=== PATIENT | female | born 1955 | race Caucasian/White ===

== ENCOUNTER 2022-05-26 10:54 | Outpatient (CLI) | payer OTHER, SELFPAY ==
[2022-05-26 11:44] LABS: Albumin* 4.3 g/dL (3.3-5.0); Chloride* 102 mmol/L (96-114); Potassium* 4.4 mmol/L (3.6-5.1); Sodium* 138 mmol/L (135-149)
[2022-05-26 11:47] LABS: Estimated Glomerular Filt Rate 63 ml/min
[2022-05-26 11:48] LABS: Blood Urea Nitrogen* 20 mg/dL (7-30); Calcium* 9.7 mg/dL (8.4-10.6); Carbon Dioxide* 28 mmol/L (20-32); Glucose* 109 mg/dL (60-115); Phosphorus* 3.6 mg/dL (2.5-4.5); Uric Acid* 7.6 mg/dL (2.2-8.4)
[2022-05-26 11:49] LABS: Creatinine Urine 121.8 mg/dL
[2022-05-26 11:50] LABS: Microalbumin Creatinine Ratio 0 mg/g (0-30); Microalbumin Urine < 1 mg/dL
== END 2022-05-26 10:55 | disposition home or self-care (01) ==
PROVIDERS: PCP Internal Medicine; Visit Provider Internal Medicine Nephrology
DX: N18.9 Chronic kidney disease, unspecified (principal); F41.9 Anxiety disorder, unspecified
CPT/HCPCS: 80069; 82043; 82570; 84443; 84550; 86140; 87086

== ENCOUNTER 2022-06-30 21:00 | Outpatient (CLI) | payer OTHER, SELFPAY ==
--- OUTSIDE RECORDS SUMMARY | 2022-06-30 21:03 | XMS_ITS | Clinical Summary ---
:1955 Author Organization [facility] Address [address] [place] [address] Care Team Providers Name Role Phone Unavailable Primary Care Provider Unavailable Source Comments Patient records contain information from all sites at [facility]. For routine questions regarding patient records, call [phone] during business hours, M-F 8:00 AM - 5:00 PM Central Time. Record requests for emergency care only can be directed to [phone] at any time.[facility] Medications Medication Sig Dispensed Refills Start End Date Status Date atorvastatin (LIPITOR) TAKE 1 100 tablet 3 Active 20 mg tablet TABLET BY 8 MOUTH DAILY valsartan (DIOVAN) 320 Take 1 30 tablet 11 0 Active mg tablet tablet 2 23 (320 mg total) by mouth daily. hydroCHLOROthiazide Take 1 90 tablet 3 06/02/20 Active (HYDRODIURIL) 25 mg tablet (25 2 23 tablet mg total) by mouth daily. metoprolol succinate TAKE 1 30 tablet 11 Active (TOPROL-XL) 50 mg 24 hr TABLET BY 2 tablet MOUTH DAILY. DO NOT CRUSH OR CHEW. carvediloL (COREG) Take 1 60 tablet 11 06/02/20 D iscontinued 3.125 mg tablet tablet 2 22 (Alt ernate (3.125 mg therapy) total) by mouth 2 (two) times a day with meals. metoprolol succinate Take 1 30 tablet 11 06/29/20 Discontinued (TOPROL-XL) 50 mg 24 hr tablet (50 2 22 tablet mg total) by mouth daily. Do not crush or chew. Active Problems Problem Noted Date Hyperlipidemia 05/13/2016 Hypertension Essential Primary 05/13/2016 Encounters Date Type Specialty Care Team Description 06/25/2022 Refill Nephrology and Sabiha, Med Refill Hypertension Nitesh Renee Jr., D.O. 06/02/2022 External Outreach Nephrology and Sabiha Hyperten thalia Essential Primary (Primary Dx); Hypertension Nitesh Renee Jr., Hyperlipidemia D.O. from Last 3 Months Immunizations Name Administration Dates Next Due Influenza Split 07/23/2014 Social History Tobacco Use Types Packs/Day Years Used Date Smoking Tobacco: Never Sex Assigned at Date Recorded Not on file Last Filed Vital Signs Vital Sign Reading Time Taken Comments Blood Pressure 138/78 06/02/2022 2:58 PM CDT Pulse 81 06/02/2022 2:58 PM CDT Temperature - - Respiratory Rate - - Oxygen Saturation - - Inhaled Oxygen - - Concentration Weight 71.2 kg (156 lb 15.5 06/02/2022 2:58 PM oz) CDT Height 158 cm (5' 2.21) 05/12/2016 8:34 AM Vital si gn result CDT from Clinical No lulu. Body Mass Index 28.52 05/12/2016 8:34 AM CDT Plan of Treatment Health Maintenance Due Date Last Done Comments Bone Density Scan (Osteoporosis 1955 Screen) CT Colonography 1955 Cologuard 1955 FIT 1955 HIV Screening 1955 Hepatitis C Screening 1955 Mammogram 06/20/2016 06/20/2015 (Performed elsewhere), 05/15/2014 (Performed elsewhere) Potassium Level 05/12/2017 05/12/2016 Sodium Level 05/12/2017 05/12/2016 Colonoscopy 07/25/2017 07/25/2007 (Performed elsewhere) Colorectal Cancer Screening 07/25/2017 Fasting Glucose for Diabetes 05/12/2019 05/12/2016, 014, Screening 08/13/2014 Pneumococcal vaccine (65+ years) 06/22/2019 06/22/2018 (2 - PCV) DTaP,Tdap,and Td Vaccines (2 - Td 07/25/2019 07/25/2009, or Tdap) Lipid (Cholesterol) Screening 05/12/2021 05/12/2016, 2009 (Performed elsewhere) Depression Screening (Annual 10/18/2021 PHQ-2) Fall Risk Screen (Annual) 2022 COVID-19 Vaccine (4 - Booster for 05/08/2022 01/06/2022, , Moderna series) 2021 Influenza Vaccine (#1) 2022 08/13/2021, 07/25/2020, 09/12/2019, Additional history exists Cervical Cancer Screening 09/12/2022 09/12/2019, 08/16/2018 , 05/15/2014 (Performed elsewhere) Creatinine Level 10/28/2022 10/28/2021, 05/12/2016, 08/13/2014 Office Visit for Blood Pressure 06/02/2023 06/02/2022 Check / Re-check Zoster Vaccines Completed 02/25/2019, 01/20/2019, 06/22/2018 Insurance Payer Benefit Plan / Subscriber ID Effective Phone Address T ype Group Dates [facility] [id number] 2018-Pres [phone] [address] [employer] [phone] [place] [address] ([place]) [place] [address]
--- OUTSIDE RECORDS SUMMARY | 2022-06-30 21:03 | XMS_ITS | Encounter Summary ---
:1955 Author Organization [facility] Address [address] [place] [address] Care Team Providers Name Role Phone Unavailable Primary Care Provider Unavailable Reason for Visit Reason Comments Med Refill Encounter Details Date Type Department Care Team Description 05/22/2019 Refill Department of Cardiovascular Inder Amaya Jr., Med Refill Medicine in [facility] [address] [place] [phone] Social History Tobacco Use Types Packs/Day Years Used Date Smoking Tobacco: Never Sex Assigned at Date Recorded Not on file documented as of this encounter Miscellaneous Notes Telephone Encounter - Ila Valle V. - 05/22/2019 2:13 PM CDT Patient has not seen CV in > 15 months. Please have PCP fill Rx. documented in this encounter Plan of Treatment Not on filedocumented as of this encounter Visit Diagnoses Not on filedocumented in this encounter
--- OUTSIDE RECORDS SUMMARY | 2022-06-30 21:03 | XMS_ITS | Encounter Summary ---
:1955 Author Organization [facility] Address [address] [place] [address] Care Team Providers Name Role Phone Unavailable Primary Care Provider Unavailable Reason for Visit Appointment Request (Routine) - Closed Specialty Diagnoses / Procedures Referred By Contact Refer red To Contact Nephrology and Hypertension Referral ID Status Reason Start Date Expiration Date Visits Requ ested Visits Authorized [id number] Closed 05/21/2022 05/21/2023 1 Encounter Details Date Type Department Care Team Description 06/02/2022 External Outreach Division of Claire Landis on Essential Primary (Primary Dx); Nephrology and Nitesh Renee Jr., Hyperlipidem ia Hypertension in D[place]O. [place], [place] [address] [facility] [address] [place] [phone] [phone] Social History Tobacco Use Types Packs/Day Years Used Date Smoking Tobacco: Never Sex Assigned at Date Recorded Not on file documented as of this encounter Last Filed Vital Signs Vital Sign Reading Time Taken Comments Blood Pressure 138/78 06/02/2022 2:58 PM CDT Pulse 81 06/02/2022 2:58 PM CDT Temperature - - Respiratory Rate - - Oxygen Saturation - - Inhaled Oxygen Concentration - - Weight 71.2 kg (156 lb 15.5 oz) 06/02/2022 2:58 PM CDT Height - - Body Mass Index 28.52 05/12/2016 8:34 AM CDT documented in this encounter Progress Notes Nitesh Landis Jr., D.O. - 06/02/2022 2:30 PM CDT Referring Provider: No primary care provider on file. SUBJECTIVE out reach [facility] REASON FOR VISIT Follow-up regards hypertension, lightheaded spells difficulties with medication tolerance HISTORY OF PRESENT ILLNESS Ms. Ward is a 67 y.o. female who presents with severe resistant hypertension. Her blood pressures have been excellent recently, on carvedilol 3.125 mg twice daily, valsartan 320 mg orally daily, and hydrochlorothiazide 25 mg orally daily. However she is having diarrhea every time she uses the carvedilol. She has done some experiment swear she skips a dose and the diarrhea goes away. There are no other new medications no other new therapies no sugar free candies or changes in her diet to explain theloose bowel movements. She will need to discontinue this. And while this is extremely frustrating, she is more frustrated by her lightheadedness. She has gonethrough 2 different testing centers, including MRIs, vestibular testing, carotid ultrasounds, orthostatic blood pressures, and no readily apparent cause of her lightheaded episodes have been discovered. She is very frustrated. She feels lightheaded intermittently multiple times per day. No chest pain no palpitations, she does relate that unusually, many nights she has sweating of her shoulders and head only. She has some symptoms of sleep disordered breathing where she wakes up snoring, she does not awaken refreshed, she easily dozes off during the day, and her complains of her loud snoring. We discussed this at our last visit regarding the potential secondary cause of hypertension. She is now wondering about this, we discussed a sleep study. History reviewed. No pertinent past medical history. Current Outpatient Medications: atorvastatin (LIPITOR) 20 mg tablet, TAKE 1 TABLET BY MOUTH DAILY, Disp: 100 tablet, Rfl: 3 hydroCHLOROthiazide (HYDRODIURIL) 25 mg tablet, Take 1 tablet (25 mg total) by mouth daily., Disp: 90 tablet, Rfl: 3 metoprolol succinate (TOPROL-XL) 50 mg 24 hr tablet, Take 1 tablet (50 mg total) by mouth daily. Donot crush or chew., Disp: 30 tablet, Rfl: 11 valsartan (DIOVAN) 320 mg tablet, Take 1 tablet (320 mg total) by mouth daily., Disp: 30 tablet, Rfl: 11 REVIEW OF SYSTEMS All other systems reviewed and are negative. OBJECTIVE BP 138/78 Pulse 81 Wt 71.2 kg BMI 28.52 kg/m?? PHYSICAL EXAMINATION General: Awake alert oriented HEENT: DIMAS, EOMI, Mucous membranes moist, no oral lesions Neck: No Masses, No Bruits Lungs: Clear to ascultation Heart: Regular Rate and Rhythm, No ectopy Murmurs or rubs Abdomen: Soft, Non-tender Extremities: No cyanosis, No clubbing: No edema Neuro: Cranial Nerves intact, Gait is normal, strength grossly normal Skin: no suspicious lesions identified Psychiatric: Normal affect DIAGNOSTICS Chemistries normal CBC normal urinalysis normal without microalbumin ASSESSMENT / PLAN #1 Hypertension Essential Primary We will rule out secondary causes without a formal sleep study. I will have her undergo sleep consult as well. Some of her symptoms are unusual, particularly the diaphoresis of her head and neck alone,and given that she poorly tolerated the carvedilol, we will switch this for metoprolol. I am going going to give her 30 days worth this, and K she tolerates this poorly as well. She will continue to check her blood pressure on a daily basis in the morning. In addition: 1. Sleep studies above 2. Low-sodium diet 3. No NSAIDs or Ball 2 inhibitors 4. Return to clinic in 2 months. Regarding her lightheaded spells, if her sleep studies are normal, we might need to pursue stress testing, Holter monitors, and even 24 hour ambulatory blood pressures to better understand this phenomenon. #2 Hyperlipidemia She will continue on Lipitor Total time: 45 minute Counseling Time: 30 minutes Nitesh Landis Jr., D.O. documented in this encounter Plan of Treatment Not on filedocumented as of this encounter Visit Diagnoses Diagnosis Hypertension Essential Primary - Primary Hyperlipidemia documented in this encounter
--- OUTSIDE RECORDS SUMMARY | 2022-06-30 21:03 | XMS_ITS | Encounter Summary ---
:1955 Author Organization [facility] Address [address] [place] [address] Care Team Providers Name Role Phone Unavailable Primary Care Provider Unavailable Reason for Visit Reason Comments Med Refill Encounter Details Date Type Department Care Team Description 06/12/2019 Refill Department of Cardiovascular Inder Amaya Jr., Med Refill Medicine in [address] [address] Social History Tobacco Use Types Packs/Day Years Used Date Smoking Tobacco: Never Sex Assigned at Date Recorded Not on file documented as of this encounter Miscellaneous Notes Telephone Encounter - Maddy Villela - 06/12/2019 1:11 PM CDT Please have patient's local PCP fill Rx documented in this encounter Plan of Treatment Not on filedocumented as of this encounter Visit Diagnoses Not on filedocumented in this encounter
--- OUTSIDE RECORDS SUMMARY | 2022-06-30 21:03 | XMS_ITS | Encounter Summary ---
:1955 Author Organization [facility] Address [address] [place] [address] Care Team Providers Name Role Phone Unavailable Primary Care Provider Unavailable Reason for Visit Appointment Request (Routine) - Closed Specialty Diagnoses / Procedures Referred By Contact Refer red To Contact Nephrology and Hypertension Referral ID Status Reason Start Date Expiration Date Visits Requ ested Visits Authorized [id number] Closed 11/07/2021 11/07/2022 1 Encounter Details Date Type Department Care Team Description 12/03/2021 External Outreach Division of Dara Will Nephrology and Charlene Hickman, Essential Nadia chema Hypertension in Ph.D. [place], [place] [address] [facility] [address] [place] [phone] [phone] Social History Tobacco Use Types Packs/Day Years Used Date Smoking Tobacco: Never Sex Assigned at Date Recorded Not on file documented as of this encounter Progress Notes Marylou Will M.D., Ph.D. - 12/03/2021 4:00 PM CST Please see scanned in note under document viewer tab for the [facility] [place] outreach visit from this date. 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
--- OUTSIDE RECORDS SUMMARY | 2022-06-30 21:03 | XMS_ITS | Encounter Summary ---
:1955 Author Organization [facility] Address [address] [place] [address] Care Team Providers Name Role Phone Unavailable Primary Care Provider Unavailable Reason for Visit Reason Comments Med Refill Encounter Details Date Type Department Care Team Description 02/05/2022 Refill Division of Nephrology and Sabiha, Kirby Renee Jr., Med Refill Hypertension in [facility] [address] [facility] [address] [place] [address] [place] [address] [phone] Social History Tobacco Use Types Packs/Day Years Used Date Smoking Tobacco: Never Sex Assigned at Date Recorded Not on file documented as of this encounter Plan of Treatment Not on filedocumented as of this encounter Visit Diagnoses Not on filedocumented in this encounter
--- OUTSIDE RECORDS SUMMARY | 2022-06-30 21:03 | XMS_ITS | Encounter Summary ---
:1955 Author Organization [facility] Address [address] [place] [address] Care Team Providers Name Role Phone Unavailable Primary Care Provider Unavailable Reason for Visit Appointment Request (Routine) - Closed Specialty Diagnoses / Procedures Referred By Contact Refer red To Contact Nephrology and Manish Freedman Hypertension Charlene [address] [place] [address] Referral ID Status Reason Start Date Expiration Date Visits Requ ested Visits Authorized [id number] Closed 10/24/2021 10/24/2022 1 1 Encounter Details Date Type Department Care Team Description 11/04/2021 External Outreach Division of Dara Will Nephrology and Charlene Hickman, Essential Nadia chema Hypertension in [place].D[place] (Primary Dx) [address] [place] [address] [phone] Social History Tobacco Use Types Packs/Day Years Used Date Smoking Tobacco: Never Sex Assigned at Date Recorded Not on file documented as of this encounter Consult Notes Marylou Will M.D., Ph.D. 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
--- OUTSIDE RECORDS SUMMARY | 2022-06-30 21:03 | XMS_ITS | Encounter Summary ---
:1955 Author Organization [facility] Address [address] [place] [address] Care Team Providers Name Role Phone Unavailable Primary Care Provider Unavailable Encounter Details Date Type Department Care Team Description 02/10/2022 Orders Only Division of Nephrology Nitesh Landis [email or web address] Essential and Hypertension in C Osvaldo [place] Primary (Primary Dx) [place], [place] [address] [facility] [address] [place] [address] [phone] Social History Tobacco Use Types Packs/Day Years Used Date Smoking Tobacco: Never Sex Assigned at Date Recorded Not on file documented as of this encounter Plan of Treatment Not on filedocumented as of this encounter Visit Diagnoses Diagnosis Hypertension Essential Primary - Primary documented in this encounter
--- OUTSIDE RECORDS SUMMARY | 2022-06-30 21:03 | XMS_ITS | Encounter Summary ---
:1955 Author Organization [facility] Address [address] [place] [address] Care Team Providers Name Role Phone Unavailable Primary Care Provider Unavailable Reason for Visit Appointment Request (Routine) - Closed Specialty Diagnoses / Procedures Referred By Contact Refer red To Contact Referral ID Status Reason Start Date Expiration Date Visits Requ ested Visits Authorized [id number] Closed 12/05/2021 12/05/2022 1 Encounter Details Date Type Department Care Team Description 01/12/2022 External Outreach Division of Claire Landis on Essential Primary (Primary Dx); Nephrology and Nitesh Renee Jr., Hyperlipidem ia Hypertension in [place]. [place], [place] [address] [facility] [address] [place] [address] [phone] Social History Tobacco Use Types Packs/Day Years Used Date Smoking Tobacco: Never Sex Assigned at Date Recorded Not on file documented as of this encounter Progress Notes Nitesh Landis Jr., D.O. - 01/12/2022 2:00 PM CDT Please see scanned in note under document viewer tab for the [facility] [place] outreach visit from this date. Medical Problems Diagnosis List Hyperlipidemia Hypertension Essential Primary documented in this encounter Plan of Treatment Not on filedocumented as of this encounter Visit Diagnoses Diagnosis Hypertension Essential Primary - Primary Hyperlipidemia documented in this encounter
--- OUTSIDE RECORDS SUMMARY | 2022-06-30 21:03 | XMS_ITS | Encounter Summary ---
:1955 Author Organization [facility] Address [address] [place] [address] Care Team Providers Name Role Phone Unavailable Primary Care Provider Unavailable Reason for Visit Reason Comments Med Refill Encounter Details Date Type Department Care Team Description 12/26/2021 Refill Division of Nephrology and Marylou Rodriguez, Med Refill Hypertension in [place], Ph.D. [address] [address] [place] [address] [phone] Social History Tobacco Use Types Packs/Day Years Used Date Smoking Tobacco: Never Sex Assigned at Date Recorded Not on file documented as of this encounter Plan of Treatment Not on filedocumented as of this encounter Visit Diagnoses Not on filedocumented in this encounter
--- OUTSIDE RECORDS SUMMARY | 2022-06-30 21:03 | XMS_ITS | Encounter Summary ---
:1955 Author Organization [facility] Address [address] [place] [address] Care Team Providers Name Role Phone Unavailable Primary Care Provider Unavailable Reason for Visit Reason Comments Med Refill Encounter Details Date Type Department Care Team Description 05/27/2018 Refill Department of Cardiovascular Inder Amaya Jr., Med Refill Medicine in [address] [phone] Social History Tobacco Use Types Packs/Day Years Used Date Smoking Tobacco: Never Sex Assigned at Date Recorded Not on file documented as of this encounter Plan of Treatment Not on filedocumented as of this encounter Visit Diagnoses Not on filedocumented in this encounter
--- OUTSIDE RECORDS SUMMARY | 2022-06-30 21:03 | XMS_ITS | Encounter Summary ---
:1955 Author Organization [facility] Address [address] [place] [address] Care Team Providers Name Role Phone Unavailable Primary Care Provider Unavailable Reason for Visit Reason Comments Med Refill Encounter Details Date Type Department Care Team Description 06/25/2022 Refill Division of Nephrology and Sabiha, Kirby Renee Jr., Med Refill Hypertension in [facility] [address] [facility] [address] [place] [address] [place] [address] [phone] Social History Tobacco Use Types Packs/Day Years Used Date Smoking Tobacco: Never Sex Assigned at Date Recorded Not on file documented as of this encounter Plan of Treatment Not on filedocumented as of this encounter Visit Diagnoses Not on filedocumented in this encounter
--- OUTSIDE RECORDS SUMMARY | 2022-06-30 21:03 | XMS_ITS | Encounter Summary ---
:1955 Author Organization [facility] Address [address] [place] [address] Care Team Providers Name Role Phone Unavailable Primary Care Provider Unavailable Reason for Visit Reason Comments Med Refill Encounter Details Date Type Department Care Team Description 06/21/2019 Refill Department of Cardiovascular Inder Amaya Jr., Med Refill Medicine in [address] [phone] Social History Tobacco Use Types Packs/Day Years Used Date Smoking Tobacco: Never Sex Assigned at Date Recorded Not on file documented as of this encounter Plan of Treatment Not on filedocumented as of this encounter Visit Diagnoses Not on filedocumented in this encounter
--- OUTSIDE RECORDS SUMMARY | 2022-06-30 21:03 | XMS_ITS | Clinical Summary ---
:1955 Author Organization [facility] [place] [address] Care Team Providers Name Role Phone Manish Freedman MD Primary Care Provider Allergies No known active allergies Medications Medication Sig Dispensed Refills Start Date End Date Status NASONEX 50 MCG/ACTUATION inhale 2 sprays 0 Active SPRAY in each nostril by nasal route once daily atorvastatin (LIPITOR) 20 Take 20 mg by 3 06/10/2017 Active mg tablet mouth once daily. hydroCHLOROthiazide TK 1 T PO D 0 04/12/2017 Active (HCTZ) 25 mg tablet LORazepam (ATIVAN) 1 mg Take 1 mg by 1 05/01/2017 Active tablet mouth 2 times daily if needed. JINTELI 1-5 mg-mcg tab Take 1 tablet 2 05/14/2017 Active by mouth once daily. diclofenac topical Apply topically 0 10/31/2020 Active (VOLTAREN) 1 % gel to affected area(s) 4 times daily. omeprazole (PRILOSEC) 40 Take 40 mg by 0 05/13/2021 Active mg Delayed-Release mouth once capsule daily. carvediloL (COREG) 3.125 Take 3.125 mg 0 02/10/2022 Active mg tablet by mouth in the 3 morning and 3.125 mg in the evening. valsartan (DIOVAN) 320 mg Take 320 mg by 0 2 Active tablet mouth once 3 daily. Active Problems Problem Noted Date Bilateral hip pain 05/11/2019 Overview: 4 or 5 previous hip bursa injections by Dr. Rees [id number] approximately MRI of bilateral hips done May 2018. Jul 2018: Bilateral TEnex procedures by Dr. Jose Alejandro Smith of gluteal tendons without significant benefit. April 2019: Bilateral greater trochanteri c bursa hip injection by Dr. Santana Pedroza.75 to 80% benefit several weeks out. October 2019: Repeat bilateral Greater T rochanteric Bursa injections by Dr. Pedroza. 80% better initially, benefit lasted until May 2020. Jun 2020: Repeat bilateral Greater Troc hanteric Bursa injections by Dr. Pedroza. September 2021: Repeat bilateral Greater Trochanteric Bursa injections by Dr. Pedroza. April 2022: Repeat bilateral Greater Troc hanteric Bursa injections by Dr. Pedroza, reporting 60% relief 1 week out. Chronic right-sided low back pain with right-sided sci atica 08/25/2017 Overview: ~ August 2017: Right L4-L5 IL epidural steroid injection by Dr. Chance. September 2017: Lyrica prescription was t oo expensive to start. Pablitombalta PA approved September 2017. ~ December 2017: L5-S1 IL epidural steroid injection by Dr. Chance. Nearly 100% improvement for 3-4 weeks of back and leg pain. ~ September 2018: L5-S1 TF epidural stero id injection by Dr. Chance, Good Lidocaine benefit, but after lidocaine only some help with back pain, leg pain worse. ~ April 2019: bilateral Greater Trochante kennedi Bursa hip injections by Dr. Pedroza. ~ February 2021: L5-S1 Right TF epidural ster oid injection by Dr. Chance. ~ April 2021: L5-S1 IL epidural steroid i njection by Dr. Chance. Essential hypertension 07/01/2017 Unspecified sinusitis (chronic) 05/19/2006 Allergic rhinitis, cause unspecified 05/19/2006 Esophageal reflux 05/19/2006 Dysthymic disorder 05/19/2006 Mixed hyperlipidemia 08/24/2005 Encounters Date Type Specialty Care Team Description 06/24/2022 Orders Only Rajendra Camacho, <No scans attached> 05/04/2022 Procedure Only Jaya Cabrera, PHOTOGRAPH FINISHER 04/23/2022 Procedure Only Santana Pedroza Musculoskele mat Problem MD Nilsa (Follow up bila ter... 04/23/2022 Travel from Last 3 Months Immunizations Name Administration Dates Next Due Influenza A (H1N1), Inactivated 11/20/2009 Influenza RIV4 (Age 18+ Years) PRESERV 08/13/2021, 0, 09/12/2019 FREE Influenza, IIV3 (Age >=3 years) 07/21/2009 Influenza, IIV4 07/01/2017 Pneumococcal Poly,23-Valent (Pneumovax) 06/22/2018 Tdap 07/25/2009 Zoster (Shingrix-RZV, recombinant) 02/25/2019, 01/20/2019, 0 06/22/2018 Family History Medical History Relation Name Comments Heart Disease Father CAD 1st [place] 50's Hyperlipidemia Father Other Father myelofibrosis Hypertension Mother Relation Name Status Comments Father Mother Social History Tobacco Use Types Packs/Day Years Used Date Never Smoker Smokeless Tobacco: Never Used Tobacco Cessation: Counseling Given: Yes Alcohol Use Standard Drinks/Week Comments Yes 0 (1 standard drink = 0.6 oz pure alcoho l) rare Alcohol Habits Answer Date Recorded How often do you have a drink containing alcohol? 2-3 times a week 12/29/2018 How many drinks containing alcohol do you have on a 3 or 4 12/29/2018 typical day when you are drinking? How often do you have six or more drinks on one Never 12/29/2018 occasion? 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 PM FISHING GEAR MECHANIC Plan of Treatment Upcoming Encounters Date Type Specialty Care Team Description 07/01/2022 Ancillary Procedure Health Maintenance Due Date Last Done Comments Hepatitis C screening for age 0301/03/1975 18-79 Mammogram for age 45-75 04/17/2010 04/17/2009 Pap test for age 21-65 04/17/2012 04/17/2009 Lipids for age 45-75 04/24/2013 04/24/2008 Colonoscopy through age 75 06/18/2017 06/18/2007 Pneumococcal series for age 65+ (2 06/22/2019 06/22/2018 - PCV) Tetanus booster 07/25/2019 07/25/2009 BMI (ht and wt on same day) for 10/31/2021 10/31/2020, 04/18, age 18+ 12/29/2018, Additional history exists DEXA/DXA scan for age 65+ 2022 Depression screening for age 12+ 03/06/2022 03/06/2021, COVID-19 vaccine series (4 - 05/08/2022 01/06/2022, 021, Booster for Moderna series) 2021 Influenza for age 65+ 06/18/2022 08/13/2021, 07/25/2020, 09/12/2019, Additional history exists Tdap Completed 07/25/2009 Zoster (shingles) series for age Completed 02/25/2019, 02/2019, 50+ 06/22/2018 Results Not on filefrom Last 3 Months Insurance Payer Benefit Plan / Subscriber ID Effective Dates Phone Addre ss Type Group [facility] [id number] 2018-Presen [address] [address] [place] [address] (Home) [place], [place] [phone] [address] (Work) [employer] Occ Other 10/18/2000 ANGELO [employer] (Home) [phone] (Work) [place] [address] [employer]quita Ward [employer] [address] (Home) [place], [place] [phone] [address] (Work) Care Teams Community Services Manager Relationship Specialty Start Date End Date Manish Freedman MD PCP - General Internal Medicine 12/29/181999 [place] [address]
--- OUTSIDE RECORDS SUMMARY | 2022-06-30 21:03 | XMS_ITS | Encounter Summary ---
:1955 Author Organization [facility] Address [address] [place] [address] Care Team Providers Name Role Phone Unavailable Primary Care Provider Unavailable Encounter Details Date Type Department Care Team Description 02/10/2022 Clinical Communication Division of Nephrology Nitesh Landis and Hypertension cristo Renee Jr., D.O. [place], [place] [address] [facility] [address] [place] [address] [phone] Social History Tobacco Use Types Packs/Day Years Used Date Smoking Tobacco: Never Sex Assigned at Date Recorded Not on file documented as of this encounter Miscellaneous Notes Telephone Encounter - Nitesh Landis Jr., D.O. - 02/10/2022 1:02 PM CDT Phone note documentation: She has severe resistant hypertension, and we had I added carvedilol 3.125 mg to her regimen last month. She is calling to check in. Her blood pressures are excellent, running in the 130s over 70s withpulse rate of 63. With exersize, her max heart rate can only get up to 115 beats per minute. Discussed that these are expected changes with the beta-melanie. She is willing to continue on the agent for another month as a trial. Oddly, her pharmacy called asking her to contact me. I expect what might be the issue is that they are expecting a 90 day supply for her. As we are not certain this agent is going to work for her long-term we will stick with the 30 day refill. documented in this encounter Plan of Treatment Not on filedocumented as of this encounter Visit Diagnoses Not on filedocumented in this encounter
--- OUTSIDE RECORDS SUMMARY | 2022-06-30 21:04 | XMS_ITS | Encounter Summary ---
:1955 Author Organization [facility] Address [address] [place] [address] Care Team Providers Name Role Phone Manish Freedman MD Primary Care Provider [phone] Encounter Details Date Type Department Care Team Description 08/11/2017 Radiant Appointment [facility] it for [facility] na mammogram [address] [facility], [address] [place] [address] Social History Tobacco Use Types Packs/Day Years Used Date Never Smoker Smokeless Tobacco: Never Used Alcohol Use Standard Drinks/Week Comments Yes 10 (1 standard drink = 0.6 oz pure alcoh ol) Alcohol Habits Answer Date Recorded How often do you have a drink containing alcohol? 2-3 times a week 09/12/2019 How many drinks containing alcohol do you have on a 1 or 2 09/12/2019 typical day when you are drinking? How often do you have six or more drinks on one Never 09/12/2019 occasion? Comment: Not asked Sex Assigned at Date Recorded Not on file documented as of this encounter Plan of Treatment Not on filedocumented as of this encounter Procedures Procedure Name Priority Date/Time Associated Diagnosis Comme nts MA SCREENING Routine 08/11/2017 9:11 AM Visit for screening Re sults for this DIGITAL BILATERAL CDT mammogram procedure are in the results section. documented in this encounter Results MA Screening Digital Bilateral (08/11/2017 9:11 AM CDT) Anatomical Region Laterality Modality Breast Bilateral Mammography Specimen (Source) Anatomical Location Collection Method / Collectio n Time Received Time / Laterality Volume Impressions 08/11/2017 11:07 AM CDT IMPRESSION: BI-RADS CATEGORY: 1 - ??Negative RECOMMENDED FOLLOW-UP: Annual Mammograph y. Exam results letter mailed to patient. CATIA HO MD Narrative 08/11/2017 11:07 AM CDT SCREENING MAMMOGRAM, BILATERAL, DIGITAL w/CAD - 08/11/2017 9:11 AM BREAST SYMPTOMS: No current breast compl aints. COMPARISON: ??08/06/2016,06/18/2015, 014,05/12/2011. BREAST DENSITY: Heterogeneously dense. COMMENTS: No findings of suspicion for m alignancy. Procedure Note Catia Ho MD - 08/11/2017F ormatting of this note might be different from the original. SCREENING MAMMOGRAM, BILATERAL, DIGITAL w/CAD - 08/11/2017 9:11 AM BREAST SYMPTOMS: No current breast compl aints. COMPARISON: 08/06/2016,06/18/2015, 4,05/12/2011. BREAST DENSITY: Heterogeneously dense. COMMENTS: No findings of suspicion for m alignancy. IMPRESSION: BI-RADS CATEGORY: 1 - Negati ve RECOMMENDED FOLLOW-UP: Annual Mammograph y. Exam results letter mailed to patient. CATIA HO MD Dc Gonzalez MD IMG MAMMOGRAPHY ORDERABLES documented in this encounter Visit Diagnoses Diagnosis Visit for screening mammogram Other screening mammogram documented in this encounter Additional Health Concerns Assessment Noted Time PHQ-9 Depression Total Score: 3 08/11/2017 9:15 AM CDT documented as of this encounter Care Teams Ammonium Nitrate Neutralizer Relationship Specialty Start Date End Date Manish Freedman MD PCP - General Emergency Medicine 08/11/[address] [address] documented as of this encounter
--- OUTSIDE RECORDS SUMMARY | 2022-06-30 21:04 | XMS_ITS | Encounter Summary ---
:1955 Author [facility] Address [address], [place] [address] Care Team Providers Name Role Phone Dc Gonzalez MD Primary Care Provider Unavailable Reason for Referral Procedure/Equipment (Routine) - Incomplete Specialty Diagnoses / Procedures Referred By Contact Refer red To Contact Diagnoses Closed displaced fracture of second metatarsal bone of right foot, initial encounter Norberto Kulkarni DPM Procedures XR Foot Rt 3+ Views [address] [place] [address] Referral ID Status Reason Start Date Expiration Date Visits V isits Requested Authorized [id number] Incomplete 08/12/2016 11/11/2017 1 1 Reason for Visit Reason Comments FRACTURE Encounter Details Date Type Department Care Team Description 08/12/2016 Office Visit [facility] Norberto Kulkarni C losed displaced MedSurg DPM fracture of second [address] [place] [address] [place], [place] right foot, initial [phone] encounter (Primary [phone] (Wo rk) Dx) Social History Tobacco Use Types Packs/Day Years Used Date Smoking Tobacco: Never Sex Assigned at Date Recorded Not on file documented as of this encounter Progress Notes Norberto Kulkarni DPM - 08/12/2016 3:11 PM CDT DATE OF VISIT: 08/12/2016 SUBJECTIVE: Patient presents for follow-up. She has been immobilized for a timeframe of 4-1/2 weeks in a short Cam Walker. She has had a fracture of the 2nd metatarsal of her right foot. She indicates she is doing well but still has some discomfort. I did see her in September 2013 and I did give her an injection into the 3rd intermetatarsal space ofher left foot. She is status post excision of a neuroma on the 3rd intermetatarsal space which I didin 2005. She did have bilateral bunion surgery over 30 years ago. Adverse Drug Reactions: Allergies Allergen Reactions ??? Review Contrast Media PN: LW CM1: >>> NO CONTRAST ADVERSE REACTION <<< Reaction : Medications: Reviewed. See Medication List in Epic . Review of Systems: Negative for Diabetes No past medical history on file. There are no active problems to display for this patient. OBJECTIVE: Patient is neurovascularly intact. There is minimal swelling noted to the right foot. Shedoes have pain with palpation of the distal 2nd metatarsal. There is no pain with digital range of motion or compression of the metatarsal heads. No pain with plantar flexion of the 2nd ray against resistance. X-rays obtained today: Healing fracture with no change in position or alignment. There is some increase in periosteal reaction along the medial distal diaphysis. 08/12/2016 ??3:20 PM - Nader, Rad Results In ?? Narrative ?? COMPARISON: ??07/27/2016 FINDINGS: ??Focal area of cortical thickening again seen along the distal shaft of the second metatarsal. As previously described this could represent the sequelae of stress fracture. More prominent than that seen on the 07/13/2016 study. Joint space alignment maintained. Bunion deformity. Deformity at the base of the proximal phalanx of the third toe is unchanged and may be related to prior trauma. ASSESSMENT: Stress fracture distal 2nd metatarsal right foot PLAN: X-rays were obtained and reviewed with the patient. She is still having some discomfort and the fracture is in the mid to distal area. Because of this, I would like to keep her immobilized for time frame of 6 weeks. I discussed with the patient that she should not do any exercise activities until she is 3 months post onset of pain. She will continue with the short Cam Walker for an additional 1-1/2 weeks and then can transition back into a comfortable shoe. She will now follow-up with me on a p.r.n. basis The patient was discharged ambulatory and in stable condition. 15 total minutes. Orders Placed This Encounter Procedures ??? XR Foot Rt 3+ Views No orders of the defined types were placed in this encounter. (This note was created using voice recognition software and may contain some primary mill roller errors) documented in this encounter Plan of Treatment Not on filedocumented as of this encounter Results XR Foot Rt 3+ Views (08/12/2016 2:59 PM CDT) Anatomical Region Laterality Modality Lower Extremity, Foot Computed Radiograp hy Specimen (Source) Anatomical Collection Method Collection Time Re ceived Time Location / / Volume Laterality 08/12/2016 2:47 PM CDT Narrative 08/12/2016 3:18 PM CDT COMPARISON: ??07/27/2016 FINDINGS: ??Focal area of cortical thick ening again seen along the distal shaft of the second metatarsal. As previously described this could represent the sequelae of stress fracture. More prominent darlene n that seen on the 07/13/2016 study. Amy nt space alignment maintained. Bunion deformity. Deformity at the base of the proximal phalanx of the third toe is unchanged and may be related to prior trauma. Procedure Note Fermin Bello MD - 08/12/2016Forma tting of this note might be different from the original. COMPARISON: 07/27/2016 FINDINGS: Focal area of cortical thicken ing again seen along the distal shaft of the second metatarsal. As previously described this could represent the sequelae of stress fracture. More prominent than that seen on the 07/13/2016 study. Joint space ali gnment maintained. Bunion deformity. Deformity at the base of the proximal phalanx of the third toe is unchanged and may be related to prior trauma. Norberto Kulkarni DPM RAD GD documented in this encounter Visit Diagnoses Diagnosis Closed displaced fracture of second meta tarsal bone of right foot, initial encounter - Primary Closed displaced fracture of second meta tarsal bone of right foot, initial encounter documented in this encounter Care Teams Child Development Professor Relationship Specialty Start Date End Date Dc Gonzalez MD PCP - General 01/17/11 documented as of this encounter
--- OUTSIDE RECORDS SUMMARY | 2022-06-30 21:04 | XMS_ITS | Encounter Summary ---
:1955 Author Organization [email or web address] Address [address] [place] [address] Care Team Providers Name Role Phone Dc Gonzalez MD Primary Care Provider Unavailable Encounter Details Date Type Department Care Team Description 07/12/2006 Office Visit [facility] Eyad Kulkarni DPM [facility] [address] [facility] [address] [place] [address] [place], [place] [id number] [phone] Social History Tobacco Use Types Packs/Day Years Used Date Smoking Tobacco: Never Assessed Sex Assigned at Date Recorded Not on file documented as of this encounter Progress Notes Nroberto Kulkarni DPM - 07/12/2006 12:01 AM CDT Progress Notes signed by Norberto Kulkarni DPM at 07/13/06 1055 Author: Norberto Kulkarni DPM Service: (none) Author Type: Physician Filed: 02/06/11 1449 Note Time: 07/12/06 0001 Status: Signed Channeling Machine Operator: Norberto Kulkarni DPM (Physician) NAME: SAVAGE WARD MR: [id number] ACCT: [id number] VISIT: [id number] DICTATING CLINICIAN: Norberto Kulkarni DPM JOB: [id number] LOC: 539 CLINIC PROGRESS NOTE DATE OF VISIT: 07/12/2006 SUBJECTIVE: The patient presents for follow up. She is 4 days postop neuroma excision on her right foot. She indicates she is doing well. OBJECTIVE: The patient is neurovascularly intact. The incision line is intact. There is no evidence of infection. Some postoperative swelling is identified. Pathology report does confirm a neuroma. ASSESSMENT: Now 4 days postop neuroma excision third intermetatarsal space right foot. PLAN: Dressing change was performed. She will continue to keep the area dry. She will follow up with me in 10 days for suture removal. ALP:[id number] C: 07/12/06 20:10 DOCUMENT: [id number] documented in this encounter Plan of Treatment Not on filedocumented as of this encounter Visit Diagnoses Not on filedocumented in this encounter Care Teams Shuttle Hand Relationship Specialty Start Date End Date Dc Gonzalez MD PCP - General 01/17/11 documented as of this encounter
--- OUTSIDE RECORDS SUMMARY | 2022-06-30 21:04 | XMS_ITS | Encounter Summary ---
:1955 Author Organization Central Address [address] [place] [address]. [place] [address] Care Team Providers Name Role Phone Manish Freedman MD Primary Care Provider [phone] Reason for Visit Reason Onset Date Comments Physical Imm/Inj 09/12/2019 Flu Shot Encounter Details Date Type Department Care Team Description 09/12/2019 [facility]ological examination without abnormal finding (Primary Dx); [facility] MD Avelino Menopause; Nichole [address] [place] [address] Need for prophylactic vaccin ation and inoculation against influenza [address] [address] [place] [address] [place] [address] (Work) [phone] Social History Tobacco Use Types Packs/Day Years [...] Sign Reading Time Taken Comments Blood Pressure 138/82 09/12/2019 10:47 AM ASSISTANT DISTRICT ATTORNEY Pulse 78 09/12/2019 10:47 AM ASSISTANT DISTRICT ATTORNEY Temperature - - Respiratory Rate - - Oxygen Saturation - - Inhaled Oxygen Concentration - - Weight 69.9 kg (154 lb) 09/12/2019 10:47 AM ASSISTANT DISTRICT ATTORNEY Height 155.3 cm (5' 1.15) 09/12/2019 10:47 AM ASSISTANT DISTRICT ATTORNEY Body Mass Index 28.96 09/12/2019 10:47 AM ASSISTANT DISTRICT ATTORNEY documented in this encounter Progress Notes Jessica Gonzalez MD - 09/12/2019 11:00 AM CST Savage Spencer is a 64 year old No obstetric history on file. female who presents for annual exam. Besides routine health maintenance, she has no other health concerns today . HPI: The patient's PCP is Manish Freedman MD. annueal exam today. Has noted some swelling under both arems. Saw PCP who felt it was the edge of a muscle. No other complaints. GYNECOLOGIC HISTORY: No LMP recorded. Patient is postmenopausal. Regular menses? Postmenopausal Menses every NA days. Length of menses: NA days Her current contraception method is: menopause. She reports that she has never smoked. She has never used smokeless tobacco. Patient is sexually active. STD testing offered? Declined Last PHQ-9 score on record = PHQ-9 SCORE 09/12/2019 PHQ-9 Total Score 2 Last GAD7 score on record = PA-7 SCORE 09/12/2019 Total Score 1 Alcohol Score = 3 HEALTH MAINTENANCE: Cholesterol: (No results found for: CHOL Last Mammo: One year ago, Result: Normal, Next Mammo: Today Pap: Lab Results Component Value Date PAP NIL HPV- 08/16/2018 PAP NIL 08/11/2017 PAP NIL 08/06/2016 Colonoscopy: Fall 2014, Result: Normal, Next Colonoscopy: 2020 years. Dexa: 06/18/2015 Health maintenance updated: yes HISTORY: OB History No obstetric history on file. Patient Active Problem List Diagnosis ??? Screening for cervical cancer History reviewed. No pertinent surgical history. Social History Tobacco Use ??? Smoking status: Never Smoker ??? Smokeless tobacco: Never Used Substance Use Topics ??? Alcohol use: Yes Alcohol/week: 10.0 standard drinks Types: 10 Standard drinks or equivalent per week Frequency: 2-3 times a week Drinks per session: 1 or 2 Binge frequency: Never Problem (# of Occurrences) Relation (Name,Age of Onset) Arthritis (1) Father Cerebrovascular Disease (1) Father Chronic Obstructive Pulmonary Disease (1) Father Coronary Artery Disease (1) Father Hyperlipidemia (1) Father Hypertension (2) Father, Mother Thyroid Disease (1) Sister Current Outpatient Medications Medication Sig ??? amitriptyline (ELAVIL) 10 MG tablet ??? fluticasone (FLONASE) 50 MCG/ACT nasal spray [place] 2 sprays into both nostrils daily ??? hydrochlorothiazide (HYDRODIURIL) 25 MG tablet ??? LORazepam (ATIVAN) 1 MG tablet ??? losartan (COZAAR) 50 MG tablet Take 50 mg by mouth daily ??? norethindrone-ethinyl estradiol (JINTELI) 1-5 MG-MCG tablet Take 1 tablet by mouth daily -due for annual exam in July 2018. ??? ondansetron (ZOFRAN-ODT) 4 MG disintegrating tablet ??? atorvastatin (LIPITOR) 20 MG tablet Take 20 mg by mouth daily ??? PRILOSEC OR None Entered ??? SHINGRIX injection ADM 0.5ML IM UTD No current facility-administered medications for this visit. No Known Allergies Past medical, surgical, social and family histories were reviewed and updated in [facility]. ROS: 12 point review of systems negative other than symptoms noted below or in the HPI. No urinary frequency or dysuria, bladder or kidney problems EXAM: BP 138/82 Pulse 78 Ht 1.553 m (5' 1.15) Wt 69.9 kg (154 lb) BMI 28.96 kg/m?? BMI: Body mass index is 28.96 kg/m??. PHYSICAL EXAM: Constitutional: Appearance: Well nourished, well developed, alert, in no acute distress Neck: Lymph Nodes: No lymphadenopathy present Thyroid: Gland size normal, nontender, no nodules or masses present on palpation Chest: Respiratory Effort: Breathing unlabored Cardiovascular: Heart: Auscultation: Regular rate, normal rhythm, no murmurs present Breasts: Inspection of Breasts: No lymphadenopathy present., Palpation of Breasts and Axillae: No masses present on palpation, no breast tenderness., Axillary Lymph Nodes: No lymphadenopathy present. and No nodularity, asymmetry or nipple discharge bilaterally. Masw she feels bilaterally is the edge of a muscle Gastrointestinal: Abdominal Examination: Abdomen nontender to palpation, tone normal without rigidity or guarding, nomasses present, umbilicus without lesions Liver and Spleen: No hepatomegaly present, liver nontender to palpation Hernias: No hernias present Lymphatic: Lymph Nodes: No other lymphadenopathy present Skin: General Inspection: No rashes present, no lesions present, no areas of discoloration Neurologic: Mental Status: Oriented X3. Normal strength and tone, sensory exam grossly normal, mentation intact and speech normal. Psychiatric: Mentation appears normal and affect normal/bright. Pelvic Exam: External Genitalia: Normal appearance for age, no discharge present, no tenderness present, no inflammatory lesions present, color normal Vagina: Normal vaginal vault without central or paravaginal defects, no discharge present, no inflammatory lesions present, no masses present Bladder: Nontender to palpation Urethra: Urethral Body: Urethra palpation normal, urethra structural support normal Urethral Meatus: No erythema or lesions present Cervix: Appearance healthy, no lesions present, nontender to palpation, no bleeding present Uterus: Uterus: firm, normal sized and nontender, anteverted in position. Adnexa: No adnexal tenderness present, no adnexal masses present Perineum: Perineum within normal limits, no evidence of trauma, no rashes or skin lesions present Anus: Anus within normal limits, no hemorrhoids present Inguinal Lymph Nodes: No lymphadenopathy present Pubic Hair: Normal pubic hair distribution for age Genitalia and Groin: No rashes present, no lesions present, no areas of discoloration, no masses present COUNSELING: Reviewed preventive health counseling, as reflected in patient instructions Regular exercise Healthy diet/nutrition BMI: Body mass index is 28.96 kg/m??. ASSESSMENT: 64 year old female with satisfactory annual exam. ICD-10-CM 1. Encounter for gynecological examination without abnormal finding Z01.419 Pap imaged thin layer screen with HPV - recommended age 30 - 65 HPV High Risk Types DNA Cervical 2. Menopause Z78.0 norethindrone-ethinyl estradiol (JINTELI) 1-5 MG-MCG tablet DISCONTINUED: norethindrone-ethinyl estradiol (JINTELI) 1-5 MG-MCG tablet PLAN: Breast mass she feels bilaterally is the edge of a muscle. OK to have mammogram. Jessica Gonzalez MD STANT DISTRICT ATTORNEY documented in this encounter Plan of Treatment Not on filedocumented as of this encounter Procedures Procedure Name Priority Date/Time Associated Diagnosis Comme nts HPV HIGH RISK Routine 09/12/2019 11:05 Encounter for Results f or this TYPES DNA CERVICAL AM ASSISTANT DISTRICT ATTORNEY gynecological procedur e are in examination without the resu lts abnormal finding section. PAP IMAGED THIN Routine 09/12/2019 10:50 Encounter for Results for this LAYER SCREEN AM ASSISTANT DISTRICT ATTORNEY gynecological procedure are in examination without the resu lts abnormal finding section. documented in this encounter Results HPV High Risk Types DNA Cervical (09/12/2019 11:05 AM ASSISTANT DISTRICT ATTORNEY) [facility] Method Time Signature HPV Source SurePath 09/12/2019 [facility] 10:51 AM ASSISTANT DISTRICT ATTORNEY [facility] HPV 16 DNA Negative NEG^Negat 09/19/2019 [facility] 3:16 PM [facility] HPV 18 DNA Negative NEG^Negat 09/19/2019 [facility] 3:16 PM [facility] Other HR HPV Negative NEG^Negat [facility] Final This 09/19/2019 [facility] patient's 3:16 PM [facility] sample is [facility] negative for CAMPUS HPV DNA. Comment: This test was developed and its performa nce characteristics determined by the [facility]. It has not been cleared or approved by the FDA. The laboratory is regulated under CLIA as qualified to perform high-compl exity testing. This test is used for clinical purposes. It should not be rega rded as investigational or for research. (Note) METHODOLOGY: ??The Alek tien 4800 syst em uses automated extraction, simultaneous amplification of HPV (L1 re gion) and beta-globin, ?? followed by ??real time detection of flu orescent labeled HPV and beta globin using specific oligonucleotide pr obes . The test specifically identifies types HPV 16 DNA and HPV 18 D NA while concurrently detecting the rest of the high risk type s (31, 33, 35, 39, 45, 51, 52, 56, 58, 59, 66 or 68). COMMENTS: ??This test is not intended fo r use as a screening device for women under age 30 with normal cervi duong cytology. ??Results should be correlated with cytologic and histolo gic findings. Close clinical followup is recommended. Specimen Description Cervical Cells 09/12/2019 10: 51 AM [facility] Comment: [id number] Specimen Anatomical Collection Method Collection Time Receive d Time (Source) Location / / Volume Laterality Cervical Cells 09/12/2019 11:05 9 AM ASSISTANT DISTRICT ATTORNEY 11:46 AM ASSISTANT DISTRICT ATTORNEY Jessica Gonzalez MD LAB - BLOOD ORDERABLES Performing Organization Address City/State/ZIP Code Phon e Number [address] [address] [facility] [address] [place] [address] [facility] 100 Pap imaged thin layer screen with HPV - recommended age 30 - 65 (09/12/2019 10:50 AM ASSISTANT DISTRICT ATTORNEY) Component Value Ref Test Analysis Performed At [facility] Range Method Time Signature PAP NIL COPATH Copath Report COPATH Patient Name: SAVAGE WARD MR#: [id number] Specimen #: [id number] Collected: 09/12/2019 Received: 09/13/2019 Reported: 09/18/2019 11:03 Ordering Phy(s): JESSICA GONZALEZ For improved result formatting, select 'View Enhanced Report Format' under Linked Documents section. SPECIMEN/STAIN PROCESS: Pap imaged thin layer prep screening (Surepath, FocalPoint w ith guided screening) ? Pap-Cyto x 1, HPV ordered x 1 SOURCE: Cervical ---- Pap imaged thin layer prep screening (Surepath, FocalPoint with guided screening) SPECIMEN ADEQUACY: Satisfactory for evaluation. -Transformation zone component absent. CYTOLOGIC INTERPRETATION: Negative for intraepithelial lesion or malignancy Electronically signed out by: RUBI Hutson (ASCP) CLINICAL HISTORY: Post Menopausal, A previous normal pap Date of Last Pap: 08/16/18, Papanicolaou Test Limitations: ??Cervical cytology is a sc reening test with limited sensitivity; regular screening is critical for cancer prevention; Pap tests are p rimarily effective for the diagnosis/prevention of squamous cell carcinoma, not adenocarcinomas or other cancer s. COLLECTION SITE: Client: ??[facility] Location: [facility] (S) The technical component of this testing was completed at the [facility], with the professional compo nent performed at the [facility], [address] [place] [address], [place] [address] ([phone]) Specimen (Source) Anatomical Collection Method Collection Time Re ceived Time Location / / Volume Laterality Cytologic 09/12/2019 10:50 09/13/2019 9:19 material AM ASSISTANT DISTRICT ATTORNEY AM ASSISTANT DISTRICT ATTORNEY (specimen) Jessica Gonzalez MD LAB - OPTIME CLINICAL SPECIM EN Performing Organization Address City/State/ZIP Code Phon e Number [place] documented in this encounter Visit Diagnoses Diagnosis Encounter for gynecological examination without abnormal finding - Primary Routine gynecological examination Menopause Symptomatic menopausal or female climact lesli states Need for prophylactic vaccination and in oculation against influenza documented in this encounter Additional Health Concerns Assessment Noted Time PHQ-9 Depression Total Score: 2 09/12/2019 10:45 AM CS T documented as of this encounter Care Teams Child Monitor Relationship Specialty Start Date End Date Manish Freedman MD PCP - General Emergency Medicine 08/11/17 [facility] [address] [place] [address] documented as of this encounter
--- OUTSIDE RECORDS SUMMARY | 2022-06-30 21:04 | XMS_ITS | Encounter Summary ---
:1955 Author Organization [facility] Address [address] [place] [address] Care Team Providers Name Role Phone Unavailable Primary Care Provider Unavailable Encounter Details Date Type Department Care Team Description 07/08/2006 Hospital Encounter CONV METH PNA Kimberly Kulkarni, DEYSI [address] [place] [id number] [address] Kimberly Kulkarni DPM [address] [facility] [facility] [address] [place] [id number] [place] [address] Social History Tobacco Use Types Packs/Day Years Used Date Smoking Tobacco: Never Assessed Sex Assigned at Date Recorded Not on file documented as of this encounter Medications at Time of Discharge Medication Sig Dispensed Refills Start Date End Date DRUG NOT IN COMPUTER LW Comment:OCP 0 07/07/2006 fexofenadine/pseudoephedr Take 1 tablet by mouth 180 3 07/07/2006 ine (TORREY-D [facility]ER[facility] & as needed. LW Addl CONGESTION) 60-120 MG Instr:Indicated for: tablet Allergies FLUoxetine (AKA PROZAC) Take 1 capsule by 30 3 04/13 20 MG capsule mouth daily (every 24 hours). LW Addl Instr:Indicated for: Depression mometasone (AKA NASONEX) 2 sprays by Each 34 3 07/07 50 MCG/ACT nasal solution Nostril route as needed. omeprazole (PRILOSEC) 10 Take 1 capsule by 90 3 03/19 MG capsule mouth daily (every 24 hours). LW Addl Instr:Indicated for: Acid Reflux PROPOXYPHENE Take 1 tablet by mouth 28 0 07/08/2006 N-ACETAMINOPHEN OR every 4 hours as needed. LW Addl Instr:Maximum of 6 tablets/24 hours. propranolol (AKA INDERAL) Take 1 tablet by mouth 180 3 07/07/2006 10 MG tablet as needed. LW Comment:STAGE ANXIETY NOT HTN LW Addl Instr:Indicated for: High Blood Pressure UNKNOWN MEDICATION Indications: PN: 0 04/13/2006 documented as of this encounter Procedure Notes Kimberly Kulkarni DPM - 07/08/2006 12:01 AM CDT Progress Notes signed by Kimberly Kulkarni DPM at 07/08/06 [id number] Author: Kimberly Kulkarni DPM Service: (none) Author Type: Physician Filed: 02/06/11 9099 Note Time: 07/08/06 1235 Status: Signed Proof Technician: Kimberly Kulkarni DPM (Physician) Patient Name: Mamta Ward Surgical Staff: Kimberly Kulkarni DPM Referring MD: Procedure: Right Foot: Excision of Setrada's Neuroma 3rd-4th Interdigital Space Patient Profile: This is a 51 year old female. Refer to note in patient chart for documentation of history and physical. The patient has failed appropriate non-operative treatment. As a result, surgery is recommended. The alternatives, risks and benefits of surgery were discussed with the patient. The patient verbalized understanding of the risks as well as the alternatives to surgery. The patient wished to proceed with operative intervention. A signed and witnessed informed consent was then placed on the chart. Prior to initiation of the procedure, patient identification and proposed procedure were verified by the surgeon prior to surgery, and the operative site was initialed by the surgeon. 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 Findings: Nerve: - The 3rd intermetatarsal space nerve branches were found. Description of Procedure: Patient Positioning: - Following induction of anesthesia, the patient was placed in the supine position on the standard operating table. The extremity was exsanguinated with an Esmarch bandage, and a pneumatic tourniquet, previously placed over cast padding, was applied. All body parts were well padded and protected to make sure there were no pressure points. The surgical area was prepped and draped in the appropriate sterile fashion with DuraPrep. Incision Type: - A 3.5 cm in length linear longitudinal incision was made over the dorsum of the 3rd intermetatarsal space using sharp dissection and blunt dissection. Instruments and Methods: - Excision was performed of a Estrada's neuroma of the 3rd-4th interdigital space. The surgical exposure was carried down through the skin and subcutaneous tissue. The deep transverse metatarsal ligament was identified and incised carefully in a longitudinal plane. The neuroma was identified and excised using sharp dissection. Care was taken to allow proximal retraction of the cut nerve into the soft tissue proximal to the metatarsal heads. Wound Closure: - Wound Closure for Excision of Estrada's Neuroma: - The area was thoroughly irrigated with sterile saline. The incision was closed. Peritenon was closed with 3-0 Vicryl using running mattress technique. The skin was closed with 5-0 Nylon using mattress technique. Intraoperative Medications: - 1cc of dexamethasone sodium phosphate injected at proximal aspect of the incison. Pathology Specimen: - Nerve tissue was sent to Pathology for routine pathology. Drains / Dressing: - Dressing per protocol. Sponge / Instrument / Needle Counts: - Final counts were correct. Intraoperative Inputs and Outputs: - No transfusions; minimal blood loss. Cast / Immobilization: - The extremity was immobilized in a hard sole shoe. Tourniquet Time: - Tourniquet pressure at 230 mmHg. Patient to Recovery Room: - The patient tolerated the procedure well, and was brought to the recovery room in good condition. Complications: No Immediate Complications. CPT Codes(s): 89435, RT, Excision, interdigital (Estrada) neuroma, single, each ICD Code(s): 355.6, LESION OF PLANTAR NERVE The codes documented in this report are preliminary and upon wheel polisher review may be revised to meet current compliance requirements. Kimberly Kulkarni DPM Signed Date: 07/08/2006 12:41 PM Number of Addenda: 0 Note generated on 07/08/2006 12:37:42 PM Procedure Date: 07/08/2006 12:35 PM documented in this encounter Miscellaneous Notes Miscellaneous - Kimberly Kulkarni, DPM - 07/08/2006 12:01 AM CDT ICD-9-CM ICD-9-CM Narrative description Code ======== DIAGNOSES Principal: PLANTAR NERVE LESION 355.6 Secondary: HYPERLIPIDEMIA NEC/NOS 272.4 ESOPHAGEAL REFLUX 530.81 DYSTHYMIC DISORDER 300.4 PROCEDURES Provider1 Date Principal: PERIPH NERV EXCISION NEC KIMBERLY KULKARNI [id number] 04.07 Provider2: Provider3: PORFIRIO PEREZ documented in this encounter Plan of Treatment Not on filedocumented as of this encounter Procedures Procedure Name Priority Date/Time Associated Diagnosis Comme nts SURGICAL PATH, LILIYA Routine 07/08/2006 4:01 PM Re sults for this NICOLLET CDT procedure are i n the results section. documented in this encounter Results Pathology Report (07/08/2006 4:01 PM CDT) [facility] Method Time Signature Surgical SEE TEXT No normal HP CONVERSION Pathology range Comment: Patient: SAVAGE WARD ?S URGICAL PATHOLOGY REPORT Pathology # ??[id number] ?Date Obtained: ? Date Received: DIAGNOSIS: ?Soft tissue, right foot, excision: ?- Consistent with neuroma. ?Diego Gann MD ?(electronic signature) DYSON/DYSON/kjs Date of Report: 07/09/06 Pathology # ??[id number] ?Date Obtained: ? Date Received: ORGAN/TISSUE SITE: ?Right foot 3rd IMS GROSS DESCRIPTION: ?The specimen is labeled neuroma 3r d IMS right foot and consists of a 2.0 x ?1.0 x 0.8 cm portion of mcdermott-white to benson tissue consistent with nervous ?tissue. ??The specimen is entirely submitted in cassette [id number]. AMW/cjk MICROSCOPIC DESCRIPTION: ?The microscopic examination substa ntiates the diagnosis cited. Specimen (Source) Anatomical Collection Method Collection Time Re ceived Time Location / / Volume Laterality 07/08/2006 4:01 PM CDT Kimberly Kulkarni DPM LAB_1 Performing Organization Address City/State/ZIP Code Phon e Number HP CONVERSION documented in this encounter Visit Diagnoses Not on filedocumented in this encounter
--- OUTSIDE RECORDS SUMMARY | 2022-06-30 21:04 | XMS_ITS | Encounter Summary ---
:1955 Author Organization [facility] Address [address] [address] Care Team Providers Name Role Phone Dc Gonzalez MD Primary Care Provider Unavailable Encounter Details Date Type Department Care Team Description 08/25/1995 PN Conversion Only SCIENTOLOGY CONVERSION Tate Gonzalez MD Social History Tobacco Use Types Packs/Day Years Used Date Smoking Tobacco: Never Assessed Sex Assigned at Date Recorded Not on file documented as of this encounter Plan of Treatment Not on filedocumented as of this encounter Procedures Procedure Name Priority Date/Time Associated Comments Diagnosis CONVERSION DEFAULT Routine 08/24/1995 12:24 PM Re sults for this INTERFACE ORDER STAFF ASSISTANT procedure ar e in the results section. CONVERSION DEFAULT Routine 08/24/1995 12:24 PM Re sults for this INTERFACE ORDER STAFF ASSISTANT procedure ar e in the results section. documented in this encounter Results Conversion Default Interface Order (08/24/1995 12:24 PM STAFF ASSISTANT) Analysis Performed At Patho logist Time Signature BB BLOOD TYPE O NEG HP CONVERSION (BLOOD GROUP & RH) N/O BB NEG HP CONVERSION ANTIBODY SCREEN Rubella Immune IMMUNE HP CONVERSION Status RPR NON REAC HP CONVERSION Hep B Surf Ag NEG HP CONVERSION Specimen (Source) Anatomical Collection Method Collection Time Re ceived Time Location / / Volume Laterality 08/24/1995 12:24 PM STAFF ASSISTANT Dc Gonzalez MD LAB_1 Performing Organization Address City/State/ZIP Code Phon e Number HP CONVERSION Conversion Default Interface Order (08/24/1995 12:24 PM STAFF ASSISTANT) P athologist Signature BB BLOOD TYPE O NEG HP CONVERSION (BLOOD GROUP & RH) Specimen (Source) Anatomical Collection Method Collection Time Re ceived Time Location / / Volume Laterality 08/24/1995 12:24 PM STAFF ASSISTANT Dc Gonzalez MD LAB_1 Performing Organization Address City/State/ZIP Code Phon e Number HP CONVERSION documented in this encounter Visit Diagnoses Not on filedocumented in this encounter Care Teams Uniform Attendant Relationship Specialty Start Date End Date Dc Gonzalez MD PCP - General 01/17/11 documented as of this encounter
--- OUTSIDE RECORDS SUMMARY | 2022-06-30 21:04 | XMS_ITS | Encounter Summary ---
:1955 Author Organization [facility] Address [address], [place] [address] Care Team Providers Name Role Phone Dc Gonzalez MD Primary Care Provider Unavailable Encounter Details Date Type Department Care Team Description 05/24/2006 Office Visit [facility] Eyad Kulkarni DPM [facility] [address] [facility] [address] [place] [address] [place], [place] [id number] [phone] Social History Tobacco Use Types Packs/Day Years Used Date Smoking Tobacco: Never Assessed Sex Assigned at Date Recorded Not on file documented as of this encounter Progress Notes Norberto Kulkarni DPM - 05/24/2006 12:01 AM CDT Progress Notes signed by Norberto Kulkarni DPM at 05/27/06 1440 Author: Norberto Kulkarni DPM Service: (none) Author Type: Physician Filed: 02/06/11 1356 Note Time: 05/24/06 0001 Status: Signed Hospice Administrator: Norberto Kulkarni DPM (Physician) NAME: MAMTA WARD MR: [id number] ACCT: [id number] VISIT: [id number] DICTATING CLINICIAN: Norberto Kulkarni DPM JOB: [id number] LOC: 539 CLINIC PROGRESS NOTE DATE OF VISIT: 05/24/2006 SUBJECTIVE: Patient presents for followup. She continues to have pain on her right foot. ADR/ALLERGIES: SHE DENIES ALLERGIES TO MEDICATIONS. REVIEW OF SYSTEMS: Negative for diabetes. OBJECTIVE: Patient is neurovascularly intact. She does have pain with palpation of the third intermetatarsal space of the right foot. A positive Alexander's sign is identified. There is no pain with digital range of motion. No other abnormalities noted. 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 PLAN: Treatment options were discussed with the patient. The patient's height is 61 inches and weight is 147. I discussed the surgical option. The pros, cons, risks, and complications were discussed. She was told she could have pain, swelling, infection, and recurrence in terms of a stump neuroma or numbness. She will be scheduled for an excision of a neuroma on the third intermetatarsal space of the right foot. This will be done under local anesthesia with IV sedation at [facility]. She is consulted to her primary care physician for a preoperative physical. ALP:[id number] C: 05/27/06 12:03 DOCUMENT: [id number] documented in this encounter Plan of Treatment Not on filedocumented as of this encounter Visit Diagnoses Not on filedocumented in this encounter Care Teams Hydroelectric Plant Electrician Relationship Specialty Start Date End Date Dc Gonzalez MD PCP - General 01/17/11 documented as of this encounter
--- OUTSIDE RECORDS SUMMARY | 2022-06-30 21:04 | XMS_ITS | Encounter Summary ---
:1955 Author Organization [facility] Address [address], [place] [address] Care Team Providers Name Role Phone Dc Gonzalez MD Primary Care Provider Unavailable Encounter Details Date Type Department Care Team Description 05/19/1996 PN Conversion Only ANGLICAN CONVERSION Tate Gonzalez MD Social History Tobacco Use Types Packs/Day Years Used Date Smoking Tobacco: Never Assessed Sex Assigned at Date Recorded Not on file documented as of this encounter Plan of Treatment Not on filedocumented as of this encounter Procedures Procedure Name Priority Date/Time Associated Comments Diagnosis CONVERSION DEFAULT Routine 05/16/1996 7:31 AM Res ults for this INTERFACE ORDER CDT procedure ar e in the results section. documented in this encounter Results Conversion Default Interface Order (05/16/1996 7:31 AM CDT) P athologist Signature PAP Smear See Detail HP CONVERSION Comment: NAME:SAVAGE MARADIAGA ?CERVICAL CYTOLOGY REPORT Pathology # ??[id number] ?Date Obtained: ?Date Received: LMP: CLINICAL HIST ? 7+ WKS PP CERVICAL SMEAR SPECIMEN ADEQUACY: Satisfactory but tobias ited by absence of endocervical cells. CYTOLOGIC IMPRESSION: Within Normal Limits (Negative). Verified 05/29/96 by: ??MB ? (electronic signature) Angeles DOTSON M.D., Director of [facility] opathology Specimen (Source) Anatomical Collection Method Collection Time Re ceived Time Location / / Volume Laterality 05/16/1996 7:31 AM CDT Dc Gonzalez MD LAB_1 Performing Organization Address City/State/ZIP Code Phon e Number HP CONVERSION documented in this encounter Visit Diagnoses Not on filedocumented in this encounter Care Teams [employer] Membership Advisors Relationship Specialty Start Date End Date Dc Gonzalez MD PCP - General 01/17/11 documented as of this encounter
--- OUTSIDE RECORDS SUMMARY | 2022-06-30 21:04 | XMS_ITS | Encounter Summary ---
:1955 Author Organization [facility] Address [address] [address] Care Team Providers Name Role Phone Dc Gonzalez MD Primary Care Provider Unavailable Encounter Details Date Type Department Care Team Description 06/03/1994 PN Conversion Only BAHAI CONVERSION Tate Gonzalez MD Social History Tobacco Use Types Packs/Day Years Used Date Smoking Tobacco: Never Assessed Sex Assigned at Date Recorded Not on file documented as of this encounter Plan of Treatment Not on filedocumented as of this encounter Procedures Procedure Name Priority Date/Time Associated Comments Diagnosis CONVERSION DEFAULT Routine 06/02/1994 7:25 AM Res ults for this INTERFACE ORDER CDT procedure ar e in the results section. documented in this encounter Results Conversion Default Interface Order (06/02/1994 7:25 AM CDT) P athologist Signature PAP Smear See Detail HP CONVERSION Comment: CERVICAL SMEAR SPECIMEN ADEQUACY: ?? Satisfactory. ENDOCERVICAL CELLS: ??Present. Within Normal Limits (Negative). Specimen (Source) Anatomical Collection Method Collection Time Re ceived Time Location / / Volume Laterality 06/02/1994 7:25 AM CDT Dc Gonzalez MD LAB_1 Performing Organization Address City/State/ZIP Code Phon e Number HP CONVERSION documented in this encounter Visit Diagnoses Not on filedocumented in this encounter Care Teams Gericare Aide Relationship Specialty Start Date End Date Dc Gonzalez MD PCP - General 01/17/11 documented as of this encounter
--- OUTSIDE RECORDS SUMMARY | 2022-06-30 21:04 | XMS_ITS | Encounter Summary ---
:1955 Author Organization [facility] Address [address], [place] [address] Care Team Providers Name Role Phone Dc Gonzalez MD Primary Care Provider Unavailable Reason for Referral Procedure/Equipment (Routine) - Incomplete Specialty Diagnoses / Procedures Referred By Contact Refer red To Contact Diagnoses Right foot pain Norberto Kulkarni DPM Procedures XR Foot Rt 3+ Views [id number] [place] [id number] Referral ID Status Reason Start Date Expiration Date Visits V isits Requested Authorized [id number] Incomplete 07/27/2016 10/26/2017 1 1 Reason for Visit Reason Comments Foot Pain Encounter Details Date Type Department Care Team Description 07/27/2016 Office Visit [facility] Norberto Kulkarni R ight foot pain (Primary Dx); MedSurg DPM Closed displaced fracture of second meta tarsal bone of right foot, initial encounter [address] [place] [address] [place] [phone] (Wo rk) Social History Tobacco Use Types Packs/Day Years Used Date Smoking Tobacco: Never Sex Assigned at Date Recorded Not on file documented as of this encounter Progress Notes Norberto Kulkarni DPM - 07/27/2016 12:43 PM CDT DATE OF VISIT: 07/27/2016 SUBJECTIVE: Patient presents to clinic today for follow-up evaluation of right foot pain. I did see her on July 13, 2016. At that time, she had discomfort on the top of her right foot for almost 2 weeks. She was doing a lot of walking but denies any injury. X-rays were obtained and there was some subtle periosteal reaction in the medial distal aspect of the 2nd metatarsal. I did place her into a short Cam Walker. She indicates that she is doing better. I did see her in September 2013 and I did give her an injection into the 3rd intermetatarsal space of her left foot. Patient is status post excision of a neuroma on the 3rd intermetatarsal space which I did in 2005. She did have a bilateral bunion surgery over 30 years ago.. Adverse Drug Reactions: Allergies Allergen Reactions ??? Review Contrast Media PN: LW CM1: >>> NO CONTRAST ADVERSE REACTION <<< Reaction : Outpatient Prescriptions Prior to Visit Medication Sig ??? DRUG NOT IN COMPUTER LW Comment:OCP ? ? fexofenadine/pseudoephedrine (TORREY-D ALLERGY & CONGESTION) 60-120 MG tablet Take 1 tabletby mouth as needed. LW Addl Instr:Indicated for: Allergies ??? FLUoxetine (AKA PROZAC) 20 MG capsule Take 1 capsule by mouth daily (every 24 hours). LW Addl Instr:Indicated for: Depression ??? mometasone (AKA NASONEX) 50 MCG/ACT nasal solution 2 sprays by Each Nostril route as needed. ??? omeprazole (PRILOSEC) 10 MG capsule Take 1 capsule by mouth daily (every 24 hours). LW Addl Instr:Indicated for: Acid Reflux ??? PROPOXYPHENE N-ACETAMINOPHEN OR Take 1 tablet by mouth every 4 hours as needed. LW Addl Instr:Maximum of 6 tablets/24 hours. ??? propranolol (AKA INDERAL) 10 MG tablet Take 1 tablet by mouth as needed. LW Comment:STAGE ANXIETY NOT HTN LW Addl Instr:Indicated for: High Blood Pressure ??? UNKNOWN MEDICATION Indications: PN: No facility-administered medications prior to visit. Review of Systems: Negative for fever, rash or shortness of breath. Past Medical History: No past medical history on file. There are no active problems to display for this patient. Past Surgical History Procedure Laterality Date ??? 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 Hair growth is present on the digits and capillary fillingtime is less than two seconds. Sensation is intact. There is no weakness with muscle testing of the foot, ankle or lower leg. No pain or restriction with subtalar joint or ankle joint range of motion. In stance loss of longitudinal arch is evident. There are no paresthesias over the tarsal tunnel or with compression of the dorsal nerves. She does point to the dorsal aspect of her right foot is a source of her pain. There is questionableswelling identified. She does have pain with palpation of the distal 2nd metatarsal There is no painwith digital range of motion or compression of the metatarsal heads. There is no pain in the intermetatarsal spaces. X-rays obtained today: 07/27/2016 10:07 AM - Nader, Rad Results In Narrative COMPARISON: 07/13/2016 FINDINGS: Subtle increased nonaggressive appearing periosteal reaction along the medial margin of the second metatarsal distal diaphysis suggesting sequelae of healing stress fracture. Correlate for site of pain. Remainder of the findings are stable. ASSESSMENT: Stress fracture distal 2nd metatarsal right foot Right foot pain PLAN: Treatment options were discussed with the patient. I discussed the condition in great detail. X-rays were obtained and reviewed with the patient. I discussed with the patient that she does have astress fracture at the distal 2nd metatarsal I would like to keep this immobilized for a total of 4-6 weeks. She has been immobilized for 2 1/2weeks.. I would like to see her back in 2 weeks and we will repeat her x-rays 3 views weightbearing of the right foot. All questions answered The patient was discharged ambulatory and in stable condition. Orders Placed This Encounter Procedures ??? XR Foot Rt 3+ Views No orders of the defined types were placed in this encounter. (This note was created using voice recognition software and may contain some adviser sales errors) documented in this encounter Plan of Treatment Not on filedocumented as of this encounter Results XR Foot Rt 3+ Views (07/27/2016 9:38 AM CDT) Anatomical Region Laterality Modality Lower Extremity, Foot Computed Radiograp hy Specimen (Source) Anatomical Collection Method Collection Time Re ceived Time Location / / Volume Laterality 07/27/2016 9:38 AM CDT Narrative 07/27/2016 10:05 AM CDT COMPARISON: ??07/13/2016 FINDINGS: ??Subtle increased nonaggressi ve appearing periosteal reaction along the medial margin of the second metatarsal distal diaphysis suggesting sequelae of healing stress fracture. Correlate for s ite of pain. Remainder of the findings a re stable. Procedure Note Rogelio Quesada, DO - 07/27/2016For matting of this note might be different from the original. COMPARISON: 07/13/2016 FINDINGS: Subtle increased nonaggressive appearing periosteal reaction along the medial margin of the second metatarsal distal diaphysis suggesting sequelae of healing stress fracture. Correlate for site of pain. Remainder of the findings are stable. Norberto Kulkarni DPM RAD GD documented in this encounter Visit Diagnoses Diagnosis Right foot pain - Primary Pain in limb Closed displaced fracture of second meta tarsal bone of right foot, initial encounter Right foot pain Pain in limb documented in this encounter Care Teams Precision Crop Manager Relationship Specialty Start Date End Date Dc Gonzalez MD PCP - General 01/17/11 documented as of this encounter
--- OUTSIDE RECORDS SUMMARY | 2022-06-30 21:04 | XMS_ITS | Encounter Summary ---
:1955 Author Organization [facility] Address [address] [address] Care Team Providers Name Role Phone Dc Gonzalez MD Primary Care Provider Unavailable Reason for Referral Procedure/Equipment (Routine) - Incomplete Specialty Diagnoses / Procedures Referred By Contact Refer red To Contact Diagnoses Right foot pain Norberto Kulkarni DPM Procedures XR Foot Rt 3+ Views [id number] [place] [address] Referral ID Status Reason Start Date Expiration Date Visits V isits Requested Authorized [id number] Incomplete 07/13/2016 10/12/2017 1 1 Reason for Visit Reason Comments Foot Pain Encounter Details Date Type Department Care Team Description 07/13/2016 Office Visit [facility] Norberto Kulkarni R ight foot pain MedSurg DPZelda (Primary Dx) [address] [place] [address] [place], [place] [phone] (Wo rk) Social History Tobacco Use Types Packs/Day Years Used Date Smoking Tobacco: Never Sex Assigned at Date Recorded Not on file documented as of this encounter Progress Notes Norberto Kulkarni DPM - 07/13/2016 10:09 PM CDT DATE OF VISIT: 07/13/2016 SUBJECTIVE: Mamta Ward is a pleasant 61 y.o. female who presents to clinic today for evaluation of right foot pain. She has had discomfort on the top of her right foot for almost 2 weeks. She was doing a lot of walking but denies any injury. She does have discomfort that does occur daily and she is limping. Herlast visit with me was in September 2013 and I did give her an injection into the 3rd intermetatarsalspace of her left foot. Patient is status [...] s/p LW Modifier: Right foot LW Onset: [id number] Social History: Nonsmoker OBJECTIVE: 61 y.o. year old female who appears their stated age. Alert and oriented and in no acute distress. Walks without a limp and appears to be in general good health. DP and PT pulses are palpable. Hair growth is present on the digits and capillary filling time is less than two seconds. Sensation is [...] pain with palpation of the distal 2nd and 3rd metatarsals. There is no pain with digital range of motion or compression of the metatarsal heads. There is no pain in the intermetatarsal spaces. X-rays obtained today do show old degenerative changes of the 3rd metatarsal head and base of the proximal phalanx. There also appears to be some early periosteal reaction along the medial distal shaftof the 2nd metatarsal. ASSESSMENT: Right foot pain PLAN: Treatment options were discussed with the patient. I discussed the condition in great detail. X-rays were obtained and reviewed with the patient. She indicates that she is limping and she does have some swelling noted to the dorsum of the foot. She is quite symptomatic over the distal 2nd metatarsal and there is some potential periosteal change on the x-ray. I discussed with the patient I wouldlike to treat this as a possible stress fracture. I would like to immobilize her into a short Cam Walker. She will use this with the exception of driving and sleeping. I would like to see her back in 2weeks and we will repeat her x-rays 3 views weightbearing of the right foot. All questions answered The patient was discharged ambulatory and in stable condition. Orders Placed This Encounter Procedures ??? XR Foot Rt 3+ Views No orders of the defined types were placed in this encounter. (This note was created using voice recognition software and may contain some ticket scheduler errors) documented in this encounter Plan of Treatment Not on filedocumented as of this encounter Results XR Foot Rt 3+ Views (07/13/2016 9:33 AM CDT) Anatomical Region Laterality Modality Lower Extremity, Foot Computed Radiograp hy Specimen (Source) Anatomical Collection Method Collection Time Re ceived Time Location / / Volume Laterality 07/13/2016 9:25 AM CDT Narrative 07/13/2016 10:04 AM CDT COMPARISON: ??None. FINDINGS: ??Moderate hallux valgus defor mity and moderate degenerative changes in the first MTP joint. Mild to moderate arthropathy in the third MTP joint. No acute bone or joint abnormalities. Procedure Note Jose Hagen MD - 07/13/2016For matting of this note might be different from the original. COMPARISON: None. FINDINGS: Moderate hallux valgus deformi ty and moderate degenerative changes in the first MTP joint. Mild to moderate arthropathy in the third MTP joint. No acute bone or joint abnormalities. Norberto SWEETM RAD GD documented in this encounter Visit Diagnoses Diagnosis Right foot pain - Primary Pain in limb Right foot pain Pain in limb documented in this encounter Care Teams Tar Processing Technician Relationship Specialty Start Date End Date Dc Gonzalez MD PCP - General 01/17/11 documented as of this encounter
--- OUTSIDE RECORDS SUMMARY | 2022-06-30 21:04 | XMS_ITS | Encounter Summary ---
:1955 Author Organization [facility] Address [address] [place] [address]. [place] [address] Care Team Providers Name Role Phone Manish Freedman MD Primary Care Provider [phone] Reason for Visit Reason Onset Date Comments Refill Request 11/30/2016 Encounter Details Date Type Department Care Team Description 11/30/2016 Refill [facility] Kourtney Mcqueen, Refill Request for Women [facility] [address] [facility] [address] [facility] [address] [place] [address] [place] [phone] Social History Tobacco Use Types Packs/Day Years [...] as of this encounter Visit Diagnoses Diagnosis Yeast infection of the vagina Candidiasis of vulva and vagina documented in this encounter Additional Health Concerns Assessment Noted Time PHQ-9 Depression Total Score: 3 08/07/2016 7:18 AM CDT documented as of this encounter Care Teams Nature Photographer Relationship Specialty Start Date End Date Manish Freedman MD PCP - General Emergency Medicine 10/20/16 10/24/17 [facility] [address] [place] [address] documented as of this encounter
--- OUTSIDE RECORDS SUMMARY | 2022-06-30 21:04 | XMS_ITS | Encounter Summary ---
:1955 Author Organization [facility] Address [address] [address] Care Team Providers Name Role Phone Dc Gonzalez MD Primary Care Provider Unavailable Encounter Details Date Type Department Care Team Description 08/30/1995 PN Conversion Only HINDU CONVERSION Tate Gonzalez MD Social History Tobacco Use Types Packs/Day Years Used Date Smoking Tobacco: Never Assessed Sex Assigned at Date Recorded Not on file documented as of this encounter Plan of Treatment Not on filedocumented as of this encounter Procedures Procedure Name Priority Date/Time Associated Comments Diagnosis CONVERSION DEFAULT Routine 08/24/1995 7:16 AM Res ults for this INTERFACE ORDER GATE SHEAR OPERATOR procedure ar e in the results section. documented in this encounter Results Conversion Default Interface Order (08/24/1995 7:16 AM GATE SHEAR OPERATOR) P athologist Signature PAP Smear See Detail HP CONVERSION Comment: NAME:SAVAGE MARADIAGA ?CERVICAL CYTOLOGY REPORT Pathology # ??[id number] ?Date Obtained: ?Date Received: LMP: ?07-05-95 CLINICAL HIST ? 7+ WKS PREG. ??PREV . SMEAR [id number], 06-02-94. CERVICAL SMEAR SPECIMEN ADEQUACY: ?? Satisfactory. ENDOCERVICAL CELLS: ??Absent; patient i s . CYTOLOGIC IMPRESSION: Within Normal Limits (Negative). Verified 09/01/95 by: ??MB ? (electronic signature) Angeles DOTSON M.D., Director of Cyt opathology Specimen (Source) Anatomical Collection Method Collection Time Re ceived Time Location / / Volume Laterality 08/24/1995 7:16 AM GATE SHEAR OPERATOR Dc Gonzalez MD LAB_1 Performing Organization Address City/State/ZIP Code Phon e Number HP CONVERSION documented in this encounter Visit Diagnoses Not on filedocumented in this encounter Care Teams Glass Etcher Relationship Specialty Start Date End Date Dc Gonzalez MD PCP - General 01/17/11 documented as of this encounter
--- OUTSIDE RECORDS SUMMARY | 2022-06-30 21:04 | XMS_ITS | Encounter Summary ---
:1955 Author Organization [facility] Address [address] [place] [address]. [place] [address] Care Team Providers Name Role Phone Manish Freedman MD Primary Care Provider [phone] Reason for Visit Reason Comments Physical Encounter Details Date Type Department Care Team Description 08/11/2017 Office Visit [facility] Jessica Gonzalze [facility] er for gynecological examination without abnormal finding (Primary Dx); [facility] MD A[facility] Menopause [address] [address] [address] [address] [place] [address] (Work) [phone] Social History Tobacco Use Types Packs/Day Years [...] Sign Reading Time Taken Comments Blood Pressure 140/80 08/11/2017 9:13 AM CDT Pulse 72 08/11/2017 9:13 AM CDT Temperature - - Respiratory Rate - - Oxygen Saturation - - Inhaled Oxygen Concentration - - Weight 65.4 kg (144 lb 3.2 oz) 08/11/2017 9:13 AM CDT Height 157.5 cm (5' 2) 08/11/2017 9:13 AM CDT Body Mass Index 26.37 08/11/2017 9:13 AM CDT documented in this encounter Progress Notes Jessica Gonzalez MD - 08/11/2017 9:03 AM CDT Savage Spencer is a 62 year old No obstetric history on file. female who presents for annual exam. Besides routine health maintenance, she has no other health concerns today . HPI: The patient's PCP is Manish Freedman MD. patient seen for annual exam. She has no concerns. Sheis doing well on Jinteli. She does have a problem with a disc in her back. She is receiving physicaltherapy. GYNECOLOGIC HISTORY: No LMP recorded. Patient is postmenopausal. Her current contraception method is: menopause. She reports that she has never smoked. She has never used smokeless tobacco. Patient is sexually active. STD testing offered? Declined Last PHQ-9 score on record = PHQ-9 SCORE 08/11/2017 Total Score 3 Last GAD7 score on record = PA-7 SCORE 08/11/2017 Total Score 4 Alcohol Score = 4 HEALTH MAINTENANCE: Cholesterol: (No results found for: CHOL patient had done with pcp recently Last Mammo: 08/06/16, Result: normal, Next Mammo: today Pap: 08/06/16 neg Colonoscopy: 07/2016, Result: normal, Next Colonoscopy: due next year Dexa: 06/18/15 Health maintenance updated: yes HISTORY: Obstetric History No data available Patient Active Problem List Diagnosis (none) - all problems resolved or deleted No past surgical history on file. Social History Substance Use Topics ??? Smoking status: Never Smoker ??? Smokeless tobacco: Never Used ??? Alcohol use 6.0 oz/week 10 Standard drinks or equivalent per week Problem (# of Occurrences) Relation (Name,Age of Onset) Arthritis (1) Father CEREBROVASCULAR DISEASE (1) Father Chronic Obstructive Pulmonary Disease (1) Father Coronary Artery Disease (1) Father Hyperlipidemia (1) Father Hypertension (2) Father, Mother Thyroid Disease (1) Sister Current Outpatient Prescriptions Medication Sig ??? lisinopril (PRINIVIL/ZESTRIL) 10 MG tablet Take 10 mg by mouth ??? norethindrone-ethinyl estradiol (JINTELI) 1-5 MG-MCG per tablet Take 1 tablet by mouth daily ??? fluconazole (DIFLUCAN) 50 MG tablet Take 1 tablet (50 mg) by mouth 3 times daily ??? [DISCONTINUED] norethindrone-ethinyl estradiol (JINTELI) 1-5 MG-MCG per tablet Take 1 tablet by mouth daily ??? hydrochlorothiazide (HYDRODIURIL) 25 MG tablet ??? LORazepam (ATIVAN) 1 MG tablet ??? ondansetron (ZOFRAN-ODT) 4 MG disintegrating tablet ??? fluticasone (FLONASE) 50 MCG/ACT nasal spray [place] 2 sprays into both nostrils daily ??? PRILOSEC OR None Entered No current facility-administered medications for this visit. No Known Allergies Past medical, surgical, social and family histories were reviewed and updated in EPIC. ROS: 12 point review of systems negative other than symptoms noted below. Head: Nasal Congestion Gastrointestinal: Abdominal Pain, Bloating and Heartburn Genitourinary: No Periods Neurologic: Dizziness Musculoskeletal: Joint Pain Endocrine: Loss of Hair Psychiatric: Anxiety EXAM: BP 140/80 Pulse 72 Ht 5' 2 (1.575 m) Wt 144 lb 3.2 oz (65.4 kg) BMI 26.37 kg/m2 BMI: Body mass index is 26.37 kg/(m^2). PHYSICAL EXAM: Constitutional: Appearance: Well nourished, well [...] No nodularity, asymmetry or nipple discharge bilaterally. Gastrointestinal: Abdominal Examination: Abdomen nontender to palpation, tone normal without rigidity or guarding, nomasses present, umbilicus without lesions Liver and Spleen: No hepatomegaly present, liver nontender to palpation Hernias: No hernias present Lymphatic: Lymph Nodes: No other lymphadenopathy present Skin: General Inspection: No rashes present, no lesions present, no areas of discoloration Genitalia and Groin: No rashes present, no lesions present, no areas of discoloration, no masses present Neurologic/Psychiatric: Mental Status: Oriented X3 Pelvic Exam: External Genitalia: Normal appearance for [...] Healthy diet/nutrition BMI: Body mass index is 26.37 kg/(m^2). ASSESSMENT: 62 year old female with satisfactory annual exam. ICD-10-CM 1. Encounter for gynecological examination without abnormal finding Z01.419 Pap imaged thin layer screen with HPV - recommended age 30 - 65 HPV High Risk Types DNA Cervical lisinopril (PRINIVIL/ZESTRIL) 10 MG tablet 2. Menopause Z78.0 norethindrone-ethinyl estradiol (JINTELI) 1-5 MG-MCG per tablet PLAN: Return to clinic as needed or one year. Jessica Gonzalez MD documented in this encounter Plan of Treatment Not on filedocumented as of this encounter Procedures Procedure Name Priority Date/Time Associated Diagnosis Comme nts HPV HIGH RISK Routine 08/11/2017 9:49 AM Encounter for Results for this TYPES DNA CERVICAL CDT gynecological procedur e are in examination without the resu lts abnormal finding section. PAP IMAGED THIN Routine 08/11/2017 9:21 AM Encounter for Resul ts for this LAYER SCREEN CDT gynecological procedure are in examination without the resu lts abnormal finding section. documented in this encounter Results HPV High Risk Types DNA Cervical (08/11/2017 9:49 AM CDT) [facility] Method Time Signature HPV 16 DNA Negative NEG^Negat 08/16/2017 [facility] 2:40 PM CDT [facility] HPV 18 DNA Negative NEG^Negat 08/16/2017 [facility] 2:40 PM CDT [facility] Other HR HPV Negative NEG^Negat 08/16/2017 [facility] 2:[facility] PM [facility]T [facility] Final This 08/16/2017 [facility] patient's 2:40 PM CDT [facility] sample is [facility] negative for BARRE HPV DNA. Comment: (Note) METHODOLOGY: ??The [employer] tien 4800 syst em uses automated extraction, [...] gic findings. Close clinical followup is recommended. This test was developed and its performa nce characteristics determined by the [facility], [facility]. It has not been cleared or approved by the FDA. The laboratory is regulated under [place] as qualified to perform high-complexity testing. This test is us ed for clinical purposes. It should not be regarded as investigationa l or for research. Specimen Description Cervical Cells 08/16/2017 9:1 6 AM CDT [facility] Comment: [id number] Specimen Anatomical Collection Method Collection Time Receive d Time (Source) Location / / Volume Laterality Cervical Cells 08/11/2017 9:49 AM 017 9:51 CDT AM CDT Jessica Gonzalez MD LAB - BLOOD ORDERABLES Performing Organization Address City/State/ZIP Code Phon e Number [facility] [address] [place], [place] [id number] [address] Pap imaged thin layer screen with HPV - recommended age 30 - 65 (08/11/2017 9:21 AM CDT) Component Value Ref Test Analysis Performed At [facility] Range Method Time Signature PAP NIL COPATH Copath Report COPATH Patient Name: SAVAGE WARD MR#: [id number] Specimen #: [id number] Collected: 08/11/2017 Received: 08/12/2017 Reported: 08/13/2017 09:56 Ordering Phy(s): JESSICA GONZALEZ For improved result formatting, select 'View Enhanced Report Format' under Linked Documents section. SPECIMEN/STAIN PROCESS: Pap imaged thin layer prep screening (Surepath, FocalPoint w ith guided screening) ? Pap-Cyto x 1, HPV ordered x 1 SOURCE: Cervical, endocervical ---- Pap imaged thin layer prep screening (Surepath, FocalPoint with guided screening) SPECIMEN ADEQUACY: Satisfactory for evaluation. -Transformation zone component absent. CYTOLOGIC INTERPRETATION: Negative for intraepithelial lesion or malignancy Electronically signed out by: RUBI Garcia (ASCP) Processed and screened at [facility] CLINICAL HISTORY: Post Menopausal, Previous normal pap Date of Last Pap: 08/06/16, Papanicolaou Test Limitations: ??Cervical cytology is a scre ening test with limited sensitivity; regular screening is critical for cancer prevention; Pap tests are primarily effective for the diagnosis/prevention of squamous cell carcinoma, not adenoca rcinomas or other cancers. TESTING LAB LOCATION: [address] ??[address] COLLECTION SITE: Client: ??[facility] Location: [facility] (S) Specimen (Source) Anatomical Collection Method Collection Time Re ceived Time Location / / Volume Laterality Cytologic 08/11/2017 9:21 08/12/2017 material AM CDT 10:27 AM CDT (specimen) Jessica Gonzalez MD LAB - OPTIME CLINICAL SPECIM EN Performing Organization Address City/State/ZIP Code Phon e Number [place] documented in this encounter Visit Diagnoses Diagnosis Encounter for gynecological examination without abnormal finding - Primary Routine gynecological examination Menopause Symptomatic menopausal or female climact lesli states documented in this encounter Additional Health Concerns Assessment Noted Time PHQ-9 Depression Total Score: 3 08/11/2017 9:15 AM CDT documented as of this encounter Care Teams Slurry Mixer Relationship Specialty Start Date End Date Manish Freedman MD PCP - General Emergency Medicine 08/11/17 [facility] [address] [place] [address] documented as of this encounter
--- OUTSIDE RECORDS SUMMARY | 2022-06-30 21:04 | XMS_ITS | Encounter Summary ---
:1955 Author Organization [facility] Address [address] [place] [address] Care Team Providers Name Role Phone Dc Gonzalez MD Primary Care Provider Unavailable Encounter Details Date Type Department Care Team Description 01/12/1996 PN Conversion Only FAITH CONVERSION Tate Gonzalez MD Social History Tobacco Use Types Packs/Day Years Used Date Smoking Tobacco: Never Assessed Sex Assigned at Date Recorded Not on file documented as of this encounter Plan of Treatment Not on filedocumented as of this encounter Procedures Procedure Name Priority Date/Time Associated Comments Diagnosis CONVERSION DEFAULT Routine 01/11/1996 12:02 PM Re sults for this INTERFACE ORDER BALLOON MAKER procedure ar e in the results section. documented in this encounter Results Conversion Default Interface Order (01/11/1996 12:02 PM BALLOON MAKER) [facility] Method Time Signature Ab Interpretation ANTI-D 02 HP CONVERSIO N Comment: PASSIVE ANTI-D, PROBABLE CAUSE IS RHIG ADMINISTRATION; ALL OTHER CLINICALLY SIGNIFICANT ANTIBODIES RULED OUT. Specimen (Source) Anatomical Collection Method Collection Time Re ceived Time Location / / Volume Laterality 01/11/1996 12:02 PM BALLOON MAKER Dc Gonzalez MD LAB_1 Performing Organization Address City/State/ZIP Code Phon e Number HP CONVERSION documented in this encounter Visit Diagnoses Not on filedocumented in this encounter Care Teams Clerical Dentist Assistant Relationship Specialty Start Date End Date Dc Gonzalez MD PCP - General 01/17/11 documented as of this encounter
--- OUTSIDE RECORDS SUMMARY | 2022-06-30 21:04 | XMS_ITS | Encounter Summary ---
:1955 Author Organization [facility] Address [address], [place] [address] Care Team Providers Name Role Phone Dc Gonzalez MD Primary Care Provider Unavailable Encounter Details Date Type Department Care Team Description 04/13/2006 Office Visit [facility] Eyad Kulkarni DPM [facility] [address] [facility] [address] [place] [address] [place], [place] [id number] [phone] Social History Tobacco Use Types Packs/Day Years Used Date Smoking Tobacco: Never Assessed Sex Assigned at Date Recorded Not on file documented as of this encounter Progress Notes Norberto Kulkarni DPM - 04/13/2006 12:01 AM CDT Progress Notes signed by Norberto Kulkarni DPM at 04/14/06 1258 Author: Norberto Kulkarni DPM Service: (none) Author Type: Physician Filed: 02/06/11 1311 Note Time: 04/13/06 0001 Status: Signed Flight Attendant Ramp: Norberto Kulkarni DPM (Physician) NAME: MAMTA WARD MR: [id number] ACCT: [id number] VISIT: [id number] DICTATING CLINICIAN: Norberto Kulkarni DPM JOB: [id number] CLINIC PROGRESS NOTE DATE OF VISIT: 04/13/2006 SUBJECTIVE: Patient presents for followup. She indicates that the injection helped the first day only and then her pain was back to the same way that it was. The pain still comes and goes. It has been there for the last 3 months now. OBJECTIVE: Patient is neurovascularly intact. She does have pain with palpation of the third intermetatarsal space of the right foot. A positive Alexander's sign is identified. There is no pain with digital range of motion. No other abnormalities noted. 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 PLAN: Treatment options were discussed with the patient. I discussed the condition in great detail. I discussed with her that the first day she did not have any pain which does help with the diagnosis of the neuroma. I discussed repeating the injection. She agrees. The area was prepped and she was injected with 1 mL of 2% lidocaine followed by 1 mL of dexamethasone and Kenalog. This was into the third intermetatarsal space of the right foot. Follow up with me in 3 weeks. ALP:[id number] C: 04/14/06 11:17 DOCUMENT: [id number] documented in this encounter Plan of Treatment Not on filedocumented as of this encounter Visit Diagnoses Not on filedocumented in this encounter Care Teams Medical Concierge Relationship Specialty Start Date End Date Dc Gonzalez MD PCP - General 01/17/11 documented as of this encounter
--- OUTSIDE RECORDS SUMMARY | 2022-06-30 21:04 | XMS_ITS | Encounter Summary ---
:1955 Author Organization [facility] Address [address] [place] [address] Care Team Providers Name Role Phone Dc Gonzalez MD Primary Care Provider Unavailable Encounter Details Date Type Department Care Team Description 02/13/2011 PN Conversion Only CONVERSION CONVERSION Edmund Gonzalez MD Social History Tobacco Use Types Packs/Day Years Used Date Smoking Tobacco: Never Assessed Sex Assigned at Date Recorded Not on file documented as of this encounter Plan of Treatment Not on filedocumented as of this encounter Visit Diagnoses Not on filedocumented in this encounter Care Teams Seafood Clerk Relationship Specialty Start Date End Date Dc Gonzalez MD PCP - General 01/17/11 documented as of this encounter
--- OUTSIDE RECORDS SUMMARY | 2022-06-30 21:04 | XMS_ITS | Encounter Summary ---
:1955 Author Organization [facility] Address [address], [place] [address] Care Team Providers Name Role Phone Dc Gonzalez MD Primary Care Provider Unavailable Encounter Details Date Type Department Care Team Description 07/08/2006 PN Conversion Only CONV PODIATRY Norberto Kulkarni, [address] [place] [address] [place], [place] [address] (Wo rk) Social History Tobacco Use Types Packs/Day Years Used Date Smoking Tobacco: Never Assessed Sex Assigned at Date Recorded Not on file documented as of this encounter Plan of Treatment Not on filedocumented as of this encounter Visit Diagnoses Not on filedocumented in this encounter Care Teams Squash Centre Manager Relationship Specialty Start Date End Date Dc Gonzalez MD PCP - General 01/17/11 documented as of this encounter
--- OUTSIDE RECORDS SUMMARY | 2022-06-30 21:04 | XMS_ITS | Encounter Summary ---
:1955 Author Organization [facility] Address [address] [place] [address]. [place] [address] Care Team Providers Name Role Phone Manish Freedman MD Primary Care Provider [phone] Encounter Details Date Type Department Care Team Description 11/04/2017 Telephone [facility] [place] MANDUJANO [address] [facility] [address] [facility] [address] [place] [address] [place] [address] [phone] Social History Tobacco Use Types Packs/Day Years [...] this encounter Miscellaneous Notes Telephone Encounter - Jessie Eugene RN - 11/04/2017 11:09 AM CST ADITI Last Written Prescription Date: 08/11/17 Last Fill Quantity: 90, # refills: 2 Last Office Visit: 08/11/17 Future Office visit: NONE Called pharmacy, they stated it was sent in error, pt has plenty of Rx. UNITY ARTIST documented in this encounter Plan of Treatment Not on filedocumented as of this encounter Visit Diagnoses Not on filedocumented in this encounter Additional Health Concerns Assessment Noted Time PHQ-9 Depression Total Score: 3 08/11/2017 9:15 AM CDT documented as of this encounter Care Teams Assistant Shift Supervisor Relationship Specialty Start Date End Date Manish Freedman MD PCP - General Emergency Medicine 08/11/17 [facility] [address] [place] [address] documented as of this encounter
--- OUTSIDE RECORDS SUMMARY | 2022-06-30 21:04 | XMS_ITS | Clinical Summary ---
:1955 Author Organization [facility] Address [address] [place] [address] Care Team Providers Name Role Phone Dc Gonzalez MD Primary Care Provider Unavailable Source Comments You are receiving this document as you are listed as the primary care provider,follow-up provider, or the patient has been referred to you for consultation.This is in compliance with the Medicare and Medicaid EHR Incentive Program,which states Providers who transition their patient to another setting of careor provider of care or refers their patient to another provider of care shouldprovide summarycare record for each transition of care or referral. [facility] Allergies Active Allergy Reactions Severity Noted Date Comments Review Contrast Media 07/07/2006 PN: LW CM1: >>> NO CONTRAST ADVERSE REACTIO N <<< Reaction : Medications Medication Sig Dispensed Refills Start Date End Date Status DRUG NOT IN COMPUTER LW Comment:OCP 0 07/07/2006 Active FLUoxetine (AKA Take 1 capsule by 30 3 04/13/2006 Active PROZAC) 20 MG capsule mouth daily (every 24 hours). LW Addl Instr:Indicated for: Depression omeprazole (PRILOSEC) Take 1 capsule by 90 3 04/13/2006 Active 10 MG capsule mouth daily (every 24 hours). LW Addl Instr:Indicated for: Acid Reflux UNKNOWN MEDICATION Indications: PN: 0 04/13/2006 Active fexofenadine/pseudoep Take 1 tablet by 180 3 07/07/2006 Active hedrine (TORREY-D mouth as needed. LW ALLERGY & CONGESTION) Addl 60-120 MG tablet Instr:Indicated for: Allergies propranolol (AKA Take 1 tablet by 180 3 07/07/2006 Active INDERAL) 10 MG tablet mouth as needed. LW Comment:STAGE ANXIETY NOT HTN LW Addl Instr:Indicated for: High Blood Pressure PROPOXYPHENE Take 1 tablet by 28 0 07/08/2006 Active N-ACETAMINOPHEN OR mouth every 4 hours as needed. LW Addl Instr:Maximum of 6 tablets/24 hours. mometasone (AKA 2 sprays by Each 34 3 07/07/2006 Active NASONEX) 50 MCG/ACT Nostril route as nasal solution needed. Social History Tobacco Use Types Packs/Day Years Used Date Smoking Tobacco: Never Sex Assigned at Date Recorded Not on file Plan of Treatment Health Maintenance Due Date Last Done Comments Cervical Cancer Screening Due 1955 Colon Cancer Screening Plan Due 1955 Hep C Screening (Preventive 1955 Services) Mammogram 1955 COVID-19 Vaccine (#1) 1955 Adult Preventive Visit 1975 DTaP/Tdap/Td (1 - Tdap) 01/04/1976 Cholesterol 2002 Zoster/Shingles (1 of 2) 2007 Pneumococcal 65+ Yrs (1 - PCV) 2022 Influenza (#1) 2022 HepA Aged Out No longer eligib le based on patient's age to complete this topic HepB Aged Out No longer eligib le based on patient's age to complete this topic Hib Aged Out No longer eligib le based on patient's age to complete this topic IPV (Polio) Aged Out No longer eligib le based on patient's age to complete this topic MCV4 Aged Out No longer eligib le based on patient's age to complete this topic Insurance Payer Benefit Plan / Subscriber ID Effective Phone Address T e Group Dates PREFERREDONE PPO PREFERREDONE PPO [id number] 2012-Pre [phone] sent [id number] (Home) [place], [place] [phone] (Work) Mamta Ward Personal/Family Self [address] (Home) [place], [place] [phone] (Work) Care Teams Greenhouse Laborer Relationship Specialty Start Date End Date Dc Gonzalez MD PCP - General 01/17/11
--- OUTSIDE RECORDS SUMMARY | 2022-06-30 21:04 | XMS_ITS | Encounter Summary ---
:1955 Author Organization [place] Address [address] [place] [address]. [place] [address] Care Team Providers Name Role Phone Manish Freedman MD Primary Care Provider [phone] Reason for Visit Reason Onset Date Comments Refill Request 11/10/2016 Encounter Details Date Type Department Care Team Description 11/10/2016 Refill [facility] for [place] Gonzalez, Refill Request Women [place] MANDUJANO [address] [facility] [address] [place] [address] [address] [place] [address] [place] [id number] [phone] Social History Tobacco Use Types Packs/Day Years [...] this encounter Miscellaneous Notes Telephone Encounter - Dc Gonzalez MD - 11/16/2016 12:35 PM MICROSTRATEGY ARCHITECT DEVELOPER Rx sent OSTRATEGY ARCHITECT DEVELOPER Telephone Encounter - Jessie Eugene RN - 11/10/2016 6:12 PM CST ADITI Last Written Prescription Date: 08/06/16 Last Fill Quantity: 90, # refills: 2 Last Office Visit with [facility] primary care provider: 08/06/16 Future Office visit: none Routing refill request to provider for review/approval because: Rx not sent for year supply. Note routed to Dr. Araya to send to get pt until her next annual due time? OSTRATEGY ARCHITECT DEVELOPER documented in this encounter Plan of Treatment Not on filedocumented as of this encounter Visit Diagnoses Diagnosis Menopause - Primary Symptomatic menopausal or female climact lesli states documented in this encounter Additional Health Concerns Assessment Noted Time PHQ-9 Depression Total Score: 3 08/07/2016 7:18 AM CDT documented as of this encounter Care Teams Human Resources Leader Relationship Specialty Start Date End Date Manish Freedman MD PCP - General Emergency Medicine 08/06/16 08/10/17 [facility] [address] [place] [address] documented as of this encounter
--- OUTSIDE RECORDS SUMMARY | 2022-06-30 21:04 | XMS_ITS | Encounter Summary ---
:1955 Author Organization [facility] Address [address] [place] [address]. [place] [address] Care Team Providers Name Role Phone Manish Freedman MD Primary Care Provider [phone] Encounter Details Date Type Department Care Team Description 09/12/2019 Travel Social History Tobacco Use Types Packs/Day Years [...] documented as of this encounter Care Teams Clay Puddler Relationship Specialty Start Date End Date Manish Freedman MD PCP - General Emergency Medicine 08/11/17 [facility] [address] [place] [address] documented as of this encounter
--- OUTSIDE RECORDS SUMMARY | 2022-06-30 21:04 | XMS_ITS | Encounter Summary ---
:1955 Author Organization [place] Address [address] [place] [address]. [place] [address] Care Team Providers Name Role Phone Manish Freedman MD Primary Care Provider [phone] Reason for Visit Reason Onset Date Comments Physical Imm/Inj 08/16/2018 Flu Shot Encounter Details Date Type Department Care Team Description 08/16/[address] [address] [facility] [place] er for gynecological examination without abnormal finding (Primary Dx); [facility] Men[facility]; [place] [address] [place] [address] Need for prophylactic vaccin ation and inoculation against influenza [address] [address] [place] [address] [place] [address] (Work) [phone] Social History Tobacco Use Types Packs/Day Years [...] Sign Reading Time Taken Comments Blood Pressure 140/76 08/16/2018 9:44 AM CDT Pulse 72 08/16/2018 9:44 AM CDT Temperature - - Respiratory Rate - - Oxygen Saturation - - Inhaled Oxygen Concentration - - Weight 66.3 kg (146 lb 3.2 oz) 08/16/2018 9:44 AM CDT Height 155.3 cm (5' 1.15) 08/16/2018 9:44 AM CDT Body Mass Index 27.49 08/16/2018 9:44 AM CDT documented in this encounter Progress Notes Michael Alcantar CMA - 08/16/2018 12:47 PM CDT Injectable Influenza Immunization Documentation 1. Is the person to be vaccinated sick today? No 2. Does the person to be vaccinated have an allergy to a component of the vaccine? No Egg Allergy Algorithm Link 3. Has the person to be vaccinated ever had a serious reaction to influenza vaccine in the past? No 4. Has the person to be vaccinated ever had Guillain-Urias?? syndrome? No Form completed by Michael Alcantar CMA Jessica Gonzalez MD - 08/16/2018 9:18 AM CDT Savage Spencer is a 63 year old No obstetric history on file. female who presents for annual exam. Besides routine health maintenance, she has no other health concerns today . HPI: The patient's PCP is Manish Freedman MD. patient is here for annual exam. She is doing well on her hormone replacement. She has occasional hot flashes. No other concerns. GYNECOLOGIC HISTORY: No LMP recorded. Patient is postmenopausal. Her current contraception method is: menopause. She reports that she has never smoked. She has never used smokeless tobacco. Patient is sexually active. STD testing offered? Declined Last PHQ-9 score on record = PHQ-9 SCORE 08/16/2018 Total Score 2 Last GAD7 score on record = PA-7 SCORE 08/16/2018 Total Score 2 Alcohol Score = 4 HEALTH MAINTENANCE: Cholesterol: (No results found for: CHOL Last Mammo: 08/11/17, Result: normal, Next Mammo: today Pap: HPV: Negative Lab Results Component Value Date PAP NIL 08/11/2017 PAP NIL 08/06/2016 PAP NIL 06/18/2015 Colonoscopy: Fall 2014, per patient, Result: normal, Next Colonoscopy: due 2019. Dexa: 06/18/2015 Health maintenance updated: yes HISTORY: Obstetric History No data available Patient Active Problem List Diagnosis (none) - all problems resolved or deleted History reviewed. No pertinent surgical history. Social History Substance Use Topics ??? Smoking [...] Sister Current Outpatient Prescriptions Medication Sig ??? atorvastatin (LIPITOR) 20 MG tablet Take 20 mg by mouth daily ??? fluticasone (FLONASE) 50 MCG/ACT nasal spray [place] 2 sprays into both nostrils daily ??? hydrochlorothiazide (HYDRODIURIL) 25 MG tablet ??? LORazepam (ATIVAN) 1 MG tablet ??? losartan (COZAAR) 50 MG tablet Take 50 mg by mouth daily ??? norethindrone-ethinyl estradiol (JINTELI) 1-5 MG-MCG per tablet Take 1 tablet by mouth daily -due for annual exam in July 2018. ??? ondansetron (ZOFRAN-ODT) 4 MG disintegrating tablet ??? PRILOSEC OR None Entered ??? [DISCONTINUED] norethindrone-ethinyl estradiol (JINTELI) 1-5 MG-MCG per tablet Take 1 tablet by mouth daily -due for annual exam in July 2018. No current facility-administered medications for this visit. No Known Allergies Past medical, surgical, social and family histories were reviewed and updated in [facility]. ROS: 12 point review of systems negative other than symptoms noted below. Cardiovascular: Lightheadedness Gastrointestinal: Heartburn Neurologic: Dizziness Musculoskeletal: Joint Pain and Muscle Cramps Endocrine: Loss of Hair Psychiatric: Anxiety and Difficulty Sleeping EXAM: BP 140/76 (BP Location: Right arm, Patient Position: Sitting, Cuff Size: Adult Regular) Pulse 72 Ht 5' 1.15 (1.553 m) Wt 146 lb 3.2 oz (66.3 kg) ? No BMI 27.49 kg/m2 BMI: Body mass index is 27.49 kg/(m^2). PHYSICAL EXAM: Constitutional: Appearance: Well nourished, [...] Healthy diet/nutrition BMI: Body mass index is 27.49 kg/(m^2). ASSESSMENT: 63 year old female with satisfactory annual exam. ICD-10-CM 1. Encounter for gynecological examination without abnormal finding Z01.419 Pap imaged thin layer screen with HPV - recommended age 30 - 65 HPV High Risk Types DNA Cervical 2. Menopause Z78.0 norethindrone-ethinyl estradiol (JINTELI) 1-5 MG-MCG per tablet PLAN: Return to clinic as needed or 1 year. Jessica Gonzalez MD documented in this encounter Nursing Notes Michael Alcantar CMA - 08/16/2018 9:30 AM CDT Prior to injection verified patient identity using patient's name and date of . Due to injection administration, patient instructed to remain in clinic for 15 minutes afterwards, and to report any adverse reaction to me immediately. Michael Alcantar CMA documented in this encounter Miscellaneous Notes Addendum Note - Michael Alcantar CMA - 08/16/2018 12:47 PM CDT Addended by: MICHAEL ALCANTAR on: 08/16/2018 12:47 PM Modules accepted: Orders, SmartSet documented in this encounter Plan of Treatment Not on filedocumented as of this encounter Procedures Procedure Name Priority Date/Time Associated Diagnosis Comme nts HPV HIGH RISK Routine 08/16/2018 10:00 Encounter for Results f or this TYPES DNA CERVICAL AM CDT gynecological procedur e are in examination without the resu lts abnormal finding section. PAP IMAGED THIN Routine 08/16/2018 9:58 AM Encounter for Resul ts for this LAYER SCREEN CDT gynecological procedure are in examination without the resu lts abnormal finding section. documented in this encounter Results HPV High Risk Types DNA Cervical (08/16/2018 10:00 AM CDT) [facility] Method Time Signature HPV Source [facility] 08/16/2018 [facility] 9:59 AM CDT [facility] HPV 16 DNA Negative NEG^Negat 08/19/2018 [facility] 1:22 PM CDT [facility] HPV 18 DNA Negative NEG^Negat 08/19/2018 [facility] 1:22 PM CDT [facility] Other HR HPV Negative NEG^Negat 08/19/2018 [facility] 1:22 PM CDT [facility] Final This 08/19/2018 [facility] patient's 1:22 PM CDT OR MEDICAL sample is [facility] negative for CAMPUS HPV DNA. Comment: This test was developed and its performa nce characteristics determined by the [facility], Molecular Diagnostics Laboratory. It has not been [...] followup is recommended. Specimen Description Cervical Cells 08/16/2018 9:5 9 AM CDT [facility] Comment: [id number] Specimen Anatomical Collection Method Collection Time Receive d Time (Source) Location / / Volume Laterality Cervical Cells CERVIX UTERI 08/16/2018 10:00 8 STRUCTURE / AM CDT 11:07 AM CDT Unknown Jessica Gonzalez MD LAB - BLOOD ORDERABLES Performing Organization Address City/State/ZIP Code Phon e Number [address] [address] [facility] [address] [place] [address] [phone] [facility] [address] Pap imaged thin layer screen with HPV - recommended age 30 - 65 (08/16/2018 9:58 AM CDT) Component Value Ref Test Analysis Performed At [facility] Range Method Time Signature PAP NIL COPATH Copath Report COPATH Patient Name: SAVAGE WARD MR#: [id number] Specimen #: [id number] Collected: 08/16/2018 Received: 08/17/2018 Reported: 08/18/2018 10:14 Ordering Phy(s): JESSICA GONZALEZ For improved result [...] Electronically signed out by: RUBI Hutson (ASCP) Processed and screened at [facility] CLINICAL HISTORY: Post Menopausal, A previous normal pap Date of Last Pap: 08/11/17, Papanicolaou Test Limitations: ??Cervical cytology is a sc reening test with limited sensitivity; regular screening is critical for cancer prevention; Pap tests are p rimarily effective for the diagnosis/prevention of squamous cell carcinoma, not adenocarcinomas or other cancer s. TESTING LAB LOCATION: [address] ??[id number] COLLECTION SITE: Client: ??[facility] Location: [facility] (S) Specimen (Source) Anatomical Collection Method Collection Time Re ceived Time Location / / Volume Laterality Cytologic 08/16/2018 9:58 08/17/2018 9 :12 material AM CDT AM CDT (specimen) Jessica Gonzalez MD LAB [...] Noted Time PHQ-9 Depression Total Score: 2 08/16/2018 9:41 AM CDT documented as of this encounter Care Teams Cooper Apprentice Relationship Specialty Start Date End Date Manish Freedman MD PCP - General Emergency Medicine 08/11/17 [facility] [address] [place] [address] documented as of this encounter
--- OUTSIDE RECORDS SUMMARY | 2022-06-30 21:04 | XMS_ITS | Encounter Summary ---
:1955 Author Organization [facility] Address [address], [place] [address] Care Team Providers Name Role Phone Dc Gonzalez MD Primary Care Provider Unavailable Encounter Details Date Type Department Care Team Description 03/23/2006 PN Conversion Only [place] [address] [address] [place] [address] Social History Tobacco Use Types Packs/Day Years Used Date Smoking Tobacco: Never Assessed Sex Assigned at Date Recorded Not on file documented as of this encounter Plan of Treatment Not on filedocumented as of this encounter Visit Diagnoses Not on filedocumented in this encounter Care Teams Electronic Maintenance Supervisor Relationship Specialty Start Date End Date Dc Gonzalez MD PCP - General 01/17/11 documented as of this encounter
--- OUTSIDE RECORDS SUMMARY | 2022-06-30 21:04 | XMS_ITS | Clinical Summary ---
:1955 Author Organization [place] Address [address] [place] [address] Care Team Providers Name Role Phone Manish Freedman MD Primary Care Provider [phone] Allergies No known active allergies Medications Medication Sig Dispensed Refills Start Date End Date Status PRILOSEC OR None Entered 0 Activ e hydrochlorothiazide 3 04/22/2015 Active (HYDRODIURIL) 25 MG tablet LORazepam (ATIVAN) 1 MG 0 06/07/2015 Active tablet ondansetron (ZOFRAN-ODT) 4 0 02/25/2015 Active MG disintegrating tablet fluticasone (FLONASE) 50 [place] 2 sprays 0 Active MCG/ACT nasal spray into both nostrils daily atorvastatin (LIPITOR) 20 Take 20 mg by 3 05/27/2018 Active MG tablet mouth daily losartan (COZAAR) 50 MG Take 50 mg by 0 07/20/2018 Active tablet mouth daily amitriptyline (ELAVIL) 10 0 02/03/2019 Active MG tablet SHINGRIX injection ADM 0.5ML IM 0 02/25/2019 Active UTD norethindrone-ethinyl Take 1 tablet 90 tablet 4 09/12/2019 Active estradiol (JINTELI) 1-5 by mouth daily MG-MCG tabletIndications: -due for Menopause annual exam in July 2018. Active Problems Problem Noted Date Screening for cervical cancer Overview: 0432-0033 NIL paps [phone] NIL paps 07/2017, 07/2018, 08/2019 NIL pap, Neg H PV Resolved Problems Problem Noted Date Resolved Date Lumbago 11/27/2008 12/25/2008 Immunizations Name Administration Dates Next Due FLU 6-35 months 07/23/2014 Influenza (H1N1) 11/20/2009 Influenza (IIV3) PF 07/21/2009 Influenza Quad, Recombinant, pf(RIV4) 09/12/2019 (Flublok) Influenza Vaccine IM > 6 months 08/16/2018, 07/01/2017, 07/19, Valent IIV4 (Alfuria,Fluzone) 09/05/2015 Pneumococcal 23 valent 06/22/2018 TDAP Vaccine (Adacel) 07/25/2009 Zoster vaccine recombinant adjuvanted 06/22/2018 (SHINGRIX) Family History Medical History Relation Comments Arthritis Father Cerebrovascular Disease Father Chronic Obstructive Pulmonary Disease Father Coronary Artery Disease Father Hyperlipidemia Father Hypertension Father Hypertension Mother Thyroid Disease Sister Relation Status Comments Father Mother Sister Social History Tobacco Use Types Packs/Day Years [...] Comments Blood Pressure 138/82 09/12/2019 10:47 AM EP TECH Pulse 78 09/12/2019 10:47 AM EP TECH Temperature - - Respiratory Rate - - Oxygen Saturation - - Inhaled Oxygen Concentration - - Weight 69.9 kg (154 lb) 09/12/2019 10:47 AM EP TECH Height 155.3 cm (5' 1.15) 09/12/2019 10:47 AM EP TECH Body Mass Index 28.96 09/12/2019 10:47 AM EP TECH Plan of Treatment Health Maintenance Due Date Last Done Comments ADVANCE CARE PLANNING 1955 ANNUAL REVIEW OF HM ORDERS 1955 CT COLONOGRAPHY 1955 FIT-DNA (Cologuard) 1955 FIT 1955 FLEX SIG 1955 COVID-19 Vaccine (#1) 1955 COLONOSCOPY 1967 COLORECTAL CANCER SCREENING 1967 HIV SCREENING 01/04/1972 HEPATITIS C SCREENING 1975 LIPID 2002 ZOSTER IMMUNIZATION (2 of 08/17/2018 06/22/2018 2) DTAP/TDAP/TD IMMUNIZATION 07/25/2019 07/25/2009 (2 - Td or Tdap) MAMMO SCREENING 09/12/2020 09/12/2019, 08/16/2018, 08/11/2017, Additional history exists PHQ-2 (once per calendar 10/18/2021 09/12/2019, 09/12/2019, year) 08/16/2018, Additional history exists FALL RISK ASSESSMENT 2022 MEDICARE ANNUAL WELLNESS 2022 09/12/2019, 08/16/2018, VISIT 08/11/2017, Additional history exists Pneumococcal Vaccine: 65+ 2022 06/22/2018 Years (1 - PCV) INFLUENZA VACCINE (#1) 2022 09/12/2019, 08/16/2018, 07/01/2017, Additional history exists DEXA 06/18/2030 06/18/2015 HEPATITIS B IMMUNIZATION Aged Out No long er eligible based on patient 's age to complete this topic IPV IMMUNIZATION Aged Out No longer eligi ble based on patient 's age to complete this topic MENINGITIS IMMUNIZATION Aged Out No longe r eligible based on patient 's age to complete this topic Insurance Payer Benefit Plan / Subscriber ID Effective Dates Phone Addre ss Type Group [employer] [id number] 2018-Present [address] [id number] [place] [address] (Home) [place] [address] Marquita Ward Personal/Family Self [address] [place] [address] (Home) [place] [address] Care Teams Clay Machine Operator Relationship Specialty Start Date End Date Manish Freedman MD PCP - General Emergency Medicine 08/11/17 [facility] [address] [place] [address]
--- OUTSIDE RECORDS SUMMARY | 2022-06-30 21:04 | XMS_ITS | Encounter Summary ---
:1955 Author Organization [facility] Address [address] [place] [address] Care Team Providers Name Role Phone Dc Gonzalez MD Primary Care Provider Unavailable Encounter Details Date Type Department Care Team Description 07/21/2006 Office Visit [facility] Eyad Kulkarni DPM [facility] [address] [facility] [address] [place] [address] [place], [place] [id number] [phone] Social History Tobacco Use Types Packs/Day Years Used Date Smoking Tobacco: Never Assessed Sex Assigned at Date Recorded Not on file documented as of this encounter Progress Notes Norberto Kulkarni DPM - 07/21/2006 12:01 AM CDT Progress Notes signed by Norberto Kulkarni DPM at 07/22/06 1300 Author: Norberto Kulkarni DPM Service: (none) Author Type: Physician Filed: 02/06/11 1501 Note Time: 07/21/06 0001 Status: Signed Auriculotherapist: Norberto Kulkarni DPM (Physician) NAME: SAVAGE WARD MR: [id number] ACCT: [id number] VISIT: [id number] DICTATING CLINICIAN: Norberto Kulkarni DPM JOB: [id number] LOC: 539 CLINIC PROGRESS NOTE DATE OF VISIT: 07/21/2006 SUBJECTIVE: Patient presents for followup. She is 2 weeks postop neuroma excision on her right foot. She indicates she is doing well, but will occasionally have some burning in the fourth toe. OBJECTIVE: The incision line is intact. There is no evidence of infection, minimal postoperative swelling. ASSESSMENT: Two weeks postop neuroma excision third intermetatarsal space right foot. PLAN: All sutures were removed. A light dressing was applied. She can get the area wet and will perform activities as tolerated. Followup with me p.r.n. basis. ALP:[id number] C: 07/22/06 08:25 DOCUMENT: [id number] documented in this encounter Plan of Treatment Not on filedocumented as of this encounter Visit Diagnoses Not on filedocumented in this encounter Care Teams Motel Clerk Relationship Specialty Start Date End Date Dc Gonzalez MD PCP - General 01/17/11 documented as of this encounter
--- OUTSIDE RECORDS SUMMARY | 2022-06-30 21:04 | XMS_ITS | Encounter Summary ---
:1955 Author Organization [employer] Address [address], [place] [address] Care Team Providers Name Role Phone Dc Gonzalez MD Primary Care Provider Unavailable Reason for Visit Procedure/Equipment (Routine) - Incomplete Specialty Diagnoses / Procedures Referred By Contact Refer red To Contact Diagnoses Right foot pain Norberto Kulkarni DPM Procedures XR Foot Rt 3+ Views [address] [place] [address] Referral ID Status Reason Start Date Expiration Date Visits V isits Requested Authorized [id number] Incomplete 07/27/2016 10/26/2017 1 1 Encounter Details Date Type Department Care Team Description 07/27/2016 Imaging [facility] Norberto Kulkarni DPM Right foot pain [address] [place] [address] [place], [place] [id number] (Wo rk) Social History Tobacco Use Types Packs/Day Years Used Date Smoking Tobacco: Never Sex Assigned at Date Recorded Not on file documented as of this encounter Plan of Treatment Not on filedocumented as of this encounter Procedures Procedure Name Priority Date/Time Associated Diagnosis Comme nts XR FOOT RT 3+ VIEWS Routine 07/27/2016 9:38 AM Right foot pain Results for this CDT procedure are i n the results section. documented in this encounter Results XR Foot Rt 3+ [...] Remainder of the findings are stable. Norberto SWEETM RAD GD documented in this encounter Visit Diagnoses Diagnosis Right foot pain Pain in limb documented in this encounter Care Teams Multimedia Artist Relationship Specialty Start Date End Date Dc Gonzalez MD PCP - General 01/17/11 documented as of this encounter
--- OUTSIDE RECORDS SUMMARY | 2022-06-30 21:04 | XMS_ITS | Encounter Summary ---
:1955 Author Organization [facility] Address [address], [place] [address] Care Team Providers Name Role Phone Dc Gonzalez MD Primary Care Provider Unavailable Encounter Details Date Type Department Care Team Description 03/28/1993 PN Conversion Only [facility] CONVERSION Tate Gonzalez MD Social History Tobacco Use Types Packs/Day Years Used Date Smoking Tobacco: Never Assessed Sex Assigned at Date Recorded Not on file documented as of this encounter Plan of Treatment Not on filedocumented as of this encounter Procedures Procedure Name Priority Date/Time Associated Comments Diagnosis CONVERSION DEFAULT Routine 03/25/1993 11:35 AM Re sults for this INTERFACE ORDER CDT procedure ar e in the results section. documented in this encounter Results Conversion Default Interface Order (03/25/1993 11:35 AM CDT) P athologist Signature PAP Smear See Detail HP CONVERSION Comment: CERVICAL SMEAR Specimen Adequacy: Satisfactory for int erpretation. Within normal limits. Endocervical cells present. Specimen (Source) Anatomical Collection Method Collection Time Re ceived Time Location / / Volume Laterality 03/25/1993 11:35 AM CDT Dc Gonzalez MD LAB_1 Performing Organization Address City/State/ZIP Code Phon e Number HP CONVERSION documented in this encounter Visit Diagnoses Not on filedocumented in this encounter Care Teams Garbage Truck Dispatcher Relationship Specialty Start Date End Date Dc Gonzalez MD PCP - General 01/17/11 documented as of this encounter
--- OUTSIDE RECORDS SUMMARY | 2022-06-30 21:04 | XMS_ITS | Encounter Summary ---
:1955 Author Organization [place] Address [address] [place] [address]. [place] [address] Care Team Providers Name Role Phone Manish Freedman MD Primary Care Provider [phone] Reason for Visit Diagnostic Imaging Mammo (Routine) - Closed Specialty Diagnoses / Procedures Referred By Contact Refer red To Contact Diagnoses Visit for screening mammogram Dc Gonzalez MD Procedures MA Screening Digital Bilateral [address] [place] [address] Referral ID Status Reason Start Date Expiration Date Visits Requ ested Visits Authorized [id number] Closed 07/20/2019 07/19/2020 1 1 Encounter Details Date Type Department Care Team Description 09/12/2019 [facility] mammogram [place] [address] [place] [address] [place] [phone] Social History Tobacco Use Types Packs/Day Years [...] Associated Diagnosis Comme nts MA SCREENING Routine 09/12/2019 11:36 AM Visit for screening R esults for this DIGITAL BILATERAL SUPERVISOR FABRICATION mammogram procedure are in the results section. documented in this encounter Results MA Screening Digital Bilateral (09/12/2019 11:36 AM SUPERVISOR FABRICATION) Anatomical Region Laterality Modality Breast Bilateral Mammography Specimen (Source) Anatomical Location Collection Method / Collectio n Time Received Time / Laterality Volume Impressions 09/12/2019 2:20 PM SUPERVISOR FABRICATION IMPRESSION: BI-RADS CATEGORY: 1 - ??Negative RECOMMENDED FOLLOW-UP: Annual Mammograph y. Exam results letter mailed to patient. CATIA HO MD Narrative 09/12/2019 2:20 PM SUPERVISOR FABRICATION SCREENING MAMMOGRAM, BILATERAL, DIGITAL w/CAD - 09/12/2019 11:36 AM BREAST SYMPTOMS: Lumps in armpits. Order ing provider wanted the patient had a screening mammogram. COMPARISON: ??08/16/2018, 08/11/2017, , 06/18/2015. BREAST DENSITY: Scattered fibroglandular densities. COMMENTS: No findings of suspicion for m alignancy. Procedure Note Catia Ho MD - 09/12/2019F ormatting of this note might be different from the original. SCREENING MAMMOGRAM, BILATERAL, DIGITAL w/CAD - 09/12/2019 11:36 AM BREAST SYMPTOMS: Lumps in armpits. Order ing provider wanted the patient had a screening mammogram. COMPARISON: 08/16/2018, 08/11/2017, 07/19, 06/18/2015. BREAST DENSITY: Scattered fibroglandular densities. COMMENTS: No findings of suspicion for m [...] documented as of this encounter Care Teams Senior Energy Analyst Relationship Specialty Start Date End Date Manish Freedman MD PCP - General Emergency Medicine 08/11/17 [facility] [address] [place] [address] documented as of this encounter
--- OUTSIDE RECORDS SUMMARY | 2022-06-30 21:04 | XMS_ITS | Encounter Summary ---
:1955 Author Organization [facility] Address [address] [place] [address] Care Team Providers Name Role Phone Dc Gonzalez MD Primary Care Provider Unavailable Encounter Details Date Type Department Care Team Description 03/23/2006 Office Visit [facility] Eyad Kulkarni DPM [facility] [address] [facility] [address] [place] [address] [place], [place] [id number] [phone] Social History Tobacco Use Types Packs/Day Years Used Date Smoking Tobacco: Never Assessed Sex Assigned at Date Recorded Not on file documented as of this encounter Progress Notes Norberto Kulkarni DPM - 03/23/2006 12:01 AM CDT Progress Notes signed by Norberto Kulkarni DPM at 03/24/06 1228 Author: Norberto Kulkarni DPM Service: (none) Author Type: Physician Filed: 02/06/11 1245 Note Time: 03/23/06 0001 Status: Signed Principal Statistical Scientist: Norberto Kulkarni DPM (Physician) NAME: MAMTA WARD MR: [id number] ACCT: [id number] VISIT: [id number] DICTATING CLINICIAN: Norberto Kulkarni DPM JOB: [id number] CLINIC PROGRESS NOTE DATE OF VISIT: 03/23/2006 SUBJECTIVE: Patient presents for initial clinic visit she is having pain on her right foot. She describes this as severe pain over the third, fourth and fifth digits. This has been occurring on and off for about a year, but worse over the last 2 months. She does have a tingling, numbness and throbbing type pain. She has not had any previous treatment and denies any injury or trauma to the area. ADR/ALLERGIES: SHE DENIES ALLERGIES TO MEDICATIONS. MEDICATIONS: Medications are oral contraceptives and Prozac. REVIEW OF SYSTEMS: Negative for fever, rash, burning or tingling in the lower extremities. PAST MEDICAL HISTORY: Negative for diabetes or cancer. OBJECTIVE: [age] year old female who appears her stated age. She is alert and oriented and in no acute distress. She does walk without a limp and appears to be in general good health. Skin color, texture and turgor do not show any abnormalities. DP and PT pulses are palpable, hair growth is present on the digits, capillary filling time is less than two seconds, sensation is intact. There is no weakness with muscle testing of the foot, ankle or lower leg. No pain with subtalar joint or ankle joint range of motion. In stance loss of longitudinal arch is evident. She does have pain with palpation of the third intermetatarsal space of the right foot. A positive Alexander's sign is identified. There is no pain with digital range of motion or with compression of the dorsal nerves, metatarsal shaft or joint areas. No other abnormalities noted. ASSESSMENT: Right foot pain must consider neuroma third intermetatarsal space. PLAN: Treatment options were discussed with the patient. I discussed the condition in great detail. I discussed my suspicions of a neuroma. A diagnostic and therapeutic injection was discussed. The area was prepped and she was injected with 1 cc of 2% lidocaine followed by 1 cc of dexamethasone and Kenalog. This was into the third intermetatarsal space of the right foot. She will monitor her progress and follow up with me in 3 weeks. ALP:[id number] C: 03/23/06 11:50 DOCUMENT: [id number] documented in this encounter Plan of Treatment Not on filedocumented as of this encounter Visit Diagnoses Not on filedocumented in this encounter Care Teams Index Clerk Relationship Specialty Start Date End Date Dc Gonzalez MD PCP - General 01/17/11 documented as of this encounter
--- OUTSIDE RECORDS SUMMARY | 2022-06-30 21:04 | XMS_ITS | Encounter Summary ---
:1955 Author Organization [facility] Address [address], [place] [address] Care Team Providers Name Role Phone Dc Gonzalez MD Primary Care Provider Unavailable Reason for Visit Procedure/Equipment (Routine) - Incomplete Specialty Diagnoses / Procedures Referred By Contact Refer red To Contact Diagnoses Right foot pain Norberto Kulkarni DPM Procedures XR Foot Rt 3+ Views [address] [place] [address] Referral ID Status Reason Start Date Expiration Date Visits V isits Requested Authorized [id number] Incomplete 07/13/2016 10/12/2017 1 1 Encounter Details Date Type Department Care Team Description 07/13/2016 Imaging [facility] Norberto Kulkarni DPM Right foot pain [address] [place] [address] [place], [place] [address] (Wo rk) Social History Tobacco Use Types Packs/Day Years Used Date Smoking Tobacco: Never Sex Assigned at Date Recorded Not on file documented as of this encounter Plan of Treatment Not on filedocumented as of this encounter Procedures Procedure Name Priority Date/Time Associated Diagnosis Comme nts XR FOOT RT 3+ VIEWS Routine 07/13/2016 9:33 AM Right foot pain Results for this [...] No acute bone or joint abnormalities. Norberto Kulkarni DPM RAD GD documented in this encounter Visit Diagnoses Diagnosis Right foot pain Pain in limb documented in this encounter Care Teams Control Equipment Electrician Relationship Specialty Start Date End Date Dc Gonzalez MD PCP - General 01/17/11 documented as of this encounter
--- OUTSIDE RECORDS SUMMARY | 2022-06-30 21:04 | XMS_ITS | Encounter Summary ---
:1955 Author Organization [facility] Address [address], [place] [address] Care Team Providers Name Role Phone Dc Gonzalez MD Primary Care Provider Unavailable Reason for Visit Reason Comments Foot Pain Encounter Details Date Type Department Care Team Description 09/18/2013 Initial Consult [facility] Norberto Kulkarni , Foot pain (Primary Dx); MedSurg DPM Estrada neuroma [address] [place] [address] [place], [place] [phone] Social History Tobacco Use Types Packs/Day Years Used Date Smoking Tobacco: Never Assessed Sex Assigned at Date Recorded Not on file documented as of this encounter Progress Notes Norberto Kulkarni, DEYSI - 09/18/2013 2:52 PM CST DATE OF VISIT: 09/18/2013 SUBJECTIVE: Mamta Ward is a pleasant 58 y.o. female who presents to clinic today for evaluation of pain on herleft foot. This has been going on for 6 months. She does have some numbness into the fourth toe. Consuelo would be in the ball of her foot and she does feel this daily. She does not recall any specific injury or trauma. 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 She did have bilateral bunion surgery 30 years ago Adverse Drug Reactions: Allergies Allergen Reactions ??? No Known Drug Allergies ??? Review Contrast Media LW CM1: >>> NO CONTRAST ADVERSE REACTION <<< Reaction : Outpatient Prescriptions Prior to Visit Medication Sig ??? drug not in computer LW Comment:OCP ??? fexofenadine-pseudoephedrine (TORREY-D 12 HOUR) 60-120 mg per tablet Take 1 tablet by mouth as needed. LW Addl Instr:Indicated for: Allergies ??? FLUoxetine (PROZAC) 20 mg capsule Take 1 capsule by mouth daily (every 24 hours). LW Addl Instr:Indicated for: Depression ??? mometasone (NASONEX) 50 mcg/Actuation nasal spray 2 sprays by Each Nostril route as needed. ??? omeprazole (PRILOSEC) 10 mg capsule Take 1 capsule by mouth daily (every 24 hours). LW Addl Instr:Indicated for: Acid Reflux ??? op medications reviewed ??? propoxyphene napsylate-acetaminophen (DARVOCET-N 100) 100-650 mg per tablet Take 1 tablet by mouth every 4 hours as needed. LW Addl Instr:Maximum of 6 tablets/24 hours. ??? propranolol (INDERAL) 10 mg tablet Take 1 tablet by mouth as needed. LW Comment:STAGE ANXIETY NOT HTN LW Addl Instr:Indicated for: High Blood Pressure No facility-administered medications prior to visit. Review of Systems: Negative for fever, rash or shortness of breath. Past Medical History: No past medical history on file. Past Surgical History Procedure Laterality Date ??? 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 year old female who appears their [...] compression of the dorsal nerves. She does have pain with palpation of the third intermetatarsal space of the left foot. A Alexander signis not evident. There is no pain with digital range of motion or with compression of the metatarsal heads. She does have diffuse hyperkeratotic lesions present on the plantar second through fifth metatarsal heads. No other abnormalities noted. ASSESSMENT: Left foot pain must consider neuroma third intermetatarsal space left foot PLAN: Treatment options were discussed with the patient. I discussed the condition in great detail. I discussed with her that the condition is most likely similar to her previous problem on the right foot. I discussed the condition of a neuroma in great detail. A brochure was dispensed. The third intermetatarsal space was injected with 1 ml of 2% Lidocaine followed by 1/2 ml of dexamethasone and 1/2 ml of Kenalog. This directly into the third intermetatarsal space of the left foot. I discussed aftercare and cortisone flare.She will monitor the response and return for followup.The patient was discharged ambulatory and in stable condition. Orders Placed This Encounter Procedures ??? AL INJECTION ANESTHETIC AGENT AND/OR STEROID, PLANTER COMMON DIGITAL NERVE ??? AL TRIAMCINOLONE ACET INJ NOS per 10 mg ??? AL DEXAMETHASONE SODIUM PHOS per 1 mg No orders of the defined types were placed in this encounter. GER STUDY documented in this encounter Plan of Treatment Not on filedocumented as of this encounter Visit Diagnoses Diagnosis Foot pain - Primary Pain in limb Estrada neuroma Lesion of plantar nerve documented in this encounter Care Teams Auto Glass Worker Relationship Specialty Start Date End Date Dc Gonzalez MD PCP - General 01/17/11 documented as of this encounter
--- OUTSIDE RECORDS SUMMARY | 2022-06-30 21:04 | XMS_ITS | Encounter Summary ---
:1955 Author Organization [facility] Address [address] [place] [address]. [place] [address] Care Team Providers Name Role Phone Manish Freedman MD Primary Care Provider [phone] Reason for Visit Reason Onset Date Comments Refill Request 06/21/2018 norethindrone-ethiny l estradiol (JINTELI) 1-5 MG-MCG per tablet Encounter Details Date Type Department Care Team Description 06/21/2018 Refill [facility] Dc Gonzalez Refill Request for Women Nanci You MD (norethindrone-ethinyl [address] [facility] [address] [facility] estradiol (JINTELI) 1-5 [address] 100 MG-MCG per tablet) [place]la [phone] [place] [address] (Wo rk) Social History Tobacco Use Types [...] this encounter Miscellaneous Notes Telephone Encounter - Sara Bhat APRN CNP - 06/22/2018 10:14 AM CDT rx sent for 90 days. Annual due in July 2018 Telephone Encounter - Tete Santana MA - 06/21/2018 9:04 AM CDT Requested Prescriptions Pending Prescriptions Disp Refills ??? norethindrone-ethinyl estradiol (JINTELI) 1-5 MG-MCG per tablet 90 tablet 2 Sig: Take 1 tablet by mouth daily There is no refill protocol information for this order Last Written Prescription Date: 08/11/17 Last Fill Quantity: 90, # refills: 2 Last office visit: 08/11/2017 with prescribing provider: Carlos Owusu Office Visit: documented in this encounter Plan of Treatment Not on filedocumented as of this encounter Visit Diagnoses Diagnosis Menopause Symptomatic menopausal or female climact lesli states documented in this encounter Additional Health Concerns Assessment Noted Time PHQ-9 Depression Total Score: 3 08/11/2017 9:15 AM CDT documented as of this encounter Care Teams Fitting Room Operator Relationship Specialty Start Date End Date Manish Freedman MD PCP - General Emergency Medicine 08/11/17 [facility] [address] [place] [address] documented as of this encounter
--- OUTSIDE RECORDS SUMMARY | 2022-06-30 21:04 | XMS_ITS | Encounter Summary ---
:1955 Author Organization [facility] Address [address], [place] [address] Care Team Providers Name Role Phone Dc Gonzalez MD Primary Care Provider Unavailable Encounter Details Date Type Department Care Team Description 02/13/1997 PN Conversion Only SCIENTOLOGIST CONVERSION Tate Gonzalez MD Social History Tobacco Use Types Packs/Day Years Used Date Smoking Tobacco: Never Assessed Sex Assigned at Date Recorded Not on file documented as of this encounter Plan of Treatment Not on filedocumented as of this encounter Procedures Procedure Name Priority Date/Time Associated Comments Diagnosis CONVERSION DEFAULT Routine 02/06/1997 7:56 AM Res ults for this INTERFACE ORDER CDT procedure ar e in the results section. documented in this encounter Results Conversion Default Interface Order (02/06/1997 7:56 AM CDT) P athologist Signature PAP Smear See Detail HP CONVERSION Comment: NAME:SAVAGE MARADIAGA ?CERVICAL CYTOLOGY REPORT Pathology # ??[id number] ?Date Obtained: [id number] ?Date Received: [id number] LMP: CLINICAL HIST ? PREV SMEAR 05-16-96, NEG CERVICAL SMEAR SPECIMEN ADEQUACY: ?? Satisfactory. ENDOCERVICAL CELLS: ??Present. CYTOLOGIC IMPRESSION: Within Normal Limits (Negative). Verified 02/15/97 by: ??MB ? (electronic signature) Angeles DOTSON M.D., Director of Cyt opathology Specimen (Source) Anatomical Collection Method Collection Time Re ceived Time Location / / Volume Laterality 02/06/1997 7:56 AM CDT Dc Gonzalez MD LAB_1 Performing Organization Address City/State/ZIP Code Phon e Number HP CONVERSION documented in this encounter Visit Diagnoses Not on filedocumented in this encounter Care Teams Leader Writer Relationship Specialty Start Date End Date Dc Gonzalez MD PCP - General 01/17/11 documented as of this encounter
--- OUTSIDE RECORDS SUMMARY | 2022-06-30 21:04 | XMS_ITS | Encounter Summary ---
:1955 Author Organization [facility] Address [address] [address] Care Team Providers Name Role Phone Dc Gonzalez MD Primary Care Provider Unavailable Reason for Visit Procedure/Equipment (Routine) - Incomplete Specialty Diagnoses / Procedures Referred By Contact Refer red To Contact Diagnoses Closed displaced fracture of second metatarsal bone of right foot, initial encounter Norberto Kulkarni, DPM Procedures XR Foot Rt 3+ Views [address] [place] [address] Referral ID Status Reason Start Date Expiration Date Visits V isits Requested Authorized [id number] Incomplete 08/12/2016 11/11/2017 1 1 Encounter Details Date Type Department Care Team Description 08/12/2016 Imaging [facility] Norberto Kulkarni, Closed displaced [address] [employer] D[place] [address] [facility] metatarsal bone of [phone] [place], [place] [address] right foot, initial [phone] (Wo rk) encounter Social History Tobacco Use Types Packs/Day Years Used Date Smoking Tobacco: Never Sex Assigned at Date Recorded Not on file documented as of this encounter Plan of Treatment Not on filedocumented as of this encounter Procedures Procedure Name Priority Date/Time Associated Diagnosis Comme nts XR FOOT RT 3+ VIEWS Routine 08/12/2016 2:59 PM Closed displace d Results for this CDT fracture of second procedure are in metatarsal bone of the resul ts right foot, initial section. encounter documented in this encounter Results XR Foot [...] may be related to prior trauma. Norberto SWEETM RAD GD documented in this encounter Visit Diagnoses Diagnosis Closed displaced fracture of second meta tarsal bone of right foot, initial encounter documented in this encounter Care Teams Paraprofessional Aide Teacher Relationship Specialty Start Date End Date Dc Gonzalez MD PCP - General 01/17/11 documented as of this encounter
--- OUTSIDE RECORDS SUMMARY | 2022-06-30 21:04 | XMS_ITS | Encounter Summary ---
:1955 Author Organization [facility] Address [facility] [place] [address] Care Team Providers Name Role Phone Manish Freedman MD Primary Care Provider Reason for Visit Diagnostic Imaging Mammo - Closed Specialty Diagnoses / Procedures Referred By Contact Refer red To Contact Diagnoses Visit for screening mammogram Dc Gonzalez MD Procedures MA Screening Digital Bilateral [address] [facility] [address] [place] [address] Referral ID Status Reason Start Date Expiration Date Visits Requ ested Visits Authorized [id number] Closed 07/21/2018 07/21/2019 1 1 Encounter Details Date Type Department Care Team Description 08/16/2018 Radiant Appointment [facility] [address] [facility], [address] [place] [phone] Social History Tobacco Use Types Packs/Day Years [...] Associated Diagnosis Comme nts MA SCREENING Routine 08/16/2018 9:28 AM Visit for screening Re sults for this DIGITAL BILATERAL CDT mammogram procedure are in the results section. documented in this encounter Results MA Screening Digital Bilateral (08/16/2018 9:28 AM CDT) Anatomical Region Laterality Modality Breast Bilateral Mammography Specimen (Source) Anatomical Location Collection Method / Collectio n Time Received Time / Laterality Volume Impressions 08/16/2018 10:10 AM CDT IMPRESSION: BI-RADS CATEGORY: 1 - ??Negative RECOMMENDED FOLLOW-UP: Annual Mammograph y. Exam results letter mailed to patient. FERMIN GILLILAND MD Narrative 08/16/2018 10:10 AM CDT SCREENING MAMMOGRAM, BILATERAL, DIGITAL w/CAD - 08/16/2018 9:28 AM BREAST SYMPTOMS: No current breast compl aints. COMPARISON: ??08/11/17, 08/06/16, 06/18/15 , 05/17/14. BREAST DENSITY: Scattered fibroglandular densities. COMMENTS: No findings of suspicion for m alignancy. Procedure Note Fermin Gilliland MD - 08/16/2018For matting of this note might be different from the original. SCREENING MAMMOGRAM, BILATERAL, DIGITAL w/CAD - 08/16/2018 9:28 AM BREAST SYMPTOMS: No current breast compl aints. COMPARISON: 08/11/17, 08/06/16, 06/18/15, 05/17/14. BREAST DENSITY: Scattered fibroglandular densities. COMMENTS: No findings of suspicion for m alignancy. IMPRESSION: BI-RADS CATEGORY: 1 - Negati ve RECOMMENDED FOLLOW-UP: Annual Mammograph y. Exam results letter mailed to patient. FERMIN GILLILAND MD Dc Gonzalez MD IMG MAMMOGRAPHY ORDERABLES documented in this encounter Visit Diagnoses Diagnosis Visit for screening mammogram Other screening mammogram documented in this encounter Additional Health Concerns Assessment Noted Time PHQ-9 Depression Total Score: 2 08/16/2018 9:41 AM CDT documented as of this encounter Care Teams Soft Crab Shedder Relationship Specialty Start Date End Date Manish Freedman MD PCP - General Emergency Medicine 08/11/17 [facility] [address] [place] [address] documented as of this encounter
--- OUTSIDE RECORDS SUMMARY | 2022-06-30 21:04 | XMS_ITS | Encounter Summary ---
:1955 Author Organization [facility] Address [address] [place] [address]. 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 [address] Menopause; [address] Abnormal uterine bleeding (AUB) [address] [place] [address] [place] [address] Social History Tobacco Use Types Packs/Day Years [...] Sign Reading Time Taken Comments Blood Pressure 114/60 08/06/2016 9:10 AM CDT Pulse - - Temperature - - Respiratory Rate - - Oxygen Saturation - - Inhaled Oxygen Concentration - - Weight 68 kg (150 lb) 08/06/2016 9:10 AM CDT Height 154.9 cm (5' 1) 08/06/2016 9:10 AM CDT Body Mass Index 28.34 08/06/2016 9:10 AM CDT documented in this encounter Progress Notes Alda Mcqueen APRN CNP - 08/10/2016 10:44 AM CDT Quick Note: Letter with results sent to patient. Jessica Gonzalez MD - 08/06/2016 9:05 AM CDT Savage Spencer is a 61 year old No obstetric history on file. female who presents for annual exam. Besides routine health maintenance, she has no other health concerns today . HPI: The patient's PCP is Dr. Freedman Patient seen for her annual. She recently noted some spotting. She has a stress fracture in her right foot. GYNECOLOGIC HISTORY: No LMP recorded. Patient is postmenopausal. Her current contraception method is: menopause. She reports that she has never smoked. She has never used smokeless tobacco. STD testing offered? Declined Last PHQ-9 score on record = PHQ-9 SCORE 08/06/2016 Total Score 3 Last GAD7 score on record = PA-7 SCORE 08/06/2016 Total Score 6 Alcohol Score = 4 HEALTH MAINTENANCE: Cholesterol: (No results found for: CHOL Last Mammo: one year ago, Result: normal, Next Mammo: today Pap: (PAP NIL 06/18/2015 ) Colonoscopy: 2014, Result: abnormal , Next Colonoscopy: 5 years. Dexa: 2015 Health maintenance updated: yes HISTORY: Obstetric History No data available Patient Active Problem List Diagnosis (none) - all problems resolved or deleted No past surgical history on file. Social History Substance Use Topics ??? Smoking status: Never Smoker ??? Smokeless tobacco: Never Used ??? Alcohol Use: 6.0 oz/week 10 Standard drinks or equivalent per week Problem (# of Occurrences) Relation (Name,Age of Onset) Arthritis (1) Father CEREBROVASCULAR DISEASE (1) Father Chronic Obstructive Pulmonary Disease (1) Father Coronary Artery Disease (1) Father Hyperlipidemia (1) Father Hypertension (2) Father, Mother Thyroid Disease (1) Sister Current Outpatient Prescriptions Medication Sig ??? norethindrone-ethinyl estradiol (JINTELI) 1-5 MG-MCG per tablet Take 1 tablet by mouth daily ??? atorvastatin (LIPITOR) 20 MG tablet ??? [DISCONTINUED] norethindrone-ethinyl estradiol (JINTELI) 1-5 MG-MCG per tablet Take 1 tablet by mouth daily ??? fluconazole (DIFLUCAN) 50 MG tablet Take 1 tablet (50 mg) by mouth 3 times daily ??? hydrochlorothiazide (HYDRODIURIL) 25 MG tablet ??? LORazepam (ATIVAN) 1 MG tablet ??? ondansetron (ZOFRAN-ODT) 4 MG disintegrating tablet ??? fluticasone (FLONASE) 50 MCG/ACT nasal spray Rodman 2 sprays into both nostrils daily ??? NASONEX NA None Entered ??? PRILOSEC OR None Entered No current facility-administered medications for this visit. No Known Allergies Past medical, surgical, social and family histories were reviewed and updated in [facility]. ROS: 12 point review of systems negative other than symptoms noted below. Constitutional: Weight Gain Head: Nasal Congestion Respiratory: Cough Gastrointestinal: Heartburn and Nausea Genitourinary: Hot Flashes, Night Sweats, No Periods and Spotting Psychiatric: Anxiety and Difficulty Sleeping EXAM: BP 114/60 mmHg Ht 5' 1 (1.549 m) Wt 150 lb (68.04 kg) BMI 28.36 kg/m2 ? No BMI: Body mass index is 28.36 kg/(m^2). PHYSICAL EXAM: Constitutional: Appearance: Well nourished, well developed, alert, in no acute distress Neck: Lymph Nodes: No lymphadenopathy present Thyroid: Gland size normal, nontender, no nodules or masses present on palpation Chest: Respiratory Effort: Breathing unlabored Cardiovascular: Heart: Auscultation: Regular rate, normal rhythm, no murmurs present Breasts: Inspection of Breasts: No lymphadenopathy present Palpation of Breasts and Axillae: No masses present on palpation, no breast tenderness Axillary Lymph Nodes: No lymphadenopathy present Gastrointestinal: Abdominal Examination: Abdomen nontender to palpation, [...] nontender to palpation, no bleeding present Uterus: Nontender to palpation, no masses present, position anteflexed, mobility: normal Adnexa: No adnexal tenderness present, no adnexal [...] Healthy diet/nutrition BMI: Body mass index is 28.36 kg/(m^2). Weight management plan: Patient was referred to their PCP to discuss a diet and exercise plan. ASSESSMENT: 61 year old female with satisfactory annual exam. ICD-10-CM 1. Encounter for gynecological examination without abnormal finding [Z01.419] Z01.419 2. Need for prophylactic vaccination and inoculation against influenza Z23 Pap imaged thin layer screen reflex to HPV if ASCUS - recommended age 25 - 29 years FLU VAC, SPLIT VIRUS IM > 3 YO (QUADRIVALENT) [62357] Vaccine Administration, Initial [85439] 3. Menopause Z78.0 norethindrone-ethinyl estradiol (JINTELI) 1-5 MG-MCG per tablet 4. Abnormal uterine bleeding (AUB) N93.9 US Transvaginal Non OB PLAN:The patient will monitor her bleeding. If she continues to have spotting she will return to clinic for an ultrasound examination. Otherwise, the patient will be seen as needed or in 1 year for an annual. Jessica Gonzalez MD Injectable Influenza Immunization Documentation 1. Is the person to be vaccinated sick today? No 2. Does the person to be vaccinated have an allergy to eggs or to a component of the vaccine? No 3. Has the person to be vaccinated today ever had a serious reaction to influenza vaccine in the past? No 4. Has the person to be vaccinated ever had Guillain-[place] syndrome? No Form completed by Janna Flynn MA 08/06/2016 documented in this encounter Nursing Notes Janna Flynn - 08/06/2016 9:14 AM CDT Chief Complaint Patient presents with ??? Physical Initial BP 114/60 mmHg Ht 5' 1 (1.549 m) Wt 150 lb (68.04 kg) BMI 28.36 kg/m2 ? No Estimated body mass index is 28.36 kg/(m^2) as calculated from the following: Height as of this encounter: 5' 1 (1.549 m). Weight as of this encounter: 150 lb (68.04 kg). BP completed using cuff size: regular Janna Flynn MA 08/06/2016 documented in this encounter Plan of Treatment Not on filedocumented as of this encounter Procedures Procedure Name Priority Date/Time Associated Diagnosis Comme nts PAP IMAGED THIN Routine 08/06/2016 12:00 Need for prophylactic Results for this LAYER SCREEN AM CDT vaccination and procedure ar e in inoculation against the resu lts influenza section. documented in this encounter Results Pap imaged thin layer screen reflex to HPV if ASCUS - recommended age 25 - 29 years (08/06/2016 12:00 AM CDT) Component Value Ref Test Analysis Performed At [facility] Range Method Time Signature PAP NIL COPATH Copath Report COPATH Patient Name: SAVAGE WARD MR#: [id number] Specimen #: [id number] Collected: 08/06/2016 Received: 08/07/2016 Reported: 08/10/2016 10:33 Ordering Phy(s): JESSICA FLEX PRESTHUS SPECIMEN/STAIN PROCESS: Pap imaged thin layer prep screening (Surepath, FocalPoint w ith guided screening) ? Pap-Cyto x 1, Pap with reflex to HPV if ASCUS x 1 SOURCE: Cervical, endocervical ---- Pap imaged thin layer prep screening (Surepath, FocalPoint with guided screening) SPECIMEN ADEQUACY: Satisfactory for evaluation. -Transformation zone component present. CYTOLOGIC INTERPRETATION: Negative for Intraepithelial Lesion or Malignancy Electronically signed out by: RUBI Leal (ASCP) Processed and screened at [facility] CLINICAL HISTORY: Post Menopausal, Previous normal pap Date of Last Pap: 06/18/2015, Papanicolaou Test Limitations: ??Cervical cytology is a scre ening test with limited sensitivity; regular screening is critical for cancer prevention; Pap tests are primarily effective for the diagnosis/prevention of squamous cell carcinoma, not adenoca rcinomas or other cancers. TESTING LAB LOCATION: [address] ??[address] COLLECTION SITE: Client: ??[facility] Location[facility] Specimen (Source) Anatomical Collection Method Collection Time Re ceived Time Location / / Volume Laterality Cytologic 08/06/2016 08/07/2016 10:2 2 material AM CDT (specimen) Jessica Gonzalez MD LAB - OPTIME CLINICAL SPECIM EN Performing Organization Address City/State/ZIP Code Phon e Number COPATH documented in this encounter Visit Diagnoses Diagnosis Encounter for gynecological examination without abnormal finding [Z01.419] - Primary Routine gynecological examination Need for prophylactic vaccination and in oculation against influenza Menopause Symptomatic menopausal or female climact lesli states Abnormal uterine bleeding (AUB) documented in this encounter Additional Health Concerns Assessment Noted Time PHQ-9 Depression Total Score: 3 08/07/2016 7:18 AM CDT documented as of this encounter Care Teams Architect Manager Relationship Specialty Start Date End Date Manish Freedman MD PCP - General Emergency Medicine 08/06/16 08/10/17 [facility] [address] [place] [address] documented as of this encounter
--- OUTSIDE RECORDS SUMMARY | 2022-06-30 21:04 | XMS_ITS | Encounter Summary ---
:1955 Author Organization [facility] Address [address], [place] [address] Care Team Providers Name Role Phone Dc Gonzalez MD Primary Care Provider Unavailable Reason for Visit Reason Comments Other Encounter Details Date Type Department Care Team Description 03/29/2006 Telephone [facility] Eyad Kulkarni, DPZelda Other [facility] [address] [facility] [address] [email or web address] [address] [place], [place] [id number] [phone] Social History Tobacco Use Types Packs/Day Years Used Date Smoking Tobacco: Never Assessed Sex Assigned at Date Recorded Not on file documented as of this encounter Progress Notes Cherise Malone - 03/29/2006 2:00 PM CDT Phone Note filed by Cherise Malone at 02/03/11 9662 Author: Cherise Malone Service: (none) Author Type: (none) Filed: 02/03/11 0990 Note Time: 03/29/06 1400 Status: Signed Cylinder Honer: Cierra Conversion Pt. calling stating she has had no improvement with the injection and should she keep her f/u appt.? Reassured pt. that injection could still be helpfull and that yes, she should keep appt. oon [id number]. Pt. understood. Created on 29Mar2006 2:00pm by LYNDSEY MALONE Acknowledged by KIMBERLY KULKARNI on 8:43am OR WEB DESIGNER documented in this encounter Plan of Treatment Not on filedocumented as of this encounter Visit Diagnoses Not on filedocumented in this encounter Care Teams Dry Cell Battery Assembler Relationship Specialty Start Date End Date Dc Gonzalez MD PCP - General 01/17/11 documented as of this encounter
--- OUTSIDE RECORDS SUMMARY | 2022-06-30 21:04 | XMS_ITS | Encounter Summary ---
:1955 Author Organization [facility] Address [address] [address] Care Team Providers Name Role Phone Dc Gonzalez MD Primary Care Provider Unavailable Encounter Details Date Type Department Care Team Description 03/20/2002 PN Conversion Only Logan Tracy PA-C [address] [place] [address] [place], [place] [address] [phone] Social History Tobacco Use Types Packs/Day Years Used Date Smoking Tobacco: Never Assessed Sex Assigned at Date Recorded Not on file documented as of this encounter Progress Notes Shahab Erazo PA-C - 03/20/2002 12:01 AM CDT Progress Notes signed by Shahab Erazo PA-C at 03/23/02 1116 Author: Shahab Erazo PA-C Service: (none) Author Type: Physician Wellness Trainer Filed: 02/05/11 0700 Note Time: 03/20/02 0001 Status: Signed Printed Circuit Boards Laminator: Shahab Erazo PA-C (Physician Wellness Trainer) IMPRESSION: Onychomycosis. SUBJECTIVE: This is a 47-year-old female. She presents today with concerns of abnormal fingernail growth. At first, she had problems with her right thumbnail. Has become thickened and has been irregular. Now, her left thumbnail has been changing. She does not wear acrylics. Does not know of any injury. She has no skin conditions that she knows of. She has not seen anybody for this in the past. PAST MEDICAL HISTORY: Unremarkable. MEDICATIONS: Oral contraceptives. ADR/ALLERGIES: NONE. TOBACCO USE: None. OBJECTIVE: VS/GEN: BP: 120/64. Ht: 5 ft 2 in. Wt: 131. This well-appearing female, in no acute distress. Examination of fingernail shows thickening and a yellow crusting underneath the nail. Unable to get a good cut of the nail because the nail was completely cut down to the nailbed and I was not able to get a sample to test for fungal infection. ASSESSMENT: Onychomycosis. PLAN: I do believe that this is true onychomycosis. I would like patient to get a test of her liver enzymes, ALT, and AST. If this is normal, she was start Sporanox Pulse treatment at 200 mg twice a day for seven days and then rest for 21 days and she will do this three times. TT: CT: [id number] C: DOCUMENT: [id number] Kranthi Fowler - 12/09/1995 12:01 AM CST Progress Notes signed by Kranthi Fowler MD at 12/23/95 1035 Author: Kranthi Fowler MD Service: (none) Author Type: Physician Filed: 02/03/11 8144 Note Time: 12/09/95 0001 Status: Signed Printed Circuit Boards Laminator: Kranthi Fowler MD (Physician) IMPRESSION: Executive physical. SUBJECTIVE: PRESENT ILLNESS: This 40-year-old white female is in good health. She is currently five months' . LMP in June of 1995. 2 para 2. PAST HISTORY: Chronic Conditions: Hay fever in the spring and fall; uses prescription decongestants or nasal sprays. Operative: Bilateral feet, bunions, at the same time. Injuries: Fractured leg at age 12. None other. FAMILY HISTORY: Father living and well; did have a heart attack at age 57. Mother, hypertension. Five sisters, one brother living and well. Patient grew up in [place]. No other family diseases. MARITAL HISTORY: white female. One child. 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 HABITS: Smoke: Never. Alcohol: Four beers, two wine per week. None during the . Coffee: Two cups per day. Last Tetanus: More than ten years ago. Sleep: Good depending on the stress. Seat Belt: 100%. Exercise: Three times a week aerobic all year long. SYSTEMIC REVIEW: ENT: No glasses. CVR: Heart murmur off and on for long time. GI: Epigastric burning 6-7 years off and on. Not seasonal. No reflux. No diarrhea, constipation, or blood in the stool. : See above. Bones/Joints: Negative. MEDICATIONS: None. ALLERGIES: No drugs. Hay fever. OBJECTIVE: BP: 100/70. Ht: 61-1/2. Wt: 129 lb. ENT normal. Neck: No adenopathy. Thyroid not palpable. Lungs: Clear. Heart: Sinus rhythm. Grade 1/6 to 2/6 systolic murmur at the pulmonic area lying only. Breasts: Normal. No masses. Abdomen: Uterus enlarged to the umbilicus. No enlarged organs. The aorta is normal size. No masses or tenderness. Quadriceps reflexes brisk and equal. Good posterior tibial pulses. No ankle edema. The remainder of the physical is normal. ASSESSMENT: 1. Executive physical. 2. Functional heart murmur. 3. Five to six months' . 4. Allergic rhinitis. PLAN: 1. Review lab data with the patient and send letter. 2. Do tetanus-diphtheria booster if OB approves. dla NISTRATIVE PROJECT COORDINATOR documented in this encounter Plan of Treatment Not on filedocumented as of this encounter Procedures Procedure Name Priority Date/Time Associated Diagnosis Comme nts ALT (SGPT) Routine 03/20/2002 4:24 PM Results f or this CDT procedure are i n the results section . AST Routine 03/20/2002 4:24 PM Results f or this CDT procedure are i n the results section . documented in this encounter Results AST (03/20/2002 4:24 PM CDT) [facility] gist Method Time Signature Aspartate 22 0 - 45 HP CONVERSION Aminotransferase U/L Specimen (Source) Anatomical Collection Method Collection Time Re ceived Time Location / / Volume Laterality 03/20/2002 4:24 PM CDT Panfilo Barriga MD LAB_1 Performing Organization Address City/[facility] Phon e Number HP CONVERSION ALT (SGPT) (03/20/2002 4:24 PM CDT) [facility] gist Method Time Signature Alanine 36 0 - 65 HP CONVERSION Aminotransferase U/L Specimen (Source) Anatomical Collection Method Collection Time Re ceived Time Location / / Volume Laterality 03/20/2002 4:24 PM CDT Panfilo Barriga MD LAB_1 Performing Organization Address [facility] Phon e Number HP CONVERSION documented in this encounter Visit Diagnoses Not on filedocumented in this encounter Care Teams Bow Maker Gift Wrapping Relationship Specialty Start Date End Date Dc Gonzalez MD PCP - General 01/17/11 documented as of this encounter
--- OUTSIDE RECORDS SUMMARY | 2022-06-30 21:04 | XMS_ITS | Encounter Summary ---
:1955 Author Organization [facility] Address [address] [address] Care Team Providers Name Role Phone Unavailable Primary Care Provider Unavailable Encounter Details Date Type Department Care Team Description 05/14/1997 - Hospital Encounter [facility] Dc Gonzalez MD 05/15/[address] [place] [address] Social History Tobacco Use Types Packs/Day Years Used Date Smoking Tobacco: Never Assessed Sex Assigned at Date Recorded Not on file documented as of this encounter Plan of Treatment Not on filedocumented as of this encounter Procedures Procedure Name Priority Date/Time Associated Diagnosis Comme nts XR MAMMOGRAM Routine 05/14/1997 6:29 AM Results f or this SCREENING CDT procedure are i n the results section. documented in this encounter Results MM Mammogram Screening (05/14/1997 6:29 AM CDT) Anatomical Region Laterality Modality Other Specimen (Source) Anatomical Location Collection Method / Collectio n Time Received Time / Laterality Volume Impressions 05/14/1997 6:29 AM CDT : ??No mammographic evidence of malignancy. . Narrative 05/14/1997 6:29 AM CDT Breast tissue is moderately dense; this somewhat decreases diagnostic sensitivity. ??No suspicious masses or c alcifications are seen. ??No change from 03-31-93. Procedure Note Tin Olmos MD - 12/26/2016Format ting of this note might be different from the original. Breast tissue is moderately dense; this somewhat decreases diagnostic sensitivity. No suspicious masses or duong cifications are seen. No change from 03-31-93. IMPRESSION : No mammographic evidence of malignancy . . Dc Gonzalez MD RAD JAXON documented in this encounter Visit Diagnoses Not on filedocumented in this encounter
--- OUTSIDE RECORDS SUMMARY | 2022-06-30 21:05 | XMS_ITS | Encounter Summary ---
:1955 Author Organization [facility] Address [address] [place] [address] Care Team Providers Name Role Phone Unavailable Primary Care Provider Unavailable Reason for Visit [facility] (Routine) - Closed Specialty Diagnoses / Procedures Referred By Contact Refer red To Contact Arnoldo James DO [facility] ORTHOPEDIC [facility] [address] [place], [place] [address] Referral ID Status Reason Start Date Expiration Date Visits V isits Requested Authorized PO/OTHER/SPINE Closed 11/27/2008 11/26/2009 20 20 Encounter Details Date Type Department Care Team Description 12/05/2008 Therapy Visit [facility] Nicole Stovall Lu mbago (Primary Dx) Medicine - [facility] Physical [facility] [address] [place] [id number] Social History Tobacco Use Types Packs/Day Years Used Date Never Assessed Alcohol Habits Answer Date Recorded How often [...] documented as of this encounter Progress Notes Maureen Parr - 12/25/2008 11:31 AM CDT Addended by: MAUREEN PARR on: 12/25/2008 11:31:46 AM Modules accepted: Orders Nicole tSovall - 12/05/2008 10:58 AM CST Please refer to the daily flowsheet for treatment today and total treatment time. Does this patient have Medicare or Medicaid as primary or secondary insurance? NO BILITATOR documented in this encounter Plan of Treatment Not on filedocumented as of this encounter Procedures Procedure Name Priority Date/Time Associated Diagnosis Comme nts ZZC MANUAL THER Routine 12/05/2008 10:59 AM Lumbago TECH,1+REGIONS,EA 15 MIN REHABILITATOR ZZC THERAPEUTIC Routine 12/05/2008 10:59 AM Lumbago EXERCISES REHABILITATOR documented in this encounter Visit Diagnoses Diagnosis Lumbago - Primary documented in this encounter
--- OUTSIDE RECORDS SUMMARY | 2022-06-30 21:05 | XMS_ITS | Encounter Summary ---
:1955 Author Organization [place] Address [facility] [place] [address] Care Team Providers Name Role Phone Unavailable Primary Care Provider Unavailable Reason for Visit Reason Onset Date Comments Refill Request 12/09/2015 Encounter Details Date Type Department Care Team Description 12/09/2015 Refill [facility] Kourtney Mcqueen, Refill Request SURGERY [place] OB/ PROTOTYPE ENGINEER DIALYSIS SOCIAL WORKER HEALTH PLAN MANAGER [address] [address] [place] [address] [phone] Social History Tobacco Use Types Packs/Day Years [...]
--- OUTSIDE RECORDS SUMMARY | 2022-06-30 21:05 | XMS_ITS | Encounter Summary ---
:1955 Author Organization [place] Address [facility] [place] [address] Care Team Providers Name Role Phone Unavailable Primary Care Provider Unavailable Encounter Details Date Type Department Care Team Description 06/18/2015 Radiant Appointment Dc Ceron screening GYNECOLOGY AND MD Avelino for osteoporosis SURGERY [employer] [address] [place] [address] [address] [place], [place] (Work) [address] Social History Tobacco Use Types Packs/Day [...] Name Priority Date/Time Associated Diagnosis Comme nts DX HIP/PELVIS/SPINE Routine 06/18/2015 9:29 AM Special screeni ng for Results for this CDT osteoporosis procedure are i n the results section. documented in this encounter Results DX Hip/Pelvis/Spine (06/18/2015 9:29 AM CDT) Anatomical Region Laterality Modality Dexa Computed Radiography Specimen (Source) Anatomical Location Collection Method / Collectio n Time Received Time / Laterality Volume Narrative 06/19/2015 2:35 PM CDT FINDINGS: Lumbar Spine (L1-L4) T-score: -0.2 Left Femoral Neck T-score: -0.6 Right Femoral Neck T-score: -0.8 Lumbar (L1-L4) BMD: 1.176 Previous: 1.12 3 Total Hip Mean BMD: 0.964 Previous: 0.94 7 Impression: ??Normal bone density scan. ??Repeat in 2 years. Dc Gonzalez MD IMG DEXA ORDERABLES documented in this encounter Visit Diagnoses Diagnosis Special screening for osteoporosis documented in this encounter
--- OUTSIDE RECORDS SUMMARY | 2022-06-30 21:05 | XMS_ITS | Encounter Summary ---
:1955 Author Organization [place] Address [facility] [place] [address] Care Team Providers Name Role Phone Unavailable Primary Care Provider Unavailable Reason for Visit Reason Onset Date Comments Refill Request 12/20/2015 Encounter Details Date Type Department Care Team Description 12/20/2015 Refill [facility] Kourtney Mcqueen, Refill Request SURGERY [place] OB/ ACCOUNTING ADMINISTRATOR REGISTERED PHARMACIST HVAC INSTALLATION TECHNICIAN [address] [address] [place] [address] [phone] Social History Tobacco Use Types Packs/Day Years [...] Diagnoses Diagnosis Yeast infection of the vagina - Primary Candidiasis of vulva and vagina documented in this encounter
--- OUTSIDE RECORDS SUMMARY | 2022-06-30 21:05 | XMS_ITS | Encounter Summary ---
:1955 Author Organization [place] Address [address] [place] [address] Care Team Providers Name Role Phone Unavailable Primary Care Provider Unavailable Reason for Referral - Closed Specialty Diagnoses / Procedures Referred By Contact Refer red To Contact Diagnoses Low back pain Lumbar radiculopathy Arnoldo James DO [facility] [address] [place], [place] [address] Referral ID Status Reason Start Date Expiration Date Visits Requ ested Visits Authorized [id number] Closed 11/27/2008 10/17/2011 1 1 [employer] Reason for Visit Reason Comments Back Pain rigth SI arean, pain into up per thigh with tinghling, started 3 weeks ago Encounter Details Date Type Department Care Team Description 11/27/2008 Office Visit [facility] Arnoldo James Low Back P ain; Orthopedic DO Angel Luis Lumbar Radiculopathy [facility] [address] [place] [address], [address] [facility] [address] [place] [address] [phone] Social History Tobacco Use Types Packs/Day Years [...] Sign Reading Time Taken Comments Blood Pressure 122/76 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 Onset: No acute traumatic incident or injury recalled. Awoke one morning with right posterior hip and low back pain. Symptoms: Has constant ache. Sharp pain with bending forward, change in positions or lifting leg. Ache down lateral leg. Numbness/tingling down to foot. No weakness or bowel/bladder changes. Mitigating Factors: nothing Symptoms have been unchanged since that time. Prior history of related problems: no prior problems with this area in the past. Patients past medical, surgical, social and family histories reviewed. Past medical history notable for: GERD and Estrada's neuroma removal REVIEW OF SYSTEMS: CONSTITUTIONAL:NEGATIVE for fever, chills, change in weight INTEGUMENTARY/SKIN: NEGATIVE for worrisome rashes, moles or lesions MUSCULOSKELETAL:See HPI above NEURO: NEGATIVE for weakness, dizziness. Positive for paresthesias BP 122/76 Ht 5' 2 (1.575 m) Wt 120 lb (54.432 kg) EXAM: GENERAL APPEARANCE: healthy, alert and no distress GAIT: normal SKIN: no suspicious lesions or rashes NEURO: Normal strength and tone, sentation intact, and DTR symmetrically normal in lower extremities PSYCH: mentation appears normal and affect normal/bright MUSCULOSKELETAL: Tender: lumbar facet joints, right para lumbar muscles, right SI joint Non-tender: thoracic spinous processes, thoracic facet joints, left parathoracic muscles, right parathoracic muscles, lumbar spinous processes, left para lumbar muscles, left SI joint, left sciatic notch, right sciatic notch Range of Motion: left lateral thoracic bending full, right lateral thoracic bending full, left thoracic rotation full, right thoracic rotation full, lumbar flexion full, painful, lumbar extension full,painful, left lateral lumbar bending full, right lateral lumbar bending full, left lateral lumbar rotation full, right lateral lumbar rotation full Strength: gastrocsoleus 5/5, hamstrings 5/5, quadriceps 5/5, tibialis anterior 5/5, peroneals 5/5 Special tests: positive right straight leg raise, positive facet compression test, positive SI jointcompression ASSESSMENT/PLAN: 724.2A Low Back Pain Lumbar Radiculopathy [724.4F] Plan: X-RAY LUMBAR SPINE 2/3 VW Right sided low back and SI joint pain with RLE radicular symptoms likely disc related. Diagnosis explained and theraputic options discussed. Recommend NSAIDs and muscle relaxant for pain relief. Start PT program to improve function. If no improve after 4-6 weeks then will consider MRI. X-RAY INTERPRETATION: X-Ray of the Lumbar: 2-view, ap, lateral ordered and interpreted in the office today was negative for fracture, subluxation or joint space abnormality. Evidence of prior tubal ligation present. [employer] documented in this encounter Nursing Notes 11/27/2008 9:00 AM CST >> SAUNDRA PANIAGUA Nov 27, 2008 9:14 AM Marquita Ward presents for right side LBP. Initial BP 122/76 Ht 5' 2 (1.575 m) Wt 120 lb (54.432 kg) Body mass index is 21.95 kg/(m^2).. BP completed using cuff size: regular Saundra Paniagua ATC documented in this encounter Plan of Treatment Not on filedocumented as of this encounter Procedures Procedure Name Priority Date/Time Associated Diagnosis Comme nts HC X-RAY LUMBAR SPINE Routine 11/27/2008 Low Back Pain Resul ts for this 2-3 VIEWS procedure are i n the results section . documented in this encounter Results X-RAY LUMBAR SPINE 2/3 VW (11/27/2008) Anatomical Region Laterality Modality Other Impressions 11/27/2008 negative for fracture, subluxation or joint space abnormality. Evidence of prior tubal ligation present . Arnoldo Angel Luis Jacob DO GENERAL IMAGING documented in this encounter Visit Diagnoses Diagnosis Low back pain Lumbago Lumbar radiculopathy Thoracic or lumbosacral neuritis or radi culitis, unspecified documented in this encounter
--- OUTSIDE RECORDS SUMMARY | 2022-06-30 21:05 | XMS_ITS | Encounter Summary ---
:1955 Author Organization [place] Address [address] [place] [address]. [place] [address] Care Team Providers Name Role Phone Manish Freedman MD Primary Care Provider [phone] Encounter Details Date Type Department Care Team Description 08/06/2016 Radiant Appointment [facility] for V isit for screening Women [facility] mammogram [address] [facility] [address] [place] [address] Social History Tobacco Use Types [...] Associated Diagnosis Comme nts MA SCREENING Routine 08/06/2016 9:06 AM Visit for screening Re sults for this DIGITAL BILATERAL CDT mammogram procedure are in the results section. documented in this encounter Results MA Screening Digital Bilateral (08/06/2016 9:06 AM CDT) Anatomical Region Laterality Modality Breast Bilateral Mammography Specimen (Source) Anatomical Location Collection Method / Collectio n Time Received Time / Laterality Volume Impressions 08/06/2016 10:05 AM CDT IMPRESSION: BI-RADS CATEGORY: 1 - ??NEGATIVE. RECOMMENDED FOLLOW-UP: Annual Mammograph y. The patient will be notified of the resu lts. KODI MEHTA Narrative 08/06/2016 10:05 AM CDT Examination: Bilateral digital screening mammography with computer aided detection, 08/06/2016 9:06 AM. Comparison: 06/18/2015, 05/17/2014 and 05/12 History: No current breast concerns. Cou sins with breast cancer. BREAST DENSITY: Heterogeneously dense. COMMENTS: ??No significant change. Procedure Note Kodi Mehta MD - 08/06/2016 Examination: Bilateral digital screening mammography with computer aided detection, 08/06/2016 9:06 AM. Comparison: 06/18/2015, 05/17/2014 and 05/12 History: No current breast concerns. Cou sins with breast cancer. BREAST DENSITY: Heterogeneously dense. COMMENTS: No significant change. IMPRESSION: BI-RADS CATEGORY: 1 - NEGATI VE. RECOMMENDED FOLLOW-UP: Annual Mammograph y. The patient will be notified of the resu lts. KODI MEHTA Dc Gonzalez MD IMG MAMMOGRAPHY ORDERABLES documented in this encounter Visit Diagnoses Diagnosis Visit for screening mammogram Other screening mammogram documented in this encounter Additional Health Concerns Assessment Noted Time PHQ-9 Depression Total Score: 3 08/07/2016 7:18 AM CDT documented as of this encounter Care Teams Damascener Relationship Specialty Start Date End Date Manish Freedman MD PCP - General Emergency Medicine 08/06/16 08/10/[address] [address] documented as of this encounter
--- OUTSIDE RECORDS SUMMARY | 2022-06-30 21:05 | XMS_ITS | Encounter Summary ---
:1955 Author Organization [place] Address [address] [place] [address]. [place] [address] Care Team Providers Name Role Phone Unavailable Primary Care Provider Unavailable Encounter Details Date Type Department Care Team Description 01/29/2016 Radiant Appointment Dc Ceron Post- menopausal GYNECOLOGY AND MD Avelino bleeding SURGERY [place] [address] [place] [address] [address] (Work) [phone] Social History Tobacco Use Types [...] Procedure Name Priority Date/Time Associated Comments Diagnosis US TRANSVAGINAL Routine 01/29/2016 3:25 PM Post-menopausal Res ults for this PELVIC NON-OB CDT bleeding procedure are in the results section. documented in this encounter Results US Transvaginal Non OB (01/29/2016 3:25 PM CDT) Anatomical Region Laterality Modality Abdomen/Pelvis Computed Radiography Specimen (Source) Anatomical Location Collection Method / Collectio n Time Received Time / Laterality Volume Impressions 01/29/2016 3:55 PM CDT is normal in size and configuration but 2D, color doppler and 3D views show evidence for adenomyosis with two adenomyomas measured: #1 posterior midline fundal 2.3cm and #2 an terior midline upper uterine segment 2.0cm. Endometrium and lining ap pear otherwise normal. Left and right afollicular ovaries and tabby-adnex al regions appear normal. No pelvic cyst, mass or free fluid. Ut: 4.6 x4.6x3.6cm (39cm3). End Linin.1mm. Lt. Ov: [id number]. Rt. Ov: [id number]. Impression: ??Evidence for adenomyosis w ith 2 adenomyomas. ??Thin endometrium. Narrative 01/29/2016 3:55 PM CDT Uterus Dc Gonzalez MD IMG US ORDERABLES documented in this encounter Visit Diagnoses Diagnosis Post-menopausal bleeding Postmenopausal bleeding documented in this encounter
--- OUTSIDE RECORDS SUMMARY | 2022-06-30 21:05 | XMS_ITS | Encounter Summary ---
:1955 Author Organization [place] Address [address] [place] [address]. 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 [address] [place] [address] [place] [address] Social History Tobacco Use Types Packs/Day [...] Sign Reading Time Taken Comments Blood Pressure 126/84 06/18/2015 9:40 AM CDT Pulse - - Temperature - - Respiratory Rate - - Oxygen Saturation - - Inhaled Oxygen Concentration - - Weight 65.3 kg (144 lb) 06/18/2015 9:40 AM CDT Height 154.9 cm (5' 1) 06/18/2015 9:40 AM CDT Body Mass Index 27.21 06/18/2015 9:40 AM CDT documented in this encounter Progress Notes Sara Bhat APRN CNP - 06/20/2015 1:39 PM CDT Quick Note: Letter with results sent to patient. Alda Mcqueen APRN CNP - 06/18/2015 1:39 PM CDT Quick Note: Discussed patient's result in clinic. SOTERO Glover Jessica Gonzalez MD - 06/18/2015 9:40 AM CDT Savage Spencer is a 60 year old No obstetric history on file. who presents for annual exam. Postmenopausal since unknown. She is having hot flashes-MILD menopausal symptoms. No vaginal bleeding noted. Besides routine health maintenance, she has had issues recently with colitis and will be seeing GI specialist soon. GYNECOLOGIC HISTORY: She is sexually active with 1 male partner(s) and she is currently in monogamous relationship. History sexually transmitted infections:No STD history STI testing offered? Declined Estrogen replacement therapy: Yes - Oral Family history of breast CA: No Family history of uterine/ovarian CA: No Family history of colon CA: No HEALTH MAINTENANCE: Cholesterol: (No components found for: CHOL2 ) History of abnormal lipids: No Last Mammogram: 2013 . History of abnormal Mammo: No Perform Regular Self Breast Exams: Yes Date of last Colonoscopy: Age 52 History of abnormal Colonoscopy: No Date of last Dexa: 2014 History of abnormal Dexa: No Calcium/Vitamin D intake: source: dairy TSH: (No components found for: TSH1 ) Pap; (No results found for this basename: pap ) HISTORY: Obstetric History No data available No past medical history on file. No past surgical history on file. No family history on file. History Social History ??? Marital Status: Spouse Name: N/A Number of Children: N/A ??? Years of Education: N/A Social History Main Topics ??? Smoking status: Never Smoker ??? Smokeless tobacco: Never Used ??? Alcohol Use: 6.0 oz/week 10 Not specified per week ??? Drug Use: No ??? Sexual Activity: Partners: Male Other Topics Concern ??? None Social History Narrative ??? None Current outpatient prescriptions: hydrochlorothiazide (HYDRODIURIL) 25 MG tablet, , Disp: , Rfl: 3; LORazepam (ATIVAN) 1 MG tablet, , Disp: , Rfl: 0; ondansetron (ZOFRAN-ODT) 4 MG disintegrating tablet, , Disp: , Rfl: 0; fluticasone (FLONASE) 50 MCG/ACT nasal spray, Quentin 2 sprays into both nostrils daily, Disp: , Rfl: ; norethindrone-ethinyl estradiol (JINTELI) 1-5 MG-MCG per tablet, Take 1 tablet by mouth daily, Disp: , Rfl: PRILOSEC OR, None Entered, Disp: , Rfl: ; NASONEX NA, None Entered, Disp: , Rfl: ; NAPROSYN 500 MG OR TABS, ONE TABLET TWICE DAILY WITH FOOD for 10 days, Disp: 30, Rfl: 0; VALIUM 5 MG OR TABS, 1/2 to 1TABLET at nighttime as needed for muscle relaxant, Disp: 20, Rfl: 0 No Known Allergies Past medical, surgical, social and family history were reviewed and updated in [facility]. ROS: C: NEGATIVE for fever, chills, change in weight I: NEGATIVE for worrisome rashes, moles or lesions E: NEGATIVE for vision changes or irritation E/M: NEGATIVE for ear, mouth and throat problems R: NEGATIVE for significant cough or SOB CV: NEGATIVE for chest pain, palpitations or peripheral edema GI: NEGATIVE for nausea, abdominal pain, heartburn, or change in bowel habits : NEGATIVE for frequency, dysuria, hematuria, vaginal discharge, or bleeding M: NEGATIVE for significant arthralgias or myalgia N: NEGATIVE for weakness, dizziness or paresthesias E: NEGATIVE for temperature intolerance, skin/hair changes P: NEGATIVE for changes in mood or affect EXAM: BP 126/84 mmHg Ht 5' 1 (1.549 m) Wt 144 lb (65.318 kg) BMI 27.22 kg/m2 BMI: Body mass index is 27.22 kg/(m^2). Constitutional: healthy, alert and no distress Head: Normocephalic. No masses, lesions, tenderness or abnormalities Neck: Neck supple. Trachea midline. No adenopathy. Thyroid symmetric, normal size. Cardiovascular: RRR. Respiratory: Negative. Breast: No nodularity, asymmetry or nipple discharge bilaterally. Gastrointestinal: Abdomen soft, non-tender, non-distended. No masses, organomegaly Vulva: No external lesions, normal female hair distribution, no inguinal adenopathy. Urethra: Midline, non-tender, well supported, no discharge Vagina: Atrophic, no abnormal discharge, no lesions Cervix: no lesions, no discharge Uterus: anteverted, smooth contour, without enlargement, mobile, and without tenderness Ovaries: No masses appreciated, non-tender, mobile Rectal Exam: negative Musculoskeletal: extremities normal Skin: no suspicious lesions or rashes Psychiatric: Affect appropriate, cooperative,mentation appears normal. COUNSELING: regular exercise healthy diet/nutrition reports that she has never smoked. She has never used smokeless tobacco. Body mass index is 27.22 kg/(m^2). FRAX Risk Assessment ASSESSMENT: 60 year old No obstetric history on file. with satisfactory annual exam (V72.31) Routine gynecological examination (primary encounter diagnosis) Comment: Plan: PAP imaged thin layer screen (599.70) Hematuria Comment: follow up with primary care Plan: UA without Microscopic Dr. Jessica Gonzalez documented in this encounter Nursing Notes Madie Hoffman - 06/18/2015 9:40 AM CDT Chief Complaint Patient presents with ??? Physical Initial BP 126/84 mmHg Ht 5' 1 (1.549 m) Wt 144 lb (65.318 kg) BMI 27.22 kg/m2 Estimated bodymass index is 27.22 kg/(m^2) as calculated from the following: Height as of this encounter: 5' 1 (1.549 m). Weight as of this encounter: 144 lb (65.318 kg). BP completed using cuff size: ranjeet Hoffman MA documented in this encounter Plan of Treatment Not on filedocumented as of this encounter Procedures Procedure Name Priority Date/Time Associated Diagnosis Comme nts URINE MACROSCOPIC Routine 06/18/2015 9:35 AM Hematuria Resu lts for this ONLY CDT procedure are i n the results section. PAP IMAGED THIN Routine 06/18/2015 12:00 Routine gynecological Results for this LAYER SCREEN AM CDT examination procedure are i n the results section. documented in this encounter Results (ABNORMAL) UA without Microscopic (06/18/2015 9:35 AM CDT) Patholo gist Method Time Signature Color Urine Yellow [facility] [employer] [facility] Appearance Urine Clear [facility] [employer] [facility] Glucose Urine Negative NEG mg/dL [facility] [employer] [facility] Bilirubin Urine Negative NEG [facility] [employer] [facility] Ketones Urine Negative NEG mg/dL [facility] [employer] SURG Specific [place] 1.015 1.003 - [place] Urine 1.035 [facility] [employer] [facility] Blood Urine 1+ (A) NEG [facility] [employer] [facility] pH Urine 7.0 5.0 - 7.0 [place] pH [facility] [employer] [facility] Protein Albumin Negative NEG mg/dL [place] Urine [facility] [employer] [facility] Urobilinogen 0.2 0.2 - 1.0 [place] Urine EU/dL [facility] [employer] Nitrite Urine Negative NEG [facility] [employer] [facility] Leukocyte Negative NEG [place] Esterase Urine [facility] [employer] Source Midstream [place] Urine [facility] [employer] [facility] Specimen Anatomical Collection Method Collection Time Receive d Time (Source) Location / / Volume Laterality Urine specimen 06/18/2015 9:35 AM 015 9:36 (specimen) CDT AM CDT Jessica Gonzalez MD LAB - URINE ORDERABLES Performing Organization Address City/State/ZIP Code Phon e Number [facility] [facility] PAP imaged thin layer screen (06/18/2015 12:00 AM CDT) Component Value Ref Test Analysis Performed At Patholo gist Range Method Time Signature PAP NIL [place] Copath Report COPATH Patient Name: SAVAGE WARD MR#: [id number] Specimen #: [id number] Collected: 06/18/2015 Received: 06/19/2015 Reported: 06/20/2015 13:01 Ordering Phy(s): JESSICA GONZALEZ SPECIMEN/STAIN PROCESS: Pap imaged thin layer prep screening (Surepath, FocalPoint w ith guided screening) ? Pap-Cyto x 1, Reflex HPV if ASCUS/LSIL x 1 SOURCE: Cervical, endocervical ---- Pap imaged thin layer prep screening (Surepath, FocalPoint with guided screening) SPECIMEN ADEQUACY: Satisfactory for evaluation. -Transformation zone component absent. CYTOLOGIC INTERPRETATION: Negative for Intraepithelial Lesion or Malignancy Electronically signed out by: RUBI Mcmullen (ASCP) Processed and screened at [facility] CLINICAL HISTORY: Papanicolaou Test Limitations: ??Cervical cytology is a scre ening test with limited sensitivity; regular screening is critical for cancer prevention; Pap tests are primarily effective for the diagnosis/prevention of squamous cell carcinoma, not adenoca rcinomas or other cancers. TESTING LAB LOCATION: [address] ??[id number] COLLECTION SITE: Client: ??[facility] Location: [facility] (S) Specimen (Source) Anatomical Collection Method Collection Time Re ceived Time Location / / Volume Laterality Cytologic 06/18/2015 06/19/2015 9:38 material AM CDT (specimen) Jessica Gonzalez MD LAB - OPTIME CLINICAL SPECIM EN Performing Organization Address City/State/ZIP Code Phon e Number [place] documented in this encounter Visit Diagnoses Diagnosis Routine gynecological examination - Prim merced[place] Hematuria Hematuria, unspecified documented in this encounter
--- OUTSIDE RECORDS SUMMARY | 2022-06-30 21:05 | XMS_ITS | Encounter Summary ---
:1955 Author Organization [place] Address [facility] [place] [address] Care Team Providers Name Role Phone Unavailable Primary Care Provider Unavailable Reason for Visit Reason Comments RECHECK ultrasound results Encounter Details Date Type Department Care Team Description 01/29/2016 Office Visit [facility] Dc Gonzalez Post menopausal bleeding AND SURGERY BECKA You MD (Primary Dx) MENTAL HEALTH COORDINATOR [address] [place] [address] [place] [address] Social History Tobacco Use Types [...] Sign Reading Time Taken Comments Blood Pressure 120/80 01/29/2016 3:26 PM CDT Pulse - - Temperature - - Respiratory Rate - - Oxygen Saturation - - Inhaled Oxygen Concentration - - Weight 68 kg (150 lb) 01/29/2016 3:26 PM CDT Height 154.9 cm (5' 1) 01/29/2016 3:26 PM CDT Body Mass Index 28.34 01/29/2016 3:26 PM CDT documented in this encounter Progress Notes Presthus, Dc Avelino, MD - 01/29/2016 3:27 PM CDT SUBJECTIVE: Marquita Ward is a 61 year old female who presents to clinic today for the following health issue(s): Patient presents with: RECHECK: ultrasound results Additional information: HPI: Patient is seen today for an ultrasound examination and evaluation for postmenopausal bleeding. Patient is on hormone replacement therapy. On Wednesday she noted bright red vaginal bleeding. She is continued to have some spotting and discharge. Patient has a history of having had cramping with severe cramping last summer that required an evaluation by GI. This felt that she probably had irritable bowel syndrome. No LMP recorded. Patient is postmenopausal.. Patient is sexually active, No obstetric history on file.. Using menopause for contraception. reports that she has never smoked. She has never used smokeless tobacco. STD testing offered? Declined Today's PHQ-2 Score: PHQ-2 (??1998 Pfizer) 06/18/2015 Q1: Little interest or pleasure in doing things 0 Q2: Feeling down, depressed or hopeless 0 PHQ-2 Score 0 Today's PHQ-9 Score: No flowsheet data found. Today's PA-7 Score: No flowsheet data found. Problem list and histories reviewed & adjusted, as indicated. Additional history: as documented. Patient Active Problem List Diagnosis (none) - all problems resolved or deleted No past surgical history on file. History Substance Use Topics ??? Smoking status: Never Smoker ??? Smokeless tobacco: Never Used ??? Alcohol Use: 6.0 oz/week 10 Standard drinks or equivalent per week Problem (# of Occurrences) Relation (Name,Age of Onset) Arthritis (1) Father Cerebrovascular Accident (1) Father Chronic Obstructive Pulmonary Disease (1) Father Coronary Artery Disease (1) Father Hyperlipidemia (1) Father Hypertension (2) Father, Mother Thyroid Disease (1) Sister Current Outpatient Prescriptions Medication Sig ??? fluconazole (DIFLUCAN) 50 MG tablet Take 1 tablet (50 mg) by mouth 3 times daily ??? norethindrone-ethinyl estradiol (JINTELI) 1-5 MG-MCG per tablet Take 1 tablet by mouth daily ??? hydrochlorothiazide (HYDRODIURIL) 25 MG tablet ??? LORazepam (ATIVAN) 1 MG tablet ??? ondansetron (ZOFRAN-ODT) 4 MG disintegrating tablet ??? fluticasone (FLONASE) 50 MCG/ACT nasal spray [place] 2 sprays into both nostrils daily ??? NASONEX NA None Entered ??? PRILOSEC OR None Entered ??? NAPROSYN 500 MG OR TABS ONE TABLET TWICE DAILY WITH FOOD for 10 days ??? VALIUM 5 MG OR TABS 1/2 to 1 TABLET at nighttime as needed for muscle relaxant No current facility-administered medications for this visit. No Known Allergies ROS: 12 point review of systems negative other than symptoms noted below. Constitutional: Fatigue Gastrointestinal: Abdominal Pain, Bloating and Nausea Genitourinary: Cramps, Hot Flashes and No Periods OBJECTIVE: BP 120/80 mmHg Ht 5' 1 (1.549 m) Wt 150 lb (68.04 kg) BMI 28.36 kg/m2 Body mass index is 28.36 kg/(m^2). Exam: Constitutional: Appearance: Well nourished, well developed alert, in no acute distress Gastrointestinal: Abdominal Examination: Abdomen nontender to palpation, tone normal without rigidity or guarding, no masses present, umbilicus without lesions; Liver/Spleen: No hepatomegaly present, liver nontender to palpation; Hernias: No hernias present Pelvic Exam: External Genitalia: Normal appearance for [...] no areas of discoloration, no masses present In-Clinic Test Results: Results for orders placed or performed in visit on 01/29/16 US Transvaginal Non OB Narrative Uterus Impression is normal in size and configuration but 2D, color doppler and 3D views show evidence for adenomyosis with two adenomyomas measured: #1 posterior midline fundal 2.3cm and #2 anterior midline upper uterine segment 2.0cm. Endometrium and lining appear otherwise normal. Left and right afollicular ovaries and tabby-adnexal regions appear normal. No pelvic cyst, mass or free fluid. Ut: 4.6x4.6x3.6cm (39cm3). End Linin.1mm. Lt. Ov: [id number]. Rt. Ov: 97m82ia. Impression: Evidence for adenomyosis with 2 adenomyomas. Thin endometrium. ASSESSMENT/PLAN: Assessment: 1. Postmenopausal bleeding Plan: There is no obvious cause for the bleeding on ultrasound. I suspect this may be related to herhormone replacement therapy. This point we'll continue to observe the patient. If the bleeding persists or worsens she will return to clinic for an office hysteroscopy. Dc Gonzalez MD [facility] [place] MENTAL HEALTH COORDINATOR documented in this encounter Nursing Notes Janna Flynn - 01/29/2016 3:29 PM CDT Chief Complaint Patient presents with ??? RECHECK ultrasound results Initial BP 120/80 mmHg Ht 5' 1 (1.549 m) Wt 150 lb (68.04 kg) BMI 28.36 kg/m2 Estimated body mass index is 28.36 kg/(m^2) as calculated from the following: Height as of this encounter: 5' 1 (1.549 m). Weight as of this encounter: 150 lb (68.04 kg). BP completed using cuff size: ranjeet Flynn MA 01/29/2016 documented in this encounter Plan of Treatment Not on filedocumented as of this encounter Visit Diagnoses Diagnosis Postmenopausal bleeding - Primary documented in this encounter
--- OUTSIDE RECORDS SUMMARY | 2022-06-30 21:05 | XMS_ITS | Encounter Summary ---
:1955 Author Organization [place] Address [address] [place] [address] Care Team Providers Name Role Phone Unavailable Primary Care Provider Unavailable Reason for Visit [facility] (Routine) - Closed Specialty Diagnoses / Procedures Referred By Contact Refer red To Contact Arnoldo James DO [facility] [address] [place], [place] [address] Referral ID Status Reason Start Date Expiration Date Visits V isits Requested Authorized PO/OTHER/SPINE Closed 11/27/2008 11/26/2009 20 20 Encounter Details Date Type Department Care Team Description 11/27/2008 Therapy Visit [place] for Maureen Parr Lumbago (Primary Dx) Athletic Medicine - PT [place] [facility] [address] [facility]. [place], [place] [address] [address] [place], [place] [phone] (Work) [phone] Social History Tobacco Use Types Packs/Day Years [...] this encounter Progress Notes Maureen Parr - 11/27/2008 11:19 AM CST Please refer to the daily flowsheet for treatment today and total treatment time. Does this patient have Medicare or Medicaid as primary or secondary insurance? NO S 1 OWNER OPERATOR documented in this encounter Plan of Treatment Not on filedocumented as of this encounter Procedures Procedure Name Priority Date/Time Associated Diagnosis Comme nts ZC MANUAL THER Routine 11/27/2008 12:16 PM Lumbago TECH,1+[facility],EA 15 MIN CLASS 1 OWNER OPERATOR ZZC THERAPEUTIC Routine 11/27/2008 12:16 PM Lumbago EXERCISES CLASS 1 OWNER OPERATOR documented in this encounter Visit Diagnoses Diagnosis Lumbago - Primary documented in this encounter
--- OUTSIDE RECORDS SUMMARY | 2022-06-30 21:05 | XMS_ITS | Encounter Summary ---
:1955 Author Organization [place] Address [facility] [place] [address] Care Team Providers Name Role Phone Unavailable Primary Care Provider Unavailable Encounter Details Date Type Department Care Team Description 06/18/2015 Radiant Appointment [facility] for Tate Gonzalez Other screening Women Nanci You MD mammogram [address], [address] [place] [phone] Social History Tobacco Use Types Packs/Day Years [...] Associated Diagnosis Comme nts MA SCREENING Routine 06/18/2015 10:20 AM Other screening Resul ts for this DIGITAL BILATERAL CDT mammogram procedure are in the results section. documented in this encounter Results MA Screening Digital Bilateral (06/18/2015 10:20 AM CDT) Anatomical Region Laterality Modality Breast Bilateral Mammography Specimen (Source) Anatomical Location Collection Method / Collectio n Time Received Time / Laterality Volume Impressions 06/18/2015 5:06 PM CDT IMPRESSION: BI-RADS CATEGORY: 1 - ??Negative RECOMMENDED FOLLOW-UP: Annual Mammograph y. Exam results letter mailed to patient. ?? CATIA HO MD Narrative 06/18/2015 5:06 PM CDT SCREENING MAMMOGRAM, BILATERAL, DIGITAL w/CAD - 06/18/2015 10:20 AM BREAST SYMPTOMS: No current breast compl aints. COMPARISON: ??CRL 05/17/2014, 05/12/2011 . BREAST DENSITY: Heterogeneously dense. COMMENTS: No findings of suspicion for m alignancy. ? Procedure Note Catia Ho MD - 06/18/2015F ormatting of this note might be different from the original. SCREENING MAMMOGRAM, BILATERAL, DIGITAL w/CAD - 06/18/2015 10:20 AM BREAST SYMPTOMS: No current breast compl aints. COMPARISON: CRL 05/17/2014, 05/12/2011. BREAST DENSITY: Heterogeneously dense. COMMENTS: No findings of suspicion for m alignancy. IMPRESSION IMPRESSION: BI-RADS CATEGORY: 1 - Negati ve RECOMMENDED FOLLOW-UP: Annual Mammograph y. Exam results letter mailed to patient. CATIA HO MD Dc Gonzalez MD IMG MAMMOGRAPHY ORDERABLES documented in this encounter Visit Diagnoses Diagnosis Other screening mammogram documented in this encounter
--- OUTSIDE RECORDS SUMMARY | 2022-06-30 21:05 | XMS_ITS | Encounter Summary ---
:1955 Author Organization [place] Address [facility] [place] [address] Care Team Providers Name Role Phone Unavailable Primary Care Provider Unavailable Encounter Details Date Type Department Care Team Description 01/27/2016 Orders Only [facility] Alda Mcqueen Po st-menopausal AND SURGERY [place] Kendrick LENO SEWER bleeding (Primary Dx) VETERANS' COORDINATOR [address] [place] [address] [place] [address] [phone] Social History Tobacco Use Types Packs/Day Years [...] on filedocumented as of this encounter Results US Transvaginal Non OB [...] 4.6 x4.6x3.6cm (39cm3). End Linin.1mm. Lt. Ov: [id number]. Rt. Ov: 98f00zl. Impression: ??Evidence for adenomyosis w ith 2 adenomyomas. ??Thin endometrium. Narrative 01/29/2016 3:55 PM CDT Uterus Dc Gonzalez MD [facility] US ORDERABLES documented in this encounter Visit Diagnoses Diagnosis Post-menopausal bleeding - Primary Postmenopausal bleeding Post-menopausal bleeding Postmenopausal bleeding documented in this encounter
--- OUTSIDE RECORDS SUMMARY | 2022-06-30 21:05 | XMS_ITS | Encounter Summary ---
:1955 Author Organization [place] Address [facility]0 [facility] [place] [address] Care Team Providers Name Role Phone Unavailable Primary Care Provider Unavailable Reason for Visit Reason Comments Consult Encounter Details Date Type Department Care Team Description 03/17/2016 Office Visit [facility] Barry Gonzalez MD [address] [place] [address] Menopause (Primary Dx); AND SURGERY [facility] Alda Mcqueen APRN ROLL LINE OPERATOR [address] [place] [address] Post-menopausal bleeding CLINICAL SPECIALIST VASCULAR [address] [facility] [address] [place] [phone] Social History Tobacco Use Types Packs/Day Years [...] documented as of this encounter Progress Notes Alda Mcqueen APRN ROLL LINE OPERATOR - 03/19/2016 1:53 PM CDT Quick Note: Called pt with results. SOTERO Glover Jessica Gonzalez MD - 03/17/2016 1:25 PM CDT PREOPERATIVE DIAGNOSIS: Post menopausal bleeding, Adenomyosis POSTOPERATIVE DIAGNOSIS: Gladys Spencer is here for evaluation of post menopausal bleeding with an ultrasound that showed evidence of adenomyosis with probable adenomyoma. The hysteroscopy procedure has been discussed with the patient as well as the risks, benefits and complications. She agrees to the procedure. Consent form signed. Pause for the cause completed. Dr. Jessica Gonzalez Patient was placed in lithotomy position.. Cervix was dilated to 4 mm, the flexible hysterocope was then placed and the uterine cavity explored. The uterus sounded to 8 cm. A sharp curettage was not performed. The endometrium was thin with an area of reddened gland area on the posterior wall. There were no intracavitary polyps or myomas. Findings include there were areas of reddened glandular tissue in the posterior wall to uterus consistent with the areas on the ultrasound that showed adenomyomas. I did not identify the anterior adenomyoma. Biopsies endometrial Savage Spencer tolerated the procedure well. She was taken to recovery in good condition. Total estimated blood loss was less than 5 cc. Jessica Gonzalez MD documented in this encounter Plan of Treatment Not on filedocumented as of this encounter Procedures Procedure Name Priority Date/Time Associated Comments Diagnosis HC HYSTEROSCOPY W Routine 03/17/2016 1:25 PM Post-menopausal ENDOMETRIAL CDT bleeding BX/POLYPECTOMY W/WO D&C SURGICAL PATHOLOGY Routine 03/17/2016 1:14 PM Post-menopausal Results for this EXAM CDT bleeding procedure are i n the results section. documented in this encounter Results Surgical pathology exam (03/17/2016 1:14 PM CDT) Component Value Ref Test Analysis Performed At [facility] Method Time Signature Copath Report Patient Name: SAVAGE WARD MR#: [id number] Specimen #: [id number] Collected: 03/17/2016 Received: 03/18/2016 Reported: 03/19/2016 12:31 Ordering Phy(s): JESSICA GONZALEZ SPECIMEN(S): Endometrial FINAL DIAGNOSIS: Endometrium, biopsy- - Benign atrophic endometrium with cystic change. ??Negative for hyperplasia, atypia or malignancy. Electronically signed out by: Nicole Cardoza M.D. CLINICAL HISTORY: Postmenopausal bleeding GROSS: The specimen is received in formalin with proper patient sunitha ntification labeled endometrial biopsy. ??The specimen consists of pin k spongy tissue fragments measuring up to 0.2 cm in aggregate. ??The specimen is entirely submitted in one cassette. (Dictated by: Diego Aldana [facility] 03/18/2016 01:28 PM) MICROSCOPIC: Specimen consists of fragments of benign atrophic appearing endometrium with cystic change. ??Specimen is negative for hyperplasia, atypia or malignancy. CPT Codes: A: 39166-BX2 TESTING LAB LOCATION: [address] ??[id number] COLLECTION SITE: Client: [facility] Location: MSN (S) Specimen Anatomical Collection Method Collection Time Receive d Time (Source) Location / / Volume Laterality 03/17/2016 1:14 PM 6 CDT 10:53 AM CDT Jessica Gonzalez MD [facility] Organization Address City/State/ZIP Code Phon e Number COPATH documented in this encounter Visit Diagnoses Diagnosis Menopause - Primary Symptomatic menopausal or female climact lesli states Post-menopausal bleeding Postmenopausal bleeding documented in this encounter
--- NOTE | 2022-07-07 11:50 | W.PM.SLEEP ---
Sleep Study Details Details Interpreting Provider: Alejandro Pierre MD Date of Sleep Study: 06/30/22 Sleep Study Details: STUDY TYPE:? Hospital based ? BMI:? 28.7 ORDERING PROVIDER:? Sabiha INDICATION:? Concerns about sleep apnea ? SLEEP SUMMARY:? Sleep time 392 minutes, latency 51 minutes, efficiency 76.6 minutes, arousal index 8.9 RESPIRATORY SUMMARY:? Mean oxygen awake 93 asleep 92, 5.8 minutes oxygen between 80 and 88% AHI 8.1, RDI 11 Supine AHI 16.2, supine REM AHI 43.4 Nonsupine AHI 3 nonsupine RDI 4.5 nonsupine REM AHI 5.4 PERIODIC LIMB MOVEMENTS OF SLEEP:? Index 2.1, index with arousal 0.2 CARDIAC:? Awake 65, asleep 58. No arrhythmias noted IMPRESSION:? 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 The patient has severe apnea during supine REM sleep. Overall AHI is 8.1 RECOMMENDATION: Treatment options include recommended CPAP AutoSet 4-17. Dental appliance may also be effective but a follow-up study should be ordered if this is that shows an option.
== END 2022-06-30 21:01 | disposition home or self-care (01) ==
PROVIDERS: PCP Internal Medicine; Visit Provider Internal Medicine Nephrology
DX: G47.33 Obstructive sleep apnea (adult) (pediatric) (principal)
CPT/HCPCS: 95810

== ENCOUNTER 2022-07-08 07:00 | Outpatient (CLI) | payer OTHER, SELFPAY ==
--- OUTSIDE RECORDS SUMMARY | 2022-07-08 07:02 | XMS_ITS | Encounter Summary ---
:1955 Author Organization [facility] Address [address] [place] [address] Care Team Providers Name Role Phone Unavailable Primary Care Provider Unavailable Reason for Visit Reason Comments Med Refill Encounter Details Date Type Department Care Team Description 06/25/2022 Refill Division of Nephrology and Sabiha, Kirby Renee Jr., Med Refill Hypertension in [facility] [address] [facility] [address] [place] [address] [place] [address] [phone] Social History Tobacco Use Types Packs/Day Years Used Date Smoking Tobacco: Never Sex Assigned at Date Recorded Not on file documented as of this encounter Plan of Treatment Not on filedocumented as of this encounter Visit Diagnoses Not on filedocumented in this encounter
--- OUTSIDE RECORDS SUMMARY | 2022-07-08 07:02 | XMS_ITS | Encounter Summary ---
:1955 Author Organization [facility] Address [address] [place] [address] Care Team Providers Name Role Phone Unavailable Primary Care Provider Unavailable Encounter Details Date Type Department Care Team Description 02/10/2022 Clinical Communication Division of Nephrology Nitesh Landis and Hypertension cristo Renee Jr., D.O. [place], [place] [address] [facility] [address] [place] [phone] Social History Tobacco Use Types Packs/Day Years [...]
--- OUTSIDE RECORDS SUMMARY | 2022-07-08 07:02 | XMS_ITS | Clinical Summary ---
:1955 Author Organization [employer] [facility] [place] [address] Care Team Providers Name Role Phone Manish [...] previous hip bursa injections by Dr. Rees [phone] approximately MRI of bilateral hips done May [...] Specialty Care Team Description 07/01/2022 Ancillary Procedure 07/01/2022 Travel 06/24/2022 Orders Only Janice, <No scans attac hed> MD Rajendra 05/04/2022 Procedure Only Jaya Cabrera, PRINCIPAL LAW CLERK 04/23/2022 Procedure Only Santana Pedroza Musculosraúl Ash MD (Follow up bilrobert ter... 04/23/2022 Travel from Last 3 Months Immunizations Name Administration Dates Next Due Influenza A (H1N1), Inactivated 11/20/2009 Influenza RIV4 (Age 18+ Years) PRESERV 08/13/2021, 0, 09/12/2019 FREE Influenza, IIV3 (Age >=3 years) 07/21/2009 Influenza, IIV4 07/01/2017 Pneumococcal Poly,23-Valent (Pneumovax) 06/22/2018 Tdap 07/25/2009 Zoster (Shingrix-RZV, recombinant) 02/25/2019, 01/20/2019, 0 06/22/2018 Family History Medical History Relation Name Comments Heart Disease Father CAD 1st [place] 50's Hyperlipidemia Father Other Father myelofibrosis Hypertension [...] Assigned at Date Recorded Not on file COVID-19 Exposure Response Date Recorded In the last 10 days, have you been in contact with No / Unsu re 07/01/2022 3:13 PM CDT someone who was confirmed or suspected to have Coronavirus/COVID-19? Obstetrics History Last Filed Vital Signs Vital Sign Reading Time Taken Comments Blood Pressure 164/80 04/23/2022 11:33 AM CDT Pulse 69 04/23/2022 11:21 AM CDT Temperature - - Respiratory Rate 14 05/11/2019 2:41 PM CDT Oxygen Saturation - - Inhaled Oxygen Concentration - - Weight 68.8 kg (151 lb 11.2 oz) 04/23/2022 11:21 AM CDT Height 154.9 cm (5' 1) 10/31/2020 3:37 PM MARKETING INTELLIGENCE ANALYST Body Mass Index 28.66 10/31/2020 3:37 PM MARKETING INTELLIGENCE ANALYST Plan of Treatment Health Maintenance Due Date [...] for age Completed 02/25/2019, 02/2019, 50+ 06/22/2018 Procedures Procedure Name Priority Date/Time Associated Diagnosis Comme nts XR SPINE LUMBAR Routine 07/01/2022 3:21 PM Chronic bilateral R esults for this MINIMUM 4 VIEWS CDT low back pain with proced ure are in bilateral sciatica the resul ts section. from Last 3 Months Results XR SPINE LUMBAR MINIMUM 4 VIEWS (07/01/2022 3:21 PM CDT) Anatomical Region Laterality Modality Spine, LUMBAR SPINE Digital Radiography Specimen (Source) Anatomical Collection Method Collection Time Re ceived Time Location / / Volume Laterality 07/01/2022 3:21 PM CDT Impressions 07/02/2022 10:49 AM CDT There are 5 lumbar type vertebral bodies . There is mild S-shaped scoliosis of the lumbar spine with levoconvex curvature c entered at L2-L3 and dextroconvex curvature centered at L4-L5. There is mild grade 1 retrolisthesis of L1 on L2 and mild grade 1 anterolisthesis of L4 on L5 in neutral p ositioning, which does not significantly change in flexion or extension positioni ng. The vertebral body heights are maintained. There is moderate multilevel intervertebral disc space narrowing and endplate degenerative change, most prono unced at L3-L4 and L5-S1. There is scattered atherosclerotic calcification of the abd ominal aorta. Surgical material is noted in the pelvis bilaterally. Narrative 07/02/2022 10:49 AM CDT For Patients: As a result of the Cures Act, medical imaging exams and procedure reports are released immediately into your [facility] medical record. You may view this report before your referring provider. If you have questions, please contact your health care provider. EXAM: XR SPINE LUMBAR MINIMUM 4 VIEWS LOCATION: [facility] DATE/TIME: 07/01/2022 3:21 PM INDICATION: Chronic Bilateral Low Back P ain With Bilateral Sciatica Chronic Bilateral Low Back Pain With Bilateral Sciatica Chronic Bilateral Low Back Pain With Bilateral Sciatica COMPARISON: Lumbar spine MRI 12/23/2020. TECHNIQUE: CR Lumbar Spine. Procedure Note Daniel Gross MD - 07/02/2022Form atting of this note might be different from the original. For Patients: As a result of the Cures Act, medical imaging exams and procedure reports are released immediately into your electronic medical record. You may view this report before your referring provider. If you have questions, please contact [facility] health care provider. EXAM: XR SPINE LUMBAR MINIMUM 4 VIEWS LOCATION: [facility] DATE/TIME: 07/01/2022 3:21 PM INDICATION: Chronic Bilateral Low Back P ain With Bilateral Sciatica Chronic Bilateral Low Back Pain With Bilateral Sciatica Chronic Bilateral Low Back Pain With Bilateral Sciatica COMPARISON: Lumbar spine MRI 12/23/2020. TECHNIQUE: CR Lumbar Spine. IMPRESSION: There are 5 lumbar type vertebral bodies . There is mild S-shaped scoliosis of the lumbar spine with levoconvex curvature centered at L2-L3 and dextroconvex curvature centered at L4-L5. There is mild grade 1 retrolisthesis of L1 on L2 and mild grad e 1 anterolisthesis of L4 on L5 in neutral positioning, which does not significantly change in flexion or extension positioning. The vertebral body heights are maintained. There is moderate multilevel intervertebral disc space narrowing and endplate degenerative change, most pronounced at L3-L4 and L5-S1. There is scattered atherosclerotic calcification of the abdominal aorta. Surgical material is noted in the pelvis bilatera lly. Rajendra Camacho MD GENERAL IMAGING from Last 3 Months Insurance Payer Benefit Plan / Subscriber ID Effective Dates Phone Addre ss Type Group [facility] SH[facility]ED [id number] 2018-Sania [address] [address] [place] [address] (Home) [place], [place] [phone] [address] (Work) [employer] Occ Other 10/18/2000 ANGELO 20 4 EM[employer] (Home) [phone] (Work) [place] [address] Marquita Ward Retail Self [address] (Home) [place], [place] [phone] [address] (Work) Care Teams Pipe Fittings Molder Relationship Specialty Start Date End Date Manish Freedman MD PCP - General Internal Medicine 12/29/181999 [place], [place] [address]
--- OUTSIDE RECORDS SUMMARY | 2022-07-08 07:02 | XMS_ITS | Clinical Summary ---
:1955 Author Organization [facility] Address [address] [place] [address] Care Team Providers Name Role Phone Unavailable Primary Care Provider Unavailable Source Comments Patient records contain information from all sites at [facility]. For routine questions regarding patient records, call [phone] during business hours, M-F 8:00 AM - 5:00 PM Central Time. Record requests for emergency care only can be directed to [phone] at any time.[facility] Medications Medication Sig Dispensed Refills Start Date End Date Status atorvastatin (LIPITOR) TAKE 1 100 tablet 3 05/27/2018 Active 20 mg tablet TABLET BY MOUTH DAILY valsartan (DIOVAN) 320 Take 1 30 tablet 11 11/04/2021 Active mg tablet tablet (320 23 mg total) by mouth daily. hydroCHLOROthiazide Take 1 90 tablet 3 06/02/2022 06/02/20 Active (HYDRODIURIL) 25 mg tablet (25 23 tablet mg total) by mouth daily. metoprolol succinate TAKE 1 30 tablet 11 06/29/2022 Active (TOPROL-XL) 50 mg 24 hr TABLET BY tablet MOUTH DAILY. DO NOT CRUSH OR CHEW. metoprolol succinate Take 1 30 tablet 11 06/02/2022 06/29/20 Discontinued (TOPROL-XL) 50 mg 24 hr tablet (50 22 tablet mg total) by mouth daily. Do not crush or chew. Active Problems Problem Noted Date Hyperlipidemia 05/13/2016 Hypertension Essential Primary 05/13/2016 Encounters Date Type Specialty Care Team Description 06/25/2022 Refill Nephrology and [place], Med Refill Hypertension Nitesh Renee Jr., D.O. 06/02/2022 External Outreach Nephrology and [place], Hyperten thalia Essential Primary (Primary Dx); Hypertension [...] Effective Phone Address T ype Group Dates [facility] [id number] 2018-Pres [phone] [address] [employer] [phone] [place] [address] ([place]) [place] [address]
--- OUTSIDE RECORDS SUMMARY | 2022-07-08 07:02 | XMS_ITS | Encounter Summary ---
:1955 Author Organization [facility] Address [address] [place] [address] Care Team Providers Name Role Phone Unavailable Primary Care Provider Unavailable Reason for Visit Appointment Request (Routine) - Closed Specialty Diagnoses / Procedures Referred By Contact Refer red To Contact Referral ID Status Reason Start Date Expiration Date Visits Requ ested Visits Authorized [id number] Closed 12/05/2021 12/05/2022 1 Encounter Details Date Type Department Care Team Description 01/12/2022 External Outreach Division of Claire Landis on Essential Primary (Primary Dx); Nephrology and Nitesh Renee Jr., Hyperlipidem ia Hypertension in D.O. [place], [place] [address] [facility] [address] [place] [address] [phone] Social History Tobacco Use Types Packs/Day Years Used Date Smoking Tobacco: Never Sex Assigned at Date Recorded Not on file documented as of this encounter Progress Notes Nitesh Landis Jr., D.O. - 01/12/2022 2:00 PM CDT Please see scanned in note under document viewer tab for the [facility] outreach visit from this date. Medical Problems Diagnosis List Hyperlipidemia Hypertension Essential Primary documented in this encounter Plan of Treatment Not on filedocumented as of this encounter Visit Diagnoses Diagnosis Hypertension Essential Primary - Primary Hyperlipidemia documented in this encounter
--- OUTSIDE RECORDS SUMMARY | 2022-07-08 07:02 | XMS_ITS | Encounter Summary ---
:1955 Author Organization [facility] Address [address] [place] [address] Care Team Providers Name Role Phone Unavailable Primary Care Provider Unavailable Encounter Details Date Type Department Care Team Description 02/10/2022 Orders Only Division of Nephrology Nitesh Landis yplatashaension Essential and Hypertension in C Osvaldo Mattson Primary (Primary Dx) [place], [place] [address] [facility] [address] [place] [address] [phone] Social History Tobacco Use Types Packs/Day Years Used Date Smoking Tobacco: Never Sex Assigned at Date Recorded Not on file documented as of this encounter Plan of Treatment Not on filedocumented as of this encounter Visit Diagnoses Diagnosis Hypertension Essential Primary - Primary documented in this encounter
--- OUTSIDE RECORDS SUMMARY | 2022-07-08 07:02 | XMS_ITS | Encounter Summary ---
:1955 Author Organization [facility] Address [address] [place] [address] Care Team Providers Name Role Phone Unavailable Primary Care Provider Unavailable Reason for Visit Appointment Request (Routine) - Closed Specialty Diagnoses / Procedures Referred By Contact Refer red To Contact Nephrology and Hypertension Referral ID Status Reason Start Date Expiration Date Visits Requ ested Visits Authorized [id number] Closed 05/21/2022 05/21/2023 1 Encounter Details Date Type Department Care Team Description 06/02/2022 External Outreach Division of Claire Landis on Essential Primary (Primary Dx); Nephrology and Nitesh Renee Jr., Hyperlipidem ia Hypertension in D.O. [place], [place] [address] [facility] [address] [place] [address] [phone] Social History Tobacco Use Types Packs/Day Years [...] care provider on file. SUBJECTIVE out reach [facility] REASON FOR VISIT Follow-up regards [...]
--- OUTSIDE RECORDS SUMMARY | 2022-07-08 07:02 | XMS_ITS | Encounter Summary ---
:1955 Author Organization [facility] Address [address] [place] [address] Care Team Providers Name Role Phone Unavailable Primary Care Provider Unavailable Reason for Visit Reason Comments Med Refill Encounter Details Date Type Department Care Team Description 06/21/2019 Refill Department of Cardiovascular Inder Amaya Jr., Med Refill Medicine in [address] [address] Social History Tobacco Use Types Packs/Day Years Used Date Smoking Tobacco: Never Sex Assigned at Date Recorded Not on file documented as of this encounter Plan of Treatment Not on filedocumented as of this encounter Visit Diagnoses Not on filedocumented in this encounter
--- OUTSIDE RECORDS SUMMARY | 2022-07-08 07:02 | XMS_ITS | Encounter Summary ---
:1955 Author Organization [facility] Address [address] [place] [address] Care Team Providers Name Role Phone Unavailable Primary Care Provider Unavailable Reason for Visit Appointment Request (Routine) - Closed Specialty Diagnoses / Procedures Referred By Contact Refer red To Contact Nephrology and Hypertension Referral ID Status Reason Start Date Expiration Date Visits Requ ested Visits Authorized [id number] Closed 11/07/2021 11/07/2022 1 Encounter Details Date Type Department Care Team Description 12/03/2021 External Outreach Division of Dara Will Nephrology and Charlene Hickman, Essential Nadia chema Hypertension in Ph.D. [place], [place] [address] [facility] [address] [place] [address] [phone] Social History Tobacco Use Types Packs/Day Years Used Date Smoking Tobacco: Never Sex Assigned at Date Recorded Not on file documented as of this encounter Progress Notes Marylou Will M.D., Ph.D. - 12/03/2021 4:00 PM CST Please see scanned in note under document viewer tab for the [facility] outreach visit from this date. 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
--- OUTSIDE RECORDS SUMMARY | 2022-07-08 07:03 | XMS_ITS | Encounter Summary ---
:1955 Author Organization [facility] Address [address] [place] [address]. [place] [address] Care Team Providers Name Role Phone Manish Freedman MD Primary Care Provider [phone] Reason for Visit Reason Onset Date Comments Refill Request 11/10/2016 Encounter Details Date Type Department Care Team Description 11/10/2016 Refill [facility] for Davon Gonzalez, Refill Request Women [place] MANDUJANO [address] [facility] [address] [place] [address] [address] RANJIT [place] [address] [place] [phone] Social History Tobacco Use Types Packs/Day Years [...] Dc Gonzalez MD - 11/16/2016 12:35 PM WOOD AND HARDWARE OUTFITTER Rx sent AND HARDWARE OUTFITTER Telephone Encounter - Jessie Eugene RN - 11/10/2016 6:12 PM CST ADITI Last Written Prescription Date: 08/06/16 Last Fill Quantity: 90, # refills: 2 Last Office [facility] [place] [facility] [place] care provider: 08/06/16 Future Office visit: none Routing refill request to provider for review/approval because: Rx not sent for year supply. Note routed to Dr. Araya to send to get pt until her next annual due time? AND HARDWARE OUTFITTER documented in this encounter Plan of Treatment Not on filedocumented as of this encounter Visit Diagnoses Diagnosis Menopause - Primary Symptomatic menopausal or female climact lesli states documented in this encounter Additional Health Concerns Assessment Noted Time PHQ-9 Depression Total Score: 3 08/07/2016 7:18 AM CDT documented as of this encounter Care Teams Public Space Attendant Relationship Specialty Start Date End Date Manish Freedman MD PCP - General Emergency Medicine 08/06/16 08/10/17 [facility] [address] [place] [address] documented as of this encounter
--- OUTSIDE RECORDS SUMMARY | 2022-07-08 07:03 | XMS_ITS | Encounter Summary ---
:1955 Author Organization [facility] Address [address], [place] [address] Care Team Providers Name Role Phone Unavailable Primary Care Provider Unavailable Encounter Details Date Type Department Care Team Description 05/14/1997 - Hospital Encounter [facility] Dc Gonzalez MD 05/15/[address] [place] [address] Social History Tobacco Use Types Packs/Day Years [...]
--- OUTSIDE RECORDS SUMMARY | 2022-07-08 07:03 | XMS_ITS | Encounter Summary ---
:1955 Author Organization [facility] Address [address] [place] [address]. [place] [address] Care Team Providers Name Role Phone Manish Freedman MD Primary Care Provider [phone] Encounter Details Date Type Department Care Team Description 11/04/2017 Telephone [facility] for PrestreynasDavon, Women [place] MANDUJANO [address] [facility] [address] [facility] [address] RANJIT [place] [address] [place] [address] [phone] Social History Tobacco Use Types Packs/Day Years [...] in error, pt has plenty of Rx. [employer] COMMUNITY LIAISON documented in this encounter Plan of Treatment Not on filedocumented as of this encounter Visit Diagnoses Not on filedocumented in this encounter Additional Health Concerns Assessment Noted Time PHQ-9 Depression Total Score: 3 08/11/2017 9:15 AM CDT documented as of this encounter Care Teams Occupational Therapist Assistant Relationship Specialty Start Date End Date Manish Freedman MD PCP - General Emergency Medicine 08/11/17 [facility] [address] [place] [address] documented as of this encounter
--- OUTSIDE RECORDS SUMMARY | 2022-07-08 07:03 | XMS_ITS | Encounter Summary ---
:1955 Author Organization [facility] Address [address], [place] [address] Care Team Providers Name Role Phone Dc Gonzalez MD Primary Care Provider Unavailable Reason for Visit Procedure/Equipment (Routine) - Incomplete Specialty Diagnoses / Procedures Referred By Contact Refer red To Contact Diagnoses Closed displaced fracture of second metatarsal bone of right foot, initial encounter Norebrto Kulkarni, DPM Procedures XR Foot Rt 3+ Views [address] [place] [address] Referral ID Status Reason Start Date Expiration Date Visits V isits Requested Authorized [id number] Incomplete 08/12/2016 11/11/2017 1 1 Encounter Details Date Type Department Care Team Description 08/12/2016 [facility] Norberto Kulkarni, Closed displaced [address] [place] [address] [facility] metatarsal bone of [phone] [place], [place] [address] right foot, initial [phone] (Wo rk) encounter Social History Tobacco Use [...] encounter documented in this encounter Care Teams Body Shop Technician Relationship Specialty Start Date End Date Dc Gonzalez MD PCP - General 01/17/11 documented as of this encounter
--- OUTSIDE RECORDS SUMMARY | 2022-07-08 07:03 | XMS_ITS | Encounter Summary ---
:1955 Author Organization [facility] Address [address] [place] [address] Care Team Providers Name Role Phone Unavailable Primary Care Provider Unavailable Reason for Visit Reason Comments Med Refill Encounter Details Date Type Department Care Team Description 05/27/2018 Refill Department of Cardiovascular Inder Amaya Jr., Med Refill Medicine in [address] [address] Social History Tobacco Use Types Packs/Day Years Used Date Smoking Tobacco: Never Sex Assigned at Date Recorded Not on file documented as of this encounter Plan of Treatment Not on filedocumented as of this encounter Visit Diagnoses Not on filedocumented in this encounter
--- OUTSIDE RECORDS SUMMARY | 2022-07-08 07:03 | XMS_ITS | Encounter Summary ---
:1955 Author Organization [facility] Address [address] [place] [address]. [place] [address] Care Team Providers Name Role Phone Manish Freedman MD Primary Care Provider [phone] Encounter Details Date Type Department Care Team [...] documented as of this encounter Care Teams General Production Worker Relationship Specialty Start Date End Date Manish Freedman MD PCP - General Emergency Medicine 08/11/17 [facility] [address] [place] [address] documented as of this encounter
--- OUTSIDE RECORDS SUMMARY | 2022-07-08 07:03 | XMS_ITS | Clinical Summary ---
:1955 Author Organization [facility] Address [address] [place] [address] Care Team Providers Name Role Phone Manish Freedman MD Primary Care Provider [phone] Allergies No known active allergies Medications Medication Sig Dispensed Refills Start Date End Date Status PRILOSEC OR None Entered 0 Activ e hydrochlorothiazide 3 04/22/2015 Active (HYDRODIURIL) 25 MG tablet LORazepam (ATIVAN) 1 MG 0 06/07/2015 Active tablet ondansetron (ZOFRAN-ODT) 4 0 02/25/2015 Active MG disintegrating tablet fluticasone (FLONASE) 50 [place] 2 sprays 0 Active MCG/ACT nasal spray [...] Noted Date Screening for cervical cancer Overview: [phone] NIL paps [phone] NIL paps 07/2017, 07/2018, 08/2019 NIL pap, [...] Comments Blood Pressure 138/82 09/12/2019 10:47 AM FOREIGN SERVICE TEACHER Pulse 78 09/12/2019 10:47 AM FOREIGN SERVICE TEACHER Temperature - - Respiratory Rate - - Oxygen Saturation - - Inhaled Oxygen Concentration - - Weight 69.9 kg (154 lb) 09/12/2019 10:47 AM FOREIGN SERVICE TEACHER Height 155.3 cm (5' 1.15) 09/12/2019 10:47 AM FOREIGN SERVICE TEACHER Body Mass Index 28.96 09/12/2019 10:47 AM FOREIGN SERVICE TEACHER Plan of Treatment Health Maintenance Due Date [...] Addre ss Type Group [facility] [id number] 2018-Present [address] [address] [place] [address] (Home) [place] [address] Marquita Ward Personal/Family Self [address] [place] [address] (Home) [place] [address] Care Teams Military Equipment Specialist Relationship Specialty Start Date End Date Manish Freedman MD PCP - General Emergency Medicine 08/11/17 [facility] [address] [place] [address]
--- OUTSIDE RECORDS SUMMARY | 2022-07-08 07:03 | XMS_ITS | Encounter Summary ---
:1955 Author Organization [facility] Address [address], [place] [address] Care Team Providers Name Role Phone Dc Gonzalez MD Primary Care Provider Unavailable Encounter Details Date Type Department Care Team Description 03/28/1993 PN Conversion Only EPISCOPAL CONVERSION Tate Gonzalez MD Social History Tobacco [...] on filedocumented in this encounter Care Teams Measurer Relationship Specialty Start Date End Date Dc Gonzalez MD PCP - General 01/17/11 documented as of this encounter
--- OUTSIDE RECORDS SUMMARY | 2022-07-08 07:03 | XMS_ITS | Encounter Summary ---
:1955 Author Organization [facility] Address [address] [address] Care Team Providers Name Role Phone Dc Gonzalez MD Primary Care Provider Unavailable Reason for Visit Procedure/Equipment (Routine) - Incomplete Specialty Diagnoses / Procedures Referred By Contact Refer red To Contact Diagnoses Right foot pain Norberto Kulkarni DPM Procedures XR Foot Rt 3+ Views [address] [place] [address] Referral ID Status Reason Start Date Expiration Date Visits V isits Requested Authorized [id number] Incomplete 07/13/2016 10/12/2017 1 1 Encounter Details Date Type Department Care Team Description 07/13/2016 Imaging [facility] Norberto Kulkarni DPM Right foot pain [address] [place] [address] [place], [place] [address] (Wo rk) Social History Tobacco Use Types [...] limb documented in this encounter Care Teams Workers Compensation Legal Secretary Relationship Specialty Start Date End Date Dc Gonzalez MD PCP - General 01/17/11 documented as of this encounter
--- OUTSIDE RECORDS SUMMARY | 2022-07-08 07:03 | XMS_ITS | Encounter Summary ---
:1955 Author Organization [facility] Address [address] [place] [address] Care Team Providers Name Role Phone Unavailable Primary Care Provider Unavailable Reason for Visit Reason Comments Med Refill Encounter Details Date Type Department Care Team Description 05/22/2019 Refill Department of Cardiovascular Inder Amaya Jr., Med Refill Medicine in [facility] [address] [place] [address] Social History Tobacco Use Types [...]
--- OUTSIDE RECORDS SUMMARY | 2022-07-08 07:03 | XMS_ITS | Encounter Summary ---
:1955 Author Organization [facility] Address [address] [address] Care Team Providers Name Role Phone Dc Gonzalez MD Primary Care Provider Unavailable Reason for Visit Reason Comments Foot Pain Encounter Details Date Type Department Care Team Description 09/18/2013 Initial Consult [facility] Norberto Kulkarni , Foot pain (Primary Dx); MedSurg DPM Estrada neuroma [address] [place] [address] [place], [place] [phone] Social History Tobacco Use Types Packs/Day Years Used Date Smoking Tobacco: Never Assessed Sex Assigned at Date Recorded Not on file documented as of this encounter Progress Notes Norberto Kulkarni, DEYSI - 09/18/2013 2:52 PM CST DATE OF VISIT: 09/18/2013 SUBJECTIVE: Matma Ward is a pleasant 58 y.o. female [...] s/p LW Modifier: Right foot LW Onset: [id number] Social History: Nonsmoker OBJECTIVE: 58 y.o. year [...] condition. Orders Placed This Encounter Procedures ??? CA INJECTION ANESTHETIC AGENT AND/OR STEROID, PLANTER COMMON DIGITAL NERVE ??? CA TRIAMCINOLONE ACET INJ NOS per 10 mg ??? CA DEXAMETHASONE SODIUM PHOS per 1 mg No orders of the defined types were placed in this encounter. RCHARGER REPAIR SUPERVISOR documented in this encounter Plan of Treatment Not on filedocumented as of this encounter Visit Diagnoses Diagnosis Foot pain - Primary Pain in limb Estrada neuroma Lesion of plantar nerve documented in this encounter Care Teams Chha Relationship Specialty Start Date End Date Dc Gonzalez MD PCP - General 01/17/11 documented as of this encounter
--- OUTSIDE RECORDS SUMMARY | 2022-07-08 07:03 | XMS_ITS | Encounter Summary ---
:1955 Author Organization [facility] Address [address] [place] [address] Care Team Providers Name Role Phone Dc Gonzalez MD Primary Care Provider Unavailable Encounter Details Date Type Department Care Team Description 07/12/2006 Office Visit [facility] Eyad Kulkarni DPM MedSur [address] [facility] [address] [place] [address] [place], [place] [address] [phone] Social History Tobacco Use Types Packs/Day Years Used Date Smoking Tobacco: Never Assessed Sex Assigned at Date Recorded Not on file documented as of this encounter Progress Notes Norberto Kulkarni DPM - 07/12/2006 12:01 AM CDT Progress Notes signed by Norberto Kulkarni DPM at 07/13/06 1055 Author: Norberto Kulkarni DPM Service: (none) Author Type: Physician Filed: 02/06/11 1449 Note Time: 07/12/06 0001 Status: Signed Pairer: Norberto Kulkarni DPM (Physician) NAME: SAVAGE WARD MR: [id number] ACCT: [id number] VISIT: [id number] DICTATING CLINICIAN: oNrberto Kulkarni DPM JOB: [id number] LOC: 539 CLINIC PROGRESS NOTE DATE OF [...] me in 10 days for suture removal. ALP:[id number] C: 07/12/06 20:10 DOCUMENT: [id number] documented in this encounter Plan of Treatment Not on filedocumented as of this encounter Visit Diagnoses Not on filedocumented in this encounter Care Teams Cot Assembler Relationship Specialty Start Date End Date Dc Gonzalez MD PCP - General 01/17/11 documented as of this encounter
--- OUTSIDE RECORDS SUMMARY | 2022-07-08 07:03 | XMS_ITS | Encounter Summary ---
:1955 Author Organization [facility] Address [address], [place] [address] Care Team Providers Name Role Phone Dc Gonzalez MD Primary Care Provider Unavailable Reason for Visit Procedure/Equipment (Routine) - Incomplete Specialty Diagnoses / Procedures Referred By Contact Refer red To Contact Diagnoses Right foot pain Norberto Kulkarni DPM Procedures XR Foot Rt 3+ Views [address] [place] [address] Referral ID Status Reason Start Date Expiration Date Visits V isits Requested Authorized [id number] Incomplete 07/27/2016 10/26/2017 1 1 Encounter Details Date Type Department Care Team Description 07/27/2016 Imaging [facility] Norberto Kulkarni DPM Right foot pain [address] [place] [address] [place], [place] [id number] (Wo rk) Social History Tobacco Use Types [...] limb documented in this encounter Care Teams Flosser Relationship Specialty Start Date End Date Dc Gonzalez MD PCP - General 01/17/11 documented as of this encounter
--- OUTSIDE RECORDS SUMMARY | 2022-07-08 07:03 | XMS_ITS | Encounter Summary ---
:1955 Author Organization [facility] Address [address] [address] Care Team Providers Name Role Phone Dc Gonzalez MD Primary Care Provider Unavailable Encounter Details Date Type Department Care Team Description 05/24/2006 Office Visit [facility] Eyad Kulkarni DPM MedSur [address] [facility] [address] [place] [address] [place], [place] [address] [phone] Social History Tobacco Use Types Packs/Day Years Used Date Smoking Tobacco: Never Assessed Sex Assigned at Date Recorded Not on file documented as of this encounter Progress Notes Norberto Kulkarni DPM - 05/24/2006 12:01 AM CDT Progress Notes signed by Norberto Kulkarni DPM at 05/27/06 1440 Author: Norberto Kulkarni DPM Service: (none) Author Type: Physician Filed: 02/06/11 1353 Note Time: 05/24/06 0001 Status: Signed Case Fitter: Norberto Kulkarni DPM (Physician) NAME: MAMTA WARD MR: [id number] ACCT: [id number] VISIT: [id number] DICTATING CLINICIAN: Norberto Kulkarni DPM JOB: [id number] LOC: 539 CLINIC PROGRESS NOTE DATE OF [...] under local anesthesia with IV sedation at [facility]. She is consulted to her primary care physician for a preoperative physical. ALP:[id number] C: 05/27/06 12:03 DOCUMENT: [id number] documented in this encounter Plan of Treatment Not on filedocumented as of this encounter Visit Diagnoses Not on filedocumented in this encounter Care Teams Diet Clerk Relationship Specialty Start Date End Date Dc Gonzalez MD PCP - General 01/17/11 documented as of this encounter
--- OUTSIDE RECORDS SUMMARY | 2022-07-08 07:03 | XMS_ITS | Encounter Summary ---
:1955 Author Organization [place] Address [facility] [place] [address] Care Team Providers Name Role Phone Manish Freedman MD Primary Care Provider Reason for Visit Diagnostic Imaging Mammo - Closed Specialty Diagnoses / Procedures Referred By Contact Refer red To Contact Diagnoses Visit for screening mammogram Dc Gonzalez MD Procedures MA Screening Digital Bilateral [address] [facility] [address] [place] [address] Referral ID Status Reason Start Date Expiration Date Visits Requ ested Visits Authorized [id number] Closed 07/21/2018 07/21/2019 1 1 Encounter Details Date Type Department Care Team Description 08/16/2018 Radiant Appointment [facility] for screening [facility] Nader na mammogram [address] [facility], [address] [place] [phone] Social History Tobacco Use Types Packs/Day Years [...] documented as of this encounter Care Teams Marketing Services Coordinator Relationship Specialty Start Date End Date Manish Freedman MD PCP - General Emergency Medicine 08/11/17 [facility] [address] [place] [address] documented as of this encounter
--- OUTSIDE RECORDS SUMMARY | 2022-07-08 07:03 | XMS_ITS | Encounter Summary ---
:1955 Author Organization [place] Address [address] [place] [address]. [place] [address] Care Team Providers Name Role Phone Manish Freedman MD Primary Care Provider [phone] Reason for Visit Reason Onset Date Comments Physical Imm/Inj 09/12/2019 Flu Shot Encounter Details Date Type Department Care Team Description 09/12[facility]2019 [facility] for gynecological examination without abnormal finding (Primary Dx); [facility] MD Avelino Men[facility]; Nichole [address] [place] [address] Need for prophylactic vaccin ation and inoculation against influenza [address] [address] [place] [address] [place] [address] (Work) [phone] Social History Tobacco Use Types Packs/Day Years [...] Comments Blood Pressure 138/82 09/12/2019 10:47 AM GRAVITY PROSPECTOR Pulse 78 09/12/2019 10:47 AM GRAVITY PROSPECTOR Temperature - - Respiratory Rate - - Oxygen Saturation - - Inhaled Oxygen Concentration - - Weight 69.9 kg (154 lb) 09/12/2019 10:47 AM GRAVITY PROSPECTOR Height 155.3 cm (5' 1.15) 09/12/2019 10:47 AM GRAVITY PROSPECTOR Body Mass Index 28.96 09/12/2019 10:47 AM GRAVITY PROSPECTOR documented in this encounter Progress Notes Jessica [...] ??? fluticasone (FLONASE) 50 MCG/ACT nasal spray [place] 2 sprays into both nostrils daily ??? [...] family histories were reviewed and updated in [place]. ROS: 12 point review of systems negative [...] OK to have mammogram. Jessica Gonzalez MD ITY PROSPECTOR documented in this encounter Plan of Treatment Not on filedocumented as of this encounter Procedures Procedure Name Priority Date/Time Associated Diagnosis Comme nts HPV HIGH RISK Routine 09/12/2019 11:05 Encounter for Results f or this TYPES DNA CERVICAL AM GRAVITY PROSPECTOR gynecological procedur e are in examination without the resu lts abnormal finding section. PAP IMAGED THIN Routine 09/12/2019 10:50 Encounter for Results for this LAYER SCREEN AM GRAVITY PROSPECTOR gynecological procedure are in examination without the resu lts abnormal finding section. documented in this encounter Results HPV High Risk Types DNA Cervical (09/12/2019 11:05 AM GRAVITY PROSPECTOR) [facility] Method Time Signature HPV Source SurePath 09/12/2019 [facility] 10:51 AM GRAVITY PROSPECTOR [facility] HPV 16 DNA Negative NEG^Negat 09/19/2019 [facility] 3:16 PM [facility] HPV 18 DNA Negative NEG^Negat 09/19/2019 [facility] 3:16 PM [facility] Other HR HPV Negative NEG^Negat 09/19/2019 [facility] Final This 09/19/2019 [facility] patient's 3:[address] [facility] sample is [facility] negative for CAMPUS HPV DNA. Comment: This test was developed and its performa nce characteristics determined by the [facility], Molecular Diagnostics Laboratory. It has not [...] Description Cervical Cells 09/12/2019 10: 51 AM [facility] Comment: [id number] Specimen Anatomical Collection Method Collection Time Receive d Time (Source) Location / / Volume Laterality Cervical Cells 09/12/2019 11:05 9 AM GRAVITY PROSPECTOR 11:46 AM GRAVITY PROSPECTOR Jessica Gonzalez MD LAB - BLOOD ORDERABLES Performing Organization Address City/State/ZIP Code Phon e Number [address] [address] [facility] [address] [place] [address] [phone] [facility] 100 Pap imaged thin layer screen with HPV - recommended age 30 - 65 (09/12/2019 10:50 AM GRAVITY PROSPECTOR) Component Value Ref Test Analysis Performed At [facility] Range Method Time Signature PAP NIL COPATH Copath Report COPATH Patient Name: SAVAGE WARD MR#: [id number] Specimen #: [id number] Collected: 09/12/2019 Received: 09/13/2019 Reported: 09/18/2019 11:03 [...] other cancer s. COLLECTION SITE: Client: ??[facility] Location: [facility] (S) The technical component of this testing was completed at the [facility], with the professional compo nent performed at the [facility], [address] [place] [address], [place] [address] ([phone]) Specimen (Source) Anatomical Collection Method Collection Time Re ceived Time Location / / Volume Laterality Cytologic 09/12/2019 10:50 09/13/2019 9:19 material AM GRAVITY PROSPECTOR AM GRAVITY PROSPECTOR (specimen) Jessica Gonzalez MD LAB - OPTIME [...] documented as of this encounter Care Teams Neighborhood Service Center Director Relationship Specialty Start Date End Date Manish Freedman MD PCP - General Emergency Medicine 08/11/17 [facility] [address] [place] [address] documented as of this encounter
--- OUTSIDE RECORDS SUMMARY | 2022-07-08 07:03 | XMS_ITS | Encounter Summary ---
:1955 Author Organization [place] Address [address] [place] [address]. [place] [address] Care Team Providers Name Role Phone Manish Freedman MD Primary Care Provider [phone] Reason for Visit Reason Onset Date Comments Refill Request 06/21/2018 norethindrone-ethiny l estradiol (JINTELI) 1-5 MG-MCG per tablet Encounter Details Date Type Department Care Team Description 06/21/2018 Refill [facility] Dc Gonzalez Refill Request for Women Nanci You MD (norethindrone-ethinyl [address] [facility] [address] [facility] estradiol (JINTELI) 1-5 [address] 100 MG-MCG per tablet) [place]ANJIT Varela [address] [place] [address] (Wo rk) Social History [...] documented as of this encounter Care Teams Food Service Employee Relationship Specialty Start Date End Date Manish Freedman MD PCP - General Emergency Medicine 08/11/17 [facility] [address] [place] [address] documented as of this encounter
--- OUTSIDE RECORDS SUMMARY | 2022-07-08 07:03 | XMS_ITS | Encounter Summary ---
:1955 Author Organization [facility] Address [address] [address] Care Team Providers Name Role Phone Dc Gonzalez MD Primary Care Provider Unavailable Encounter Details Date Type Department Care Team Description 01/12/1996 PN Conversion Only [facility] CONVERSION Tate Gonzalez MD Social History Tobacco Use Types Packs/Day Years Used Date Smoking Tobacco: Never Assessed Sex Assigned at Date Recorded Not on file documented as of this encounter Plan of Treatment Not on filedocumented as of this encounter Procedures Procedure Name Priority Date/Time Associated Comments Diagnosis CONVERSION DEFAULT Routine 01/11/1996 12:02 PM Re sults for this INTERFACE ORDER MOBILE APPLICATION ENGINEER procedure ar e in the results section. documented in this encounter Results Conversion Default Interface Order (01/11/1996 12:02 PM MOBILE APPLICATION ENGINEER) [facility] Method Time Signature Ab Interpretation ANTI-D 02 HP CONVERSIO N Comment: PASSIVE ANTI-D, PROBABLE CAUSE IS RHIG ADMINISTRATION; ALL OTHER CLINICALLY SIGNIFICANT ANTIBODIES RULED OUT. Specimen (Source) Anatomical Collection Method Collection Time Re ceived Time Location / / Volume Laterality 01/11/1996 12:02 PM MOBILE APPLICATION ENGINEER Dc Gonzalez MD LAB_1 Performing Organization Address City/State/ZIP Code Phon e Number HP CONVERSION documented in this encounter Visit Diagnoses Not on filedocumented in this encounter Care Teams Plush Finisher Relationship Specialty Start Date End Date Dc Gonzalez MD PCP - General 01/17/11 documented as of this encounter
--- OUTSIDE RECORDS SUMMARY | 2022-07-08 07:03 | XMS_ITS | Encounter Summary ---
:1955 Author Organization [facility] Address [address], [place] [address] Care Team Providers Name Role Phone Dc Gonzalez MD Primary Care Provider Unavailable Encounter Details Date Type Department Care Team Description 02/13/1997 PN Conversion Only [facility] CONVERSION Tate Gonzalez MD Social History Tobacco [...] NAME:SAVAGE MARADIAGA ?CERVICAL CYTOLOGY REPORT Pathology # ??[id number] ?Date Obtained: [id number] ?Date Received: [id number] LMP: CLINICAL HIST ? PREV SMEAR 05-16-96, [...] on filedocumented in this encounter Care Teams Cotton Ginner Relationship Specialty Start Date End Date Dc Gonzalez MD PCP - General 01/17/11 documented as of this encounter
--- OUTSIDE RECORDS SUMMARY | 2022-07-08 07:03 | XMS_ITS | Encounter Summary ---
:1955 Author Organization [facility] Address [address] [place] [address] Care Team Providers Name Role Phone Unavailable Primary Care Provider Unavailable Encounter Details Date Type Department Care Team Description 07/08/2006 Hospital Encounter CONV METH PNA Kimberly Kulkarni, DEYSI [address] [place] [id number] [address] Kimberly Kulkarni DPM [address] [place] [id number] [place] [address] Social History Tobacco Use Types Packs/Day Years [...] signed by Kimberly Kulkarni DPM at 07/08/06 6661 Author: Kimberly Kulkarni DPM Service: (none) Author Type: Physician Filed: 02/06/11 8263 Note Time: 07/08/06 1235 Status: Signed Buyer Internship: Kimberly Kulkarni DPM (Physician) Patient Name: Mamta Ward Surgical Staff: Kimberly Kulkarni DPM Referring MD: 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 Complications: No Immediate Complications. CPT Codes(s): 29439, RT, Excision, interdigital (Estrada) neuroma, single, each ICD Code(s): 355.6, LESION OF PLANTAR NERVE The codes documented in this report are preliminary and upon hogshead packer review may be revised to meet current [...] Principal: PERIPH NERV EXCISION NEC KIMBERLY KULKARNI [id number] 04.07 Provider2: Provider3: PORFIRIO PEREZ documented in this encounter Plan of Treatment Not on filedocumented as of this encounter Procedures Procedure Name Priority Date/Time Associated Diagnosis Comme nts SURGICAL PATH, LILIYA Routine 07/08/2006 4:01 PM Re sults for this NICOLLET CDT procedure are i n the results section. documented in this encounter Results Pathology Report (07/08/2006 4:01 PM CDT) [facility] Method Time Signature Surgical SEE TEXT No normal HP CONVERSION Pathology range Comment: Patient: SAVAGE WARD ?S URGICAL PATHOLOGY REPORT Pathology # ??[id number] ?Date Obtained: ? Date Received: DIAGNOSIS: ?Soft tissue, right foot, excision: ?- Consistent with neuroma. ?Diego Gann MD ?(electronic signature) DYSON/DYSNO/kjs Date of Report: 07/09/06 Pathology # ??[id number] ?Date Obtained: ? Date Received: ORGAN/TISSUE SITE: ?Right foot 3rd IMS GROSS DESCRIPTION: ?The specimen is labeled neuroma 3r d IMS right foot and consists of a 2.0 x ?1.0 x 0.8 cm portion of mcdermott-white to benson tissue consistent with nervous ?tissue. ??The specimen is entirely submitted in cassette [id number]. AMW/cjk MICROSCOPIC DESCRIPTION: ?The microscopic examination substa ntiates the diagnosis cited. Specimen (Source) Anatomical Collection Method Collection Time Re ceived Time Location / / Volume Laterality 07/08/2006 4:01 PM CDT Kimberly Kulkarni DPM LAB_1 Performing Organization Address City/State/ZIP Code Phon e Number HP CONVERSION documented in this encounter Visit Diagnoses Not on filedocumented in this encounter
--- OUTSIDE RECORDS SUMMARY | 2022-07-08 07:03 | XMS_ITS | Encounter Summary ---
:1955 Author Organization [facility] Address [address], [place] [address] Care Team Providers Name Role Phone Dc Gonzalez MD Primary Care Provider Unavailable Encounter Details Date Type Department Care Team Description 07/08/2006 PN Conversion Only CONV PODIATRY Norberto Kulkarni, [address] [place] [address] [place], [place] [address] (Wo rk) Social History Tobacco Use Types Packs/Day Years Used Date Smoking Tobacco: Never Assessed Sex Assigned at Date Recorded Not on file documented as of this encounter Plan of Treatment Not on filedocumented as of this encounter Visit Diagnoses Not on filedocumented in this encounter Care Teams Glass Technician/Installer Relationship Specialty Start Date End Date Dc Gonzalez MD PCP - General 01/17/11 documented as of this encounter
--- OUTSIDE RECORDS SUMMARY | 2022-07-08 07:03 | XMS_ITS | Encounter Summary ---
:1955 Author Organization [place] Address [address] [place] [address]. [place] [address] Care Team Providers Name Role Phone Manish Freedman MD Primary Care Provider [phone] Reason for Visit Reason Comments Physical Encounter Details Date Type Department Care Team Description 08/11/2017 Office Visit [facility] Jessica Gonzalez [facility] er for gynecological examination without abnormal finding (Primary Dx); [facility] Menopause [address] [address] [place] [address] [place] [address] (Work) [phone] Social History Tobacco Use Types Packs/Day Years [...] MD - 08/11/2017 9:03 AM CDT Savage Spenecr is a 62 year old No obstetric [...] ??? fluticasone (FLONASE) 50 MCG/ACT nasal spray [place] 2 sprays into both nostrils daily ??? [...] Types DNA Cervical (08/11/2017 9:49 AM CDT) [facility] Method Time Signature HPV 16 DNA Negative NEG^Negat 08/16/2017 [facility]iana 2:40 PM CDT [facility] HPV 18 DNA Negative NEG^Negat 08/16/2017 [facility] mariana 2:40 PM CDT [facility] Other HR HPV Negative NEG^Negat 08/16/2017 [facility] 2:[facility] PM CDT [facility] Final This 08/16/2017 [facility] patient's 2:40 PM CDT [place] [facility] sample is [facility] negative for HIGGANUM HPV DNA. Comment: (Note) METHODOLOGY: ??The [employer] tien 4800 syst em uses automated extraction, [...] its performa nce characteristics determined by the [facility] Molecular Diagnostics Laboratory. It has not been cleared or approved by the FDA. The laboratory is regulated under [place] as qualified to perform high-complexity testing. This test is us ed for clinical purposes. It should not be regarded as investigationa l or for research. Specimen Description Cervical Cells 08/16/2017 9:1 6 AM CDT [facility] Comment: [id number] Specimen Anatomical Collection Method Collection Time Receive d Time (Source) Location / / Volume Laterality Cervical Cells 08/11/2017 9:49 AM 017 9:51 CDT AM CDT Jessica Gonzalez MD LAB - BLOOD ORDERABLES Performing Organization Address City/State/ZIP Code Phon e Number [facility] [address] [place], [place] [phone] [place] [address] Pap imaged thin layer screen with HPV - recommended age 30 - 65 (08/11/2017 9:21 AM CDT) Component Value Ref Test Analysis Performed At [facility] Range Method Time Signature PAP NIL COPATH Copath Report COPATH Patient Name: SAVAGE WARD MR#: [id number] Specimen #: [id number] Collected: 08/11/2017 Received: 08/12/2017 Reported: 08/13/2017 09:56 [...] RUBI Garcia (ASCP) Processed and screened at [facility] CLINICAL HISTORY: Post Menopausal, Previous normal pap Date of Last Pap: 08/06/16, Papanicolaou Test Limitations: ??Cervical cytology is a scre ening test with limited sensitivity; regular screening is critical for cancer prevention; Pap tests are primarily effective for the diagnosis/prevention of squamous cell carcinoma, not adenoca rcinomas or other cancers. TESTING LAB LOCATION: [address] ??[address] COLLECTION SITE: Client: ??[facility] Location: WEOB (S) Specimen (Source) Anatomical Collection [...] documented as of this encounter Care Teams Stripper Color Relationship Specialty Start Date End Date Manish Freedman MD PCP - General Emergency Medicine 08/11/17 [facility] [address] [place] [address] documented as of this encounter
--- OUTSIDE RECORDS SUMMARY | 2022-07-08 07:03 | XMS_ITS | Encounter Summary ---
:1955 Author Organization [place] Address [address] [place] [address]. [place] [address] Care Team Providers Name Role Phone Manish Freedman MD Primary Care Provider [phone] Reason for Visit Diagnostic Imaging Mammo (Routine) - Closed Specialty Diagnoses / Procedures Referred By Contact Refer red To Contact Diagnoses Visit for screening mammogram Dc Gonzalez MD Procedures MA Screening Digital Bilateral [address] [place] [address] Referral ID Status Reason Start Date Expiration Date Visits Requ ested Visits Authorized [id number] Closed 07/20/2019 07/19/2020 1 1 Encounter Details Date Type Department Care Team Description 09/12/2019 [facility] MD [place] mammogram [place] [address] [place] [address] [place] [phone] Social History Tobacco Use Types Packs/Day Years [...] screening R esults for this DIGITAL BILATERAL LAYBOY TENDER mammogram procedure are in the results section. documented in this encounter Results MA Screening Digital Bilateral (09/12/2019 11:36 AM LAYBOY TENDER) Anatomical Region Laterality Modality Breast Bilateral Mammography Specimen (Source) Anatomical Location Collection Method / Collectio n Time Received Time / Laterality Volume Impressions 09/12/2019 2:20 PM LAYBOY TENDER IMPRESSION: BI-RADS CATEGORY: 1 - ??Negative RECOMMENDED FOLLOW-UP: Annual Mammograph y. Exam results letter mailed to patient. CATIA HO MD Narrative 09/12/2019 2:20 PM LAYBOY TENDER SCREENING MAMMOGRAM, BILATERAL, DIGITAL w/CAD - 09/12/2019 [...] documented as of this encounter Care Teams Breakfast Server Relationship Specialty Start Date End Date Manish Freedman MD PCP - General Emergency Medicine 08/11/17 [facility] [address] [place] [address] documented as of this encounter
--- OUTSIDE RECORDS SUMMARY | 2022-07-08 07:03 | XMS_ITS | Encounter Summary ---
:1955 Author Organization [email or web address] Address [address], [place] [address] Care Team Providers Name Role Phone Dc Gonzalez MD Primary Care Provider Unavailable Reason for Visit Reason Comments Other Encounter Details Date Type Department Care Team Description 03/29/2006 Telephone [facility] Eyad Kulkarni, DPZelda Other Med[facility]urg [address] [facility] [address] [place] [address] [place], [place] [id number] [phone] Social History Tobacco Use Types Packs/Day Years Used Date Smoking Tobacco: Never Assessed Sex Assigned at Date Recorded Not on file documented as of this encounter Progress Notes Cherise Malone - 03/29/2006 2:00 PM CDT Phone Note filed by Cherise Malone at 02/03/11 7523 Author: Cherise Malone Service: (none) Author Type: (none) Filed: 02/03/11 1913 Note Time: 03/29/06 1400 Status: Signed Blast Furnace Helper: Cierra Conversion Pt. calling stating she has had no improvement with the injection and should she keep her f/u appt.? Reassured pt. that injection could still be helpfull and that yes, she should keep appt. oon [id number]. Pt. understood. Created on 29Mar2006 2:00pm by LYNDSEY MALONE Acknowledged by KIMBERLY KULKARNI on 8:43am BUFFER documented in this encounter Plan of Treatment Not on filedocumented as of this encounter Visit Diagnoses Not on filedocumented in this encounter Care Teams Mechanical Engineering Professor Relationship Specialty Start Date End Date Dc Gonzalez MD PCP - General 01/17/11 documented as of this encounter
--- OUTSIDE RECORDS SUMMARY | 2022-07-08 07:03 | XMS_ITS | Encounter Summary ---
:1955 Author Organization [place] Address [address] [place] [address] Care Team Providers Name Role Phone Manish Freedman MD Primary Care Provider [phone] Encounter Details Date Type Department Care Team Description 08/11/2017 Radiant Appointment [facility] it for screening [facility] Nader na mammogram [address] [facility] [address] [place] [address] Social History Tobacco Use Types [...] documented as of this encounter Care Teams Hiv Counselor Relationship Specialty Start Date End Date Manish Freedman MD PCP - General Emergency Medicine 08/11/[address] [address] documented as of this encounter
--- OUTSIDE RECORDS SUMMARY | 2022-07-08 07:03 | XMS_ITS | Encounter Summary ---
:1955 Author Organization [facility] Address [address] [place] [address] Care Team Providers Name Role Phone Dc [...] on filedocumented in this encounter Care Teams County Program Technician Relationship Specialty Start Date End Date Dc Gonzalez MD PCP - General 01/17/11 documented as of this encounter
--- OUTSIDE RECORDS SUMMARY | 2022-07-08 07:03 | XMS_ITS | Encounter Summary ---
:1955 Author Organization [facility] Address [address], [place] [address] Care Team Providers Name Role Phone Dc Gonzalez MD Primary Care Provider Unavailable Encounter Details Date Type Department Care Team Description 08/25/1995 PN Conversion Only CHRISTIANITY CONVERSION Tate Gonzalez [...] PM Re sults for this INTERFACE ORDER CANOE MAKER procedure ar e in the results section. CONVERSION DEFAULT Routine 08/24/1995 12:24 PM Re sults for this INTERFACE ORDER CANOE MAKER procedure ar e in the results section. documented in this encounter Results Conversion Default Interface Order (08/24/1995 12:24 PM CANOE MAKER) Analysis Performed At Patho logist Time Signature BB BLOOD TYPE O NEG HP CONVERSION (BLOOD GROUP & RH) N/O BB NEG HP CONVERSION ANTIBODY SCREEN Rubella Immune IMMUNE HP CONVERSION Status RPR NON REAC HP CONVERSION Hep B Surf Ag NEG HP CONVERSION Specimen (Source) Anatomical Collection Method Collection Time Re ceived Time Location / / Volume Laterality 08/24/1995 12:24 PM CANOE MAKER Dc Gonzalez MD LAB_1 Performing Organization Address City/State/ZIP Code Phon e Number HP CONVERSION Conversion Default Interface Order (08/24/1995 12:24 PM CANOE MAKER) P athologist Signature BB BLOOD TYPE O NEG HP CONVERSION (BLOOD GROUP & RH) Specimen (Source) Anatomical Collection Method Collection Time Re ceived Time Location / / Volume Laterality 08/24/1995 12:24 PM CANOE MAKER Dc Gonzalez MD LAB_1 Performing Organization Address City/State/ZIP Code Phon e Number HP CONVERSION documented in this encounter Visit Diagnoses Not on filedocumented in this encounter Care Teams Tubing Tester Relationship Specialty Start Date End Date Dc Gonzalez MD PCP - General 01/17/11 documented as of this encounter
--- OUTSIDE RECORDS SUMMARY | 2022-07-08 07:03 | XMS_ITS | Encounter Summary ---
:1955 Author Organization [facility] Address [address], [place] [address] Care Team Providers Name Role Phone Dc Gonzalez MD Primary Care Provider Unavailable Encounter Details Date Type Department Care Team Description 05/19/1996 PN Conversion Only UATSDIN CONVERSION Tate Gonzalez MD Social History Tobacco [...] NAME:SAVAGE MARADIAGA ?CERVICAL CYTOLOGY REPORT Pathology # ??[id number] ?Date Obtained: ?Date Received: LMP: CLINICAL HIST ? 7+ WKS PP CERVICAL SMEAR SPECIMEN ADEQUACY: Satisfactory but tobias ited by absence of endocervical cells. CYTOLOGIC IMPRESSION: Within Normal Limits (Negative). Verified 05/29/96 by: ??MB ? (electronic signature) Angeles DOTSON M.D., Director of [facility] opathology Specimen (Source) Anatomical Collection Method Collection Time Re ceived Time Location / / Volume Laterality 05/16/1996 7:31 AM CDT Dc Gonzalez MD LAB_1 Performing Organization Address City/State/ZIP Code Phon e Number HP CONVERSION documented in this encounter Visit Diagnoses Not on filedocumented in this encounter Care Teams Beading Sawyer Relationship Specialty Start Date End Date Dc Gonzalez MD PCP - General 01/17/11 documented as of this encounter
--- OUTSIDE RECORDS SUMMARY | 2022-07-08 07:03 | XMS_ITS | Encounter Summary ---
:1955 Author Organization [facility] Address [address], [place] [address] Care Team Providers Name Role Phone Dc Gonzalez MD Primary Care Provider Unavailable Encounter Details Date Type Department Care Team Description 03/23/2006 PN Conversion Only [place] [address] [address] [place] [address] Social History Tobacco Use Types Packs/Day Years Used Date Smoking Tobacco: Never Assessed Sex Assigned at Date Recorded Not on file documented as of this encounter Plan of Treatment Not on filedocumented as of this encounter Visit Diagnoses Not on filedocumented in this encounter Care Teams Cardiac Rehab Nurse Relationship Specialty Start Date End Date Dc Gonzalez MD PCP - General 01/17/11 documented as of this encounter
--- OUTSIDE RECORDS SUMMARY | 2022-07-08 07:03 | XMS_ITS | Encounter Summary ---
:1955 Author Organization [place] Address [address] [place] [address]. [place] [address] Care Team Providers Name Role Phone Manish Freedman MD Primary Care Provider [phone] Reason for Visit Reason Onset Date Comments Physical Imm/Inj 08/16/2018 Flu Shot Encounter Details Date Type Department Care Team Description 08/16/2018 [facility] er for gynecological examination without abnormal finding (Primary Dx); [facility] MD Avelino Menopause; [place] [address] [place] [address] Need for prophylactic vaccin ation and inoculation against influenza [address] [address] [place] [address] [place] [address] (Work) [phone] Social History Tobacco Use Types Packs/Day Years [...] ??? fluticasone (FLONASE) 50 MCG/ACT nasal spray [place] 2 sprays into both nostrils daily ??? [...] family histories were reviewed and updated in [facility]. ROS: 12 point review of systems negative [...] Types DNA Cervical (08/16/2018 10:00 AM CDT) [facility] Method Time Signature HPV Source Sure[facility] 08/16/2018 [facility] 9:59 AM CDT [facility] HPV 16 DNA Negative NEG^Negat 08/19/2018 [facility] 1[facility]22 PM CDT [facility] HPV 18 DNA Negative NEG^Negat 08/19/2018 [facility] 1:22 PM CDT [facility] Other HR HPV Negative NEG^Negat 08/19/2018 [facility] 1:22 PM CDT [facility] Final This 08/19/2018 [facility] patient's 1:22 PM CDT [place] [facility] sample is [facility] negative for CAMPUS HPV DNA. Comment: This test was developed and its performa nce characteristics determined by the [facility]. It has not been [...] AM CDT [facility] Comment: [id number] Specimen Anatomical Collection Method Collection Time Receive d Time (Source) Location / / Volume Laterality Cervical Cells CERVIX UTERI 08/16/2018 10:00 8 STRUCTURE / AM CDT 11:07 AM CDT Unknown Jessica Gonzalez MD LAB - BLOOD ORDERABLES Performing Organization Address City/State/ZIP Code Phon e Number [address] [address] [facility] [address] [place] [address] [facility] [address] Pap imaged thin layer screen with HPV - recommended age 30 - 65 (08/16/2018 9:58 AM CDT) Component Value Ref Test Analysis Performed At [facility] Range Method Time Signature PAP NIL COPATH Copath Report COPATH Patient Name: SAVAGE WARD MR#: [id number] Specimen #: [id number] Collected: 08/16/2018 Received: 08/17/2018 Reported: 08/18/2018 10:14 [...] RUBI Hutson (ASCP) Processed and screened at [facility] CLINICAL HISTORY: Post Menopausal, A previous normal pap Date of Last Pap: 08/11/17, Papanicolaou Test Limitations: ??Cervical cytology is a sc reening test with limited sensitivity; regular screening is critical for cancer prevention; Pap tests are p rimarily effective for the diagnosis/prevention of squamous cell carcinoma, not adenocarcinomas or other cancer s. TESTING LAB LOCATION: [address] ??[address] COLLECTION SITE: Client: ??[facility] Location: [facility] (S) Specimen (Source) Anatomical [...] documented as of this encounter Care Teams Early Childhood Educator Aide Relationship Specialty Start Date End Date Manish Freedman MD PCP - General Emergency Medicine 08/11/17 [facility] [address] [place] [address] documented as of this encounter
--- OUTSIDE RECORDS SUMMARY | 2022-07-08 07:03 | XMS_ITS | Encounter Summary ---
:1955 Author Organization [facility] Address [address] [place] [address] Care Team Providers Name Role Phone cD Gonzalez MD Primary Care Provider Unavailable Encounter Details Date Type Department Care Team Description 03/23/2006 Office Visit [facility] Eyad Kulkarni DPM MedSur [address] [facility] [address] [place] [address] [place], [place] [address] [phone] Social History Tobacco Use Types Packs/Day Years [...] 1245 Note Time: 03/23/06 0001 Status: Signed Furniture Cleaner: Norberto Kulkarni DPM (Physician) NAME: MAMTA WARD MR: [id number] ACCT: [id number] VISIT: [id number] DICTATING CLINICIAN: Norberto Kulkarni DPM JOB: [id number] CLINIC PROGRESS NOTE DATE OF VISIT: 03/23/2006 [...] follow up with me in 3 weeks. ALP:[id number] C: 03/23/06 11:50 DOCUMENT: [id number] documented in this encounter Plan of Treatment Not on filedocumented as of this encounter Visit Diagnoses Not on filedocumented in this encounter Care Teams Animal Eviscerator Relationship Specialty Start Date End Date Dc Gonzalez MD PCP - General 01/17/11 documented as of this encounter
--- OUTSIDE RECORDS SUMMARY | 2022-07-08 07:03 | XMS_ITS | Encounter Summary ---
:1955 Author Organization [facility] Address [address], [place] [address] Care Team Providers Name Role Phone Dc Gonzalez MD Primary Care Provider Unavailable Encounter Details Date Type Department Care Team Description 06/03/1994 PN Conversion Only ORTHODOX CONVERSION Tate Gonzalez MD Social History Tobacco [...] on filedocumented in this encounter Care Teams Rack Production Worker Relationship Specialty Start Date End Date Dc Gonzalez MD PCP - General 01/17/11 documented as of this encounter
--- OUTSIDE RECORDS SUMMARY | 2022-07-08 07:04 | XMS_ITS | Encounter Summary ---
:1955 Author Organization [place] Address [facility] [place] [address] Care Team Providers Name Role Phone Unavailable Primary Care Provider Unavailable Reason for Visit Reason Comments RECHECK ultrasound results Encounter Details Date Type Department Care Team Description 01/29/2016 Office Visit [facility] Dc Gonzalez Post menopausal bleeding AND SURGERY [place] You MD (Primary Dx) SCREW MACHINE OPERATOR SINGLE SPINDLE [address] [place] [address] [place] [address] Social History Tobacco Use Types [...] ??? fluticasone (FLONASE) 50 MCG/ACT nasal spray [place] 2 sprays into both nostrils daily ??? [...] Ut: 4.6x4.6x3.6cm (39cm3). End Linin.1mm. Lt. Ov: [id number]. Rt. Ov: [id number]. Impression: Evidence for adenomyosis with 2 adenomyomas. Thin endometrium. ASSESSMENT/PLAN: Assessment: 1. Postmenopausal bleeding Plan: There is no obvious cause for the bleeding on ultrasound. I suspect this may be related to herhormone replacement therapy. This point we'll continue to observe the patient. If the bleeding persists or worsens she will return to clinic for an office hysteroscopy. Dc Gonzalez MD [facility] [place] SCREW MACHINE OPERATOR SINGLE SPINDLE documented in this encounter Nursing Notes Janna [...]
--- OUTSIDE RECORDS SUMMARY | 2022-07-08 07:04 | XMS_ITS | Encounter Summary ---
:1955 Author Organization [place] Address [address] [place] [address] Care Team Providers Name Role Phone Unavailable Primary Care Provider Unavailable Reason for Referral - Closed Specialty Diagnoses / Procedures Referred By Contact Refer red To Contact Diagnoses Low back pain Lumbar radiculopathy Arnoldo James DO [facility] [address] [place], [place] [address] Referral ID Status Reason Start Date Expiration Date Visits Requ ested Visits Authorized [id number] Closed 11/27/2008 10/17/2011 1 1 RONMENTAL SPECIALIST Reason for Visit Reason Comments Back Pain rigth SI arean, pain into up per thigh with tinghling, started 3 weeks ago Encounter Details Date Type Department Care Team Description 11/27/2008 Office Visit [facility] Arnoldo James Low Back P ain; Orthopedic DO Angel Luis Lumbar Rad[facility] [address] [place] [address], [address] [facility] [address] [place] [address] [phone] Social History Tobacco Use Types Packs/Day Years [...] Comments Blood Pressure 122/76 11/27/2008 9:00 AM ENVIRONMENTAL SPECIALIST Pulse - - Temperature - - Respiratory Rate - - Oxygen Saturation - - Inhaled Oxygen Concentration - - Weight 54.4 kg (120 lb) 11/27/2008 9:00 AM ENVIRONMENTAL SPECIALIST Height 157.5 cm (5' 2) 11/27/2008 9:00 AM ENVIRONMENTAL SPECIALIST Body Mass Index 21.95 11/27/2008 9:00 AM ENVIRONMENTAL SPECIALIST documented in this encounter Progress Notes Siva [...] abnormality. Evidence of prior tubal ligation present. RONMENTAL SPECIALIST documented in this encounter Nursing Notes 11/27/2008 [...]
--- OUTSIDE RECORDS SUMMARY | 2022-07-08 07:04 | XMS_ITS | Encounter Summary ---
:1955 Author Organization [place] Address [address] [place] [address]. [place] [address] Care Team Providers Name Role Phone Unavailable Primary Care Provider Unavailable Encounter Details Date Type Department Care Team Description 01/29/2016 Radiant Appointment Dc Ceron Post- menopausal GYNECOLOGY AND MD Avelino bleeding SURGERY [place] [address] [place] [address] [address] [place] (Work) [address] Social History Tobacco Use Types [...] 4.6 x4.6x3.6cm (39cm3). End Linin.1mm. Lt. Ov: [id number]. Rt. Ov: 37n14no. Impression: ??Evidence for adenomyosis w ith 2 adenomyomas. ??Thin endometrium. Narrative 01/29/2016 3:55 PM CDT Uterus Dc Gonzalez MD IMG US ORDERABLES documented in this encounter Visit Diagnoses Diagnosis Post-menopausal bleeding Postmenopausal bleeding documented in this encounter
--- OUTSIDE RECORDS SUMMARY | 2022-07-08 07:04 | XMS_ITS | Encounter Summary ---
:1955 Author Organization [place] Address [facility] [place] [address] Care Team Providers Name Role Phone Unavailable Primary Care Provider Unavailable Reason for Visit Reason Onset Date Comments Refill Request 12/20/2015 Encounter Details Date Type Department Care Team Description 12/20/2015 Refill [facility] Kourtney Mcqueen, Refill Request SURGERY [place] OB/ PACKAGE LIFT OPERATOR AIRCRAFT STRESS ANALYST MATERIAL CHECKER [address] [place] [address] [place] [address] [phone] Social History Tobacco Use Types Packs/Day Years [...]
--- OUTSIDE RECORDS SUMMARY | 2022-07-08 07:04 | XMS_ITS | Encounter Summary ---
:1955 Author Organization [place] Address [facility] [place] [place] [address] Care Team Providers Name Role Phone Unavailable Primary Care Provider Unavailable Encounter Details Date Type Department Care Team Description 06/18/2015 Radiant Appointment [facility] for Tate Gonzalez Other screening Women Nanci You MD mammogram [address], [address] [place] [phone] Social History Tobacco Use Types Packs/Day Years [...]
--- OUTSIDE RECORDS SUMMARY | 2022-07-08 07:04 | XMS_ITS | Encounter Summary ---
:1955 Author Organization [place] Address [facility] [place] [address] Care Team Providers Name Role Phone Unavailable Primary Care Provider Unavailable Encounter Details Date Type Department Care Team Description 01/27/2016 Orders Only [facility] Alda Mcqueen Po st-menopausal AND SURGERY [place] Kendrick POLY OPERATOR bleeding (Primary Dx) MANAGER OPERATIONS RESEARCH [address] [place] [address] [place] [address] [place] [address] [phone] Social History Tobacco Use Types Packs/Day Years [...] 4.6 x4.6x3.6cm (39cm3). End Linin.1mm. Lt. Ov: [id number]. Rt. Ov: 41p20ty. Impression: ??Evidence for adenomyosis w ith 2 adenomyomas. ??Thin endometrium. Narrative 01/29/2016 3:55 PM CDT Uterus Dc Gonzalez MD [facility] US ORDERABLES documented in this encounter Visit Diagnoses Diagnosis Post-menopausal bleeding - Primary Postmenopausal bleeding Post-menopausal bleeding Postmenopausal bleeding documented in this encounter
--- OUTSIDE RECORDS SUMMARY | 2022-07-08 07:04 | XMS_ITS | Encounter Summary ---
:1955 Author Organization [place] Address [address] [place] [address]. [place] [address] Care Team Providers Name Role Phone Unavailable Primary Care Provider Unavailable Reason for Visit Reason Comments Physical Encounter Details Date Type Department Care Team Description 06/18/2015 Office Visit [facility] Jessica Gonzalez gynecological examination (Primary Dx); AND SURGERY [place] You MD Hematuria PUTTYING AND CALKING SUPERVISOR [address] [place] [address] [place] [address] Social History Tobacco Use Types [...] 0; fluticasone (FLONASE) 50 MCG/ACT nasal spray, [place] 2 sprays into both nostrils daily, Disp: [...] family history were reviewed and updated in [facility]. ROS: C: NEGATIVE for fever, chills, change [...] gist Method Time Signature Color Urine Yellow [facility] CONTRACTING MANAGER SURG Appearance Urine Clear [facility] CONTRACTING MANAGER SURG Glucose Urine Negative NEG mg/dL [facility] CONTRACTING MANAGER SURG Bilirubin Urine Negative NEG [facility] CONTRACTING MANAGER SURG Ketones Urine Negative NEG mg/dL [facility] CONTRACTING MANAGER SURG Specific Slater 1.015 1.003 - [place] Urine 1.035 [facility] CONTRACTING MANAGER [facility] Blood Urine 1+ (A) NEG [facility] CONTRACTING MANAGER SURG pH Urine 7.0 5.0 - 7.0 [place] pH [facility] CONTRACTING MANAGER SURG Protein Albumin Negative NEG mg/dL [place] Urine [facility] CONTRACTING MANAGER SURG Urobilinogen 0.2 0.2 - 1.0 [place] Urine EU/dL [facility] CONTRACTING MANAGER SURG Nitrite Urine Negative NEG [facility] CONTRACTING MANAGER SURG Leukocyte Negative NEG [place] Esterase Urine [facility] CONTRACTING MANAGER SURG Source Midstream [place] Urine [facility] CONTRACTING MANAGER [facility] Specimen Anatomical Collection Method Collection Time Receive d Time (Source) Location / / Volume Laterality Urine specimen 06/18/2015 9:35 AM 015 9:36 (specimen) CDT AM CDT Jessica Gonzalez MD LAB - URINE ORDERABLES Performing Organization Address City/State/ZIP Code Phon e Number [facility] CONTRACTING MANAGER [facility] PAP imaged thin layer screen (06/18/2015 12:00 AM CDT) Component Value Ref Test Analysis Performed At Patholo gist Range Method Time Signature PAP NIL COPATH Copath Report COPATH Patient Name: SAVAGE WARD MR#: [id number] Specimen #: [id number] Collected: 06/18/2015 Received: 06/19/2015 Reported: 06/20/2015 13:01 [...] RUBI Mcmullen (ASCP) Processed and screened at [facility] CLINICAL HISTORY: Papanicolaou Test Limitations: ??Cervical cytology is a scre ening test with limited sensitivity; regular screening is critical for cancer prevention; Pap tests are primarily effective for the diagnosis/prevention of squamous cell carcinoma, not adenoca rcinomas or other cancers. TESTING LAB LOCATION: [address] ??[address] COLLECTION SITE: Client: ??[facility] Location: [facility] ([facility]) Specimen (Source) Anatomical Collection Method Collection [...]
--- OUTSIDE RECORDS SUMMARY | 2022-07-08 07:04 | XMS_ITS | Encounter Summary ---
:1955 Author Organization [facility] Address [address] [place] [address]. [place] [address] Care Team Providers Name Role Phone Mansih Freedman MD Primary Care Provider [phone] Encounter Details Date Type Department Care Team Description 08/06/2016 Radiant Appointment [facility] for V isit for screening Women Nanci mammogram [address] [facility] [address] [place] [address] Social History Tobacco Use Types [...] documented as of this encounter Care Teams Chip Machine Operator Relationship Specialty Start Date End Date Manish Freedman MD PCP - General Emergency Medicine 08/06/16 08/10/[address] [address] documented as of this encounter
--- OUTSIDE RECORDS SUMMARY | 2022-07-08 07:04 | XMS_ITS | Encounter Summary ---
:1955 Author Organization [place] Address [address] [place] [address] Care Team Providers Name Role Phone Unavailable Primary Care Provider Unavailable Reason for Visit [facility] (Routine) - Closed Specialty Diagnoses / Procedures Referred By Contact Refer red To Contact Arnoldo James DO [facility] [address] [place], [place] [address] Referral ID Status Reason Start Date Expiration Date Visits V isits Requested Authorized PO/OTHER/SPINE Closed 11/27/2008 11/26/2009 20 20 Encounter Details Date Type Department Care Team Description 12/05/2008 Therapy Visit [facility] for Athletic Nicole Stovall Lu mbago (Primary Dx) Medicine - [facility] Physical Therapy [facility] [address] [place] [phone] Social History Tobacco Use Types Packs/Day Years [...] 12/25/2008 11:31:46 AM Modules accepted: Orders Nicole Stovall - 12/05/2008 10:58 AM CST Please refer to the daily flowsheet for treatment today and total treatment time. Does this patient have Medicare or Medicaid as primary or secondary insurance? NO CIATE ARTISTIC DIRECTOR documented in this encounter Plan of Treatment Not on filedocumented as of this encounter Procedures Procedure Name Priority Date/Time Associated Diagnosis Comme nts ZZC MANUAL THER Routine 12/05/2008 10:59 AM Lumbago TECH,1+REGIONS,EA 15 MIN ASSOCIATE ARTISTIC DIRECTOR ZZC THERAPEUTIC Routine 12/05/2008 10:59 AM Lumbago EXERCISES ASSOCIATE ARTISTIC DIRECTOR documented in this encounter Visit Diagnoses Diagnosis Lumbago - Primary documented in this encounter
--- OUTSIDE RECORDS SUMMARY | 2022-07-08 07:04 | XMS_ITS | Encounter Summary ---
:1955 Author Organization [place] Address [facility] [place] [address] Care Team Providers Name Role Phone Unavailable Primary Care Provider Unavailable Reason for Visit Reason Comments Consult Encounter Details Date Type Department Care Team Description 03/17/2016 Office Visit [facility] Barry Gonzalez MD [address] [place] [address] Menopause (Primary Dx); AND SURGERY [place] Alda Mcqueen APRN TROUBLE TRACER [address] [place] [address] Post-menopausal bleeding PIECE CUTTER [address] [facility] [address] [place] [phone] Social History Tobacco Use Types Packs/Day Years [...] this encounter Progress Notes Alda Mcqueen APRN TROUBLE TRACER - 03/19/2016 1:53 PM CDT Quick Note: [...] Component Value Ref Test Analysis Performed At [facility] Method Time Signature Copath Report Patient Name: SAVAGE WARD MR#: [id number] Specimen #: [id number] Collected: 03/17/2016 Received: 03/18/2016 Reported: 03/19/2016 12:31 [...] in one cassette. (Dictated by: Diego Aldana [facility] 03/18/2016 01:28 PM) MICROSCOPIC: Specimen consists of fragments of benign atrophic appearing endometrium with cystic change. ??Specimen is negative for hyperplasia, atypia or malignancy. CPT Codes: A: 51066-YI7 TESTING LAB LOCATION: [address] ??[address] COLLECTION SITE: Client: [facility] Location: MSN (S) Specimen Anatomical Collection Method Collection Time Receive d Time (Source) Location / / Volume Laterality 03/17/2016 1:14 PM 6 CDT 10:53 AM CDT Jessica Gonzalez MD [facility] Organization Address City/State/ZIP Code Phon e Number COPATH documented in this encounter Visit Diagnoses Diagnosis Menopause - Primary Symptomatic menopausal or female climact lesli states Post-menopausal bleeding Postmenopausal bleeding documented in this encounter
--- OUTSIDE RECORDS SUMMARY | 2022-07-08 07:04 | XMS_ITS | Encounter Summary ---
:1955 Author Organization [place] Address [address] [place] [address]. [place] [address] Care Team Providers Name Role Phone Manish Freedman MD Primary Care Provider Reason for Visit Reason Comments Physical Encounter Details Date Type Department Care Team Description 08/06/2016 Office Visit [facility] Jessica Gonzalezo ghanshyam for gynecological examination without abnormal finding [Z01.419] (Primary Dx); AND SURGERY [place] You MD Need for prophylactic vaccination and in oculation against influenza; SPECIAL EVENTS COORDINATOR [address] Menopause; [address] Abnormal uterine bleeding (AUB) [address] [place] [address] [place] [address] Social History Tobacco Use Types Packs/Day [...] ??? fluticasone (FLONASE) 50 MCG/ACT nasal spray [place] 2 sprays into both nostrils daily ??? NASONEX NA None Entered ??? PRILOSEC OR None Entered No current facility-administered medications for this visit. No Known Allergies Past medical, surgical, social and family histories were reviewed and updated in [facility]. ROS: 12 point review of systems negative [...] SPLIT VIRUS IM > 3 YO (QUADRIVALENT) [51622] Vaccine Administration, Initial [45025] 3. Menopause Z78.0 norethindrone-ethinyl estradiol (JINTELI) 1-5 [...] the person to be vaccinated ever had Guillain-[place] syndrome? No Form completed by Janna Flynn [...] Component Value Ref Test Analysis Performed At [facility] Range Method Time Signature PAP NIL COPATH Copath Report COPATH Patient Name: SAVAGE WARD MR#: [id number] Specimen #: [id number] Collected: 08/06/2016 Received: 08/07/2016 Reported: 08/10/2016 10:33 [...] RUBI Leal (ASCP) Processed and screened at [facility] CLINICAL HISTORY: Post Menopausal, Previous normal pap Date of Last Pap: 06/18/2015, Papanicolaou Test Limitations: ??Cervical cytology is a scre ening test with limited sensitivity; regular screening is critical for cancer prevention; Pap tests are primarily effective for the diagnosis/prevention of squamous cell carcinoma, not adenoca rcinomas or other cancers. TESTING LAB LOCATION: [address] ??[address] COLLECTION SITE: Client: ??[facility] Location: [facility] (S) Specimen (Source) Anatomical Collection Method Collection [...] documented as of this encounter Care Teams Bureau Chief Relationship Specialty Start Date End Date Manish Freedman MD PCP - General Emergency Medicine 08/06/16 08/10/17 [facility] [address] [place] [address] documented as of this encounter
--- NOTE | 2022-07-08 07:15 | CRLHL7_ITS ---
For Patients: As a result of the Century Cures Act, medical imaging exams and procedure reports are released immediately into your electronic medical record. You may view this report before your referring provider. If you have questions, please contact your health care provider. Indication: Low back and right leg pain Technique: Multiplanar, multisequence, MRI of the lumbar spine, obtained without contrast. Comparison: MRI lumbar spine 06/22/2017 Findings: Lumbar dextro curvature, apex at L4, with suggestion of right lateral listhesis of L4 with respect to L3 and L5, progressed relative to 2017. Slight grade 1 anterolisthesis at L4-5. Visualized vertebral body heights are grossly maintained. No evidence of acute fracture. Left asymmetric degenerative endplate changes, facet arthropathy, and facet joint effusion at L4-5. Slightly heterogeneous bone marrow signal, without evidence of focal or aggressive osseous lesion. The conus medullaris terminates at approximately L1-2. No suspicious findings in the prevertebral and paraspinal soft tissues. Included SI joints are unremarkable. T12-L1: No significant neural foramen or spinal canal stenosis. L1-L2: No significant neural foramen or spinal canal stenosis. L2-L3: Shallow disc bulge. No significant foraminal spinal canal stenosis. L3-L4: Right eccentric disc bulge, facet arthropathy. Contact of the transiting bilateral L4 nerve roots along the lateral recesses, without evidence of impingement. No significant foraminal or spinal canal stenosis. L4-L5: Anterolisthesis, disc unroofing/bulge, facet arthropathy. Contact on the transiting right L5 nerve root. Mild-moderate left foraminal narrowing. No spinal canal stenosis. L5-S1: Disc bulge, facet arthropathy. Contact on the transiting right S1 nerve root. Mild bilateral foraminal narrowing. No spinal canal stenosis. Impression: 1. No evidence of acute osseous abnormality. 2. Lumbar spondylosis, mild progressed relative to 2017, with interval right lateral listhesis of L4 with respect to L3 and L5. 3. At L3-4, right eccentric disc bulge contacting the transiting nerve roots along the lateral recesses without evidence of impingement. 4. At L4-5, disc bulge contacting the transiting right L5 nerve root along the lateral recess, with mild-moderate left foraminal narrowing. 5. At L5-S1, disc bulge contacting the transiting right S1 nerve root along the lateral recess, with mild bilateral foraminal narrowing. Dictated by Jessika Carrion MD @ 07/09/2022 10:47:02 AM (Electronically Signed)
== END 2022-07-08 07:01 | disposition home or self-care (01) ==
LOC: MRI 07:01
PROVIDERS: PCP Internal Medicine; Visit Provider Orthopaedic Surgery Orthopaedic Surgery of the Spine
DX: M54.50 Low back pain, unspecified (principal); M47.896 Other spondylosis, lumbar region; M51.26 Other intervertebral disc displacement, lumbar region; M51.27 Other intervertebral disc displacement, lumbosacral region; M48.062 Spinal stenosis, lumbar region with neurogenic claudication; M79.604 Pain in right leg
CPT/HCPCS: 72148

== ENCOUNTER 2022-08-04 07:05 | Outpatient (CLI) | payer OTHER, SELFPAY ==
--- OUTSIDE RECORDS SUMMARY | 2022-08-04 07:06 | XMS_ITS | Clinical Summary ---
:1955 Author Organization [facility] [facility] [place] [address] Care Team Providers Name Role Phone Manish [...] previous hip bursa injections by Dr. Rees [phone] approximately MRI of bilateral hips done May [...] prescription was t oo expensive to start. Rosangelaaltommy RICO approved September 2017. ~ December 2017: L5-S1 [...] Encounters Date Type Specialty Care Team Description 07/31/2022 Telephone Rogelio Chance Concern s (injection) 07/23/2022 Telephone Rogelio Chance Questio ns (Email / Next MD steps ) 07/23/2022 E-Visit Mateus Provider 07/01/2022 Ancillary Procedure 07/01/2022 Travel 06/24/2022 Orders Only Rajendra Camacho MD <No sc ans attached> 05/04/2022 Procedure Only Jaya Cabrera, DIRECTOR APPAREL from Last 3 Months Immunizations Name Administration Dates Next Due Influenza A (H1N1), Inactivated 11/20/2009 Influenza RIV4 (Age 18+ Years) PRESERV 08/13/2021, 0, 09/12/2019 FREE Influenza, IIV3 (Age >=3 years) 07/21/2009 Influenza, IIV4 07/01/2017, 11/20/2009 Pneumococcal Poly,23-Valent (Pneumovax) 06/22/2018 Td, Preservative Free (age >= 7 Years) 11/01/2007 Tdap 07/25/2009 Zoster (Shingrix-RZV, recombinant) 02/25/2019, 01/20/2019, 0 06/22/2018 Family History Medical History Relation Name Comments Heart Disease Father CAD 1st CT 50's Hyperlipidemia Father Other Father myelofibrosis Hypertension [...] 154.9 cm (5' 1) 10/31/2020 3:37 PM WASH CREW PERSON Body Mass Index 28.66 10/31/2020 3:37 PM WASH CREW PERSON Plan of Treatment Upcoming Encounters Date Type Specialty Care Team Description 08/04/2022 Office Visit Rogelio Chance MD [address] [place], [place] [address] (Wo rk) 09/17/2022 Office Visit Rogelio Chance MD [address] [place] [address] (Wo rk) Health Maintenance Due Date Last Done Comments Hepatitis C screening for age 0301/03/1975 18-79 Mammogram for age 45-75 04/17/2010 04/17/2009 Pap test for age 21-65 04/17/2012 04/17/2009 Lipids for age 45-75 04/24/2013 04/24/2008 Colonoscopy through age 75 06/18/2017 06/18/2007 Pneumococcal series for age 65+ (2 06/22/2019 06/22/2018 - PCV) Tetanus booster 07/25/2019 07/25/2009, 11/01/2007 BMI (ht and wt on same day) for 10/31/2021 10/31/2020, 04/18, age 18+ 12/29/2018, Additional history exists DEXA/DXA scan for age 65+ 2022 COVID-19 vaccine series (4 - 03/03/2022 01/06/2022, 021, Booster for Moderna series) 2021 Depression screening for age 12+ 03/06/2022 03/06/2021, Influenza for age 65+ 06/18/2022 08/13/2021, 07/25/2020, [...] procedure reports are released immediately into your [facility] medical record. You may view this report before your referring provider. If you have questions, please contact your health care provider. EXAM: XR SPINE LUMBAR MINIMUM 4 VIEWS [facility] DATE/TIME: 07/01/2022 3:21 PM INDICATION: Chronic [...] provider. If you have questions, please contact [facility] health care provider. EXAM: XR SPINE LUMBAR MINIMUM 4 VIEWS LOCATION: [facility] DATE/TIME: 07/01/2022 3:21 PM INDICATION: [...] Effective Dates Phone Addre ss Type Group [facility] SHARED [id number] 2018-[facility] [address] [address] [place] [address] (Home) [place], [place] [phone] [address] (Work) [employer] Occ Other 10/18/2000 [address] [employer] (Home) [phone] (Work) [place] [address] Marquita Ward Retail Self [address] (Home) [place], [place] [phone] [address] (Work) Care Teams Safety Deposit Clerk Relationship Specialty Start Date End Date Manish Freedman MD PCP - General Internal Medicine 12/29/181999 [place] [address]
--- OUTSIDE RECORDS SUMMARY | 2022-08-04 07:07 | XMS_ITS | Encounter Summary ---
:1955 Author Organization [facility] Address [address], [place] [address] Care Team Providers Name Role Phone Dc Gonzalez MD Primary Care Provider Unavailable Reason for Visit Procedure/Equipment (Routine) - Incomplete Specialty Diagnoses / Procedures Referred By Contact Refer red To Contact Diagnoses Closed displaced fracture of second metatarsal bone of right foot, initial encounter Norberto Kulkarni, DPM Procedures XR Foot Rt 3+ Views [address] [place] [address] Referral ID Status Reason Start Date Expiration Date Visits V isits Requested Authorized [id number] Incomplete 08/12/2016 11/11/2017 1 1 Encounter Details Date Type Department Care Team Description 08/12/2016 Imaging [place] [facility] Norberto Kulkarni, Closed displaced [address] DPM fracture [place] [address] [facility] metatarsal bone of [phone] [place], [place] [address] right foot, initial [phone] (Wo rk) encounter Social History Tobacco Use [...] encounter documented in this encounter Care Teams Vision Therapist Relationship Specialty Start Date End Date Dc Gonzalez MD PCP - General 01/17/11 documented as of this encounter
--- OUTSIDE RECORDS SUMMARY | 2022-08-04 07:07 | XMS_ITS | Encounter Summary ---
:1955 Author Organization [employer] Address [address] [address] Care Team Providers Name Role Phone Dc Gonzalez MD Primary Care Provider Unavailable Reason for Visit Reason Comments Other Encounter Details Date Type Department Care Team Description 03/29/2006 Telephone [facility] Eyad Kulkarni, DPZelda Other MedSurg [address] [employer] [employer] [facility] [address] [place] [address] [place], [place] [address] [phone] Social History Tobacco Use Types Packs/Day Years Used Date Smoking Tobacco: Never Assessed Sex Assigned at Date Recorded Not on file documented as of this encounter Progress Notes Cherise Malone - 03/29/2006 2:00 PM CDT Phone Note filed by Cherise Malone at 02/03/11 6506 Author: Cherise Malone Service: (none) Author Type: (none) Filed: 02/03/11 7972 Note Time: 03/29/06 1400 Status: Signed Urban Renewal Manager: Cierra Conversion Pt. calling stating she has had no improvement with the injection and should she keep her f/u appt.? Reassured pt. that injection could still be helpfull and that yes, she should keep appt. oon [id number]. Pt. understood. Created on 29Mar2006 2:00pm by LYNDSEY MALONE Acknowledged by KIMBERLY KULKARNI on 8:43am TER ASSISTANT documented in this encounter Plan of Treatment Not on filedocumented as of this encounter Visit Diagnoses Not on filedocumented in this encounter Care Teams Formula Weigher Relationship Specialty Start Date End Date Dc Gonzalez MD PCP - General 01/17/11 documented as of this encounter
--- OUTSIDE RECORDS SUMMARY | 2022-08-04 07:07 | XMS_ITS | Encounter Summary ---
:1955 Author Organization [facility] Address [address] [place] [address] Care Team Providers Name Role Phone Unavailable Primary Care Provider Unavailable Reason for Visit Reason Comments Med Refill Encounter Details Date Type Department Care Team Description 05/27/2018 Refill Department of Cardiovascular Inder Amaya Jr., Med Refill Medicine in [address] [address] Social History Tobacco Use Types Packs/Day Years Used Date Smoking Tobacco: Never Sex Assigned at Date Recorded Not on file documented as of this encounter Plan of Treatment Not on filedocumented as of this encounter Visit Diagnoses Not on filedocumented in this encounter
--- OUTSIDE RECORDS SUMMARY | 2022-08-04 07:07 | XMS_ITS | Encounter Summary ---
:1955 Author Organization [facility] Address [address] [address] Care Team Providers Name Role Phone Dc Gonzalez MD Primary Care Provider Unavailable Reason for Visit Reason Comments Foot Pain Encounter Details Date Type Department Care Team Description 09/18/2013 Initial Consult [facility] Norberto Kulkarni , Foot pain (Primary Dx); MedSurg DPM Estrada neuroma [address] [place] [address] [place], [place] [phone] [address] Social History Tobacco Use Types Packs/Day Years Used Date Smoking Tobacco: Never Assessed Sex Assigned at Date Recorded Not on file documented as of this encounter Progress Notes Norberto Kulkarni, DEYSI - 09/18/2013 2:52 PM CST DATE OF VISIT: 09/18/2013 SUBJECTIVE: Mamta Wadr is a pleasant 58 y.o. female who [...] s/p LW Modifier: Right foot LW Onset: [id number] Social History: Nonsmoker OBJECTIVE: 58 y.o. year [...] condition. Orders Placed This Encounter Procedures ??? AZ INJECTION ANESTHETIC AGENT AND/OR STEROID, PLANTER COMMON DIGITAL NERVE ??? [place] TRIAMCINOLONE ACET INJ NOS per 10 mg ??? [place] DEXAMETHASONE SODIUM PHOS per 1 mg No orders of the defined types were placed in this encounter. PROCESS MILLER HEAD ASSISTANT documented in this encounter Plan of Treatment Not on filedocumented as of this encounter Visit Diagnoses Diagnosis Foot pain - Primary Pain in limb Estrada neuroma Lesion of plantar nerve documented in this encounter Care Teams Director Stars Relationship Specialty Start Date End Date Dc Gonzalez MD PCP - General 01/17/11 documented as of this encounter
--- OUTSIDE RECORDS SUMMARY | 2022-08-04 07:07 | XMS_ITS | Encounter Summary ---
:1955 Author Organization [facility] Address [address], [place] [address] Care Team Providers Name Role Phone Dc Gonzalez MD Primary Care Provider Unavailable Encounter Details Date Type Department Care Team Description 02/13/1997 PN Conversion Only VOODOO CONVERSION Tate Gonzalez MD Social History Tobacco [...] NAME:SAVAGE MARADIAGA ?CERVICAL CYTOLOGY REPORT Pathology # ??[id number] ?Date Obtained: [id number] ?Date Received: [id number] LMP: CLINICAL HIST ? PREV SMEAR 05-16-96, NEG CERVICAL SMEAR SPECIMEN ADEQUACY: ?? Satisfactory. ENDOCERVICAL CELLS: ??Present. CYTOLOGIC IMPRESSION: Within Normal Limits (Negative). Verified 02/15/97 by: ??MB ? (electronic signature) Angeles DOTSON M.D., Director of Cyt opathology Specimen (Source) Anatomical Collection Method Collection Time Re ceived Time Location / / Volume Laterality 02/06/1997 7:56 AM CDT cD Gonzalez MD LAB_1 Performing Organization Address City/State/ZIP Code Phon e Number HP CONVERSION documented in this encounter Visit Diagnoses Not on filedocumented in this encounter Care Teams Certified Lactation Counselor Relationship Specialty Start Date End Date Dc Gonzalez MD PCP - General 01/17/11 documented as of this encounter
--- OUTSIDE RECORDS SUMMARY | 2022-08-04 07:07 | XMS_ITS | Encounter Summary ---
:1955 Author Organization [facility] Address [address] [place] [address] Care Team Providers Name Role Phone Unavailable Primary Care Provider Unavailable Encounter Details Date Type Department Care Team Description 07/08/2006 Hospital Encounter CONV METH PNA Kimberly Kulkarni, DEYSI [address] [place] [id number] [address] [place]ly Kulkarni DPM [address] [facility] [address] [place] [id number] [place] [address] Social History Tobacco Use Types Packs/Day Years [...] signed by Kimberly Kulkarni DPM at 07/08/06 4024 Author: Kimberly Kulkanri DPM Service: (none) Author Type: Physician Filed: 02/06/11 2695 Note Time: 07/08/06 1235 Status: Signed Pyrometer Mechanic: Kimberly Kulkarni DPM (Physician) Patient Name: Mamta [...] condition. Complications: No Immediate Complications. CPT Codes(s): 47376, RT, Excision, interdigital (Estrada) neuroma, single, each ICD Code(s): 355.6, LESION OF PLANTAR NERVE The codes documented in this report are preliminary and upon sleep scientist review may be revised to meet current [...] Principal: PERIPH NERV EXCISION NEC KIMBERLY KULKARNI [id number] 04.07 Provider2: Provider3: PORFIRIO PEREZ documented in this encounter Plan of Treatment Not on filedocumented as of this encounter Procedures Procedure Name Priority Date/Time Associated Diagnosis Comme nts SURGICAL PATH, LILIYA Routine 07/08/2006 4:01 PM Re sults for this NICOLLET CDT procedure are i n the results section. documented in this encounter Results Pathology Report (07/08/2006 4:01 PM CDT) [facility] Method Time Signature Surgical SEE TEXT No normal HP CONVERSION Pathology range Comment: Patient: SAVAGE WARD ?S URGICAL PATHOLOGY REPORT Pathology # ??[id number] ?Date Obtained: ? Date Received: DIAGNOSIS: ?Soft tissue, right foot, excision: ?- Consistent with neuroma. ?Diego Gann MD ?(electronic signature) DYSON/DYSON/kjs Date of Report: 07/09/06 Pathology # ??[id number] ?Date Obtained: ? Date Received: ORGAN/TISSUE SITE: ?Right foot 3rd IMS GROSS DESCRIPTION: ?The specimen is labeled neuroma 3r d IMS right foot and consists of a 2.0 x ?1.0 x 0.8 cm portion of mcdermott-white to benson tissue consistent with nervous ?tissue. ??The specimen is entirely submitted in cassette [id number]. AMW/cjk MICROSCOPIC DESCRIPTION: ?The microscopic examination substa ntiates the diagnosis cited. Specimen (Source) Anatomical Collection Method Collection Time Re ceived Time Location / / Volume Laterality 07/08/2006 4:01 PM CDT Kimberly Kulkarni DPM LAB_1 Performing Organization Address City/State/ZIP Code Phon e Number HP CONVERSION documented in this encounter Visit Diagnoses Not on filedocumented in this encounter
--- OUTSIDE RECORDS SUMMARY | 2022-08-04 07:07 | XMS_ITS | Encounter Summary ---
:1955 Author Organization [facility] Address [address], [place] [address] Care Team Providers Name Role Phone Dc Gonzalez MD Primary Care Provider Unavailable Reason for Referral Procedure/Equipment (Routine) - Incomplete Specialty Diagnoses / Procedures Referred By Contact Refer red To Contact Diagnoses Right foot pain Norberto Kulkarni DPM Procedures XR Foot Rt 3+ Views [address] [place] [id number] Referral ID Status Reason Start Date Expiration Date Visits V isits Requested Authorized [id number] Incomplete 07/13/2016 10/12/2017 1 1 Reason for Visit Reason Comments Foot Pain Encounter Details Date Type Department Care Team Description 07/13/2016 Office Visit [facility] Norberto Kulkarni R ight foot pain MedSurg DPZelda (Primary Dx) [address] [place] [address] [place], [place] [phone] (Wo rk) Social History Tobacco Use Types [...] s/p LW Modifier: Right foot LW Onset: [id number] Social History: Nonsmoker OBJECTIVE: 61 y.o. year [...] voice recognition software and may contain some accounting representative errors) documented in this encounter Plan of [...] limb documented in this encounter Care Teams Plating Equipment Tender Relationship Specialty Start Date End Date Dc Gonzalez MD PCP - General 01/17/11 documented as of this encounter
--- OUTSIDE RECORDS SUMMARY | 2022-08-04 07:07 | XMS_ITS | Encounter Summary ---
:[address] [facility] Address [address] [place] [address] Care Team Providers Name Role Phone Unavailable Primary Care Provider Unavailable Encounter Details Date Type Department Care Team Description 02/10/2022 Orders Only Division of Nephrology Nitesh Landis yplatashaension Essential and Hypertension in C Osvaldo Mattson Primary (Primary Dx) [place], [place] [address] [facility] [address] [place] [address] [phone] Social History Tobacco Use Types Packs/Day Years Used Date Smoking Tobacco: Never Sex Assigned at Date Recorded Not on file documented as of this encounter Plan of Treatment Not on filedocumented as of this encounter Visit Diagnoses Diagnosis Hypertension Essential Primary - Primary documented in this encounter
--- OUTSIDE RECORDS SUMMARY | 2022-08-04 07:07 | XMS_ITS | Encounter Summary ---
:1955 Author Organization [facility] Address [address], [place] [address] Care Team Providers Name Role Phone Dc Gonzalez MD Primary Care Provider Unavailable Encounter Details Date Type Department Care Team Description 03/28/1993 PN Conversion Only ROMAN CATHOLIC CONVERSION Tate Gonzalez MD Social History Tobacco [...] on filedocumented in this encounter Care Teams Director Of Social Media Marketing Relationship Specialty Start Date End Date Dc Gonzalez MD PCP - General 01/17/11 documented as of this encounter
--- OUTSIDE RECORDS SUMMARY | 2022-08-04 07:07 | XMS_ITS | Encounter Summary ---
:1955 Author Organization [facility] Address [address] [place] [address] Care Team Providers Name Role Phone Dc [...] on filedocumented in this encounter Care Teams Leather Grainer Relationship Specialty Start Date End Date Dc Gonzalez MD PCP - General 01/17/11 documented as of this encounter
--- OUTSIDE RECORDS SUMMARY | 2022-08-04 07:07 | XMS_ITS | Encounter Summary ---
:1955 Author Organization [facility] Address [address] [place] [address] Care Team Providers Name Role Phone Unavailable Primary Care Provider Unavailable Reason for Visit Reason Comments Med Refill Encounter Details Date Type Department Care Team Description 06/25/2022 Refill Division of Nephrology and Sells, Kirby Renee Jr., Med Refill Hypertension in [facility] [address] [facility] [address] [place] [address] [place] [address] [phone] Social History Tobacco Use Types Packs/Day Years Used Date Smoking Tobacco: Never Sex Assigned at Date Recorded Not on file documented as of this encounter Plan of Treatment Not on filedocumented as of this encounter Visit Diagnoses Not on filedocumented in this encounter
--- OUTSIDE RECORDS SUMMARY | 2022-08-04 07:07 | XMS_ITS | Encounter Summary ---
:1955 Author Organization [facility] Address [address] [place] [address] Care Team Providers Name Role Phone Dc Gonzalez MD Primary Care Provider Unavailable Encounter Details Date Type Department Care Team Description 07/21/2006 Office Visit [facility] Eyad Kulkarni DPM MedSur [address] [facility] [address] [place] [address] [place], [place] [address] [phone] Social History Tobacco Use Types Packs/Day Years [...] 1501 Note Time: 07/21/06 0001 Status: Signed Dean Of Instruction: Norberto Kulkarni DPM (Physician) NAME: SAVAGE WARD MR: [id number] ACCT: [id number] VISIT: [id number] DICTATING CLINICIAN: Norberto Kulkarni DPM JOB: [id number] LOC: 539 CLINIC PROGRESS NOTE DATE OF [...] as tolerated. Followup with me p.r.n. basis. ALP:[id number] C: 07/22/06 08:25 DOCUMENT: [id number] documented in this encounter Plan of Treatment Not on filedocumented as of this encounter Visit Diagnoses Not on filedocumented in this encounter Care Teams Lead Sewage Plant Operator Relationship Specialty Start Date End Date Dc Gonzalez MD PCP - General 01/17/11 documented as of this encounter
--- OUTSIDE RECORDS SUMMARY | 2022-08-04 07:07 | XMS_ITS | Encounter Summary ---
:1955 Author Organization [facility] Address [address], [place] [address] Care Team Providers Name Role Phone Dc Gonzalez MD Primary Care Provider Unavailable Reason for Referral Procedure/Equipment (Routine) - Incomplete Specialty Diagnoses / Procedures Referred By Contact Refer red To Contact Diagnoses Right foot pain Norberto Kulkarni DPM Procedures XR Foot Rt 3+ Views [phone] [place] [id number] Referral ID Status Reason Start Date Expiration Date Visits V isits Requested Authorized [id number] Incomplete 07/27/2016 10/26/2017 1 1 Reason for Visit Reason Comments Foot Pain Encounter Details Date Type Department Care Team Description 07/27/2016 Office Visit [facility] Norberto Kulkarni R ight foot pain (Primary Dx); MedSurg DPM Closed displaced fracture of second meta tarsal bone of right foot, initial encounter [address] [place] [address] [place] [phone] (Wo rk) Social History Tobacco Use Types [...] s/p LW Modifier: Right foot LW Onset: [id number] OBJECTIVE: DP and PT pulses are palpable. [...] voice recognition software and may contain some installation tech errors) documented in this encounter Plan of [...] limb documented in this encounter Care Teams Roll Former Relationship Specialty Start Date End Date Dc Gonzalez MD PCP - General 01/17/11 documented as of this encounter
--- OUTSIDE RECORDS SUMMARY | 2022-08-04 07:07 | XMS_ITS | Encounter Summary ---
:[address] [facility] Address [address] [place] [address] Care Team Providers Name Role Phone Unavailable Primary Care Provider Unavailable Reason for Visit Appointment Request (Routine) - Closed Specialty Diagnoses / Procedures Referred By Contact Refer red To Contact Referral ID Status Reason Start Date Expiration Date Visits Requ ested Visits Authorized [id number] Closed 12/05/2021 12/05/2022 1 Encounter Details Date Type Department Care Team Description 01/12/2022 External Outreach Division of Claire Landis on Essential Primary (Primary Dx); Nephrology and Nitesh Renee Jr., Hyperlipidem ia Hypertension in [place]. [place], [place] [address] [facility] [address] [place] [address] [phone] Social History Tobacco Use Types Packs/Day Years Used Date Smoking Tobacco: Never Sex Assigned at Date Recorded Not on file documented as of this encounter Progress Notes Nitesh Landis Jr., D.O. - 01/12/2022 2:00 PM CDT Please see scanned in note under document viewer tab for the [facility] outreach visit from this date. Medical Problems Diagnosis List Hyperlipidemia Hypertension Essential Primary documented in this encounter Plan of Treatment Not on filedocumented as of this encounter Visit Diagnoses Diagnosis Hypertension Essential Primary - Primary Hyperlipidemia documented in this encounter
--- OUTSIDE RECORDS SUMMARY | 2022-08-04 07:07 | XMS_ITS | Encounter Summary ---
:1955 Author Organization [facility] Address [address] [address] Care Team Providers Name Role Phone Dc Gonzalez MD Primary Care Provider Unavailable Reason for Visit Procedure/Equipment (Routine) - Incomplete Specialty Diagnoses / Procedures Referred By Contact Refer red To Contact Diagnoses Right foot pain Norberto Kulkarni DPM Procedures XR Foot Rt 3+ Views [address] [place] [address] Referral ID Status Reason Start Date Expiration Date Visits V isits Requested Authorized [id number] Incomplete 07/27/2016 10/26/2017 1 1 Encounter Details Date Type Department Care Team Description 07/27/2016 Imaging [facility] Norberto Kulkarni DPM Right foot pain [address] [place] [address] [place], [place] [phone] (Wo rk) Social History Tobacco Use Types [...] limb documented in this encounter Care Teams Call Center Director Relationship Specialty Start Date End Date Dc Gonzalez MD PCP - General 01/17/11 documented as of this encounter
--- OUTSIDE RECORDS SUMMARY | 2022-08-04 07:07 | XMS_ITS | Encounter Summary ---
:1955 Author Organization [facility] Address [address], [place] [address] Care Team Providers Name Role Phone Dc Gonzalez MD Primary Care Provider Unavailable Encounter Details Date Type Department Care Team Description 05/19/1996 PN Conversion Only ORTHODOX CONVERSION Tate Gonzalez [...] NAME:SAVAGE MARADIAGA ?CERVICAL CYTOLOGY REPORT Pathology # ??[id number] ?Date Obtained: ?Date Received: LMP: CLINICAL HIST ? 7+ WKS PP CERVICAL SMEAR SPECIMEN ADEQUACY: Satisfactory but tobias ited by absence of endocervical cells. CYTOLOGIC IMPRESSION: Within Normal Limits (Negative). Verified 05/29/96 by: ??MB ? (electronic signature) Angeles DOTSON M.D., Director of [facility] opathology Specimen (Source) Anatomical Collection Method Collection Time Re ceived Time Location / / Volume Laterality 05/16/1996 7:31 AM CDT Dc Gonzalez MD LAB_1 Performing Organization Address City/State/ZIP Code Phon e Number HP CONVERSION documented in this encounter Visit Diagnoses Not on filedocumented in this encounter Care Teams Interface Developer Relationship Specialty Start Date End Date Dc Gonzalez MD PCP - General 01/17/11 documented as of this encounter
--- OUTSIDE RECORDS SUMMARY | 2022-08-04 07:07 | XMS_ITS | Encounter Summary ---
:1955 Author Organization [facility] Address [address] [place] [address] Care Team Providers Name Role Phone Unavailable Primary Care Provider Unavailable Reason for Visit Reason Comments Med Refill Encounter Details Date Type Department Care Team Description 12/26/2021 Refill Division of Nephrology and Marylou Rodriguez, Med Refill Hypertension in [place], Ph.D. [address] [place] [address] [place] [address] [phone] Social History Tobacco Use Types Packs/Day Years Used Date Smoking Tobacco: Never Sex Assigned at Date Recorded Not on file documented as of this encounter Plan of Treatment Not on filedocumented as of this encounter Visit Diagnoses Not on filedocumented in this encounter
--- OUTSIDE RECORDS SUMMARY | 2022-08-04 07:07 | XMS_ITS | Encounter Summary ---
:1955 Author Organization [facility] Address [address], [place] [address] Care Team Providers Name Role Phone Dc Gonzalez MD Primary Care Provider Unavailable Encounter Details Date Type Department Care Team Description 07/08/2006 PN Conversion Only CONV PODIATRY Norberto Kulkarni, [address] [place] [address] [place], [place] [address] (Wo rk) Social History Tobacco Use Types Packs/Day Years Used Date Smoking Tobacco: Never Assessed Sex Assigned at Date Recorded Not on file documented as of this encounter Plan of Treatment Not on filedocumented as of this encounter Visit Diagnoses Not on filedocumented in this encounter Care Teams Campus Wellness Coordinator Relationship Specialty Start Date End Date Dc Gonzalez MD PCP - General 01/17/11 documented as of this encounter
--- OUTSIDE RECORDS SUMMARY | 2022-08-04 07:07 | XMS_ITS | Encounter Summary ---
:1955 Author Organization [facility] Address [address], [place] [address] Care Team Providers Name Role Phone Dc Gonzalez MD Primary Care Provider Unavailable Reason for Visit Procedure/Equipment (Routine) - Incomplete Specialty Diagnoses / Procedures Referred By Contact Refer red To Contact Diagnoses Right foot pain Norberto Kulkarni DPM Procedures XR Foot Rt 3+ Views [address] [place] [address] Referral ID Status Reason Start Date Expiration Date Visits V isits Requested Authorized [id number] Incomplete 07/13/2016 10/12/2017 1 1 Encounter Details Date Type Department Care Team Description 07/13/2016 Imaging [facility] Norberto Kulkarni DPM Right foot pain [address] [place] [address] [place], [place] [address] (Wo rk) Social History Tobacco Use Types [...] limb documented in this encounter Care Teams Television Service Engineer Relationship Specialty Start Date End Date Dc Gonzalez MD PCP - General 01/17/11 documented as of this encounter
--- OUTSIDE RECORDS SUMMARY | 2022-08-04 07:07 | XMS_ITS | Encounter Summary ---
:1955 Author Organization [facility] Address [address] [place] [address] Care Team Providers Name Role Phone Unavailable Primary Care Provider Unavailable Reason for Visit Appointment Request (Routine) - Closed Specialty Diagnoses / Procedures Referred By Contact Refer red To Contact Nephrology and Hypertension Referral ID Status Reason Start Date Expiration Date Visits Requ ested Visits Authorized [id number] Closed 11/07/2021 11/07/2022 1 Encounter Details Date Type Department Care Team Description 12/03/2021 External Outreach Division of Dara Will Nephrology and Charlene Hickman, Essential Nadia chema Hypertension in Ph.D. [place], [place] [address] [facility] [address] [place] [address] [phone] Social History Tobacco Use Types Packs/Day Years Used Date Smoking Tobacco: Never Sex Assigned at Date Recorded Not on file documented as of this encounter Progress Notes Marylou Will M.D., Ph.D. - 12/03/2021 4:00 PM CST Please see scanned in note under document viewer tab for the [facility] outreach visit from this date. SHOVEL OPERATOR documented in this encounter Plan of Treatment Not on filedocumented as of this encounter Visit Diagnoses Diagnosis Hypertension Essential Primary documented in this encounter
--- OUTSIDE RECORDS SUMMARY | 2022-08-04 07:07 | XMS_ITS | Encounter Summary ---
:1955 Author Organization [facility] Address [address] [address] Care Team Providers Name Role Phone Dc Gonzalez MD Primary Care Provider Unavailable Encounter Details Date Type Department Care Team Description 04/13/2006 Office Visit [facility] Eyad Kulkarni DPM MedSur [address] [facility] [address] [place] [address] [place], [place] [address] [phone] Social History Tobacco Use Types Packs/Day Years [...] 1311 Note Time: 04/13/06 0001 Status: Signed Paving Contractor: Norberto Kulkarni DPM (Physician) NAME: MAMTA WARD MR: [id number] ACCT: [id number] VISIT: [id number] DICTATING CLINICIAN: Norberto Kulkarni DPM JOB: [id number] CLINIC PROGRESS NOTE DATE OF VISIT: 04/13/2006 [...] Follow up with me in 3 weeks. ALP:[id number] C: 04/14/06 11:17 DOCUMENT: [id number] documented in this encounter Plan of Treatment Not on filedocumented as of this encounter Visit Diagnoses Not on filedocumented in this encounter Care Teams System Operation Superintendent Relationship Specialty Start Date End Date Dc Gonzalez MD PCP - General 01/17/11 documented as of this encounter
--- OUTSIDE RECORDS SUMMARY | 2022-08-04 07:07 | XMS_ITS | Encounter Summary ---
:1955 Author Organization [facility] Address [address], [place] [address] Care Team Providers Name Role Phone Dc Gonzalez MD Primary Care Provider Unavailable Encounter Details Date Type Department Care Team Description 03/20/2002 PN Conversion Only Logan Tracy PA-C [address] [place] [address] [place], [place] [address] [phone] Social History Tobacco Use Types Packs/Day Years Used Date Smoking Tobacco: Never Assessed Sex Assigned at Date Recorded Not on file documented as of this encounter Progress Notes Shahab Erazo PA-C - 03/20/2002 12:01 AM CDT Progress Notes signed by Shahab Erazo PA-C at 03/23/02 1116 Author: Shahab Erazo PA-C Service: (none) Author Type: Physician Carton And Can Supply Supervisor Filed: 02/05/11 0700 Note Time: 03/20/02 0001 Status: Signed Pressure Steamer Tender: Shahab Erazo PA-C (Physician Carton And Can Supply Supervisor) IMPRESSION: Onychomycosis. SUBJECTIVE: This is a 47-year-old [...] will do this three times. TT: CT: [id number] C: DOCUMENT: [id number] Kranthi Fowler - 12/09/1995 12:01 AM CST Progress Notes signed by Kranthi Fowler MD at 12/23/95 1035 Author: Kranthi Fowler MD Service: (none) Author Type: Physician Filed: 02/03/11 1013 Note Time: 12/09/95 0001 Status: Signed Pressure Steamer Tender: Kranthi Fowler MD (Physician) IMPRESSION: Executive physical. [...] living and well. Patient grew up in [place]. No other family diseases. MARITAL HISTORY: white female. One child. 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 HABITS: Smoke: Never. Alcohol: Four beers, two [...] Do tetanus-diphtheria booster if OB approves. dla SITE ADMIN documented in this encounter Plan of Treatment [...] encounter Results AST (03/20/2002 4:24 PM CDT) [facility] gist Method Time Signature Aspartate 22 0 - 45 HP CONVERSION Aminotransferase U/L Specimen (Source) Anatomical Collection Method Collection Time Re ceived Time Location / / Volume Laterality 03/20/2002 4:24 PM CDT Panfilo Barriga MD LAB_1 Performing Organization Address City/[facility] Phon e Number HP CONVERSION ALT (SGPT) (03/20/2002 4:24 PM CDT) [facility] gist Method Time Signature Alanine 36 0 - 65 HP CONVERSION Aminotransferase U/L Specimen (Source) Anatomical Collection Method Collection Time Re ceived Time Location / / Volume Laterality 03/20/2002 4:24 PM CDT Panfilo Barriga MD LAB_1 Performing Organization Address [facility] Phon e Number HP CONVERSION documented in this encounter Visit Diagnoses Not on filedocumented in this encounter Care Teams Paper Twister Relationship Specialty Start Date End Date Dc Gonzalez MD PCP - General 01/17/11 documented as of this encounter
--- OUTSIDE RECORDS SUMMARY | 2022-08-04 07:07 | XMS_ITS | Clinical Summary ---
:1955 Author Organization [facility] Address [address] [place] [address] Care Team Providers Name Role Phone Dc [...] for each transition of care or referral. [facility] Allergies Active Allergy Reactions Severity Noted Date [...] e Group Dates PREFERREDONE PPO P[employer]ED[employer] PPO [id number] 2012-Pre [phone] (Home) [place], [place] [phone] [address] (Work) Mamta Ward Personal/Family Self [address] (Home) [place], [place] [phone] [address] (Work) Care Teams Bolt Cutter Relationship Specialty Start Date End Date cD Gonzalez MD PCP - General 01/17/11
--- OUTSIDE RECORDS SUMMARY | 2022-08-04 07:07 | XMS_ITS | Encounter Summary ---
:1955 Author Organization [facility] Address [address] [address] Care Team Providers Name Role Phone Dc Gonzalez MD Primary Care Provider Unavailable Encounter Details Date Type Department Care Team Description 06/03/1994 PN Conversion Only CONGREGATION CONVERSION Tate Gonzalez MD Social History Tobacco [...] on filedocumented in this encounter Care Teams Log Loader Relationship Specialty Start Date End Date Dc Gonzalez MD PCP - General 01/17/11 documented as of this encounter
--- OUTSIDE RECORDS SUMMARY | 2022-08-04 07:07 | XMS_ITS | Encounter Summary ---
:1955 Author Organization [facility] Address [address] [address] Care Team Providers Name Role Phone Dc Gonzalez MD Primary Care Provider Unavailable Encounter Details Date Type Department Care Team Description 08/30/1995 PN Conversion Only TENRIISM CONVERSION Tate Gonzalez MD Social History Tobacco Use Types Packs/Day Years Used Date Smoking Tobacco: Never Assessed Sex Assigned at Date Recorded Not on file documented as of this encounter Plan of Treatment Not on filedocumented as of this encounter Procedures Procedure Name Priority Date/Time Associated Comments Diagnosis CONVERSION DEFAULT Routine 08/24/1995 7:16 AM Res ults for this INTERFACE ORDER STRAIGHTEDGE WORKER procedure ar e in the results section. documented in this encounter Results Conversion Default Interface Order (08/24/1995 7:16 AM STRAIGHTEDGE WORKER) P athologist Signature PAP Smear See Detail HP CONVERSION Comment: NAME:SAVAGE MARADIAGA ?CERVICAL CYTOLOGY REPORT Pathology # ??[id number] ?Date Obtained: ?Date Received: LMP: ?07-05-95 CLINICAL HIST ? 7+ WKS PREG. ??PREV . SMEAR 12581, 06-02-94. CERVICAL SMEAR SPECIMEN ADEQUACY: ?? Satisfactory. ENDOCERVICAL CELLS: ??Absent; patient i s . CYTOLOGIC IMPRESSION: Within Normal Limits (Negative). Verified 09/01/95 by: ??MB ? (electronic signature) Angeles DOTSON M.D., Director of Cyt opathology Specimen (Source) Anatomical Collection Method Collection Time Re ceived Time Location / / Volume Laterality 08/24/1995 7:16 AM STRAIGHTEDGE WORKER Dc Gonzalez MD LAB_1 Performing Organization Address City/State/ZIP Code Phon e Number HP CONVERSION documented in this encounter Visit Diagnoses Not on filedocumented in this encounter Care Teams Artillery Specialist Relationship Specialty Start Date End Date Dc Gonzalez MD PCP - General 01/17/11 documented as of this encounter
--- OUTSIDE RECORDS SUMMARY | 2022-08-04 07:07 | XMS_ITS | Encounter Summary ---
:1955 Author Organization [facility] Address [address] [place] [address]. [place] [address] Care Team Providers Name Role Phone Manish Freedman MD Primary Care Provider [phone] Encounter Details Date Type Department Care Team Description 09/12/2019 Travel Social History Tobacco Use Types Packs/Day Years Used Date Smoking Tobacco: Never Smokeless Tobacco: Never Alcohol Use Standard Drinks/Week Comments Yes 10 [...] more drinks on one Never 09/12/2019 occasion? Sex Assigned at Date Recorded Not on file documented as of this encounter Plan of Treatment Not on filedocumented as of this encounter Visit Diagnoses Not on filedocumented in this encounter Additional Health Concerns Assessment Noted Time PHQ-9 Depression Total Score: 2 09/12/2019 10:45 AM CS T documented as of this encounter Care Teams Vise Hand Relationship Specialty Start Date End Date Manish Freedman MD PCP - General Emergency Medicine 08/11/17 [facility] [address] [place] [address] documented as of this encounter
--- OUTSIDE RECORDS SUMMARY | 2022-08-04 07:07 | XMS_ITS | Encounter Summary ---
:1955 Author Organization [facility] Address [address] [place] [address] Care Team Providers Name Role Phone Unavailable Primary Care Provider Unavailable Reason for Visit Reason Comments Med Refill Encounter Details Date Type Department Care Team Description 02/05/2022 Refill Division of Nephrology and Asbiha, Kirby Renee Jr., Med Refill Hypertension in [facility] [address] [facility] [address] [place] [address] [place] [address] [phone] Social History Tobacco Use Types Packs/Day Years Used Date Smoking Tobacco: Never Sex Assigned at Date Recorded Not on file documented as of this encounter Plan of Treatment Not on filedocumented as of this encounter Visit Diagnoses Not on filedocumented in this encounter
--- OUTSIDE RECORDS SUMMARY | 2022-08-04 07:07 | XMS_ITS | Encounter Summary ---
:1955 Author Organization [facility] Address [address] [place] [address] Care Team Providers Name Role Phone Unavailable Primary Care Provider Unavailable Reason for Visit Reason Comments Med Refill Encounter Details Date Type Department Care Team Description 05/22/2019 Refill Department of Cardiovascular Inder Amaya Jr., Med Refill Medicine in [facility] [address] [place] [address] Social History Tobacco Use Types [...]
--- OUTSIDE RECORDS SUMMARY | 2022-08-04 07:07 | XMS_ITS | Clinical Summary ---
:1955 Author Organization [facility] Address [address] [place] [address] Care Team Providers Name Role Phone Unavailable Primary Care Provider Unavailable Source Comments Patient records contain information from all sites at [facility]. For routine questions regarding patient records, call [phone] during business hours, M-F 8:00 AM - 5:00 PM Central Time. Record requests for emergency care only can be directed to [phone] at any time.[facility] Medications Medication Sig Dispensed Refills Start End Date Status Date atorvastatin (LIPITOR) TAKE 1 100 tablet 3 Active 20 mg tablet TABLET BY 8 MOUTH DAILY valsartan (DIOVAN) 320 Take 1 30 tablet 11 0 Active mg tablet tablet 2 23 (320 mg total) by mouth daily. hydroCHLOROthiazide Take 1 90 tablet 3 07/28/20 Active (HYDRODIURIL) 25 mg tablet (25 2 23 tablet mg total) by mouth daily. hydroCHLOROthiazide Take 1 90 tablet 3 07/28/20 Discontinued (HYDRODIURIL) 25 mg tablet (25 2 22 (Reorder) tablet mg total) by mouth daily. metoprolol succinate TAKE 1 30 tablet 11 07/28/20 Discontinued (TOPROL-XL) 50 mg 24 hr TABLET BY 2 22 (Error) tablet MOUTH DAILY. DO NOT CRUSH OR CHEW. Active Problems Problem Noted Date Apnea Sleep Obstructive 07/28/2022 Hyperlipidemia 05/13/2016 Hypertension Essential Primary 05/13/2016 Encounters Date Type Specialty Care Team Description 07/28/2022 External Outreach Nephrology and Sabiha, Hyperten thalia Essential Primary (Primary Dx); Hypertension Nitesh Renee Jr., Hyperlipidemia ; D.O. Apnea Sleep Obs tructive 06/25/2022 Refill Nephrology and Sabiha, Med Refill [...] Sign Reading Time Taken Comments Blood Pressure 159/78 07/28/2022 8:33 AM CDT Pulse 67 07/28/2022 8:33 AM CDT Temperature 37 ??C (98.6 ??F) 07/28/2022 8:33 AM CDT Respiratory Rate - - Oxygen Saturation - - Inhaled Oxygen Concentration - - Weight 68.9 kg (151 lb 14.4 oz) 07/28/2022 8:33 AM CDT Height 157.4 cm (5' 1.97) 07/28/2022 8:33 AM CDT Body Mass Index 27.81 07/28/2022 8:33 AM CDT Plan of Treatment Health Maintenance [...] 2022 COVID-19 Vaccine (4 - Booster for 03/03/2022 01/06/2022, , Moderna series) 2021 Influenza Vaccine (#1) 2022 08/13/2021, 07/25/2020, 09/12/2019, Additional history exists Cervical Cancer Screening 09/12/2022 09/12/2019, 08/16/2018 , 05/15/2014 (Performed elsewhere) Creatinine Level 10/28/2022 10/28/2021, 05/12/2016, 08/13/2014 Office Visit for Blood Pressure 10/28/2022 07/28/2022 Check / Re-check Zoster Vaccines Completed 02/25/2019, 01/20/2019, 06/22/2018 Insurance Payer Benefit Plan / Subscriber ID Effective Phone Address [facility] [id number] 2018-Pres [phone] [address] [employer] [employer] [phone] [place] [address] (Home) [place] [address]
--- OUTSIDE RECORDS SUMMARY | 2022-08-04 07:07 | XMS_ITS | Encounter Summary ---
:1955 Author Organization [facility] Address [address], [place] [address] Care Team Providers Name Role Phone Dc Gonzalez MD Primary Care Provider Unavailable Encounter Details Date Type Department Care Team Description 05/24/2006 Office Visit [facility] Eyad Kulkarni DPM MedSur [address] [facility] [address] [place] [address] [place], [place] [address] [phone] Social History Tobacco Use Types Packs/Day Years [...] 1356 Note Time: 05/24/06 0001 Status: Signed Marine Electronics Technician: Norberto Kulkarni DPM (Physician) NAME: MAMTA WARD MR: [id number] ACCT: [id number] VISIT: [id number] DICTATING CLINICIAN: Norberto Kulkarni DPM JOB: [id number] LOC: 539 CLINIC PROGRESS NOTE DATE OF [...] under local anesthesia with IV sedation at [facility] [place]. She is consulted to her primary care physician for a preoperative physical. ALP:[id number] C: 05/27/06 12:03 DOCUMENT: [id number] documented in this encounter Plan of Treatment Not on filedocumented as of this encounter Visit Diagnoses Not on filedocumented in this encounter Care Teams Geotechnical Operating Engineer Relationship Specialty Start Date End Date Dc Gonzalez MD PCP - General 01/17/11 documented as of this encounter
--- OUTSIDE RECORDS SUMMARY | 2022-08-04 07:07 | XMS_ITS | Encounter Summary ---
:1955 Author Organization [facility] Address [address] [address] Care Team Providers Name Role Phone Dc Gonzalez MD Primary Care Provider Unavailable Encounter Details Date Type Department Care Team Description 03/23/2006 PN Conversion Only [facility] [address] [address] [place] [address] Social History Tobacco Use Types Packs/Day Years Used Date Smoking Tobacco: Never Assessed Sex Assigned at Date Recorded Not on file documented as of this encounter Plan of Treatment Not on filedocumented as of this encounter Visit Diagnoses Not on filedocumented in this encounter Care Teams Auto Crane Driver Relationship Specialty Start Date End Date Dc Gonzalez MD PCP - General 01/17/11 documented as of this encounter
--- OUTSIDE RECORDS SUMMARY | 2022-08-04 07:07 | XMS_ITS | Encounter Summary ---
:1955 Author [facility] Address [address] [place] [address] Care Team Providers Name Role Phone Dc Gonzalez MD Primary Care Provider Unavailable Encounter Details Date Type Department Care Team Description 07/12/2006 Office Visit [facility] Eyad Kulkarni DPM MedSur [address] [facility] [address] [place] [address] [place], [place] [address] [phone] Social History Tobacco Use Types Packs/Day Years Used Date Smoking Tobacco: Never Assessed Sex Assigned at Date Recorded Not on file documented as of this encounter Progress Notes Norberto Kulkarni DPM - 07/12/2006 12:01 AM CDT Progress Notes signed by Norberto Kulkarni DPM at 07/13/06 1055 Author: Norberto Kulkrani DPM Service: (none) Author Type: Physician Filed: 02/06/11 1449 Note Time: 07/12/06 0001 Status: Signed Climatology Teacher: Norberto Kulkarni DPM (Physician) NAME: SAVAGE WARD MR: [id number] ACCT: [id number] VISIT: [id number] DICTATING CLINICIAN: Norberto Kulkarni DPM JOB: [id number] LOC: 539 CLINIC PROGRESS NOTE DATE OF [...] me in 10 days for suture removal. ALP:[id number] C: 07/12/06 20:10 DOCUMENT: [id number] documented in this encounter Plan of Treatment Not on filedocumented as of this encounter Visit Diagnoses Not on filedocumented in this encounter Care Teams Space Scheduler Relationship Specialty Start Date End Date Dc Gonzalez MD PCP - General 01/17/11 documented as of this encounter
--- OUTSIDE RECORDS SUMMARY | 2022-08-04 07:07 | XMS_ITS | Encounter Summary ---
:1955 Author Organization [facility] Address [address] [place] [address] Care Team Providers Name Role Phone Unavailable Primary Care Provider Unavailable Reason for Visit Reason Comments Med Refill Encounter Details Date Type Department Care Team Description 06/12/2019 Refill Department of Cardiovascular Inder Amaya Jr., Med Refill Medicine in [place] [id number] [place] [address] Social History Tobacco Use Types [...]
--- OUTSIDE RECORDS SUMMARY | 2022-08-04 07:07 | XMS_ITS | Encounter Summary ---
:1955 Author Organization [facility] Address [address] [place] [address] Care Team Providers Name Role Phone Unavailable Primary Care Provider Unavailable Reason for Visit Appointment Request (Routine) - Closed Specialty Diagnoses / Procedures Referred By Contact Refer red To Contact Nephrology and Manish Freedman Hypertension [facility] [address] [place] [address] Referral ID Status Reason Start Date Expiration Date Visits Requ ested Visits Authorized [id number] Closed 10/24/2021 10/24/2022 1 1 Encounter Details Date Type Department Care Team Description 11/04/2021 External Outreach Division of Dara Will Nephrology and Charlene Hickman, Essential Nadia chema Hypertension in Ph.D. (Primary Dx) [address] [place] [address] [phone] Social History Tobacco Use Types Packs/Day Years Used Date Smoking Tobacco: Never Sex Assigned at Date Recorded Not on file documented as of this encounter Consult Notes Marylou Will M.D., Ph.D. - 11/04/2021 10:30 AM CST Please see scanned in note under document viewer tab for the [facility] outreach visit from this date. E ANALYST documented in this encounter Plan of Treatment Not on filedocumented as of this encounter Visit Diagnoses Diagnosis Hypertension Essential Primary - Primary documented in this encounter
--- OUTSIDE RECORDS SUMMARY | 2022-08-04 07:07 | XMS_ITS | Clinical Summary ---
:1955 Author Organization [facility] Address [address] [place] [address] Care Team Providers Name Role Phone Manish Freedman MD Primary Care Provider [phone] Allergies No known active allergies Medications Medication Sig Dispensed Refills Start Date End Date Status PRILOSEC OR None Entered 0 Activ e hydrochlorothiazide 3 04/22/2015 Active (HYDRODIURIL) 25 MG tablet LORazepam (ATIVAN) 1 MG 0 06/07/2015 Active tablet ondansetron (ZOFRAN-ODT) 4 0 02/25/2015 Active MG disintegrating tablet fluticasone (FLONASE) 50 [place] 2 sprays 0 Active MCG/ACT nasal spray [...] Noted Date Screening for cervical cancer Overview: 7616-1387 NIL paps 9565-3038 NIL paps 07/2017, 07/2018, 08/2019 NIL pap, [...] Comments Blood Pressure 138/82 09/12/2019 10:47 AM LACE SEWER Pulse 78 09/12/2019 10:47 AM LACE SEWER Temperature - - Respiratory Rate - - Oxygen Saturation - - Inhaled Oxygen Concentration - - Weight 69.9 kg (154 lb) 09/12/2019 10:47 AM LACE SEWER Height 155.3 cm (5' 1.15) 09/12/2019 10:47 AM LACE SEWER Body Mass Index 28.96 09/12/2019 10:47 AM LACE SEWER Plan of Treatment Health Maintenance Due Date Last Done Comments ADVANCE CARE PLANNING 1955 ANNUAL REVIEW OF HM ORDERS 1955 CT COLONOGRAPHY 1955 FIT-DNA (Cologuard) 1955 FIT 1955 FLEX SIG 1955 HEPATITIS B IMMUNIZATION 1955 (1 of 3 - 3-dose series) COVID-19 Vaccine (#1) 1955 COLONOSCOPY 1967 COLORECTAL CANCER 1967 SCREENING HIV SCREENING 01/04/1972 HEPATITIS C SCREENING 1975 LIPID 2002 ZOSTER IMMUNIZATION (2 of 08/17/2018 06/22/2018 2) Pneumococcal Vaccine: 65+ 06/22/2019 06/22/2018 Years (2 - PCV) DTAP/TDAP/TD IMMUNIZATION 07/25/2019 07/25/2009 (2 - Td or Tdap) MAMMO SCREENING 09/12/2020 09/12/2019, 08/16/2018, 08/11/2017, Additional history exists PHQ-2 (once per calendar 10/18/2021 09/12/2019, 09/12/2019, year) 08/16/2018, Additional history exists FALL RISK ASSESSMENT 2022 MEDICARE ANNUAL WELLNESS 2022 09/12/2019, 08/16/2018, VISIT 08/11/2017, Additional history exists INFLUENZA VACCINE (#1) 2022 09/12/2019, 08/16/2018, 07/01/2017, Additional history exists DEXA 06/18/2030 06/18/2015 PAP Discontinued 09/12/2019, 08/16/2018, 08/11/2017, Additional history exists IPV IMMUNIZATION Aged Out No longer eligi ble based on patient 's age to complete this topic MENINGITIS IMMUNIZATION Aged Out No longe r eligible based on patient 's age to complete this topic Insurance Payer Benefit Plan / Subscriber ID Effective Dates Phone Addre ss Type Group [employer] [id number] 2018-Present [address] [id number] [place] [address] Marquita Ward Personal/Family Self [address] (Home) [place] [address] Care Teams Computer Numeric Control Setter Relationship Specialty Start Date End Date Manish Freedman MD PCP - General Emergency Medicine 08/11/17 [facility] [address] [place] [address]
--- OUTSIDE RECORDS SUMMARY | 2022-08-04 07:07 | XMS_ITS | Encounter Summary ---
:1955 Author Organization [facility] Address [address], [place] [address] Care Team Providers Name Role Phone Dc Gonzalez MD Primary Care Provider Unavailable Encounter Details Date Type Department Care Team Description 01/12/1996 PN Conversion Only HINDU CONVERSION Tate Gonzalez [...] PM Re sults for this INTERFACE ORDER INTEGRATED CIRCUITS INSPECTOR procedure ar e in the results section. documented in this encounter Results Conversion Default Interface Order (01/11/1996 12:02 PM INTEGRATED CIRCUITS INSPECTOR) [facility] Method Time Signature Ab Interpretation ANTI-D 02 HP CONVERSIO N Comment: PASSIVE ANTI-D, PROBABLE CAUSE IS RHIG ADMINISTRATION; ALL OTHER CLINICALLY SIGNIFICANT ANTIBODIES RULED OUT. Specimen (Source) Anatomical Collection Method Collection Time Re ceived Time Location / / Volume Laterality 01/11/1996 12:02 PM INTEGRATED CIRCUITS INSPECTOR Dc Gonzalez MD LAB_1 Performing Organization Address City/State/ZIP Code Phon e Number HP CONVERSION documented in this encounter Visit Diagnoses Not on filedocumented in this encounter Care Teams Mechanical Systems Designer Relationship Specialty Start Date End Date Dc Gonzalez MD PCP - General 01/17/11 documented as of this encounter
--- OUTSIDE RECORDS SUMMARY | 2022-08-04 07:07 | XMS_ITS | Encounter Summary ---
:1955 Author Organization [facility] Address [address] [place] [address] Care Team Providers Name Role Phone Unavailable Primary Care Provider Unavailable Reason for Visit Appointment Request (Routine) - Closed Specialty Diagnoses / Procedures Referred By Contact Refer red To Contact Nephrology and Hypertension Referral ID Status Reason Start Date Expiration Date Visits Requ ested Visits Authorized [id number] Closed 07/17/2022 07/17/2023 1 Encounter Details Date Type Department Care Team Description 07/28/2022 External Outreach Division of Claire Landis on Essential Primary (Primary Dx); Nephrology and Nitesh Renee Jr., Hyperlipidem ia; Hypertension in D.O. Apnea Sleep Obstructive [place], [place] [address] [facility] [address] [place] [address] [phone] Social History Tobacco Use Types Packs/Day Years [...] Mass Index 27.81 07/28/2022 8:33 AM CDT documented in this encounter Progress Notes Nitesh Landis Jr., D.O. - 07/28/2022 8:30 AM CDT Referring Provider: No primary care provider on file. SUBJECTIVE REASON FOR VISIT [place] [facility] Follow-up regards hypertension HISTORY OF PRESENT ILLNESS Ms. Ward is a 67 y.o. female who presents with resistant hypertension. With exchange of metoprolol succinate 50 mg for the carvedilol, her blood pressure has been excellent, in the 120s over 70s without orthostatic changes or lower extremity swelling. She relates her diarrhea is approximately 50% better but still problematic. This is very unfortunate. No chest pain no shortness of breath. She is working through other matters as well. I appreciate that she underwent sleep study, which showed that she has severe obstructive sleep apnea when she sleeps on her back, but minimal to mild obstructive sleep apnea when she is sleeping on her sides. She was recommended a dental appliance. However she is been frustrated in attempts to orchestrate having this manufactured. We discussed some strategies. She is additionally still struggling with right low back pain with radicular symptoms in her right leg. She is visiting with various physical therapists and surgeons regards this matter, she is been discovered to have scoliosis in addition to her DJD. With respect to her sensation of lightheadedness, she is been visiting with physical therapy and doing Kaykay maneuvers. This seems to be improving slightly. She still feels exhausted and unwell. History reviewed. No pertinent past medical history. Current Outpatient Medications: atorvastatin (LIPITOR) 20 mg tablet, TAKE 1 TABLET BY MOUTH DAILY, Disp: 100 tablet, Rfl: 3 hydroCHLOROthiazide (HYDRODIURIL) 25 mg tablet, Take 1 tablet (25 mg total) by mouth daily., Disp: 90 tablet, Rfl: 3 valsartan (DIOVAN) 320 mg tablet, Take 1 tablet (320 mg total) by mouth daily., Disp: 30 tablet, Rfl: 11 REVIEW OF SYSTEMS All other systems reviewed and are negative. OBJECTIVE BP 159/78 Pulse 67 Temp 37 ??C Ht 157.4 cm Wt 68.9 kg BMI 27.81 kg/m?? PHYSICAL EXAMINATION General: Awake alert oriented [...] suspicious lesions identified Psychiatric: Normal affect DIAGNOSTICS Reviewed her MRI scan, plain films of the back, results of her sleep study, and of her physical therapy. ASSESSMENT / PLAN #1 Hypertension Essential Primary Her home blood pressures are excellent. We will stop her metoprolol. I expect that her blood pressure will be elevated and we will need to make it further change, perhaps switching hydrochlorothiazide for spironolactone, and perhaps decreasing the dose of valsartan slightly due to the risk of hyperkalemia with these 2 agents. She continues to be as active as she can, I am hopeful that with treatment of her sleep disordered breathing that this will help a bit with her blood pressure. #2 Hyperlipidemia Well controlled on her current regimen #3 Apnea Sleep Obstructive She is going to look into ordering dental appliance devices on line. Total time: 40 minutes Counseling Time: 30 minutes Nitesh Landis Jr., D.O. documented in this encounter Plan of Treatment Not on filedocumented as of this encounter Visit Diagnoses Diagnosis Hypertension Essential Primary - Primary Hyperlipidemia Apnea Sleep Obstructive documented in this encounter
--- OUTSIDE RECORDS SUMMARY | 2022-08-04 07:07 | XMS_ITS | Encounter Summary ---
:1955 Author Organization [facility] Address [address] [place] [address] Care Team Providers Name Role Phone Unavailable Primary Care Provider Unavailable Reason for Visit Appointment Request (Routine) - Closed Specialty Diagnoses / Procedures Referred By Contact Refer red To Contact Nephrology and Hypertension Referral ID Status Reason Start Date Expiration Date Visits Requ ested Visits Authorized [id number] Closed 05/21/2022 05/21/2023 1 Encounter Details Date Type Department Care Team Description 06/02/2022 External Outreach Division of Claire Landis on Essential Primary (Primary Dx); Nephrology and Nitesh Renee Jr., Hyperlipidem ia Hypertension in D.O. [place], [place] [address] [facility] [address] [place] [address] [phone] Social History Tobacco Use Types Packs/Day Years [...] care provider on file. SUBJECTIVE out reach [facility] REASON FOR VISIT Follow-up regards [...]
--- OUTSIDE RECORDS SUMMARY | 2022-08-04 07:07 | XMS_ITS | Encounter Summary ---
:1955 Author Organization [facility] Address [address] [place] [address] Care Team Providers Name Role Phone Unavailable Primary Care Provider Unavailable Encounter Details Date Type Department Care Team Description 02/10/2022 Clinical Communication Division of Nephrology Nitesh Landis and Hypertension cristo Renee Jr., D.O. [place], [place] [address] [facility] [address] [place] [address] [phone] Social History Tobacco Use Types Packs/Day Years [...]
--- OUTSIDE RECORDS SUMMARY | 2022-08-04 07:07 | XMS_ITS | Encounter Summary ---
:1955 Author [facility] Address [address], [place] [address] Care Team Providers Name Role Phone Unavailable Primary Care Provider Unavailable Encounter Details Date Type Department Care Team Description 05/14/1997 - Hospital Encounter [facility] Dc Gonzalez MD 05/15/[address] [place] [address] Social History Tobacco Use Types Packs/Day Years [...]
--- OUTSIDE RECORDS SUMMARY | 2022-08-04 07:07 | XMS_ITS | Encounter Summary ---
:1955 Author Organization [facility] Address [address], [place] [address] Care Team Providers Name Role Phone Dc Gonzalez MD Primary Care Provider Unavailable Encounter Details Date Type Department Care Team Description 08/25/1995 PN Conversion Only AMISH CONVERSION Tate Gonzalez [...] PM Re sults for this INTERFACE ORDER DIRECTOR WORKFORCE MANAGEMENT procedure ar e in the results section. CONVERSION DEFAULT Routine 08/24/1995 12:24 PM Re sults for this INTERFACE ORDER DIRECTOR WORKFORCE MANAGEMENT procedure ar e in the results section. documented in this encounter Results Conversion Default Interface Order (08/24/1995 12:24 PM DIRECTOR WORKFORCE MANAGEMENT) Analysis Performed At Patho logist Time Signature BB BLOOD TYPE O NEG HP CONVERSION (BLOOD GROUP & RH) N/O BB NEG HP CONVERSION ANTIBODY SCREEN Rubella Immune IMMUNE HP CONVERSION Status RPR NON REAC HP CONVERSION Hep B Surf Ag NEG HP CONVERSION Specimen (Source) Anatomical Collection Method Collection Time Re ceived Time Location / / Volume Laterality 08/24/1995 12:24 PM DIRECTOR WORKFORCE MANAGEMENT Dc Gonzalez MD LAB_1 Performing Organization Address City/State/ZIP Code Phon e Number HP CONVERSION Conversion Default Interface Order (08/24/1995 12:24 PM DIRECTOR WORKFORCE MANAGEMENT) P athologist Signature BB BLOOD TYPE O NEG HP CONVERSION (BLOOD GROUP & RH) Specimen (Source) Anatomical Collection Method Collection Time Re ceived Time Location / / Volume Laterality 08/24/1995 12:24 PM DIRECTOR WORKFORCE MANAGEMENT Dc Gonzalez MD LAB_1 Performing Organization Address City/State/ZIP Code Phon e Number HP CONVERSION documented in this encounter Visit Diagnoses Not on filedocumented in this encounter Care Teams Air Pollution Auditor Relationship Specialty Start Date End Date Dc Gonzalez MD PCP - General 01/17/11 documented as of this encounter
--- OUTSIDE RECORDS SUMMARY | 2022-08-04 07:07 | XMS_ITS | Encounter Summary ---
:1955 Author Organization [facility] Address [address] [place] [address] Care Team Providers Name Role Phone Unavailable Primary Care Provider Unavailable Reason for Visit Reason Comments Med Refill Encounter Details Date Type Department Care Team Description 06/21/2019 Refill Department of Cardiovascular Inder Amaya Jr., Med Refill Medicine in [address] [address] Social History Tobacco Use Types Packs/Day Years Used Date Smoking Tobacco: Never Sex Assigned at Date Recorded Not on file documented as of this encounter Plan of Treatment Not on filedocumented as of this encounter Visit Diagnoses Not on filedocumented in this encounter
--- OUTSIDE RECORDS SUMMARY | 2022-08-04 07:07 | XMS_ITS | Encounter Summary ---
:1955 Author Organization [facility] Address [address] [place] [address] Care Team Providers Name Role Phone Dc Gonzalez MD Primary Care Provider Unavailable Encounter Details Date Type Department Care Team Description 03/23/2006 Office Visit [facility] Eyad Kulkarni DPM MedSur [address] [facility] [address] [place] [address] [place], [place] [address] [phone] Social History Tobacco Use Types Packs/Day Years [...] 1245 Note Time: 03/23/06 0001 Status: Signed Mannequin Decorator: Norberto Kulkarni DPM (Physician) NAME: MAMTA WARD MR: [id number] ACCT: [id number] VISIT: [id number] DICTATING CLINICIAN: Norberto Kulkarni DPM JOB: [id number] CLINIC PROGRESS NOTE DATE OF VISIT: 03/23/2006 [...] follow up with me in 3 weeks. ALP:[id number] C: 03/23/06 11:50 DOCUMENT: [id number] documented in this encounter Plan of Treatment Not on filedocumented as of this encounter Visit Diagnoses Not on filedocumented in this encounter Care Teams Dean Of Students Relationship Specialty Start Date End Date Dc Gonzalez MD PCP - General 01/17/11 documented as of this encounter
--- OUTSIDE RECORDS SUMMARY | 2022-08-04 07:07 | XMS_ITS | Encounter Summary ---
:1955 Author Organization [facility] Address [address], [place] [address] Care Team Providers Name Role Phone Dc Gonzalez MD Primary Care Provider Unavailable Reason for Referral Procedure/Equipment (Routine) - Incomplete Specialty Diagnoses / Procedures Referred By Contact Refer red To Contact Diagnoses Closed displaced fracture of second metatarsal bone of right foot, initial encounter Norberto Kulkarni DPM Procedures XR Foot Rt 3+ Views [address] [place] [address] Referral ID Status Reason Start Date Expiration Date Visits V isits Requested Authorized [id number] Incomplete 08/12/2016 11/11/2017 1 1 Reason for Visit Reason Comments FRACTURE Encounter Details Date Type Department Care Team Description 08/12/2016 Office Visit [facility] Norberto Kulkarni C losed displaced MedSurg DPM fracture of second [address] [address] [address] [address] [place] right foot, initial [phone] encounter (Primary [phone] (Wo rk) Dx) Social History Tobacco Use [...] voice recognition software and may contain some channel opener errors) documented in this encounter Plan of [...] encounter documented in this encounter Care Teams Manager Tax Relationship Specialty Start Date End Date Dc Gonzalez MD PCP - General 01/17/11 documented as of this encounter
--- OUTSIDE RECORDS SUMMARY | 2022-08-04 07:08 | XMS_ITS | Encounter Summary ---
:1955 Author Organization [facility] Address [address] [place] [address]. [place] [address] Care Team Providers Name Role Phone Manish Freedman MD Primary Care Provider Reason for Visit Diagnostic Imaging Mammo - Closed Specialty Diagnoses / Procedures Referred By Contact Refer red To Contact Diagnoses Visit for screening mammogram Dc Gonzalez MD Procedures MA Screening Digital Bilateral [address] [facility] [address] [place] [address] Referral ID Status Reason Start Date Expiration Date Visits Requ ested Visits Authorized [id number] Closed 07/21/2018 07/21/2019 1 1 Encounter Details Date Type Department Care Team Description 08/16/2018 Radiant Appointment [facility] for screening [facility] Nader na mammogram [address] [facility], [address] [place] [phone] Social History Tobacco Use Types Packs/Day Years [...] documented as of this encounter Care Teams Balance Bridge Assembler Relationship Specialty Start Date End Date Manish Freedman MD PCP - General Emergency Medicine 08/11/[address] [address] documented as of this encounter
--- OUTSIDE RECORDS SUMMARY | 2022-08-04 07:08 | XMS_ITS | Encounter Summary ---
:1955 Author Organization [facility] Address [address] [place] [address]. [place] [address] Care Team Providers Name Role Phone Manish Freedman MD Primary Care Provider [phone] Reason for Visit Reason Onset Date Comments Refill Request 11/30/2016 Encounter Details Date Type Department Care Team Description 11/30/2016 Refill [facility] Kourtney Mcqueen, Refill Request for Women [facility] 65[address] [facility] [address] [facility] [address] [place] [address] [place] [address] [phone] Social History Tobacco Use Types Packs/Day Years [...] documented as of this encounter Care Teams Educational Diagnostician Relationship Specialty Start Date End Date Manish Freedman MD PCP - General Emergency Medicine 08/06/16 08/10/17 [facility] [address] [place] [address] documented as of this encounter
--- OUTSIDE RECORDS SUMMARY | 2022-08-04 07:08 | XMS_ITS | Encounter Summary ---
:1955 Author Organization [facility] Address [address] [place] [address]. [place] [address] Care Team Providers Name Role Phone Unavailable Primary Care Provider Unavailable Reason for Visit Reason Comments RECHECK ultrasound results Encounter Details Date Type Department Care Team Description 01/29/2016 Office Visit [facility] Dc Gonzalez Post menopausal bleeding AND SURGERY BECKA You MD (Primary Dx) PRESS ASSISTANT [address] [place] [address] [place] [address] Social History Tobacco Use Types [...] CDT documented in this encounter Progress Notes Dc Gonzalez MD - 01/29/2016 3:27 PM CDT SUBJECTIVE: [...] offered? Declined Today's PHQ-2 Score: PHQ-2 (??[facility]) 06/18/2015 Q1: Little interest or pleasure in [...] ??? fluticasone (FLONASE) 50 MCG/ACT nasal spray [place] 2 sprays into both nostrils daily ??? [...] Ut: 4.6x4.6x3.6cm (39cm3). End Linin.1mm. Lt. Ov: [id number]. Rt. Ov: [id number]. Impression: Evidence for adenomyosis with 2 adenomyomas. Thin endometrium. ASSESSMENT/PLAN: Assessment: 1. Postmenopausal bleeding Plan: There is no obvious cause for the bleeding on ultrasound. I suspect this may be related to herhormone replacement therapy. This point we'll continue to observe the patient. If the bleeding persists or worsens she will return to clinic for an office hysteroscopy. Dc Gonzalez MD [facility] DILLWYN PRESS ASSISTANT documented in this encounter Nursing Notes Janna [...]
--- OUTSIDE RECORDS SUMMARY | 2022-08-04 07:08 | XMS_ITS | Encounter Summary ---
:1955 Author Organization [facility] Address [address] [place] [address]. [place] [address] Care Team Providers Name Role Phone Manish Freedman MD Primary Care Provider [phone] Reason for Visit Reason Onset Date Comments Refill Request 06/21/2018 norethindrone-ethiny l estradiol (JINTELI) 1-5 MG-MCG per tablet Encounter Details Date Type Department Care Team Description 06/21/2018 Refill [facility] Dc Gonzalez Refill Request for Women Nanci You MD (norethindrone-ethinyl [address] [facility] 6525 [facility] estradiol (JINTELI) 1-5 [address] MG-MCG per tablet) [place] [address] RANJIT VARELA [id number] (Wo rk) Social History Tobacco Use Types [...] documented as of this encounter Care Teams Biomass Boiler Operator Relationship Specialty Start Date End Date Manish Freedman MD PCP - General Emergency Medicine 08/11/17 [facility] [address] [place] [address] documented as of this encounter
--- OUTSIDE RECORDS SUMMARY | 2022-08-04 07:08 | XMS_ITS | Encounter Summary ---
:1955 Author Organization [facility] Address [address] [place] [address]. [place] [address] Care Team Providers Name Role Phone Manish Freedman MD Primary Care Provider [phone] Encounter Details Date Type Department Care Team Description 08/06/2016 Radiant Appointment [facility] for [facility] for screening Women Nanci mammogram [address] [facility] , [address] [place] [address] Social History Tobacco Use Types [...] documented as of this encounter Care Teams Environmental Protection Officer Relationship Specialty Start Date End Date Manish Freedman MD PCP - General Emergency Medicine 08/06/16 08/10/[address] [address] documented as of this encounter
--- OUTSIDE RECORDS SUMMARY | 2022-08-04 07:08 | XMS_ITS | Encounter Summary ---
:1955 Author Organization [facility] Address [address] [place] [address]. [place] [address] Care Team Providers Name Role Phone Manish Freedman MD Primary Care Provider [phone] Encounter Details Date Type Department Care Team Description 11/04/2017 Telephone [facility] [place], Davon spann Avel[place], Women Nanci MANDUJANO 65[address] [facility] [address] [place] [address] [address] [place] [address] [place] [address] [phone] Social History Tobacco Use Types Packs/Day Years [...] in error, pt has plenty of Rx. ENGER SERVICE SUPERVISOR documented in this encounter Plan of Treatment Not on filedocumented as of this encounter Visit Diagnoses Not on filedocumented in this encounter Additional Health Concerns Assessment Noted Time PHQ-9 Depression Total Score: 3 08/11/2017 9:15 AM CDT documented as of this encounter Care Teams Superintendent Maintenance Airports Relationship Specialty Start Date End Date Manish Freedman MD PCP - General Emergency Medicine 08/11/17 [facility] [address] [place] [address] documented as of this encounter
--- OUTSIDE RECORDS SUMMARY | 2022-08-04 07:08 | XMS_ITS | Encounter Summary ---
:1955 Author Organization [facility] Address [address] [place] [address]. [place] [address] Care Team Providers Name Role Phone Manish Freedman MD Primary Care Provider [phone] Reason for Visit Diagnostic Imaging Mammo (Routine) - Closed Specialty Diagnoses / Procedures Referred By Contact Refer red To Contact Diagnoses Visit for screening mammogram Dc Gonzalez MD Procedures MA Screening Digital Bilateral [address] [facility] 100 [place] [address] Referral ID Status Reason Start Date Expiration Date Visits Requ ested Visits Authorized [id number] Closed 07/20/2019 07/19/2020 1 1 Encounter Details Date Type Department Care Team Description 09/12/[address] [facility] Dc Gonzalez Visit for screening [facility] MD Avelino mammogram Nanci [address] [place] [address] [place] [phone] Social History Tobacco Use Types Packs/Day Years [...] screening R esults for this DIGITAL BILATERAL SHIFT NURSE MANAGER mammogram procedure are in the results section. documented in this encounter Results MA Screening Digital Bilateral (09/12/2019 11:36 AM SHIFT NURSE MANAGER) Anatomical Region Laterality Modality Breast Bilateral Mammography Specimen (Source) Anatomical Location Collection Method / Collectio n Time Received Time / Laterality Volume Impressions 09/12/2019 2:20 PM SHIFT NURSE MANAGER IMPRESSION: BI-RADS CATEGORY: 1 - ??Negative RECOMMENDED FOLLOW-UP: Annual Mammograph y. Exam results letter mailed to patient. CATIA HO MD Narrative 09/12/2019 2:20 PM SHIFT NURSE MANAGER SCREENING MAMMOGRAM, BILATERAL, DIGITAL w/CAD - 09/12/2019 [...] documented as of this encounter Care Teams Rotary Surface Grinder Relationship Specialty Start Date End Date Reister, [place] Dc, MD PCP - General Emergency Medicine 08/11/17 [facility] [address] [place] [address] documented as of this encounter
--- OUTSIDE RECORDS SUMMARY | 2022-08-04 07:08 | XMS_ITS | Encounter Summary ---
:1955 Author Organization [facility] Address [address] [place] [address]. [place] [address] Care Team Providers Name Role Phone Manish Freedman MD Primary Care Provider [phone] Reason for Visit Reason Comments Physical Encounter Details Date Type Department Care Team Description 08/11/[address] [facility] Jessica Gonzalez [facility] er for gynecological examination without abnormal finding (Primary Dx); [facility] MD Avelino Menopause [address] [address] [place] [address] [place] [address] (Work) [phone] Social History Tobacco Use Types Packs/Day Years [...] ??? fluticasone (FLONASE) 50 MCG/ACT nasal spray [place] 2 sprays into both nostrils daily ??? [...] Types DNA Cervical (08/11/2017 9:49 AM CDT) [facility] Method Time Signature HPV 16 DNA Negative NEG^Negat 08/16/2017 [facility] 2:40 PM CDT [facility] HPV 18 DNA Negative NEG^Negat 08/16/2017 [facility] mariana 2:40 PM CDT [facility] Other HR HPV Negative NEG^Negat 08/16/2017 [facility] 2:40 PM CDT [facility] Final This 08/16/2017 [facility] patient's 2:40 PM CDT [place] [facility] sample is [facility] negative for FRESNO HPV DNA. Comment: (Note) METHODOLOGY: ??The Suppon[facility] tien 4800 syst em uses automated extraction, [...] its performa nce characteristics determined by the [facility], Molecular Diagnostics Laboratory. It has not been cleared or approved by the FDA. The laboratory is regulated under C [place] as qualified to perform high-complexity testing. This test is us ed for clinical purposes. It should not be regarded as investigationa l or for research. Specimen Description Cervical Cells 08/16/2017 9:1 6 AM CDT [facility] Comment: [id number] Specimen Anatomical Collection Method Collection Time Receive d Time (Source) Location / / Volume Laterality Cervical Cells 08/11/2017 9:49 AM 017 9:51 CDT AM CDT Jessica Gonzalez MD LAB - BLOOD ORDERABLES Performing Organization Address City/State/ZIP Code Phon e Number [facility] [address] [place], [place] [address] [place] [address] Pap imaged thin layer screen with HPV - recommended age 30 - 65 (08/11/2017 9:21 AM CDT) Component Value Ref Test Analysis Performed At [facility] Range Method Time Signature PAP NIL COPATH Copath Report COPATH Patient Name: SAVAEG WARD MR#: [id number] Specimen #: [id number] Collected: 08/11/2017 Received: 08/12/2017 Reported: 08/13/2017 09:56 [...] RUBI Garcia (ASCP) Processed and screened at [facility] CLINICAL HISTORY: Post Menopausal, Previous normal pap Date of Last Pap: 08/06/16, Papanicolaou Test Limitations: ??Cervical cytology is a scre ening test with limited sensitivity; regular screening is critical for cancer prevention; Pap tests are primarily effective for the diagnosis/prevention of squamous cell carcinoma, not adenoca rcinomas or other cancers. TESTING LAB LOCATION: [address] ??[address] COLLECTION SITE: Client: ??[facility] Location: WEOB (S) Specimen (Source) Anatomical [...] documented as of this encounter Care Teams Trade Analyst Relationship Specialty Start Date End Date Manish Freedman MD PCP - General Emergency Medicine 08/11/17 [facility] [address] [place] [id number] documented as of this encounter
--- OUTSIDE RECORDS SUMMARY | 2022-08-04 07:08 | XMS_ITS | Encounter Summary ---
:1955 Author Organization [place] Address [address] [place] [address]. [place] [address] Care Team Providers Name Role Phone Manish Freedman MD Primary Care Provider [phone] Reason for Visit Reason Onset Date Comments Physical Imm/Inj 08/16/2018 Flu Shot Encounter Details Date Type Department Care Team Description 08/16/2018 [facility] Visit [facility] without abnormal finding (Primary Dx); [facility] MD Avelino Menopause; [place] [address] [facility] Need for prophylactic vaccin ation and inoculation against influenza [address] [address] [place] [address] [place] [address] (Work) [phone] Social History Tobacco Use Types Packs/Day Years [...] ??? fluticasone (FLONASE) 50 MCG/ACT nasal spray [place] 2 sprays into both nostrils daily ??? [...] Types DNA Cervical (08/16/2018 10:00 AM CDT) [facility] Method Time Signature HPV Source SurePath 08/16/2018 [facility] 9:59 AM CDT [facility] HPV 16 DNA Negative NEG^Negat 08/19/2018 [facility] 1:22 PM CDT [facility] HPV 18 DNA Negative NEG^Negat 08/19/2018 [facility] 1:22 PM CDT [facility] Other HR HPV Negative NEG^Negat 08/19/2018 [facility] 1:22 PM CDT [facility] Final This 08/19/2018 [facility] patient's 1:22 PM CDT [facility] sample is [facility] negative for CRANBERRY ISLES HPV DNA. Comment: This test was developed and its performa nce characteristics determined by the [facility], Molecular Diagnostics Laboratory. It has [...] Cervical Cells 08/16/2018 9:5 9 AM CDT [facility] Comment: [id number] Specimen Anatomical Collection Method Collection Time Receive d Time (Source) Location / / Volume Laterality Cervical Cells CERVIX UTERI 08/16/2018 10:00 8 STRUCTURE / AM CDT 11:07 AM CDT Unknown Jessica Gonzlaez MD LAB - BLOOD ORDERABLES Performing Organization Address City/State/ZIP Code Phon e Number [address] [address] [facility] [address] [place], [place] [address] [phone] [facility] [address] Pap imaged thin layer screen with HPV - recommended age 30 - 65 (08/16/2018 9:58 AM CDT) Component Value Ref Test Analysis Performed At [facility] Range Method Time Signature PAP NIL COPATH Copath Report COPATH Patient Name: SAVAGE WARD MR#: [id number] Specimen #: [id number] Collected: 08/16/2018 Received: 08/17/2018 Reported: 08/18/2018 10:14 [...] RUBI Hutson (ASCP) Processed and screened at [facility] CLINICAL HISTORY: Post Menopausal, A previous normal pap Date of Last Pap: 08/11/17, Papanicolaou Test Limitations: ??Cervical cytology is a sc reening test with limited sensitivity; regular screening is critical for cancer prevention; Pap tests are p rimarily effective for the diagnosis/prevention of squamous cell carcinoma, not adenocarcinomas or other cancer s. TESTING LAB LOCATION: [address] ??[phone] COLLECTION SITE: Client: ??[facility] Location: WEOB (S) Specimen (Source) [...] documented as of this encounter Care Teams Maxillofacial Surgeon Relationship Specialty Start Date End Date Manish Freedman MD PCP - General Emergency Medicine 08/11/17 [facility] [address] [place] [address] documented as of this encounter
--- OUTSIDE RECORDS SUMMARY | 2022-08-04 07:08 | XMS_ITS | Encounter Summary ---
:1955 Author Organization [facility] Address [address] [place] [address] Care Team Providers Name Role Phone Manish Freedman MD Primary Care Provider [phone] Encounter Details Date Type Department Care Team Description 08/11/[address] [facility] for screening [facility] Nader na mammogram [address] [facility], [address] [place] [address] Social History Tobacco Use Types [...] documented as of this encounter Care Teams Shell Assembler Relationship Specialty Start Date End Date Manish Freedman MD PCP - General Emergency Medicine 08/11/17 [facility] [address] [place] [address] documented as of this encounter
--- OUTSIDE RECORDS SUMMARY | 2022-08-04 07:08 | XMS_ITS | Encounter Summary ---
:1955 Author Organization [facility] Address [address] [place] [address]. [place] [address] Care Team Providers Name Role Phone Unavailable Primary Care Provider Unavailable Encounter Details Date Type Department Care Team Description 01/27/2016 Orders Only [facility] Alda Mcqueen Po st-menopausal AND SURGERY ETNA MOISES Kendrick CAR GROOMER bleeding (Primary Dx) SUPERVISOR PRESSING DEPARTMENT [address] [place] [address] [place] [address] [place] [address] [phone] Social History Tobacco Use Types Packs/Day Years [...] 4.6 x4.6x3.6cm (39cm3). End Linin.1mm. Lt. Ov: [id number]. Rt. Ov: [id number]. Impression: ??Evidence for adenomyosis w ith 2 adenomyomas. ??Thin endometrium. Narrative 01/29/2016 3:55 PM CDT Uterus Dc Gonzalez MD [facility] US ORDERABLES documented in this encounter Visit Diagnoses Diagnosis Post-menopausal bleeding - Primary Postmenopausal bleeding Post-menopausal bleeding Postmenopausal bleeding documented in this encounter
--- OUTSIDE RECORDS SUMMARY | 2022-08-04 07:08 | XMS_ITS | Encounter Summary ---
:1955 Author Organization [place] Address [address] [place] [address]. [place] [address] Care Team Providers Name Role Phone Unavailable Primary Care Provider Unavailable Reason for Visit Reason Onset Date Comments Refill Request 12/20/2015 Encounter Details Date Type Department Care Team Description 12/20/2015 Refill [facility] Kourtney Mcqueen, Refill Request SURGERY [place] OB/ FRUIT OR NUT PICKER HELP DESK INTERNSHIP NURSING PROFESSOR [address] [place] [address] [place] [phone] Social History Tobacco Use Types Packs/Day Years [...]
--- OUTSIDE RECORDS SUMMARY | 2022-08-04 07:08 | XMS_ITS | Encounter Summary ---
:1955 Author Organization [place] Address [address] [place] [address]. [place] [address] Care Team Providers Name Role Phone Unavailable Primary Care Provider Unavailable Encounter Details Date Type Department Care Team Description 01/29/2016 Radiant Appointment Dc Ceron Post- menopausal GYNECOLOGY AND MD Avelino bleeding SURGERY [place] [address]TR[address]OUND [address] [place] [address] [address] [place], [place] (Work) [phone] Social History Tobacco Use [...] 4.6 x4.6x3.6cm (39cm3). End Linin.1mm. Lt. Ov: [id number]. Rt. Ov: [id number]. Impression: ??Evidence for adenomyosis w ith 2 adenomyomas. ??Thin endometrium. Narrative 01/29/2016 3:55 PM CDT Uterus Dc Gonzalez MD IMG US ORDERABLES documented in this encounter Visit Diagnoses Diagnosis Post-menopausal bleeding Postmenopausal bleeding documented in this encounter
--- OUTSIDE RECORDS SUMMARY | 2022-08-04 07:08 | XMS_ITS | Encounter Summary ---
:1955 Author Organization [place] Address [address] [place] [address]. [place] [address] Care Team Providers Name Role Phone Unavailable Primary Care Provider Unavailable Reason for Visit Reason Onset Date Comments Refill Request 12/09/2015 Encounter Details Date Type Department Care Team Description 12/09/2015 Refill [facility] Kourtney Mcqueen, Refill Request SURGERY [place] OB/ PATIENT CARE TECHNICIAN BELT MEASURER CHIEF COUNSEL [address] [place] [address] [place] [address] [place] [phone] Social History Tobacco Use Types Packs/Day Years [...]
--- OUTSIDE RECORDS SUMMARY | 2022-08-04 07:08 | XMS_ITS | Encounter Summary ---
:1955 Author Organization [place] Address [address] [place] [address]. [place] [address] Care Team Providers Name Role Phone Manish Freedman MD Primary Care Provider [phone] Reason for Visit Reason Comments Physical Encounter Details Date Type Department Care Team Description 08/06/2016 Office Visit [facility] Jessica Gonzalez for gynecological examination without abnormal finding [Z01.419] (Primary Dx); AND SURGERY [place] You MD Need for prophylactic vaccination and in oculation against influenza; IS TECHNICIAN [address] Menopause; [address] [place] [address] Abnormal uterine bleeding (AUB) [address] [place] [address] [place] [address] Social History Tobacco Use Types Packs/Day [...] ??? fluticasone (FLONASE) 50 MCG/ACT nasal spray [place] 2 sprays into both nostrils daily ??? NASONEX NA None Entered ??? PRILOSEC OR None Entered No current facility-administered medications for this visit. No Known Allergies Past medical, surgical, social and family histories were reviewed and updated in [facility]. ROS: 12 point review of systems [...] SPLIT VIRUS IM > 3 YO (QUADRIVALENT) [77615] Vaccine Administration, Initial [20386] 3. Menopause Z78.0 norethindrone-ethinyl estradiol (JINTELI) 1-5 [...] the person to be vaccinated ever had Guillain-[place]view syndrome? No Form completed by Janna Flynn [...] Component Value Ref Test Analysis Performed At [facility] Range Method Time Signature PAP NIL COPATH Copath Report COPATH Patient Name: SAVAGE WARD MR#: [id number] Specimen #: [id number] Collected: 08/06/2016 Received: 08/07/2016 Reported: 08/10/2016 10:33 Ordering Phy(s): JESSICA GONZALEZ SPECIMEN/STAIN PROCESS: Pap [...] rcinomas or other cancers. TESTING LAB LOCATION: [address] ??[address] COLLECTION SITE: Client: ??[facility] Specimen (Source) Anatomical Collection Method Collection [...] documented as of this encounter Care Teams Process Mold Technician Relationship Specialty Start Date End Date Manish Freedman MD PCP - General Emergency Medicine 08/06/16 08/10/17 [facility] [address] [place] [address] documented as of this encounter
--- OUTSIDE RECORDS SUMMARY | 2022-08-04 07:08 | XMS_ITS | Encounter Summary ---
:1955 Author Organization [place] Address [address] [place] [address]. [place] [address] Care Team Providers Name Role Phone Manish Freedman MD Primary Care Provider Reason for Visit Reason Onset Date Comments Refill Request 11/10/2016 Encounter Details Date Type Department Care Team Description 11/10/2016 Refill [facility] for Davon Gonzalez, Refill Request Women Nanci MANDUJANO [address] [facility] [address] [place] [address] [address] [place] [address] [place] V[place]la [phone] Social History Tobacco Use Types Packs/Day Years [...] Dc Gonzalez MD - 11/16/2016 12:35 PM BAND BUILDER Rx sent BUILDER Telephone Encounter - Jessie Eugene RN - 11/10/2016 6:12 PM CST ADITI Last Written Prescription Date: 08/06/16 Last Fill Quantity: 90, # refills: 2 Last Office Visit with [facility] primary care provider: 08/06/16 Future Office visit: none Routing refill request to provider for review/approval because: Rx not sent for year supply. Note routed to Dr. Araya to send to get pt until her next annual due time? BUILDER documented in this encounter Plan of Treatment Not on filedocumented as of this encounter Visit Diagnoses Diagnosis Menopause - Primary Symptomatic menopausal or female climact lesli states documented in this encounter Additional Health Concerns Assessment Noted Time PHQ-9 Depression Total Score: 3 08/07/2016 7:18 AM CDT documented as of this encounter Care Teams Shale Planer Operator Relationship Specialty Start Date End Date Manish Freedman MD PCP - General Emergency Medicine 08/06/16 08/10/17 [facility] [address] [place] [address] documented as of this encounter
--- OUTSIDE RECORDS SUMMARY | 2022-08-04 07:08 | XMS_ITS | Encounter Summary ---
:1955 Author Organization [place] Address [address] [place] [address]. [place] [address] Care Team Providers Name Role Phone Unavailable Primary Care Provider Unavailable Reason for Visit Reason Comments Consult Encounter Details Date Type Department Care Team Description 03/17/2016 Office Visit [facility] Barry Gonzalez MD [address] [place], [place] [address] Menopause (Primary Dx); AND SURGERY [place] Alda Mcqueen APRN SOIL SAMPLER [address] [place], [place] [phone] Post-menopausal bleeding CERTIFIED FIRST ASSISTANT [address] [facility] [address] [place] [phone] Social History Tobacco Use Types Packs/Day Years [...] Progress Notes Alda Mcqueen APRN CNP - 03/19/2016 1:53 PM CDT Quick Note: [...] Component Value Ref Test Analysis Performed At [facility] Method Time Signature Copath Report Patient Name: SAVAGE WARD MR#: [id number] Specimen #: [id number] Collected: 03/17/2016 Received: 03/18/2016 Reported: 03/19/2016 12:31 [...] in one cassette. (Dictated by: Diego Aldana [facility] 03/18/2016 01:28 PM) MICROSCOPIC: Specimen consists of fragments of benign atrophic appearing endometrium with cystic change. ??Specimen is negative for hyperplasia, atypia or malignancy. CPT Codes: A: 13542-DY4 TESTING LAB LOCATION: [address] ??[address] COLLECTION SITE: Client: [facility] Location: [facility] ([facility]) Specimen Anatomical Collection Method Collection Time Receive d Time (Source) Location / / Volume Laterality 03/17/2016 1:14 PM 6 CDT 10:53 AM CDT Jessica Gonzalez MD [facility] Organization Address City/State/ZIP Code Phon e Number COPATH documented in this encounter Visit Diagnoses Diagnosis Menopause - Primary Symptomatic menopausal or female climact lesli states Post-menopausal bleeding Postmenopausal bleeding documented in this encounter
--- OUTSIDE RECORDS SUMMARY | 2022-08-04 07:08 | XMS_ITS | Encounter Summary ---
:1955 Author Organization [place] Address [address] [place] [address]. [place] [address] Care Team Providers Name Role Phone Manish Freedman MD Primary Care Provider [phone] Reason for Visit Reason Onset Date Comments Physical Imm/Inj 09/12/2019 Flu Shot Encounter Details Date Type Department Care Team Description 09/12/2019 Office [facility] finding (Primary Dx[facility] MD Avelino Menopause; [place] [address] [facility] Need for prophylactic vaccin ation and inoculation against influenza [address] [address] [address] [place] [address] [place] [address] (Work) [phone] Social History Tobacco Use Types Packs/Day Years [...] Comments Blood Pressure 138/82 09/12/2019 10:47 AM ROUTE SUPERVISOR Pulse 78 09/12/2019 10:47 AM ROUTE SUPERVISOR Temperature - - Respiratory Rate - - Oxygen Saturation - - Inhaled Oxygen Concentration - - Weight 69.9 kg (154 lb) 09/12/2019 10:47 AM ROUTE SUPERVISOR Height 155.3 cm (5' 1.15) 09/12/2019 10:47 AM ROUTE SUPERVISOR Body Mass Index 28.96 09/12/2019 10:47 AM ROUTE SUPERVISOR documented in this encounter Progress Notes Jessica [...] ??? fluticasone (FLONASE) 50 MCG/ACT nasal spray [place] 2 sprays into both nostrils daily ??? [...] family histories were reviewed and updated in [facility]. ROS: 12 point review of systems negative [...] OK to have mammogram. Jessica Gonzalez MD E SUPERVISOR documented in this encounter Plan of Treatment Not on filedocumented as of this encounter Procedures Procedure Name Priority Date/Time Associated Diagnosis Comme nts HPV HIGH RISK Routine 09/12/2019 11:05 Encounter for Results f or this TYPES DNA CERVICAL AM ROUTE SUPERVISOR gynecological procedur e are in examination without the resu lts abnormal finding section. PAP IMAGED THIN Routine 09/12/2019 10:50 Encounter for Results for this LAYER SCREEN AM ROUTE SUPERVISOR gynecological procedure are in examination without the resu lts abnormal finding section. documented in this encounter Results HPV High Risk Types DNA Cervical (09/12/2019 11:05 AM ROUTE SUPERVISOR) [facility] Method Time Signature HPV Source [facility] 09/12/2019 [facility] 10:51 AM ROUTE SUPERVISOR [facility] [place] HPV 16 DNA Negative NEG^Negat 09/19/2019 [facility] 3:16 PM [facility] HPV 18 DNA Negative NEG^Negat 09/19/2019 [facility] 3:16 PM [facility] Other HR HPV Negative NEG^Negat 09/19/2019 [facility] 3:16 PM [facility] Final This 09/19/2019 [facility] patient's 3:16 PM [facility] sample is [facility] negative for CAMPUS HPV DNA. Comment: This test was developed and its performa nce characteristics determined by the [facility], Molecular Diagnostics Laboratory. It has not [...] Description Cervical Cells 09/12/2019 10: 51 AM [facility] Comment: [id number] Specimen Anatomical Collection Method Collection Time Receive d Time (Source) Location / / Volume Laterality Cervical Cells 09/12/2019 11:05 9 AM ROUTE SUPERVISOR 11:46 AM ROUTE SUPERVISOR Jessica Gonzalez MD LAB - BLOOD ORDERABLES Performing Organization Address City/State/ZIP Code Phon e Number [address] [address] [facility] [address] [place] [address] [phone] [facility] [address] Pap imaged thin layer screen with HPV - recommended age 30 - 65 (09/12/2019 10:50 AM ROUTE SUPERVISOR) Component Value Ref Test Analysis Performed At [facility] Range Method Time Signature PAP NIL COPATH Copath Report COPATH Patient Name: SAVAGE WARD MR#: [id number] Specimen #: [id number] Collected: 09/12/2019 Received: 09/13/2019 Reported: 09/18/2019 11:03 [...] other cancer s. COLLECTION SITE: Client: ??[facility] Location: [facility] (S) The technical component of this testing was completed at the [facility], with the professional compo nent performed at the [facility], [address] [place] [address], [place] [address] ([phone]) Specimen (Source) Anatomical Collection Method Collection Time Re ceived Time Location / / Volume Laterality Cytologic 09/12/2019 10:50 09/13/2019 9:19 material AM ROUTE SUPERVISOR AM ROUTE SUPERVISOR (specimen) Jessica Gonzalez MD LAB - OPTIME [...] documented as of this encounter Care Teams Space [employer] Miss[employer] Spacelift Relationship Specialty Start Date End Date Manish Freedman MD PCP - General Emergency Medicine 08/11/17 [facility] [address] [place] [address] documented as of this encounter
--- OUTSIDE RECORDS SUMMARY | 2022-08-04 07:09 | XMS_ITS | Encounter Summary ---
:1955 Author Organization [place] Address [address] [place] [address]. [place] [address] Care Team Providers Name Role Phone Unavailable Primary Care Provider Unavailable Encounter Details Date Type Department Care Team Description 06/18/2015 Radiant Appointment Dc Ceron screening GYNECOLOGY AND MD Avelino for osteoporosis SURGERY [place] [address] [place] [address] [address] [place], [place] (Work) [phone] Social History Tobacco Use Types [...]
--- OUTSIDE RECORDS SUMMARY | 2022-08-04 07:09 | XMS_ITS | Encounter Summary ---
:1955 Author Organization [place] Address [address] [place] [address] Care Team Providers Name Role Phone Unavailable Primary Care Provider Unavailable Reason for Visit [facility] (Routine) - Closed Specialty Diagnoses / Procedures Referred By Contact Refer red To Contact Arnoldo James DO [facility] [address] [place], [place] [address] Referral ID Status Reason Start Date Expiration Date Visits V isits Requested Authorized PO/OTHER/SPINE Closed 11/27/2008 11/26/2009 20 20 Encounter Details Date Type Department Care Team Description 11/27/2008 Therapy Visit [place] for Maureen Parr Lumbago (Primary Dx) Athletic Medicine - PT [place] [facility] [address] [facility]. [place], [place] [address] [address] [place], [place] [phone] [address] (Work) [phone] Social History Tobacco Use Types Packs/Day Years Used Date Smoking Tobacco: Never Assessed Alcohol Habits Answer Date Recorded [...] Medicaid as primary or secondary insurance? NO RAL STATION OPERATOR documented in this encounter Plan of Treatment Not on filedocumented as of this encounter Procedures Procedure Name Priority Date/Time Associated Diagnosis Comme nts [facility] MANUAL THER Routine 11/27/2008 12:16 PM Lumbago TECH,1+[facility],EA 15 MIN CENTRAL STATION OPERATOR ZC THERAPEUTIC Routine 11/27/2008 12:16 PM Lumbago EXERCISES CENTRAL STATION OPERATOR documented in this encounter Visit Diagnoses Diagnosis Lumbago - Primary documented in this encounter
--- OUTSIDE RECORDS SUMMARY | 2022-08-04 07:09 | XMS_ITS | Encounter Summary ---
:1955 Author Organization [place] Address [address] [place] [address] Care Team Providers Name Role Phone Unavailable Primary Care Provider Unavailable Reason for Referral - Closed Specialty Diagnoses / Procedures Referred By Contact Refer red To Contact Diagnoses Low back pain Lumbar radiculopathy Arnoldo James DO [facility] OR[facility]OP[facility]IC [facility] [address] [place], [place] [address] Referral ID Status Reason Start Date Expiration Date Visits Requ ested Visits Authorized [id number] Closed 11/27/2008 10/17/2011 1 1 NS SERVICE CONDUCTOR Reason for Visit Reason Comments Back Pain rigth SI arean, pain into up per thigh with tinghling, started 3 weeks ago Encounter Details Date Type Department Care Team Description 11/27/2008 Office Visit [facility] Arnoldo James Low Back P ain; Orthopedic DO Angel Luis Lumbar Radiculopathy [facility] [address] [facility], [address] [facility] [address] [place] [address] [phone] Social History Tobacco Use Types Packs/Day Years [...] Comments Blood Pressure 122/76 11/27/2008 9:00 AM TRAINS SERVICE CONDUCTOR Pulse - - Temperature - - Respiratory Rate - - Oxygen Saturation - - Inhaled Oxygen Concentration - - Weight 54.4 kg (120 lb) 11/27/2008 9:00 AM TRAINS SERVICE CONDUCTOR Height 157.5 cm (5' 2) 11/27/2008 9:00 AM TRAINS SERVICE CONDUCTOR Body Mass Index 21.95 11/27/2008 9:00 AM TRAINS SERVICE CONDUCTOR documented in this encounter Progress Notes Saundra Paniagua - 11/27/2008 9:14 AM CST SUBJECTIVE: Marquita [...] abnormality. Evidence of prior tubal ligation present. NS SERVICE CONDUCTOR documented in this encounter Nursing Notes 11/27/2008 [...] Name Priority Date/Time Associated Diagnosis Comme nts X-RAY LUMBAR SPINE Routine 11/27/2008 Low Back Pain Resul ts for this 2-3 VIEWS procedure are i n the results section . documented in this encounter Results X-RAY LUMBAR SPINE 2/3 VW (11/27/2008) Anatomical Region Laterality Modality Other Impressions 11/27/2008 negative for fracture, subluxation or joint space abnormality. Evidence of prior tubal ligation present . Arnoldo James DO GENERAL IMAGING documented in this encounter Visit Diagnoses Diagnosis Low back pain Lumbago Lumbar radiculopathy Thoracic or lumbosacral neuritis or radi culitis, unspecified documented in this encounter
--- OUTSIDE RECORDS SUMMARY | 2022-08-04 07:09 | XMS_ITS | Encounter Summary ---
:1955 Author Organization [place] Address [address] [place] [address]. [place] [address] Care Team Providers Name Role Phone Unavailable Primary Care Provider Unavailable Reason for Visit Reason Comments Physical Encounter Details Date Type Department Care Team Description 06/18/2015 Office Visit [facility] Jessica Gonzalez gynecological examination (Primary Dx); [facility] MD Hematuria FOUNDRY TENDER [address] [place] [address] [place] [address] Social History Tobacco Use Types [...] 0; fluticasone (FLONASE) 50 MCG/ACT nasal spray, [place] 2 sprays into both nostrils daily, Disp: [...] family history were reviewed and updated in [facility]. ROS: C: NEGATIVE for fever, chills, [...] UA without Microscopic (06/18/2015 9:35 AM CDT) [facility] gist Method Time Signature Color Urine Yellow [facility] MGMT CONSULTANT SURG Appearance Urine Clear [facility] MGMT CONSULTANT SURG Glucose Urine Negative NEG mg/dL [facility] MGMT CONSULTANT SURG Bilirubin Urine Negative NEG [facility] MGMT CONSULTANT SURG Ketones Urine Negative NEG mg/dL [facility] MGMT CONSULTANT SURG Specific [place] 1.015 1.003 - [place] Urine 1.035 [facility] MGMT CONSULTANT [facility] Blood Urine 1+ (A) NEG [facility] MGMT CONSULTANT SURG pH Urine 7.0 5.0 - 7.0 [place] pH [facility] MGMT CONSULTANT SURG Protein Albumin Negative NEG mg/dL [place] Urine [facility] MGMT CONSULTANT SURG Urobilinogen 0.2 0.2 - 1.0 [place] Urine EU/dL [facility] MGMT CONSULTANT SURG Nitrite Urine Negative NEG [facility] MGMT CONSULTANT SURG Leukocyte Negative NEG [place] Esterase Urine [facility] MGMT CONSULTANT SURG Source Midstream [place] Urine [facility] MGMT CONSULTANT [facility] Specimen Anatomical Collection Method Collection Time Receive d Time (Source) Location / / Volume Laterality Urine specimen 06/18/2015 9:35 AM 015 9:36 (specimen) CDT AM CDT Jessica Gonzalez MD LAB - URINE ORDERABLES Performing Organization Address City/State/ZIP Code Phon e Number [facility] MGMT CONSULTANT [facility] PAP imaged thin layer screen (06/18/2015 12:00 AM CDT) Component Value Ref Test Analysis Performed At [facility] gist Range Method Time Signature PAP NIL COPATH Copath Report COPATH Patient Name: SAVAGE WARD MR#: [id number] Specimen #: [id number] Collected: 06/18/2015 Received: 06/19/2015 Reported: 06/20/2015 13:01 [...] RUBI Mcmullen (ASCP) Processed and screened at [facility] CLINICAL HISTORY: Papanicolaou Test Limitations: ??Cervical cytology is a scre ening test with limited sensitivity; regular screening is critical for cancer prevention; Pap tests are primarily effective for the diagnosis/prevention of squamous cell carcinoma, not adenoca rcinomas or other cancers. TESTING LAB LOCATION: [address] ??[address] COLLECTION SITE: Client: ??[facility] Location: [facility] Specimen (Source) Anatomical Collection Method Collection [...]
--- OUTSIDE RECORDS SUMMARY | 2022-08-04 07:09 | XMS_ITS | Encounter Summary ---
:1955 Author Organization [place] Address [address] [place] [address] Care Team Providers Name Role Phone Unavailable Primary Care Provider Unavailable Reason for Visit [facility] (Routine) - Closed Specialty Diagnoses / Procedures Referred By Contact Refer red To Contact Arnoldo James DO [facility]IC [facility] [address] [place], [place] [address] Referral ID Status Reason Start Date Expiration Date Visits V isits Requested Authorized PO/OTHER/SPINE Closed 11/27/2008 11/26/2009 20 20 Encounter Details Date Type Department Care Team Description 12/05/2008 Therapy Visit [place] for Athletic Nicole Stovall Lu mbago (Primary Dx) Medicine - [facility] Physical Therapy [facility] Scott Rowe [facility]. [address] [place] [phone] Social History Tobacco Use Types Packs/Day Years [...] Medicaid as primary or secondary insurance? NO T DESK RECEPTIONIST documented in this encounter Plan of Treatment Not on filedocumented as of this encounter Procedures Procedure Name Priority Date/Time Associated Diagnosis Comme nts ZZ[facility] MANUAL THER Routine 12/05/2008 10:59 AM Lumbago TECH,1+[place],EA 15 MIN FRONT DESK RECEPTIONIST ZZC THERAPEUTIC Routine 12/05/2008 10:59 AM Lumbago EXERCISES FRONT DESK RECEPTIONIST documented in this encounter Visit Diagnoses Diagnosis Lumbago - Primary documented in this encounter
--- OUTSIDE RECORDS SUMMARY | 2022-08-04 07:09 | XMS_ITS | Encounter Summary ---
:1955 Author Organization [place] Address [address] [place] [address]. [place] [address] Care Team Providers Name Role Phone Unavailable Primary Care Provider Unavailable Encounter Details Date Type Department Care Team Description 06/18/2015 Radiant Appointment [facility] for Tate Gonzalez Other screening Women Nanci You MD mammogram [address], [address] [place] [phone] Social History Tobacco Use Types Packs/Day Years [...]
== END 2022-08-04 07:06 | disposition home or self-care (01) ==
LOC: INJ CL 07:05
PROVIDERS: PCP Internal Medicine; Visit Provider Family Medicine
DX: M54.16 Radiculopathy, lumbar region (principal); M51.36 Other intervertebral disc degeneration, lumbar region
CPT/HCPCS: 64483; J1100; Q9966

== ENCOUNTER 2022-09-04 09:30 | Outpatient (CLI) | payer OTHER, SELFPAY ==
[2022-09-04 12:37] LABS: Chloride* 105 mmol/L (96-114)
[2022-09-04 12:38] LABS: Albumin* 4.4 g/dL (3.3-5.0); Potassium* 4.5 mmol/L (3.6-5.1); Sodium* 137 mmol/L (135-149)
[2022-09-04 12:40] LABS: Creatinine* 0.8 mg/dL (0.5-1.5); Estimated Glomerular Filt Rate 82 ml/min
[2022-09-04 12:41] LABS: Blood Urea Nitrogen* 15 mg/dL (7-30); Calcium* 9.5 mg/dL (8.4-10.6); Carbon Dioxide* 26 mmol/L (20-32); Glucose* 100 mg/dL (60-115); Phosphorus* 2.5 mg/dL (2.5-4.5)
== END 2022-09-04 09:31 | disposition home or self-care (01) ==
LOC: LKVREF 10:25
PROVIDERS: PCP Internal Medicine; Visit Provider Internal Medicine Nephrology
DX: I10 Essential (primary) hypertension (principal)
CPT/HCPCS: 80069

== ENCOUNTER 2022-11-23 09:26 | Outpatient (CLI) | payer OTHER, SELFPAY ==
[2022-11-23 11:15] LABS: Chloride* 108 mmol/L (96-114)
[2022-11-23 11:16] LABS: Albumin* 4.2 g/dL (3.3-5.0); Potassium* 4.1 mmol/L (3.6-5.1); Sodium* 142 mmol/L (135-149)
[2022-11-23 11:18] LABS: Blood Urea Nitrogen* 15 mg/dL (7-30); Carbon Dioxide* 26 mmol/L (20-32); Creatinine* 0.8 mg/dL (0.5-1.5); Estimated Glomerular Filt Rate 82 ml/min
[2022-11-23 11:19] LABS: Calcium* 9.4 mg/dL (8.4-10.6); Glucose* 126 mg/dL (60-115); Phosphorus* 3.2 mg/dL (2.5-4.5)
== END 2022-11-23 09:27 | disposition home or self-care (01) ==
PROVIDERS: PCP Internal Medicine; Visit Provider Internal Medicine Nephrology
DX: I10 Essential (primary) hypertension (principal)
CPT/HCPCS: 80069

== ENCOUNTER 2022-11-27 13:20 | Outpatient (CLI) | payer OTHER, SELFPAY ==
--- NOTE | 2022-11-27 13:40 | CRLHL7_ITS ---
For Patients: As a result of the Century Cures Act, medical imaging exams and procedure reports are released immediately into your electronic medical record. You may view this report before your referring provider. If you have questions, please contact your health care provider. BILATERAL DIGITAL SCREENING MAMMOGRAM WITH TOMOSYNTHESIS AND COMPUTER-AIDED DETECTION CLINICAL HISTORY: Routine screening exam. COMPARISON: 10/31/2021, 09/24/2020. TECHNIQUE: Digital mammogram in CC and MLO projections including computer-aided detection (CAD). Tomosynthesis utilized. BREAST COMPOSITION: The breasts are heterogeneously dense, which may obscure small masses. FINDINGS: RIGHT Breast: Focal asymmetric density within the retroareolar plane 4 cm from the nipple, slightly in the lower outer quadrant. LEFT Breast: No suspicious findings. IMPRESSION: RIGHT breast asymmetry/mass. RECOMMENDATIONS: Additional mammographic views of the RIGHT breast including 3D spot compression CC/MLO. RIGHT breast ultrasound may also be required. BI-RADS Category 0: Incomplete: Need Additional Imaging Evaluation and/or Prior Mammograms for Comparison The [facility] will contact the patient for follow-up. A lay language report of this examination will be provided to the patient. Dictated by Mart Lira MD @ 11/30/2022 8:54:01 AM jj/Dictated by: Mart Lira MD @ 11/30/2022 8:54:00 AM (Electronically Signed)
== END 2022-11-27 13:21 | disposition home or self-care (01) ==
LOC: MAMMO 13:21
PROVIDERS: PCP Internal Medicine; Visit Provider Internal Medicine
DX: Z12.31 Encounter for screening mammogram for malignant neoplasm of breast (principal); N63.10 Unspecified lump in the right breast, unspecified quadrant; R92.2 Inconclusive mammogram
CPT/HCPCS: 77063; 77067

== ENCOUNTER 2022-12-03 10:24 | Outpatient (CLI) | payer OTHER, SELFPAY ==
--- NOTE | 2022-12-03 10:45 | CRLHL7_ITS ---
For Patients: As a result of the Cures Act, medical imaging exams and procedure reports are released immediately into your electronic medical record. You may view this report before your referring provider. If you have questions, please contact your health care provider. DIGITAL DIAGNOSTIC RIGHT MAMMOGRAM USING TOMOSYNTHESIS AND COMPUTER-AIDED DETECTION RIGHT BREAST ULTRASOUND CLINICAL HISTORY: RIGHT breast mass/asymmetry. COMPARISON: 11/27/2022. TECHNIQUE: Digital RIGHT mammogram in two projections. Tomosynthesis and CAD utilized. Real-time ultrasound imaging of RIGHT breast with imaging documentation. Scanning was performed by both the technologist and the radiologist. BREAST COMPOSITION: There are areas of scattered fibroglandular density. FINDINGS: 3D spot compression CC/MLO RIGHT breast mammogram images submitted. Persistent nodular density within the lateral RIGHT breast without architectural distortion. No suspicious calcifications. Targeted RIGHT breast ultrasound performed 9 o`clock 4 cm from the nipple. In this location there is a simple anechoic cyst corresponding with the mammographic density. This measures 8 x 5 x 8 millimeters. Additional clustered microcysts are present nearby. IMPRESSION: Benign fibrocystic changes RIGHT breast 9 o`clock 4 cm from the nipple. No evidence of malignancy. RECOMMENDATIONS: Routine annual BILATERAL screening mammography. Results and recommendations discussed with the patient. BI-RADS Category 2: Benign A lay language report of this examination will be provided to the patient. Dictated by Mart Lira MD @ 12/03/2022 11:35:39 AM j/Dictated by: Mart Lira MD @ 12/03/2022 11:35:00 AM (Electronically Signed)
--- NOTE | 2022-12-03 11:15 | CRLHL7_ITS ---
For Patients: As a result of the Cures Act, medical imaging exams and procedure reports are released immediately into your electronic medical record. You may view this report before your referring provider. If you have questions, please contact your health care provider. PLEASE SEE DIGITAL DIAGNOSTIC RIGHT MAMMOGRAM PERFORMED SAME DAY CRL:[email or web address] [email or web address]/Dictated by: Mart Lira MD @ 12/03/2022 11:35:00 AM (Electronically Signed)
== END 2022-12-03 10:25 | disposition home or self-care (01) ==
LOC: MAMMO 10:24
PROVIDERS: PCP Internal Medicine; Visit Provider Internal Medicine
DX: N63.10 Unspecified lump in the right breast, unspecified quadrant (principal); R92.8 Other abnormal and inconclusive findings on diagnostic imaging of breast
CPT/HCPCS: 76642; 77065; G0279

== ENCOUNTER 2023-04-05 13:59 | Outpatient (CLI) | payer OTHER, SELFPAY | END 2023-04-05 14:00 | disposition home or self-care (01) | LOC: NFLDREF 14:00 | PROVIDERS: PCP Internal Medicine; Visit Provider Internal Medicine Nephrology | DX: E78.5 Hyperlipidemia, unspecified (principal); I10 Essential (primary) hypertension; R42 Dizziness and giddiness; F41.9 Anxiety disorder, unspecified | CPT/HCPCS: 80069; 84443 ==

== ENCOUNTER 2023-05-26 13:33 | Emergency (ER) | payer OTHER, SELFPAY ==
[2023-05-26] VITALS (11 sets, daily range): BP systolic 155–164; BP diastolic 67–81; PULSE 68–80; RESP 20; TEMP 36.5; O2SAT 96–100; BMI 26.6
--- NOTE | 2023-05-26 13:58 | CRLHL7_ITS ---
For Patients: As a result of the Century Cures Act, medical imaging exams and procedure reports are released immediately into your electronic medical record. You may view this report before your referring provider. If you have questions, please contact your health care provider. INDICATION: .LEFT SIDED ABD PAIN. HX OF GASTRITIS TECHNIQUE: CT abdomen and pelvis without contrast. COMPARISON: April 2021. FINDINGS: Lower chest: Motion. ABDOMEN: Liver: Normal attenuation. Gallbladder and biliary: Normal gallbladder without radiopaque stone. Normal caliber bile ducts. Spleen: Normal size and attenuation. Pancreas: The noncontrast pancreas is homogeneous in attenuation without peripancreatic inflammatory changes or ductal dilatation. Adrenal glands: Normal adrenal glands. Kidneys and ureters: Normal attenuation. No radio-opaque calculi. No hydroureteronephrosis. GI tract: Moderate-sized hiatal hernia. Large duodenal diverticulum. Normal caliber small and large bowel loops. Normal appendix. Colonic diverticulosis without diverticulitis. Vascular structures: Normal caliber aorta with atherosclerotic calcifications. Lymph nodes: No lymphadenopathy in the abdomen or pelvis by size criteria. Peritoneum: No free air, free fluid, or focal drainable fluid collection. PELVIS: Genitourinary system: Normal urinary bladder. Bilateral Essure type devices. Age-appropriate uterus. SKELETAL STRUCTURES AND SOFT TISSUES: Posterior midline linear inflammatory stranding changes, likely sequela of midline posterior approach lumbar surgical procedure, new compared to the 2020 exam. Changes of posterior spinous process partial resection L4 and L5. A few tiny sclerotic foci in the pelvis statistically represent bone islands. Lumbar spondylosis. IMPRESSION: 1. No discrete acute abdominal or pelvic process. No obstruction. No hydroureteronephrosis. 2. Moderate-sized hiatal hernia. Large duodenal diverticulum. No discrete areas of adjacent inflammatory stranding. 3. Posterior midline linear inflammatory stranding changes, likely sequela of midline posterior approach lumbar surgical procedure, new compared to the 2020 exam. Recommend correlation with patient history of procedure. Please note that all CT scans at this facility use dose modulation, iterative reconstruction, and/or weight-based dosing when appropriate to reduce radiation dose to as low as reasonably achievable. Dictated by Mart Whelan MD @ 05/26/2023 3:37:16 PM (Electronically Signed)
--- NOTE | 2023-05-26 14:00 | ED.GENADULT ---
HPI - General Adult General Time Seen by Provider: 14:00 <Júnior Salmon MD - Last Filed: 06/08/23 09:45> Date Seen: 05/26/23 <Júnior Salmon MD - Last Filed: 06/08/23 09:45> Chief complaint: Abdominal Pain <Júnior Salmon MD - Last Filed: 06/08/23 09:45> Stated complaint: abdominal pain/syncope <Júnior Salmon MD - Last Filed: 06/08/23 09:45> Time Seen by Provider: 05/26/23 13:42 <Júnior Salmon MD - Last Filed: 06/08/23 09:45> Source: patient <Júnior Salmon MD - Last Filed: 06/08/23 09:45> Mode of arrival: ambulatory <Júnior Salmon MD - Last Filed: 06/08/23 09:45> Limitations: no limitations <Júnior Salmon MD - Last Filed: 06/08/23 09:45> History of Present Illness HPI narrative: Patient is a pleasant 68 year white female has had a history of gastritis in the past, was at [employer] today and had some epigastric pain she felt lightheaded nearly passed out. She did not have chest pain or shortness of breath. No diaphoresis or nausea. Did feel little bit dizzy. She felt better and then tried to go home and it recurred. She called the triage nurse at the clinic and they told her to come to the ER. Patient denies recent illness, she has a history of gastritis and similar symptoms when she had gastritis/duodenitis. She has not had any GI bleeding symptoms, fevers, chills, cough, chest pain. She reports some epigastric discomfort that is somewhat tender and palpable. No palpable masses noted. <Júnior Salmon MD - Last Filed: 06/08/23 09:45> Related Data Home medications: Home Medications Medication Instructions Recorded Confirmed omeprazole 20 mg capsule,delayed 20 mg PO QDAY 06/02/22 05/26/23 release irbesartan 300 mg tablet 300 mg PO QDAY 11/24/22 05/26/23 amlodipine 2.5 mg tablet 2.5 mg PO QDAY 05/08/23 08/09/23 eplerenone 25 mg tablet 25 mg PO QDAY 04/05/23 05/26/23 Previous Rx's Medication Instructions Recorded rosuvastatin 5 mg tablet (Crestor) 5 mg PO QDAY Hyperlipidemia #30 05/21/23 tabs pantoprazole 40 mg tablet,delayed 40 mg PO DAILY #30 tabs 05/26/23 release (Protonix) lorazepam 1 mg tablet 1 mg PO BID Anxiety #30 tabs 06/08/23 <Júnior Salmon MD - Last Filed: 06/08/23 09:45> Allergies/adverse reactions: Allergies Allergy/AdvReac Type Severity Reaction Status Date / Time No Known Drug Allergies Allergy Verified 05/26/23 13:49 <Júnior Salmon MD - Last Filed: 06/08/23 09:45> Review of Systems Status of ROS: Reports: 6 or more systems reviewed and unremarkable except as noted in History and below <Júnior Salmon MD - Last Filed: 06/08/23 09:45> [facility] Medical History: Medical History Excessive daytime sleepiness ?G47.19 - Other hypersomnia (ICD-10) Tubular adenoma of colon ?D12.6 - Benign neoplasm of colon, unspecified (ICD-10) Irritable bowel syndrome ?K58.9 - Irritable bowel syndrome without diarrhea (ICD-10) Hypertension ?I10 - Essential (primary) hypertension (ICD-10) Hyperlipidemia ?E78.5 - Hyperlipidemia, unspecified (ICD-10) Gastritis ?K29.70 - Gastritis, unspecified, without bleeding (ICD-10) Duodenitis ?K29.80 - Duodenitis without bleeding (ICD-10) Chronic insomnia ?F51.04 - Psychophysiologic insomnia (ICD-10) Anxiety ?F41.9 - Anxiety disorder, unspecified (ICD-10) <Júnior Salmon MD - Last Filed: 06/08/23 09:45> Family History: Family History Father Heart disease High cholesterol Mother High blood pressure <Júnior Salmon MD - Last Filed: 06/08/23 09:45> Social History: Social History Narrative: Retired. Exercises 5 times a week. . Alcohol use: 5 drinks per week. Nonsmoker. Smoking Status: Never smoker Do you use any of these nicotine containing products: None How often do you have a drink containing alcohol: 2-3 times a week How many standard drinks containing alcohol do you have on a typical day: 1 or 2 How often do you have six or more drinks on one occasion: Never AUDIT-C Alcohol total score: 3 Non-prescribed substance use: denies use Little interest or pleasure in doing things: not at all Feeling down, depressed, or hopeless: not at all service: No <Júnior Salmon MD - Last Filed: 06/08/23 09:45> Exam Narrative: Exam Narrative: Objective: Vital signs show slightly elevated systolic pressure, afebrile General no apparent distress HEENT is unremarkable no facial asymmetry no scleral icterus Neck is supple Pulse regular Heart rhythm regular without murmur Abdomen nontender although she does have some minimal tenderness in her epigastrium. No palpable masses, no rebound Extremities normal neck good perfusion Neurologic nonfocal upper extremities <Júnior Salmon MD - Last Filed: 06/08/23 09:45> Const: Vital Signs, click to edit/add: Vital Signs - 24 hr 05/26/23 13:39 05/26/23 14:15 05/26/23 14:32 Temperature 97.7 F Pulse Rate Pulse Rate [Left P ulse Oximeter] 80 Respiratory Rate 20 Blood Pressure 164/67 H Blood Pressure [Le ft Upper Arm] 155/80 H Pulse Oximetry 100 100 Oxygen Delivery Me thod Room Air 05/26/23 15:05 05/26/23 15:15 05/26/23 15:30 Temperature Pulse Rate 71 68 71 Pulse Rate [Left P ulse Oximeter] Respiratory Rate Blood Pressure Blood Pressure [Le ft Upper Arm] Pulse Oximetry 97 97 98 Oxygen Delivery Me thod 05/26/23 15:31 05/26/23 15:45 Temperature Pulse Rate 71 71 Pulse Rate [Left P ulse Oximeter] Respiratory Rate Blood Pressure 157/71 H Blood Pressure [Le ft Upper Arm] Pulse Oximetry 96 97 Oxygen Delivery Me thod <Júnior Salmon MD - Last Filed: 06/08/23 09:45> Vital Signs, click to edit/add: Vital Signs - 24 hr 05/26/23 13:39 05/26/23 14:15 05/26/23 14:32 Temperature 97.7 F Pulse Rate Pulse Rate [Left P ulse Oximeter] 80 Respiratory Rate 20 Blood Pressure 164/67 H Blood Pressure [Le ft Upper Arm] 155/80 H Pulse Oximetry 100 100 Oxygen Delivery Me thod Room Air 05/26/23 15:05 05/26/23 15:15 05/26/23 15:30 Temperature Pulse Rate 71 68 71 Pulse Rate [Left P ulse Oximeter] Respiratory Rate Blood Pressure Blood Pressure [Le ft Upper Arm] Pulse Oximetry 97 97 98 Oxygen Delivery Me thod 05/26/23 15:31 05/26/23 15:45 Temperature Pulse Rate 71 71 Pulse Rate [Left P ulse Oximeter] Respiratory Rate Blood Pressure 157/71 H Blood Pressure [Le ft Upper Arm] Pulse Oximetry 96 97 Oxygen Delivery Me thod <Mt Boone MD - Last Filed: 05/26/23 16:03> Course Vital Signs Vital signs: Initial Vital Signs Temperature 97.7 F 05/26/23 13:39 Temperature Source Temporal Artery Scan 05/26/23 13:39 Pulse Rate 80 05/26/23 13:39 Pulse Rhythm Regular 05/26/23 13:39 Respiratory Rate 20 05/26/23 13:39 Blood Pressure 155/80 H 05/26/23 13:39 Blood Pressure Mean 105 05/26/23 13:39 Blood Pressure Position Sitting 05/26/23 13:39 Pulse Oximetry 100 05/26/23 13:39 Oxygen Delivery Method Room Air 05/26/23 13:39 Vital Signs Temperature 97.7 F 05/26/23 13:39 Pulse Rate 80 05/26/23 13:39 Respiratory Rate 20 05/26/23 13:39 Blood Pressure 155/80 H 05/26/23 13:39 Pulse Oximetry 100 05/26/23 13:39 Oxygen Delivery Method Room Air 05/26/23 13:39 Temperature 97.7 F 05/26/23 13:39 Pulse Rate 69 05/26/23 16:01 Respiratory Rate 20 05/26/23 16:11 Blood Pressure 163/81 H 05/26/23 16:01 Pulse Oximetry 98 05/26/23 16:01 Oxygen Delivery Method Room Air 05/26/23 13:39 <Júnior Salmon MD - Last Filed: 06/08/23 09:45> Initial Vital Signs Temperature 97.7 F 05/26/23 13:39 Temperature Source Temporal Artery Scan 05/26/23 13:39 Pulse Rate 80 05/26/23 13:39 Pulse Rhythm Regular 05/26/23 13:39 Respiratory Rate 20 05/26/23 13:39 Blood Pressure 155/80 H 05/26/23 13:39 Blood Pressure Mean 105 05/26/23 13:39 Blood Pressure Position Sitting 05/26/23 13:39 Pulse Oximetry 100 05/26/23 13:39 Oxygen Delivery Method Room Air 05/26/23 13:39 Vital Signs Temperature 97.7 F 05/26/23 13:39 Pulse Rate 80 05/26/23 13:39 Respiratory Rate 20 05/26/23 13:39 Blood Pressure 155/80 H 05/26/23 13:39 Pulse Oximetry 100 05/26/23 13:39 Oxygen Delivery Method Room Air 05/26/23 13:39 Temperature 97.7 F 05/26/23 13:39 Pulse Rate 69 05/26/23 16:01 Respiratory Rate 20 05/26/23 16:11 Blood Pressure 163/81 H 05/26/23 16:01 Pulse Oximetry 98 05/26/23 16:01 Oxygen Delivery Method Room Air 05/26/23 13:39 <Mt Boone MD - Last Filed: 05/26/23 16:03> Medical Decision Making MDM Narrative Medical decision making narrative: [age] year white female with a history of gastritis/duodenitis couple years ago, presenting in a similar fashion. She continues to have intermittent symptoms. Because she has some epigastric tenderness I suspect this may be the gastritis recurrence. Would give her some IV fluids IV Protonix. Will check for cardiac issues as well with a phototypesetting equipment monitor, EKG, troponin point of care. Loss check labs and electrolytes, CRP. I think finally a CT scan of her abdomen and pelvis would be helpful to make sure she did have recurrent duodenitis pancreatitis or gastritis. Will check an amylase as well. Patient comfortable plan. <Júnior Salmon MD - Last Filed: 06/08/23 09:45> [age] year white female with a history of gastritis/duodenitis couple years ago, presenting in a similar fashion. She continues to have intermittent symptoms. Because she has some epigastric tenderness I suspect this may be the gastritis recurrence. Would give her some IV fluids IV Protonix. Will check for cardiac issues as well with a phototypesetting equipment monitor, EKG, troponin point of care. Loss check labs and electrolytes, CRP. I think finally a CT scan of her abdomen and pelvis would be helpful to make sure she did have recurrent duodenitis pancreatitis or gastritis. Will check an amylase as well. Patient comfortable plan. Lab results and imaging results returned with reassuring findings. The patient states that she is feeling better. She is okay to be discharged home. I did provide a prescription for Protonix. <Mt Boone MD - Last Filed: 05/26/23 16:03> Lab Data Labs: Lab Results 05/26/23 05/26/23 05/26/23 Range/Units 13:58 14:50 15:03 WBC 7.27 (4.50-11.00) K/uL RBC 3.84 L (4.00-5.20) m/uL Hgb 11.8 L (12.0-16.0) gm/dL Hct 34.7 (33.0-51.0) % MCV 90 (80-100) fL MCH 31 (26-34) pg MCHC 34 (32-36) gm/dL RDW Coeff of Jalyn 12.9 (11.5-15.5) % Plt Count 238 (140-440) K/uL Neut % (Auto) 62.6 (42.0-72.0) % Lymph % (Auto) 28.1 (20-44) % Cabell % (Auto) 6.7 (0.0-11.0) % Eos % (Auto) 1.4 (0.0-7.0) % Baso % (Auto) 0.4 (0.0-3.0) % Neut # (Auto) 4.55 (1.7-7.0) K/uL Lymph # (Auto) 2.04 (0.90-2.90) K/uL Cabell # (Auto) 0.50 (0.00-0.90) K/UL Eos # (Auto) 0.10 (0.00-0.50) K/uL Baso # (Auto) 0.03 (0.00-0.30) K/uL Abs Immat Gran (auto) 0.06 (0.00-0.30) K/uL Imm/Tot Granulo (auto) 0.8 % Sodium 138 (135-149) mmol/L Potassium 3.9 (3.6-5.1) mmol/L Chloride 105 (96-114) mmol/L Carbon Dioxide 27 (20-32) mmol/L BUN 14 (7-30) mg/dL Creatinine 0.8 (0.5-1.5) mg/dL Estimated Creat Clear 41.76 Estimated GFR 81 ml/min Glucose 99 (60-115) mg/dL Calcium 9.6 (8.4-10.6) mg/dL Total Bilirubin 1.4 (0.1-1.5) mg/dL Direct Bilirubin 0.1 (0.0-0.5) mg/dL AST 31 (12-35) U/L ALT 29 (4-35) U/L Alkaline Phosphatase 79 (40-150) U/L C-Reactive Protein < 0.5 L (0.5-1.0) mg/dL Total Protein 6.9 (6.0-8.3) g/dL Albumin 4.2 (3.3-5.0) g/dL Amylase 59 (18-89) U/L Urine Color Yellow (Yellow) Urine Appearance Clear (Clear) Urine pH 7.0 (5.0-8.5) Ur Specific Eden 1.015 (1.000-1.030) Urine Protein Negative (Negative) Urine Glucose (UA) Negative (Negative) Urine Ketones Negative (Negative) Urine Blood Trace-lysed A (Negative) Urine Nitrite Negative (Negative) Urine Bilirubin Negative (Negative) Urine Urobilinogen 0.2 (0.2-1.0) Ur Leukocyte Esterase Negative (Negative) Urine RBC 0-2 (0-2) Urine WBC 0-2 (0-5) Ur Squamous Epith Cells Few (None-Few) Amorphous Sediment Few A (None) Urine Bacteria None (None) POC Troponin I 0.00 L (0.01-0.04) ng/ml <Júnior Salmon MD - Last Filed: 06/08/23 09:45> Lab Results 05/26/23 05/26/23 05/26/23 Range/Units 13:58 14:50 15:03 WBC 7.27 (4.50-11.00) K/uL RBC 3.84 L (4.00-5.20) m/uL Hgb 11.8 L (12.0-16.0) gm/dL Hct 34.7 (33.0-51.0) % MCV 90 (80-100) fL MCH 31 (26-34) pg MCHC 34 (32-36) gm/dL RDW Coeff of Jalyn 12.9 (11.5-15.5) % Plt Count 238 (140-440) K/uL Neut % (Auto) 62.6 (42.0-72.0) % Lymph % (Auto) 28.1 (20-44) % Cabell % (Auto) 6.7 (0.0-11.0) % Eos % (Auto) 1.4 (0.0-7.0) % Baso % (Auto) 0.4 (0.0-3.0) % Neut # (Auto) 4.55 (1.7-7.0) K/uL Lymph # (Auto) 2.04 (0.90-2.90) K/uL Cabell # (Auto) 0.50 (0.00-0.90) K/UL Eos # (Auto) 0.10 (0.00-0.50) K/uL Baso # (Auto) 0.03 (0.00-0.30) K/uL Abs Immat Gran (auto) 0.06 (0.00-0.30) K/uL Imm/Tot Granulo (auto) 0.8 % Sodium 138 (135-149) mmol/L Potassium 3.9 (3.6-5.1) mmol/L Chloride 105 (96-114) mmol/L Carbon Dioxide 27 (20-32) mmol/L BUN 14 (7-30) mg/dL Creatinine 0.8 (0.5-1.5) mg/dL Estimated Creat Clear 41.76 Estimated GFR 81 ml/min Glucose 99 (60-115) mg/dL Calcium 9.6 (8.4-10.6) mg/dL Total Bilirubin 1.4 (0.1-1.5) mg/dL Direct Bilirubin 0.1 (0.0-0.5) mg/dL AST 31 (12-35) U/L ALT 29 (4-35) U/L Alkaline Phosphatase 79 (40-150) U/L C-Reactive Protein < 0.5 L (0.5-1.0) mg/dL Total Protein 6.9 (6.0-8.3) g/dL Albumin 4.2 (3.3-5.0) g/dL Amylase 59 (18-89) U/L Urine Color Yellow (Yellow) Urine Appearance Clear (Clear) Urine pH 7.0 (5.0-8.5) Ur Specific Eden 1.015 (1.000-1.030) Urine Protein Negative (Negative) Urine Glucose (UA) Negative (Negative) Urine Ketones Negative (Negative) Urine Blood Trace-lysed A (Negative) Urine Nitrite Negative (Negative) Urine Bilirubin Negative (Negative) Urine Urobilinogen 0.2 (0.2-1.0) Ur Leukocyte Esterase Negative (Negative) Urine RBC 0-2 (0-2) Urine WBC 0-2 (0-5) Ur Squamous Epith Cells Few (None-Few) Amorphous Sediment Few A (None) Urine Bacteria None (None) POC Troponin I 0.00 L (0.01-0.04) ng/ml <Mt Boone MD - Last Filed: 05/26/23 16:03> Imaging Data CT scan - abdomen: Radiologist's impression: 1. No discrete acute abdominal or pelvic process. No obstruction. No hydroureteronephrosis. 2. Moderate-sized hiatal hernia. Large duodenal diverticulum. No discrete areas of adjacent inflammatory stranding. 3. Posterior midline linear inflammatory stranding changes, likely sequela of midline posterior approach lumbar surgical procedure, new compared to the 2020 exam. Recommend correlation with patient history of procedure. <Mt Boone MD - Last Filed: 05/26/23 16:03> Discharge Plan Discharge Clinical Impression: Abdominal pain, Gastritis <Júnior Salmon MD - Last Filed: 06/08/23 09:45> Patient Disposition: Home w/ Parent or Adult <Júnior Salmon MD - Last Filed: 06/08/23 09:45> Condition: Improved <Júnior Salmon MD - Last Filed: 06/08/23 09:45> Additional Instructions: Rest, light activity, light diet, follow up with regular doctor next 2-3 days, continue home medications. <Júnior Salmon MD - Last Filed: 06/08/23 09:45> Activity Level: No Restrictions <Júnior Salmon MD - Last Filed: 06/08/23 09:45> No Restrictions <Mt Boone MD - Last Filed: 05/26/23 16:03> Discharge Diet: Clear Liquid <Júnior Salmon MD - Last Filed: 06/08/23 09:45> Clear Liquid <Mt Boone MD - Last Filed: 05/26/23 16:03> Diet Detail: Advance diet as tolerated <Júnior Salmon MD - Last Filed: 06/08/23 09:45> Advance diet as tolerated <Mt Boone MD - Last Filed: 05/26/23 16:03> Prescriptions: New pantoprazole [Protonix] 40 mg tablet,delayed release (DR/EC) 40 mg PO DAILY Qty: 30 2RF No Action omeprazole 20 mg capsule,delayed release(DR/EC) 20 mg PO QDAY irbesartan 300 mg tablet 300 mg PO QDAY amlodipine 2.5 mg tablet 2.5 mg PO QDAY eplerenone 25 mg tablet 25 mg PO QDAY rosuvastatin [Crestor] 5 mg tablet 5 mg PO QDAY Qty: 30 3RF Hold Instructions: No taking for 1 week lorazepam 1 mg tablet 1 mg PO BID Qty: 30 0RF <Júnior Salmon MD - Last Filed: 06/08/23 09:45> Follow Up/Referrals: Manish Freedman MD [Primary Care Provider] - <Júnior Salmon MD - Last Filed: 06/08/23 09:45> Stand Alone Forms: [facility] Info Instructions <Júnior Salmon MD - Last Filed: 06/08/23 09:45>
[2023-05-26 14:19] LABS: Appearance Urine Clear (Clear); Bilirubin Urine Negative (Negative); Blood Urine Trace-lysed (Negative); Color Urine Yellow (Yellow); Glucose Urine Negative (Negative); Ketones Urine Negative (Negative); Leukocyte Esterase Urine Negative (Negative); Nitrite Urine Negative (Negative); Protein Urine Negative (Negative); Specific Gravity Urine 1.015 (1.000-1.030); Urobilinogen Urine 0.2 (0.2-1.0)
[2023-05-26 14:27] LABS: Amorphous Sediment Urine Few; RBC Urine 0-2 (0-2); Squamous Epithelial Cell Urine Few (None-Few); WBC Urine 0-2 (0-5)
[2023-05-26] MEDS: 0.9 % SODIUM CHLORIDE 1000 ml 1,000 ML 6000 ML IV (14:49)
[2023-05-26] MEDS: PANTOPRAZOLE SODIUM 40 MG INJ IVP (14:49)
[2023-05-26 14:57] LABS: Basophils Absolute Auto 0.03 K/uL (0.00-0.30); Basophils Percent Auto 0.4 % (0.0-3.0); Eosinophils Percent Auto 1.4 % (0.0-7.0); Hematocrit 34.7 % (33.0-51.0); Hemoglobin* 11.8 gm/dL (12.0-16.0); Immature Granulocytes Abs Auto 0.06 K/uL (0.00-0.30); Immature Granulocytes Pct Auto 0.8 %; Lymphocytes Absolute Auto 2.04 K/uL (0.90-2.90); Lymphocytes Percent Auto 28.1 % (20-44); Mean Corpuscular HGB Conc 34 gm/dL (32-36); Mean Corpuscular Hemoglobin 31 pg (26-34); Mean Corpuscular Volume 90 fL (80-100); Monocytes Percent Auto 6.7 % (0.0-11.0); Neutrophils Absolute Auto 4.55 K/uL (1.7-7.0); Neutrophils Percent Auto 62.6 % (42.0-72.0); Platelet Count* 238 K/uL (140-440); RDW Coefficient of Variation % 12.9 % (11.5-15.5); Red Blood Count 3.84 m/uL (4.00-5.20); White Blood Count* 7.27 K/uL (4.50-11.00)
[2023-05-26 15:22] LABS: Albumin* 4.2 g/dL (3.3-5.0); Chloride* 105 mmol/L (96-114); Sodium* 138 mmol/L (135-149)
[2023-05-26 15:23] LABS: Potassium* 3.9 mmol/L (3.6-5.1)
[2023-05-26 15:25] LABS: Amylase* 59 U/L (18-89); Bilirubin Direct* 0.1 mg/dL (0.0-0.5); Bilirubin Total* 1.4 mg/dL (0.1-1.5); Carbon Dioxide* 27 mmol/L (20-32); Creatinine* 0.8 mg/dL (0.5-1.5); Est. Creatinine Clearance* 41.76; Estimated Glomerular Filt Rate 81 ml/min
[2023-05-26 15:26] LABS: Alanine Aminotransferase* 29 U/L (4-35); Alkaline Phosphatase* 79 U/L (40-150); Aspartate Amino Transferase* 31 U/L (12-35); Blood Urea Nitrogen* 14 mg/dL (7-30); Calcium* 9.6 mg/dL (8.4-10.6); Glucose* 99 mg/dL (60-115); Total Protein* 6.9 g/dL (6.0-8.3)
[2023-05-26 15:30] LABS: C Reactive Protein* < 0.5 mg/dL (0.5-1.0)
[2023-05-26 15:31] LABS: Slide Review Reflex No
== END 2023-05-26 16:11 | disposition home or self-care (01) ==
PROVIDERS: Emergency Provider Family Medicine; PCP Internal Medicine
DX: R10.9 Unspecified abdominal pain (principal); K52.9 Noninfective gastroenteritis and colitis, unspecified
CPT/HCPCS: 36415; 74176; 80048; 80076; 81001; 82150; 84484; 85025; 86140; 87086; 93005; 94761; 99283; 99284; 99285; C9113; J7030

== ENCOUNTER 2023-06-28 14:57 | Outpatient (CLI) | payer OTHER, SELFPAY ==
--- OUTSIDE RECORDS SUMMARY | 2023-06-30 00:51 | XMS_ITS | Continuity of Care Document ---
Author Name Unknown Organization [facility] Address [address] [address] [place] [address] Phone Care Team Providers Care Senior Hr Generalist Name Role Phone Mary Roberto CRNA Unavailabl e Allergies, Adverse Reactions, Alerts Substance Reaction Status Criticality No Known Allergies Active No Inform ation Medications Medication Instructions Dosage Effective Dates (start - stop) Status Comments lisinopril 20 mg tablet take 1 tablet by oral route every day 20 MG - Active atorvastatin 20 mg tablet take 1 tablet by oral route every day 20 MG - Active Nasonex 50 mcg/actuation Makanda spray 1 spray by Intranasal route every day in each nostril 1 spray - Active Jinteli 1 mg-5 mcg tablet take 0.5 tablet by oral route every day 0.5 tablet - Active hydrochlorothiazide 25 mg tablet take 1 Tablet by ORAL route every day 25 MG - Active LORAZEPAM (unknown strength) take 0.5 - 1 Tablet by ORAL route every day as needed Not Available - Active Prilosec OTC Take 1 tablet by mouth daily - Active fluticasone 50 mcg/Actuation Nasal Makanda, Susp spray 2 spray by Intranasal route every day in each nostril 2 spray - Active losartan 25 mg tablet take 1 tablet by oral route every day 25 MG - No Longer Active ondansetron 4 mg disintegrating tablet take 1 Tablet PRN - No Longer Active Procedures Procedure Date Colonoscopy Flex; W/bx 1/mx Level Iv-surg Path Gross/micro 21 Offic/outpt E&m Estab Mod-hi 2 18 Offic/outpt E&m Estab Mod-hi 2 18 Routine Serum Collection Hepatic Function Panel Offic/outpt E&m Estab Mod-hi 2 15 Routine Serum Collection Gg; Iga, Igd, Igg, Igm, Ea Colonoscopy Flex; W/bx 1/mx Ugi Endo; W/bx 1/mx Level Iv-surg Path Gross/micro 15 Offic/outpt E&m New Mod-nm Offic/outpt E&m Estab Mod-hi 2 11 Routine Serum Collection [id number] Colonoscopy Flex; Dx (sep Pro) 07 Offic/outpt E&m Estab Low-mod 7 Offic/outpt E m Estab Low Advance Directives Directive Yes / No Effective Date File Name No Information Encounters Encounter Description Practice Location Reason(s) For Visit Diagnoses Date Provider Providers Copied on Encounter [facility], [address] [address], [place], [id number], [place] tel:[phone] [facility] No Information 1 Felisa Hernandez. [address] [facility], [address], [place], [id number], [place]. tel:[phone] Referring Provider: Nicko Haney MD H, [address] [facility] [address], [place], [address] . tel:[phone] [facility], [address] [address], [place], [id number], [place] tel:[phone] [facility] Personal history of colonic polypsDiverticul osis of colon without diverticulitisCo lorectal polyp detected on colonoscopyEncou nter for screening for malignant neoplasm of colonBenign neoplasm of transverse colonPersonal history of colonic polyps 1 Lyndon Maharaj. [address] [facility], [address], [place], [place], [id number], [place]. tel:[phone] Referring Provider: Referral Self. [facility], [address] [address], [place], [place], [id number], [place] tel:[phone] [facility] No Information 1 Rob Drew. [address] [facility], [address], [place], [place], [id number], [place]. tel:[phone] Offic/outpt E&m Estab Mod-hi 2 [facility], [address] [address], [place], [id number], [place] tel:[phone] [facility] GI Symptoms or Concerns (chief complaint) Right upper quadrant abdominal painFatty liverEssential (primary) hypertension Josef- 5 8 Ching Heard. [address] [facility], [address], [place], [place], [id number], [place]. tel:[phone] Referring Provider: Referral Self. [facility], [address] [address], [place], [id number], [place] tel:[phone] [facility] Right upper quadrant abdominal pain Apr-3 0-201 8 Ching Heard. [address] [facility], [address], [place], [place], [id number], [place]. tel:[phone] Offic/outpt E&m Estab Mod-hi 2 [facility], [address] [address], [place], [id number], [place] tel:[phone] [facility] GI Symptoms or Concerns (chief complaint) Right upper quadrant abdominal painDietary counseling and surveillanceEsse ntial (primary) hypertension Jan-2 4-201 8 Ching Heard. [address] [facility], [address], [place], [place], [id number], [place]. tel:[phone] Referring Provider: Referral Self. Offic/outpt E&m Estab Mod-hi 2 [facility], [address] [address], [place], [id number], [place] tel:[phone] [facility] GI Symptoms or Concerns (chief complaint) Irritable bowel syndrome with diarrheaDietary counseling and surveillance 5 Alysha Mercado. [address] [facility], [facility] [address], [place], [id number], [place]. tel:[phone] Referring Provider: Marquita Johnson MD, [address] [place], [address]. tel:[phone] [facility], [address] [address], [place], [id number], [place] tel:[phone] [facility] No Information 5 Alysha Mercado. [address] [place] [address], [facility] [address], [place], [id number], [place]. tel:[phone] Referring Provider: Marquita Johnson MD, [address] [place], [address]. tel:[phone] [facility], [address] [address], [place], [id number], [place] tel:[phone] [facility] Diarrhea 5 Alysha Mercado. [address] [place] [address], [facility] [address], [place], [id number], [place]. tel:[phone] [facility], [address] [address], [place], [id number], [place] tel:[phone] [facility] Hiatal herniaColon polypsDiverticul osis of large intestine without hemorrhageLympho cytosis (symptomatic)Sarmad ign neoplasm of transverse colonLymphocytos is (symptomatic)Lorenza phragmatic hernia without obstruction or gangrene 5 Alysha Mercado. [address] [place] [address], [address], [place], [place], [id number], [place]. tel:[phone] Referring Provider: Marquita Johnson MD, [address], [place], [address]. tel:[phone] Offic/outpt E&m New Mod-hi [facility], [address] [address], [place], [place], [id number], [place] tel:[phone] [facility] GI Symptoms or Concerns (chief complaint) DiarrheaAbdomina l painNauseaNausea Diarrhea, unspecifiedUnspe cified abdominal pain Sep-2 5 Alysha Mercado. [address] [facility], [address], [place], [id number], [place]. tel:[phone] Referring Provider: Marquita Johnson MD, [address], [place], [address]. tel:[phone] Offic/outpt E&m [facility] Mod-hi 2 [facility], [address] [address], [place], [place], [address], [place] tel:[phone] [facility] Abdominal burning (chief complaint) Epigastric Pain Sep-2 1 Lyndon Maharaj. [address] [facility], [address], [place], [place], [id number], [place]. tel:[phone] Referring Provider: Referral Self. [facility], [address] [address], [place], [place], [id number], [place] tel:[phone] [facility] Colon Cancer ScreeningDiverti culosis Of Colon Jan- 7 Lyndon Maharaj. [address] [facility], [address], [place], [place], [id number], [place]. tel:[phone] Offic/outpt E&m Estab Low-mod [facility], [address] [address], [place], [place], [id number], [place] tel:[phone] [facility] Gastroesophageal Reflux Fe-0 7 Lyndon Maharaj. [address] [facility], [address], [place], [id number], [place]. tel:[phone] Offic/outpt E daniele [place] [facility], [address] [address], [place], [id number], [place] tel:[phone] [facility] Gastroesophageal Reflux 6 Lyndon Maharaj. [address] [facility], [address], [place], [id number], [place]. tel:[phone] Family History Family Member Type Diagnosis Age At Onset Brother Problem (finding) Alive and well Mother Problem (finding) Alive and well First degree family history Problem (finding) diverticulitis of colon Father Problem (finding) malignant neop lasm of lung (Cause Of ) Son Problem (finding) Alive and well First degree family history Problem (finding) Cancer -CLL First degree family history Problem (finding) GERD Sister Problem (finding) thyroid cancer Sister Problem (finding) Alive and well Father Problem (finding) First degree family history Problem (finding) malignant neoplasm of lung First degree family history Problem (finding) No history of Ulcerative Colitis Daughter Problem (finding) Alive and well First degree family history Problem (finding) No Family history of No history of Colon Polyps Sister Problem (finding) gallbladder disease Sister Problem (finding) Colon polyps First degree family history Problem (finding) Cholelithasis Father Problem (finding) Lymphoma (Cause Of Deat h) Sister Problem (finding) IBS Mother Problem (finding) reflux First degree family history Problem (finding) No history of Cancer, colon First degree family history Problem (finding) No history of Crohn's Immunizations Vaccine Date Status Comments SARS-COV-2 (COVID-19) vaccin e, mRNA, spike protein, LNP, preservative free, 100 mcg/0.5mL dose administered Note: [facility] bi-direct ional interface ; Source: Other Registry Seasonal, quadrivalent, recombinant, injectable influenza vaccine, preservative free administered Note: [facility] bi-direct ional interface ; Source: Other Registry Seasonal, quadrivalent, recombinant, injectable influenza vaccine, preservative free administered Note: [facility] bi-direct ional interface ; Source: Other Registry Afluria Qd administered Note: [facility] bi-directional interface ; Source: Other Registry zoster vaccine recombinant administered N ote: [facility] bi-directional interface ; Source: Other Registry Pneumovax 23 administered Note: [facility] bi-d irectional interface ; Source: Other Registry Influenza, injectable, quadrivalent, preservative free, 3 yrs or older administered Source: Other Provi stefano Afluria Qd administered Note: [facility] bi-directional interface ; Source: Other Registry Afluria Qd administered Note: [facility] bi-directional interface ; Source: Other Registry Influenza, seasonal, injectable, preservative free administered Note: [facility] bi-directional interface ; Source: Other Registry Influenza virus vaccine, injectable, quadrivalent, split virus, preservative free, 3 years or older Fluarix Quad 8013-8574 administered Note: Invalid docume nted admin date was //2013. ; Source: Other Provider Novel [id number], all formulations administered Note: [facility] bi-direct ional interface ; Source: Other Registry tetanus toxoid, reduced diphtheria toxoid, and acellular pertussis vaccine, adsorbed administered Note: [facility] bi-direct ional interface ; Source: Other Registry Payers Payer name Insurance type Covered democrat ID Authoriza tion(s) R CI [id number] Social History Type Description Quantity Date Captured Comments Sex Female Smoking Status No Information Chief Complaint And Reason For Visit No Information Reason For Referral Reason For Referral No Information Plan Of Treatment Date Type Action Status Goal Lifestyle education regardin g diet completed Goal Lifestyle education regardin g diet completed Referral Ordered: Xray Abdomen Complete Appointment date/timeframe: -today ordered Referral Ordered: Ultrasound Abdomen Appointment date/timeframe: 02/10/2018 ordered History Of Present Illness Encounter Date Complaint History Of Prese nt Illness GI Symptoms or Concerns This is a 63-year-old woman who presents in followup for right upper quadrant symptoms. I last saw her in January. Since that time, we performed a right upper quadrant ultrasound, which showed a fatty liver, but otherwise a normal gallbladder and bile ducts.An x-ray of abdomen showed a moderate amount of stool throughout the colon and therefore she took MiraLax daily for 14 days. About 5 to 6 days after starting the MiraLax, she had an episode of multiple stools and then again the same thing occurred 5 to 6 days later. She has noticed that the episodes of discomfort are less severe and frequent than before, but otherwise there still is some degree of low level discomfort on a daily basis. Typically, symptoms will be exacerbated when she sits up from lying down or when she bends over. There is a history of bulging discs from L4 to L5 with associated radiculopathy in her leg. She has had prior injections, with the last performed in December. This helps significantly and she has GI Symptoms or Concerns This is a 63-year-old woman who presents regarding right upper quadrant symptoms. She has been previously seen by my colleague, Dr. Encarancion for irritable bowel syndrome with intermittent loose stools. Please see his note from August 2015 for pertinent prior evaluation. She reports that her current symptoms are different from what she experienced in the past. For over a year, she has had infrequent right upper quadrant pain, typically with bending over. Now, it has been occurring on a more regular basis, pretty much anytime she bends over. She feels like there is something there. It can be severe enough to take her breath away. It typically only last for 30 to 40 seconds and she will stretch and take deep breaths until it resolves. She has been slightly tender to touch for the past couple of days, which is why she presented to clinic today. There have been no changes in her stooling habits. She does not feel that symptoms are postprandial. She reports negative liver test in N GI Symptoms or Concerns Marquita hargrove sents for followup regarding her diarrhea. Briefly, the patient had reported since July 2014, she had significant intermittent abdominal pain and intermittent loose stools. She was given empiric antibiotics and had some improvement from July to March 2015, now with some recurrence of loose stools with cramping abdominal pain as a prodrome. She was having severe nocturnal abdominal pain with vomiting once a month; however, this episode has not occurred since her procedures. The patient has nine to ten days that last 13, since colonoscopy with loose stools. They can vary between two to three up to four to six. They are of variable consistency between liquid, mushy, and soft. She still has crampy abdominal pain prior to the bowel movements. She does have occasional epigastric burning pain as well. She does not take NSAIDs.The patient's recent gastrointestinal workup is detail below.ENDOSCOPYUpper endoscopy, November 2005: Normal esophagus, stomach, and duo GI Symptoms or Concerns Marquita hargrove sents for evaluation regarding diarrhea. She reports in July 2014, she had significant intermittent abdominal pain as well as intermittent loose stools. This occurred for a couple of months. She was empirically diagnosed with a colitis and given empiric antibiotics and had some improvement from July to March 2015. She now reports over the last four months that she has had loose stools with crampy abdominal pain as a prodrome. She has bad days two to four days per week and she will have five to six loose stools on those days. In between those times, she will have normal bowel movements without abdominal pain. She does occasionally have an episode of severe nocturnal abdominal pain with vomiting possibly once a month; however, the last episode was over a month ago. She did have a CT scan in late May which apparently showed a hiatal hernia, the report is not available.Patient was seen in our clinic in 2010 and at that time, it was documented that she has a hi Functional Status Date Functional Assessmen t No Information Instructions Date Instruction Additional Infor christie Diverticulosis/Diverticulitis Re lated to Personal history of colonic polyps Colon Polyps Related to Perso nal history of colonic polyps Colon Cancer Prevention Related to Personal history of colonic polyps High Fiber Diet Related to Perso nal history of colonic polyps We agreed to follow clinically for now. If she continues to improve, I would not pursue further evaluation. If she has worsening postprandial symptoms or more consistent pain, we discussed the possibility for HIDA scan to evaluate for gallbladder dysfunction. If symptoms worsen and are almost always associated with movement, then we discussed having a pain assessment at a Pain Clinic such as [facility] or potentially repeating her MRI. There may be options such as trigger injections, massage, or acupuncture that can help with abdominal wall pain. In the meanwhile, we discussed weight loss measures to help with her fatty liver. I recommended a book called Screening Liver, which talks about diet and lifestyle changes to help with fatty liver. She has the option of eliminating all alcohol as well, although she does not drink on a regular basis as it is. I would not pursue colonoscopy unless she has worsening symptoms, consistent diarrhea or bleeding. We agreed to follow up on an as-needed basis for now, although further recommendations will follow her updates with me through the portal. I do not feel that any upper GI evaluation is necessary at this point given the absence of nausea, vomiting, or early satiety. Related to Right upper quadrant abdominal pain Non-Alcoholic Fatty Liver Diseas e Related to Fatty liver I recommend liver te sts and then a right upper quadrant ultrasound to evaluate the liver, gallbladder and bile ducts. If this is unremarkable, we discussed the possibility for subsequent abdominal x-ray to evaluate for any stool or gas in the region of her discomfort. Down the road, we even discussed a potential colonoscopy to evaluate for any inflammatory change in the area of concern. I think this would be low yield as of now especially given that her last colonoscopy was in 2014. Her next one is due in 2019 due to a history of tubular adenoma. We even discussed that muscle or nerve pain can cause these symptoms and even imaging the spine can be appropriate in some patients. I will plan to follow up with her in about 2 months to review her progress, but further recommendations will follow review of the above tests. If there is fatty liver seen on the ultrasound, I would certainly recommend weight loss measures to see if that is helpful. Related to Right upper quadrant abdominal pain Lifestyle education regarding di et Related to Dietary counseling and surveillance Ultrasound Abdomen - Start Metamucil 1 rounded tsp in 12 oz of water daily- Start imodium 1-4 tablets daily, increase daily dose slowly and stop or decrease dose if constipation develops.- Take Align 1 capsule daily for 3 weeks, continue if symptoms improved. Samples given.- If ongoing crampy abdominal pain, try IBgard 1 per day. Samples given. Related to Irritable bowel syndrome with diarrhea Lifestyle education regarding di et Related to Dietary counseling and surveillance IBS - AGA Brochure Related to Ir ritable bowel syndrome with diarrhea Hiatal Hernia Related to Hiata l hernia Colon Polyps Related to Hiata l hernia Colon Cancer Prevention Related to Hiatal hernia Diverticulosis/Diverticulitis Re lated to Hiatal hernia Hemorrhoids Related to Hiata l hernia Colon Polyps Related to Colon polyps Diverticulosis/Diverticulitis Re lated to Colon polyps - EGD with MAC with small bowel biopsies.- Colonoscopy with MAC with ileal evaluation, if possible and random colon biopsies.- Obtain CT report- Follow-up in 4-6 weeks. Related to Diarrhea EGD Related to Diarr hea Colonoscopy Assessments Type Assessment Date No Information Patient Care Teams Name Effective Dates (start - stop) Status Members No Information
--- OUTSIDE RECORDS SUMMARY | 2023-06-30 00:51 | XMS_ITS | Continuity of Care Document ---
Author Name Unknown Organization [facility] Address [address] [place] [address] Phone Care Team Providers Care Material Specialist Name Role Phone Janice MANDUJANO, PhD, Rajendra Unavailable Unavai lable Allergies, Adverse Reactions, Alerts Substance Reaction Status Criticality No Known Allergies Active No Inform ation Medications Medication Instructions Dosage Effective Dates (start - stop) Status Comments SPIRONOLACTONE (unknown strength) Not Available - Active KAPSPARGO SPRINKLE (unknown strength) take 1 capsule by oral route every day Not Available - Active VALSARTAN (unknown strength) Not Available - Active ATORVASTATIN CALCIUM (unknown strength) Not Available - Active DICLOFENAC SODIUM (unknown strength) Not Available - Active HYDROCHLOROTHIAZIDE (unknown strength) Not Available - Active JINTELI (unknown strength) Not Available - Active LORAZEPAM (unknown strength) Not Available - Active NASONEX (unknown strength) Not Available - Active PRILOSEC (unknown strength) Not Available - Active Procedures Procedure Date Office/Outpatient Visit,Est, Mod 2021 OFFICE/OUTPATIENT VISIT EST Phone Office/Outpatient Visit,Est, Low 2021 Office/Outpatient Visit,Est, Low 2021 OFFICE/OUTPATIENT VISIT EST Phone Office/Outpatient Visit,New, Mod 2020 Advance Directives Directive Yes / No Effective Date File Name No Information Encounters Encounter Description Practice Location Reason(s) For Visit Diagnoses Date Provider Providers Copied on Encounter [facility], [address], [place], [place], [id number], [place] tel:[phone] [facility] No Information 3 Janice Drew. [facility], [address], [facility], [place] [place], [address], [place]. tel:[phone] Office/Outpat ient Visit,Est, Mod [facility], [address], [place], [place], [address], [place] tel:[phone] [facility] Encounter for other specified surgical aftercare 2 Janice Drew. [facility], [address], [place], [address], [place]. tel:[phone] Referring Provider: Santana Mesa [facility] [address] [facility], [place], [address]. tel:[phone] OFFICE/OUTPAT IENT VISIT EST Phone [facility], [address], [facility], [place], [id number], [place] tel:[phone] [facility] No Information 2 Janice Drew. [facility], [address], [facility], [place] [place], [address], [place]. [phone] Referring Provider: Santana Mesa [facility] [address] [address] [place], [address]. tel:[phone] Office/Outpat ient Visit,Est, Low [facility], [address], [facility] [place], [id number], [place] tel:[phone] [facility] Spinal stenosis, lumbar region with neurogenic claudication 2 Janice Drew. [facility], [address], [place], [address], [place]. [phone] Referring Provider: Santana Mesa [facility] [address] [place], [address]. tel:[phone] Office/Outpat ient Visit,Est, Low [facility], [address], [place], [place], [address], [place] tel:[phone] [facility] Low back pain, unspecified 2 Janice Drew. [facility], [address], [place], [address], [place]. tel: [phone] Referring Provider: Santana Mesa, [facility] [address], [place], [address]. [phone] OFFICE/OUTPAT IENT VISIT EST Phone [facility], [address], [place], [place], [address], [place] tel:[phone] [facility] No Information 1 Janice Drew. [facility], [address], [facility] [place], [address], [place]. tel: [phone] Referring Provider: Santana Mesa, [facility] [address], [place], [address]. [phone] Office/Outpat ient Visit,New, Mod [facility], [address], [place], [address], [place] tel:[phone] [facility] Spinal stenosis, lumbar region with neurogenic claudication 1 Janice Drew. [facility], [address], [facility], [place] [place], [address], [place]. tel: [phone] Referring Provider: Santana Mesa [facility] [address], [place], [address]. [phone] [facility], [address], [place], [place], [address], [place] tel:[phone] [facility] Low back pain 1 Janice Drew. [facility], [address], [place], [address], [place]. tel: [phone] Family History Family Member Type Diagnosis Age At Onset No Information Payers Payer name Insurance type Covered alliance party ID Brandon layne(s) venus Brambila [id number] Social History Type Description Quantity Date Captured Comments Sex Female Smoking Status No Information Chief Complaint And Reason For Visit No Information Reason For Referral Reason For Referral No Information History Of Present Illness Encounter Date Complaint History Of Prese nt Illness No Information Functional Status Date Functional Assessmen t No Information Instructions Date Instruction Additional Infor mation No Information Assessments Type Assessment Date No Information Patient Care Teams Name Effective Dates (start - stop) Status Members No Information
== END 2023-06-28 14:58 | disposition home or self-care (01) ==
LOC: NFLDREF 06-30 00:49
PROVIDERS: PCP Internal Medicine; Referring Provider Internal Medicine; Visit Provider Internal Medicine Nephrology
DX: E78.5 Hyperlipidemia, unspecified (principal); D64.9 Anemia, unspecified; R53.83 Other fatigue; I10 Essential (primary) hypertension; F41.9 Anxiety disorder, unspecified
CPT/HCPCS: 82728; 83540; 83550

== ENCOUNTER 2023-07-27 09:30 | Outpatient (CLI) | payer OTHER, SELFPAY | END 2023-07-27 09:31 | disposition home or self-care (01) | LOC: NFLDREF 16:35 | PROVIDERS: PCP Internal Medicine; Referring Provider Internal Medicine; Visit Provider Internal Medicine Nephrology | DX: I10 Essential (primary) hypertension (principal); R53.83 Other fatigue | CPT/HCPCS: 80061; 80069; 82043; 82570; 84550; 87086 ==

== ENCOUNTER 2023-08-24 14:49 | Outpatient (CLI) | payer OTHER, SELFPAY ==
--- OUTSIDE RECORDS SUMMARY | 2023-08-24 14:58 | XMS_ITS | Continuity of Care Document ---
Author Name Unknown Organization [facility] Address [address] [place] [address] Phone Care Team Providers Care Top Loader Name Role Phone Janice MANDUJANO, PhD, Rajendra [...] Copied on Encounter [facility], [address], [place], [place], [id number], [place] tel:[phone] [facility] No Information 3 Janice Drew. [facility], [address], [place], [address], [place]. tel:[phone] Office/Outpat ient Visit,Est, Mod [facility], [address], [place], [place], [address], [place] tel:[phone] [facility] Encounter for other specified surgical aftercare 2 Janice Drew. [facility], [address], [place], [address], [place]. tel:[phone] Referring Provider: Santana Mesa [employer] [address] [address] [facility], [place], [address]. tel:[phone] OFFICE/OUTPAT IENT VISIT EST Phone [facility], [address], [facility], [place], [id number], [place] tel:[phone] [facility] No Information 2 Janice Drew. [facility], [address], [place], [address], [place]. [phone] Referring Provider: aSntana Mesa [facility] [address] [facility] [place], [address]. tel:[phone] Office/Outpat ient Visit,Est, Low [facility], [address], [facility], [address], [place] tel:[phone] [facility] Spinal stenosis, lumbar region with neurogenic claudication 2 Janice Drew. [facility], [address], [place], [address], [place]. [phone] Referring Provider: Santana Mesa [facility] [address] [place], [address]. tel:[phone] Office/Outpat ient Visit,Est, Low [facility], [address], [place], [place], [address], [place] tel:[phone] [facility] Low back pain, unspecified 2 Janice Drew. [facility], [address], [place], [address], [place]. tel: [phone] Referring Provider: Santana Mesa, [employer] [address], [place], [address]. [phone] OFFICE/OUTPAT IENT VISIT EST Phone [facility], [address], [place], [address], [place] tel:[phone] [facility] No Information 1 Janice Drew. [facility], [address], [place], [address], [place]. tel: [phone] Referring Provider: Santana Mesa, [employer] [address], [place], [address]. [phone] Office/Outpat ient Visit,New, Mod [facility], [address], [place], [address], [place] tel:[phone] [facility] Spinal stenosis, lumbar region with neurogenic claudication 1 Janice Drew. [facility], [address], [place], [address], [place]. tel: [phone] Referring Provider: Santana Mesa [employer] [address], [place], [address]. [phone] [facility], [address], [place], [address], [place] tel:[phone] [facility] Low back pain 1 Janice Drew. [facility], [address], [place], [address], [place]. tel: [phone] Family History Family Member Type Diagnosis Age At Onset No Information Payers Payer name Insurance type Covered republican ID Brandon layne(s) venus Brambila [id number] Social History Type Description Quantity Date Captured [...]
== END 2023-08-24 14:50 | disposition home or self-care (01) ==
PROVIDERS: PCP Internal Medicine; Visit Provider Internal Medicine
DX: D64.9 Anemia, unspecified (principal); I10 Essential (primary) hypertension; E78.5 Hyperlipidemia, unspecified
CPT/HCPCS: 80053; 85610

== ENCOUNTER 2023-10-08 10:45 | Day surgery (SDC) | payer OTHER, SELFPAY ==
[2023-10-08] VITALS (10 sets, daily range): BP systolic 126–143; BP diastolic 57–83; PULSE 68–77; RESP 10–18; TEMP 36.2–38; O2SAT 92–97; BMI 27.3
--- OUTSIDE RECORDS SUMMARY | 2023-10-08 10:48 | XMS_ITS | Continuity of Care Document ---
Author Name Unknown Organization [facility] Address [address] [place] [address] Phone Care Team Providers Care Producer Assistant Name Role Phone Janice MANDUJANO, PhD, Rajendra [...] VALSARTAN (unknown strength) Not Available - Active PRILOSEC (unknown strength) Not Available - Active NASONEX (unknown strength) Not Available - Active LORAZEPAM (unknown strength) Not Available - Active JINTELI (unknown strength) Not Available - Active HYDROCHLOROTHIAZIDE (unknown strength) Not Available - Active DICLOFENAC SODIUM (unknown strength) Not Available - Active ATORVASTATIN CALCIUM (unknown strength) Not Available - Active Procedures [...] Copied on Encounter [facility], [address], [place], [place], [id number], [place] tel:[phone] [facility] No Information 3 Janice Drew. [facility], [address], [facility] [place], [address], [place]. tel:[phone] Office/Outpat ient Visit,Est, Mod [facility], [address], [place], [address], [place] tel:[phone] [facility] Encounter for other specified surgical aftercare 2 Janice Drew. [facility], [address], [place], [address], [place]. tel:[phone] Referring Provider: Santana Mesa [employer] [address] [facility], [place], [address]. tel:[phone] OFFICE/OUTPAT IENT VISIT EST Phone [facility], [address], [facility], [place], [id number], [place] tel:[phone] [facility] No Information 2 Janice Drew. [facility], [address], [facility] [place], [address], [place]. [phone] Referring Provider: Santana Mesa [employer] [address] [place], [address]. tel:[phone] Office/Outpat ient Visit,Est, Low [facility], [address], [facility] [place], [address], [place] tel:[phone] [facility] Spinal stenosis, lumbar region with neurogenic claudication 2 Janice Drew. [facility], [address], [place], [address], [place]. [phone] Referring Provider: Santana Mesa [employer] [address] [place], [address]. tel:[phone] Office/Outpat ient Visit,Est, Low [facility], [address], [place], [address], [place] tel:[phone] [facility] Low back pain, unspecified 2 Janice Drew. [facility], [address], [place], [address], [place]. tel: [phone] Referring Provider: Santana Mesa, [employer] [address], [place], [address]. [phone] OFFICE/OUTPAT IENT VISIT EST Phone [facility], [address], [place], [place], [address], [place] tel:[phone] [facility] No Information 1 Janice Drew. [facility], [address], [place], [address], [place]. tel: [phone] Referring Provider: Santana Mesa, [employer] [address], [place], [address]. [phone] Office/Outpat ient Visit,New, Mod [facility], [address], [place], [place], [address], [place] tel:[phone] [facility] Spinal stenosis, lumbar region with neurogenic claudication 1 Janice Drew. [facility], [address], [facility] [place], [address], [place]. tel: [phone] Referring Provider: Santana Mesa [employer] [address], [place], [address]. [phone] [facility], [address], [place], [place], [address], [place] tel:[phone] [facility] Low back pain 1 Janice Drew. [facility], [address], [place], [address], [place]. tel: [phone] Family History Family Member Type Diagnosis Age At Onset No Information Payers Payer name Insurance type Covered democrat ID Brandon layne(s) venus Brambila [id number] Social History Type Description Quantity Date Captured [...]
[2023-10-08] MEDS: LACTATED RINGERS 1000 ML 1,000 ML 35 ML IV (11:26)
[2023-10-08] MEDS: OXYMETAZOLINE 0.05% NASAL SPRAY 2 SPRAY NOSTRIL-B (11:50)
[2023-10-08] MEDS: BUPIVACAINE 0.5%/EPINEPHRINE 0.9 MG (30.9 ML) INJECTION (12:44)
[2023-10-08] MEDS: COCAINE HCL 4 % 4 ML SOLUTION NOSTRIL-B (12:44)
[2023-10-08] MEDS: AYR SALINE NASAL GEL 1 APPLIC NOSTRIL-B (12:47)
--- NOTE | 2023-10-08 12:52 | W.PM.ENTPROC ---
Procedure Note Date of procedure: 10/08/23 Procedure: Preoperative diagnosis nasal obstruction bilateral inferior turbinate hypertrophy Postoperative diagnosis same Procedure submucous partial resection inferior turbinates bilateral Under general trach anesthesia patient was prepped draped usual fashion. The nose was decongested and injected. A stab incision was made in the anterior of the right inferior turbinate a tunnel created with a Vanderburgh dissector. The shey bone was outfractured and a conservative answer tear submucous resection performed. The Coblation was used to cauterize intramurally along the inferior 10%. This was repeated on the left side in identical fashion. Blood loss was 0. Complications none the patient was extubated the operating room taken recovery in satisfactory condition. Surgeon: Alejandro Pierre MD
[2023-10-08] MEDS: fentaNYL 100 MCG/2 ML inj 50 MCG IVP ×2 (13:03→13:11)
--- NOTE | 2023-10-08 13:04 | W.ANESCHARGE ---
Anesthesia Charges Start Date/Time Anesthesia Start Date: 10/08/23 Anesthesia Start Time: 12:33 Stop Date/Time Anesthesia Stop Date: 10/08/23 Anesthesia Stop Time: 13:03
[2023-10-08] MEDS: OXYCODONE 5 MG TABLET PO (13:44)
--- NOTE | 2023-10-08 13:56 | W.ANESCHARGE ---
Anesthesia Charges Start Date/Time Anesthesia Start Date: 10/08/23 Anesthesia Start Time: 12:33 Stop Date/Time Anesthesia Stop Date: 10/08/23 Anesthesia Stop Time: 13:03
== END 2023-10-08 14:15 | disposition home or self-care (01) ==
LOC: OR 10:45
PROVIDERS: PCP Internal Medicine; Visit Provider Otolaryngology
PROC: (CPT 30140; principal; 2023-10-08 12:15)
DX: J34.3 Hypertrophy of nasal turbinates (principal)
CPT/HCPCS: 30140; 00160; A9270; J0330; J1100; J2405; J2704; J3010; J7120

== ENCOUNTER 2023-12-29 13:23 | Outpatient (CLI) | payer OTHER, SELFPAY ==
--- NOTE | 2023-12-29 13:40 | MM_ITS ---
Patient: SAVAGE BOATENG Facility:?[facility] Patient ID:?[id number] Site Patient ID:?[id number]. Site :?1955 Study:?XRay-Breast Bilateral 3D W/CAD-12/29/2023 2:03:03 PM Ordering Physician:?Manish Freedman Final Report: BILATERAL DIGITAL SCREENING MAMMOGRAM WITH TOMOSYNTHESIS AND COMPUTER-AIDED DETECTION CLINICAL HISTORY: Routine screening exam. COMPARISON: 12/03/2022, 11/27/2022, 10/31/2021, 09/24/2020. TECHNIQUE: Digital mammogram in CC and MLO projections including computer-aided detection (CAD). Tomosynthesis utilized. BREAST COMPOSITION: The breasts are scattered fibroglandular density. FINDINGS: RIGHT Breast: Lobular density within the retroareolar plane 4 cm from the nipple is more prominent. This was previously evaluated and represented cysts. However, the size has increased and further evaluation recommended. LEFT Breast: No suspicious findings. IMPRESSION: RIGHT breast asymmetry/mass. Recommend diagnostic RIGHT breast ultrasound to evaluate this cystic area to exclude underlying developing lesion. RECOMMENDATIONS: Additional mammographic views of the RIGHT breast including RIGHT breast ultrasound only. BI-RADS Category 0: Incomplete: Need Additional Imaging Evaluation and/or Prior Mammograms for Comparison The [facility] will contact the patient for follow-up. A lay language report of this examination will be provided to the patient. Dictated by Mart Lira MD @ 12/30/2023 11:48:34 AM jj/Dictated by: Mart Lira MD @ 12/30/2023 11:48:00 AM Signed by:?Mart Lira MD @12/30/2023 11:55:01 AM (Electronic Signature)
== END 2023-12-29 13:24 | disposition home or self-care (01) ==
LOC: MAMMO 13:23
PROVIDERS: PCP Internal Medicine; Visit Provider Internal Medicine
DX: Z12.31 Encounter for screening mammogram for malignant neoplasm of breast (principal); N63.10 Unspecified lump in the right breast, unspecified quadrant
CPT/HCPCS: 77063; 77067

== ENCOUNTER 2023-12-29 14:05 | Outpatient (CLI) | payer OTHER, SELFPAY | END 2023-12-29 14:06 | disposition home or self-care (01) | LOC: NFLDREF 01-07 08:49 | PROVIDERS: PCP Internal Medicine; Referring Provider Internal Medicine; Visit Provider Internal Medicine Nephrology | DX: D64.9 Anemia, unspecified (principal); I10 Essential (primary) hypertension; R53.83 Other fatigue | CPT/HCPCS: 80069; 82043; 82310; 82570; 82728; 83540; 83550; 83970; 84550; 87086 ==

== ENCOUNTER 2024-01-06 09:59 | Outpatient (CLI) | payer OTHER, SELFPAY ==
--- NOTE | 2024-01-06 10:15 | US_ITS ---
Patient: SAVAGE BOATENG Facility:?[facility] Patient ID:?[id number] Site Patient ID:?[id number] Site :?1955 Study:?US-Breast Right DR SAMUEL TO READ-01/06/2024 10:22:11 AM Ordering Physician:?SAMUEL VILLEDA Final Report: RIGHT BREAST ULTRASOUND CLINICAL HISTORY: RIGHT breast mass. COMPARISON: 12/29/2023, 12/03/2022. TECHNIQUE: Real-time ultrasound imaging of RIGHT breast with imaging documentation. FINDINGS: Targeted RIGHT breast ultrasound performed at 9 o`clock 5 cm from the nipple. In this location there is a lobular circumscribed cyst with increased through- transmission and anechoic internal echotexture. This measures 11 x 6 x 15 millimeters, previously measuring 8 x 5 x 8 millimeters. No solid component. No abnormal vascularity. IMPRESSION: Benign fibrocystic changes RIGHT breast 9 o`clock 5 cm from the nipple increased in size from prior. No suspicious findings. RECOMMENDATIONS: Annual BILATERAL screening mammography. Results and recommendations were discussed with the patient at the time of the exam. BI-RADS Category 2: Benign A lay language report of this examination will be provided to the patient. Dictated by Mart Samuel MD @ 01/06/2024 10:36:56 AM /Dictated by: Mart Samuel MD @ 01/06/2024 10:37:00 AM Signed by:?Mart Samuel MD @01/06/2024 12:02:53 PM (Electronic Signature)
== END 2024-01-06 10:00 | disposition home or self-care (01) ==
LOC: US 09:59
PROVIDERS: PCP Internal Medicine; Visit Provider Internal Medicine
DX: N63.10 Unspecified lump in the right breast, unspecified quadrant (principal); R92.8 Other abnormal and inconclusive findings on diagnostic imaging of breast
CPT/HCPCS: 76642

== ENCOUNTER 2024-04-17 15:13 | Outpatient (CLI) | payer OTHER, SELFPAY ==
--- OUTSIDE RECORDS SUMMARY | 2024-04-17 15:17 | XMS_ITS | Clinical Summary ---
Author Organization [facility] Address [address] [place] [address] Care Team Providers Care Business Systems Developer Name Role Phone Dc Gonzalez MD Primary Care Provider Unava ilable Source Comments You are receiving this document as you are listed as the primary care provider,follow-up provider, or the patient has been referred to you for consultation.This is in compliance with the Medicare and[facility] Cent[facility] EHR Incentive Program,which states Providers who transition their patient to another setting of careor provider of care or refers their patient to another provider of care shouldprovide summary care record for each transition of care or referral. [facility] Allergies Active Allergy Reactions Criticality Noted Date Comments Review Contrast Media 07/07/2006 PN: LW CM1: >>> NO CONTRAST ADVERSE REACTION <<< Reaction : Medications Medication Sig Dispensed Refills Start Date End Date Status DRUG NOT IN COMPUTER LW Comment:OCP 07/07/2006 Active FLUoxetine (AKA PROZAC) 20 MG capsule Take 1 capsule by mouth daily (every 24 hours). LW Addl Instr:Indicated for: Depression 30 3 04/13/2006 Active omeprazole (PRILOSEC) 10 MG capsule Take 1 capsule by mouth daily (every 24 hours). LW Addl Instr:Indicated for: Acid Reflux 90 3 04/13/2006 Active UNKNOWN MEDICATION Indications: PN: 04/13/2006 Active fexofenadine/pseudoe phedrine (TORREY-D ALLERGY & CONGESTION) 60-120 MG tablet Take 1 tablet by mouth as needed. LW Addl Instr:Indicated for: Allergies 180 3 07/07/2006 Active propranolol (AKA INDERAL) 10 MG tablet Take 1 tablet by mouth as needed. LW Comment:STAGE ANXIETY NOT HTN LW Addl Instr:Indicated for: High Blood Pressure 180 3 07/07/2006 Active PROPOXYPHENE N-ACETAMINOPHEN OR Take 1 tablet by mouth every 4 hours as needed. LW Addl Instr:Maximum of 6 tablets/24 hours. 28 07/08/2006 Active mometasone (AKA NASONEX) 50 MCG/ACT nasal solution 2 sprays by Each Nostril route as needed. 34 3 07/07/2006 Active Social History Tobacco Use Types Packs/Day Years Used Date Smoking Tobacco: Never Sex and Gender Information Value Date Recorded Sex Assigned at Not on file Gender Identity Not on file Sexual Orientation Not on file Plan of Treatment Health Maintenance Due Date Last Done Comments Colon Cancer Screening Plan Due 1955 Hep C Screening (Preventive Services) 1955 Mammogram 1955 Adult Preventive Visit 1975 DTaP/Tdap/Td (1 - Tdap) 01/04/1976 Cholesterol 2002 Zoster/Shingles (1 of 2) 2007 Pneumococcal 65+ Yrs (1 - PCV) 2022 COVID-19 Vaccine (1 - 2022-2 4 season) 2023 Influenza (Season Ended) 2024 HepA Aged Out No longer eligi ble based on patient's age to complete this topic HepB Aged Out No longer eligi ble based on patient's age to complete this topic Hib Aged Out No longer eligi ble based on patient's age to complete this topic IPV (Polio) Aged Out No longer eligi ble based on patient's age to complete this topic MCV4 Aged Out No longer eligi ble based on patient's age to complete this topic Care Teams Business Systems Developer Relationship Specialty Start Date End Date Dc Gonzalez MD PCP - General 01/17/11
--- OUTSIDE RECORDS SUMMARY | 2024-04-17 15:17 | XMS_ITS | Encounter Summary ---
Author Organization [facility] Address [address] [place] [address] Care Team Providers Care Clinical Informaticist Name Role Phone Unavailable Primary Care Provider Unavailabl e Reason for Visit * Reason Comments Med Refill Encounter Details Date Type Department Care Team (Late st Contact Info) Description 03/29/2024 Refill Division of Nephrology and Hypertension in [place], [place] [address] [place] [address] Nitesh Landis Jr., D.O. [address] [place] [address] Med Refill Social History Tobacco Use Types Packs/Day Years Used Date Smoking Tobacco: Never Smokeless Tobacco: Never Alcohol Use Standard Drinks/Week Comments Yes 8 (1 standard drink = 0.6 oz pur e alcohol) [facility] Utilities Answer Date Recorded In the past 12 months has [facility] [employer], gas, oil, or water [employer] threatened to shut off services in your home? No 03/13/2024 Humiliation, Afraid, Rape, and Kick questionnair e Answer Date Recorded Within the last year, have y ou been afraid of your partner or ex-partner? No 12/02/2022 Within the last year, have y ou been humiliated or emotionally abused in other ways by your partner or ex-partner? No Within the last year, have y ou been kicked, hit, slapped, or otherwise physically hurt by your partner or ex-partner? No 12/02/2022 Within the last year, have y ou been raped or forced to have any kind of sexual activity by your partner or ex-partner? No 12/02/2022 Social Connection and Isolat ion Panel [NHANES] Answer Date Recorded In a typical week, how many times do you talk on the phone with family, friends, or neighbors? More than three times a week 12/02/2022 How often do you get togethe r with friends or relatives? Once a week 12/02/2022 How often do you attend chur ch or muslim services? Never 12/02/2022 Do you belong to any clubs o r organizations such as tenriism groups, unions, fraternal or athletic groups, or school groups? No 12/02/2022 How often do you attend meet ings of the clubs or organizations you belong to? Never 12/02/2022 Are you , , di vorced, , never , or living with a partner? 12/02/2022 AUDIT-C Answer Date Recorded Q1: How often do you have a drink containing alcohol? 4 or more times a week 12/02/2022 Q2: How many drinks containi ng alcohol do you have on a typical day when you are drinking? 1 or 2 3 Q3: How often do you have si x or more drinks on one occasion? Never 12/02/2022 Overall Financial Resource Strain (CARDIA) Answe r Date Recorded How hard is it for you to pa y for the very basics like food, housing, medical care, and heating? Not hard at all 12/02/2022 PHQ-2 Answer Date Recorded PHQ-2 Score 1 03/20/2024 [facility] Occup[facility] ional [facility] - Occupational Stress Questionnaire Answer Date Recorded Do you feel stress - tense, restless, nervous, or anxious, or unable to sleep at night because your mind is troubled all the time - these days? To some extent 12/02/2022 Exercise Vital Sign Answer Date Recorde d On average, how many days pe r week do you engage in moderate to strenuous exercise (like a brisk walk)? 5 days 03/13/2024 On average, how many minutes do you engage in exercise at this level? 50 min 03/13/2024 Hunger Vital Sign Answer Date Recorded Within the past 12 months, y ou worried that your food would run out before you got the money to buy more. Never true 05/27/20 24 Within the past 12 months, t he food you bought just didn't last and you didn't have money to get more. Never true 03/13/2024 PRAPARE - Transportation Answer Date Re corded In the past 12 months, has l ack of transportation kept you from medical appointments or from getting medications? No 02/16 In the past 12 months, has l ack of transportation kept you from meetings, work, or from getting things needed for daily living? No 03/13/2024 Nutrition Answer Date Recorded On average, how many serving s of fruits and vegetables do you eat per day (serving size is equal to 1 cup or approximately the size of a tennis ball)? 0-2 03/13/2024 Dental Answer Date Recorded Dental: Regular Dentist Yes 12/02/19 Employment Answer Date Recorded Employment status Retired 03/13/2024 Housing Stability Answer Date Recorded What is your living situation today? I have a [facility] place to live 03/13/2024 Education Answer Date Recorded What is the highest level of school you have completed or the highest degree you have received? Bachelor's degree (e.g., BA, AB, BS) 12/02/2022 Sex and Gender Information Value Date Recorded Sex Assigned at Female 11/07/2022 8:34 AM EMERGENCY ROOM NURSE Gender Identity Female 11/07/2022 8:34 AM EMERGENCY ROOM NURSE Sexual Orientation Not on file documented as of this encounter Miscellaneous Notes * Addendum Note - Abi Beckham, R.N. - 03/31/2024 9:26 AM CDTAddended by: ABI BECKHAM on: 03/31/2024 09:26 AM Modules accepted: Orders documented in this encounter Plan of Treatment Not on file documented as of this encounter Visit Diagnoses Not on filedocumented in this encounter
--- OUTSIDE RECORDS SUMMARY | 2024-04-17 15:17 | XMS_ITS | Encounter Summary ---
Author Organization [facility] Address [address] [place] [address] Care Team Providers Care Ota Name Role Phone Unavailable Primary Care Provider Unavailabl e Reason for Visit * Reason Comments Med Refill Encounter Details Date Type Department Care Team (Late st Contact Info) Description 04/08/2024 Refill Department of Orthopedic Surgery in [place], [place] [address] [place] [address] Riky Finney M.D. [address] [place] [address] Med Refill Social History Tobacco Use Types Packs/Day Years Used Date Smoking Tobacco: Never Smokeless Tobacco: Never Alcohol Use Standard Drinks/Week Comments Yes 8 (1 standard drink = 0.6 oz pur e alcohol) [facility] Utilities Answer Date Recorded In the past 12 months has [facility] [employer], gas, oil, or water [employer] threatened to shut off services in your [...] often do you attend chur ch or methodist services? Never 12/02/2022 Do you belong to any clubs o r organizations such as temple groups, unions, fraternal or athletic groups, or [...] Answer Date Recorded PHQ-2 Score 1 03/20/2024 [facility] - Occupational [facility] Questionnaire Answer Date Recorded [...] the money to buy more. Never true 03/13/20 24 Within the past 12 months, t [...] your living situation today? I have a [facility] place to live 03/13/2024 Education Answer Date Recorded What is the highest level of school you have completed or the highest degree you have received? Bachelor's degree (e.g., BA, AB, BS) 12/02/2022 Sex and Gender Information Value Date Recorded Sex Assigned at Female 11/07/2022 8:34 AM SPOUT LINER HELPER Gender Identity Female 11/07/2022 8:34 AM SPOUT LINER HELPER Sexual Orientation Not on file documented as of this encounter Plan of Treatment Not on file documented as of this encounter Visit Diagnoses Not on filedocumented in this encounter
--- OUTSIDE RECORDS SUMMARY | 2024-04-17 15:17 | XMS_ITS | Encounter Summary ---
Author Organization [facility] Address [address] [place] [address] Care Team Providers Care Matrix Drier Tender Name Role Phone Unavailable Primary Care Provider Unavailabl e Reason for Visit * Reason Comments Pain Follow-up * Outpatient (Routine) - Closed Specialty Diagnoses / Procedures Referred By Aimee t Referred To Contact Orthopedic Surgery [facility] Florian APRN, C.N.P., M.S.N. [address] [place] [phone] Panfilo Reyes M.D. [address] [place] [phone] Referral ID Status Reason Start Date Expiration Date Visits Re quested Visits Authorized [id number] Closed 07/19/2023 07/18/2026 1 1 Encounter Details Date Type Department Care Team (Latest Contact Info) Description 03/20/2024 3:30 PM CDT Office Visit Department of Orthopedic Surgery in [place], [place] [address] [place] [phone] Panfilo Reyes M.D. [address] [place] [phone] Stenosis Spinal (Primary Dx); Primary Osteoarthritis Lumbar Spine; Laminectomy Lumbar Status Post Discharge Disposition: Home or Self Care Social History Tobacco Use Types Packs/Day Years Used Date Smoking Tobacco: Never Smokeless Tobacco: Never Alcohol Use Standard Drinks/Week Comments Yes 8 (1 standard drink = 0.6 oz pur e alcohol) [facility] Utilities Answer Date Recorded In the past 12 months has th e electric, [employer], oil, or water [employer] threatened to shut off services in your [...] often do you attend chur ch or confucianist services? Never 12/02/2022 Do you belong to any clubs o r organizations such as anabaptist groups, unions, fraternal or athletic groups, or [...] Answer Date Recorded PHQ-2 Score 1 03/20/2024 [facility] Occupat ional [facility] - Occupational Stress Questionnaire Answer Date Recorded [...] Date Recorded Dental: Regular Dentist Yes 12/02/19 23 Employment Answer Date Recorded Employment status Retired 03/13/2024 Housing Stability Answer Date Recorded What is your living situation today? I have a [facility] place to live 03/13/2024 Education Answer Date Recorded What is the highest level of school you have completed or the highest degree you have received? Bachelor's degree (e.g., BA, AB, BS) 12/02/2022 Sex and Gender Information Value Date Recorded Sex Assigned at Female 11/07/2022 8:34 AM COMPANY DRIVER Gender Identity Female 11/07/2022 8:34 AM COMPANY DRIVER Sexual Orientation Not on file documented as of this encounter Progress Notes * Panfilo Reyes M.D. - 03/20/2024 3:30 PM CDT Images from the original note were not included. NAME: Marquita Ward : 1955 TODAY'S DATE: 03/20/24 PAIN REPORTED: 12/25 CHIEF COMPLAINT/REASON FOR VISIT Patient comes in at 1 year status post an L3-S1 decompression. She is doing overall quite well. Shehas some residual, mild pulsing discomfort on the outside of the right leg. She has an CHELSIE that is up to date. She rates her discomfort at a 3 on a 10 point scale. PRO Scores: 12/03/2023 12:56 PM 03/13/2024 8:25 PM 03/13/2024 8:26 PM [employer] PROMIS-CAT: Pain interference 60 (mild) PROMIS-CAT: Ability to participate social roles 41 (mild dysfunction) PROMIS-CAT: Physical function 36 (moderate dysfunction) 36 (moderate dysfunction) CHELSIE: 07/05/2023 3:00 PM Oswestry Disability Index (CHELSIE) CHELSIE Raw Score 21 CHELSIE Percent 42 03/20/2024 2:01 PM Oswestry Disability Index (CHELSIE) CHELSIE Raw Score 12 CHELSIE Percent 24 SUBJECTIVE HISTORY OF PRESENT ILLNESS Marquita Ward is a 69 y.o. female who comes in today for follow up status post 1 year post op 03/24/2023 PROCEDURE(S) 1. Posterior Lumbar decompression L3-S1 2. Foraminotomies L3, 4, and 5; bilaterally. NEUROLOGICAL: Motor: ambulates with no assist, exercises 5 times a week Sensory: No. Bladder: No. Bowel: No. Balance: is some diminished, also has vertigo Manual Dexterity: No. 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 CURRENT PAIN MEDICATIONS: NSAID's: None Narcotics: Currently using YES/NO: NO REVIEW OF SYSTEMS Patient denies fevers, chills, or constitutional symptoms otherwise. No chest pain or shortness of breath. Review of Systems OBJECTIVE PHYSICAL EXAMINATION Constitutional: Alert and Oriented x 3. Handedness: Right-handed Skin: Prior incision well healed: . Gait: Ambulating without assistance. Motor: Lower Extremity: Left Right Iliopsoas: 5/5/5 Quadriceps: 5/5/5 Tibialis Ant: 02/19 02/19 EHL: 02/19 02/19 Gastrocs: 02/19 02/19 Hamstrings: 02/19 02/19 Peroneal: 02/19 02/19 Reflexes: Bi Tri BR Pat Ach Shanna IBR Clonus RIGHT 0 0 0 0 0 - - 0-2bts LEFT 0 0 0 0 0 - - 0-2bts IMAGIN03/20/2024 Lumbar spine IMPRESSION: Correlation with radiographs 07/19/2023. Rotatory lumbar curvature redemonstrated. In neutral position, grade 1 anterolisthesis of L3 on L4 and L4- L5. This appears stable from prior. Across flexion/extension, limited mobility without evidence of abnormal intersegmental translation. Vertebral body heights are preserved. Lower lumbar predominant facet arthropathy and degenerative disc disease. Atherosclerotic vascular calcifications. Fallopian tube occlusion devices project over the pelvis. ASSESSMENT/PLAN 1. Stenosis Spinal 2. Primary Osteoarthritis Lumbar Spine 3. Laminectomy Lumbar Status Post Other orders - Orthopedic Surgery office visit (clinic) Marquita Ward is a 69 y.o. female who is 1 year postop doing fairly well. She has known and continuing arthritic changes in her lumbar spine that produce multilevel joint disease that could explain some of her mild residual back and leg discomfort. PLAN: I do not see anything that is unstable in the spine; she does not have scoliosis or kyphosis or a high-grade degenerative spondylolisthesis postoperatively. Postoperative discomfort, if symptomatic and progressively severe, could be treated with anti-inflammatories, physical therapy with traction modalities, or injected steroids. If the discomfort is tolerable, then I would recommend activity avoidance of the things that aggravate the pain and continuing to be active with a walking lifestyle. Do not recommend any regular x-ray monitoring unless there has been some clinical change. Discussed.Follow up as necessary. All of her questions were answered and she is comfortable with the plan. She knows to contact the clinic if any questions should arise. Kindly CC the following care team colleagues: PCP: No primary care provider on file. documented in this encounter Plan of Treatment Not on file documented as of this encounter Visit Diagnoses Diagnosis Stenosis Spinal- Primary Primary Osteoarthritis Lumbar Spine Laminectomy Lumbar Status Post documented in this encounter
--- OUTSIDE RECORDS SUMMARY | 2024-04-17 15:17 | XMS_ITS | Clinical Summary ---
Author Organization [facility] Address [place], [place] [address] Care Team Providers Care Supervisor Mechanic Boilermaking Name Role Phone Manish Freedman MD Primary Care Provider [phone] Allergies No known active allergies Medications Medication Sig Dispensed Refills Start Date End Date Status NASONEX 50 MCG/ACTUATION SPRAY inhale 2 sprays in each nostril by nasal route once daily 0 Active atorvastatin (LIPITOR) 20 mg tablet Take 20 mg by mouth once daily. 3 06/10/2017 Active LORazepam (ATIVAN) 1 mg tablet Take 1 mg by mouth 2 times daily if needed. 1 05/01/2017 Active JINTELI 1-5 mg-mcg tab Take 1 tablet by mouth once daily. 2 05/14/2017 Active diclofenac topical (VOLTAREN) 1 % gel Apply topically to affected area(s) 4 times daily. 0 10/31/2020 Active omeprazole (PRILOSEC) 40 mg Delayed-Release capsule Take 40 mg by mouth once daily. 05/13/2021 Active spironolactone (ALDACTONE) 25 mg tablet TAKE 1 TABLET (25 MG TOTAL) BY MOUTH DAILY. 08/25/2022 Active diphenhydrAMINE-acetami nophen 25-500 mg (TYLENOL PM) 25-500 mg tablet Take 1 Tablet by mouth once daily if needed. Active eplerenone (INSPRA) 25 mg tablet Take 37.5 mg by mouth once daily. 03/31/2024 Active irbesartan (AVAPRO) 300 mg tablet Take 1 Tablet by mouth once daily. 11/15/2023 Active ondansetron (ZOFRAN ODT) [address] 4 mg on the tongue every 8 hours if needed. 06/28/2023 Active rosuvastatin (CRESTOR) 5 mg tablet Take 5 mg by mouth at bedtime. 06/24/2023 Active Active Problems Problem Noted Date Diagnosed Date Bilateral hip pain 05/11/2019 Overview: 4 or 5 previous hip bursa injections by Dr. Rees [phone] approximately MRI of bilateral hips done May 2018. Jul 2018: Bilateral TEnex procedures by Dr. Jose Alejandro Smith of gluteal tendons without significant benefit. April 2019: Bilateral greater trochanteric bursa hip injection by Dr. Santana Pedroza.75 to 80% benefit several weeks out. October 2019: Repeat bilateral Greater Trochanteric Bursa injections by Dr. Pedroza. 80% better initially, benefit lasted until May 2020. Jun 2020: Repeat bilateral Greater Trochanteric Bursa injections by Dr. Pedroza. September 2021: Repeat bilateral Greater Trochanteric Bursa injections by Dr. Pedroza. April 2022: Repeat bilateral Greater Trochanteric Bursa injections by Dr. Pedroza, reporting 60% relief 1 week out. Chronic right-sided low back pain with right-kennedy ed sciatica 08/25/2017 Overview: ~ August 2017: Right L4-L5 IL epidural steroid injection by Dr. Chance. September 2017: Lyrica prescription was too expensive to start. Rosangelaaltommy R[place] approved September 2017. ~ December 2017: L5-S1 IL epidural steroid injection by Dr. Chance. Nearly 100% improvement for 3-4 weeks of back and leg pain. ~ September 2018: L5-S1 TF epidural steroid injection by Dr. Chance, Good Lidocaine benefit, but after lidocaine only some help with back pain, leg pain worse. ~ April 2019: bilateral Greater Trochanteric Bursa hip injections by Dr. Pedroza. ~ February 2021: L5-S1 Right TF epidural steroid injection by Dr. Chance. ~ April 2021: L5-S1 IL epidural steroid injection by Dr. Chance. ~ Rayus: Oct 2022: 2 LEVEL LUMBAR FACET NERVE BLOCKADE, RIGHT L3-5 MEDIAL BRANCHES, INNERVATING THE L4-5 AND L5-S1 FACET JOINTS which did provide pain relief. Then Oct 2022: Lumbar radiofrequency neurotomy procedure completed at the right L3-L5 facet nerves (innervating the right L4-5 and L5-S1 facet joints): no pain relief from RFA. ~ March 2023: Dr. Amy Bone did L3-S1 lumbar Decompression Surgery. Essential hypertension 07/01/2017 Unspecified sinusitis (chronic) 05/19/2006 Allergic rhinitis, cause unspecified 05/19/2006 Esophageal reflux 05/19/2006 Dysthymic disorder 05/19/2006 Mixed hyperlipidemia 08/24/2005 Encounters Date Type Department Care Team Description 04/04/2024 7:00 AM CDT Office Visit [facility] [address] [place] [address] Santana Pedroza MD Musculoskeletal Problem (Follow-up low back and RIGHT leg - discuss getting injection ) 04/03/2024 Travel 03/28/2024 Telephone [facility] [address] [place] [address] Rogelio Chance MD epidurals (right calf) from Last 3 Months Immunizations Name Administration Dates Next Due Influenza A (H1N1), Inactivated 11/20/2009 Influenza RIV4 (Age 18+ Years) PRESERV FREE 07/19,07/25/2020,09/12/2019 Influenza, IIV3 (Age >=3 years) 07/21/2009 Influenza, IIV4 07/01/2017,11/20/2009 Pneumococcal Poly,23-Valent (Pneumovax) 06/22/20 18 Td, Preservative Free (age >= 7 Years) 8 Tdap 07/25/2009 Zoster (Shingrix-RZV, recombinant) 02/25/2019,,06/22/2018 Family History Medical History Relation Name Comments Heart Disease Father CAD 1st SC 50' s Hyperlipidemia Father Other Father myelofibrosis Hypertension Mother Relation Name Status Comments Father Mother Social History Tobacco Use Types Packs/Day Years Used Date Smoking Tobacco: Never Smokeless Tobacco: Never Tobacco Cessation:Counseling Given: Yes Alcohol Use Standard Drinks/Week Comments Yes 0 (1 standard drink = 0.6 oz pur e alcohol) rare PHQ-2 Answer Date Recorded PHQ-2 TOTAL SCORE 0 03/06/2021 Social Connections Answer Date Recorded Frequency of Communication with Friends and Fami ly Not on file 10/13/2021 Financial Resource Strain Answer Date R ecorded Difficulty of Paying Living Expenses Not on file 10/13/2021 Difficulty of Paying Living Expenses Not on file 10/13/2021 Sex and Gender Information Value Date Recorded Sex Assigned at Not on file Gender Identity Not on file Sexual Orientation Not on file Obstetrics History Last Filed Vital Signs Vital Sign Reading Time Taken Comments Blood Pressure 138/79 04/04/2024 6:58 AM CDT Pulse 72 04/04/2024 6:58 AM CDT Temperature 36.9 ??C (98.5 ??F) 09/07/2022 10:[address] Respiratory Rate 14 05/11/2019 2:41 PM CDT Oxygen Saturation 100% 04/04/2024 6:58 AM CDT Inhaled Oxygen Concentration - - Weight 64.2 kg (141 lb 9.6 oz) 04/04/2024 6:58 A M CDT Height 154.9 cm (5' 1) 10/31/2020 3:37 PM PACKING SUPERVISOR Body Mass Index 26.76 10/31/2020 3:37 PM PACKING SUPERVISOR Plan of Treatment Health Maintenance Due Date Last Done Comments Hepatitis C screening for ag e 18-79 1975 Mammogram for age 45-75 04/17/2010 04/17/2009 Lipids for age 45-75 04/24/2013 04/24/2008 Colonoscopy through age 75 06/18/2017 06/18/2007 Tetanus booster 07/25/2019 07/25/2009, 11/01/2007 BMI (ht and wt on same day) for age 18+ 10/31/2021 10/31/2020, 05/11/2019, 12/29/2018, Additional history exists DEXA/DXA scan for age 65+ 2022 Pneumococcal series for age 65+ (2 of 2 - PCV) 2022 06/22/2018 Depression screening for age 12+ 03/06/2022 03/06/20 21, 12/29/2018 COVID-19 vaccine series ( season) 2023 08/11/2023, 07/28/2022, 01/06/2022, Additional history exists Influenza for age 65+ 06/18/2024 08/13/2021 , 07/25/2020, 09/12/2019, Additional history exists Tdap Completed 07/25/2009 Zoster (shingles) series for age 50+ Completed 02/25/2019, 01/20/2019, 06/22/2018 Care Teams Supervisor Mechanic Boilermaking Relationship Specialty Start Date End Date Manish Freedman MD [address] [place] [address] PCP - General Internal Medicine 12/29/18
--- OUTSIDE RECORDS SUMMARY | 2024-04-17 15:17 | XMS_ITS | Encounter Summary ---
Author Organization [facility] Address [address] [place] [address] Care Team Providers Care Security Clerk Name Role Phone Unavailable Primary Care Provider Unavailabl e Reason for Visit * Reason Comments Med Refill Encounter Details Date Type Department Care Team (Late st Contact Info) Description 01/28/2024 Refill Division of Nephrology and Hypertension in [place], [place] [address] [place] [address] Nitesh Landis Jr., D.O. [address] [place] [address] Med Refill Social History Tobacco Use Types Packs/Day Years Used Date Smoking Tobacco: Never Smokeless Tobacco: Never Alcohol Use Standard Drinks/Week Comments Yes 8 (1 standard drink = 0.6 oz pur e alcohol) Humiliation, Afraid, Rape, and Kick questionnair e [...] often do you attend chur ch or restorationism services? Never 12/02/2022 Do you belong to any clubs o r organizations such as jew groups, unions, fraternal or athletic groups, or [...] PHQ-2 Answer Date Recorded PHQ-2 Score 1 07/05/2023 [facility] - Occupational Stress [...] exercise (like a brisk walk)? 5 days 12/02/2022 On average, how many minutes do you engage in exercise at this level? 20 min 12/02/2022 Hunger Vital Sign Answer Date Recorded Within the past 12 months, y ou worried that your food would run out before you got the money to buy more. Never true 12/02/19 23 Within the past 12 months, t he food you bought just didn't last and you didn't have money to get more. Never true 12/02/2022 PRAPARE - Transportation Answer Date Re corded In the past 12 months, has l ack of transportation kept you from medical appointments or from getting medications? No 11/18 In the past 12 months, has l ack of transportation kept you from meetings, work, or from getting things needed for daily living? No 12/02/2022 Housing Stability Vital Sign Answer Ramon e Recorded In the last 12 months, was t here a time when you were not able to pay the mortgage or rent on time? No 12/02/2022 In the last 12 months, how many places have you lived? 1 12/02/2022 In the last 12 months, was t here a time when you did not have a steady place to sleep or slept in a senior living (including now)? No 12/02/2022 Nutrition Answer Date Recorded Nutrition: EVOO Fat Source Yes 12/02 On average, how many serving s of fruits and vegetables do you eat per day (serving size is equal to 1 cup or approximately the size of a tennis ball)? 2-3 12/02/2022 Dental Answer Date Recorded Dental: Regular Dentist Yes 12/02/19 Employment Answer Date Recorded Employment status Retired 12/02/2022 Education Answer Date Recorded What is the highest level of school you have completed or the highest degree you have received? Bachelor's degree (e.g., BA, AB, BS) 12/02/2022 Sex and Gender Information Value Date Recorded Sex Assigned at Female 11/07/2022 8:34 AM WIRE SPOOLER Gender Identity Female 11/07/2022 8:34 AM WIRE SPOOLER Sexual Orientation Not on file documented as of this encounter Plan of Treatment Not on file documented as of this encounter Visit Diagnoses Not on filedocumented in this encounter
--- OUTSIDE RECORDS SUMMARY | 2024-04-17 15:17 | XMS_ITS | Encounter Summary ---
Author Organization [facility] Address [address] [place] [address] Care Team Providers Care Fisher Diving Name Role Phone Unavailable Primary Care Provider Unavailabl e Reason for Visit * Reason Comments Med Refill Encounter Details Date Type Department Care Team (Late st Contact Info) Description 04/11/2024 Refill Department of Orthopedic Surgery in [place], [place] [address] [place] [address] Panfilo Reyes M.D. [address] [place] [address] Med Refill Social History Tobacco Use Types Packs/Day Years Used Date Smoking Tobacco: Never Smokeless Tobacco: Never Alcohol Use Standard Drinks/Week Comments Yes 8 (1 standard drink = 0.6 oz pur e alcohol) [facility] Utilities Answer Date Recorded In the past 12 months has [facility] [employer], gas, oil, or water [employer] threatened to shut off services in your [...] often do you attend chur ch or mandaeism services? Never 12/02/2022 Do you belong to any clubs o r organizations such as congregation groups, unions, fraternal or athletic groups, or [...] Answer Date Recorded PHQ-2 Score 1 03/20/2024 [facility] Questionnaire Answer Date [...] your living situation today? I have a [facility] place to live 03/13/2024 Education Answer Date Recorded What is the highest level of school you have completed or the highest degree you have received? Bachelor's degree (e.g., BA, AB, BS) 12/02/2022 Sex and Gender Information Value Date Recorded Sex Assigned at Female 11/07/2022 8:34 AM WELDER FITTER Gender Identity Female 11/07/2022 8:34 AM WELDER FITTER Sexual Orientation Not on file documented as of this encounter Plan of Treatment Not on file documented as of this encounter Visit Diagnoses Not on filedocumented in this encounter
--- OUTSIDE RECORDS SUMMARY | 2024-04-17 15:17 | XMS_ITS | Continuity of Care Document ---
Author Organization [facility] Address [address] [place] [address] Phone Care Team Providers Care Tree Topper Name Role Phone Janice MANDUJANO, PhD, Rajendra [...] Copied on Encounter [facility], [address], [place], [id number], [place] tel:[phone] [facility] No Information 3 Janice Drew. [facility], [address], [place], [address], [place]. tel:[phone] Office/Outpat ient Visit,Est, Mod [facility], [address], [place], [place], [id number], [place] tel:[phone] [facility] Encounter for other specified surgical aftercare 2 Janice Drew. [facility], [address], [place], [address], [place]. tel:[phone] Referring Provider: Santana Mesa [employer] [address] [facility], [place], [address]. tel:[phone] OFFICE/OUTPAT IENT VISIT EST Phone [facility], [address], [place], [place], [id number], [place] tel:[phone] [facility] No Information 2 Janice Drew. [facility], [address], [place], [address], [place]. [phone] Referring Provider: Santana Mesa, [employer] [address] [facility], [place], [address]. tel:[phone] Office/Outpat ient Visit,Est, Low [facility], [address], [place], [id number], [place] tel:[phone] [facility] Spinal stenosis, lumbar region with neurogenic claudication 2 Janice Drew. [facility], [address], [place], [address], [place]. tel:[phone] Referring Provider: Santana Mesa, [employer] [address] [facility] [place] [place], [address]. tel:[phone] Office/Outpat ient Visit,Est, Low [facility], [address], [place], [id number], [place] tel:[phone] [facility] Low back pain, unspecified 2 Janice Drew. [facility], [address], [place], [address], [place]. tel: [phone] Referring Provider: Santana Mesa, [employer] [facility] [address] [place] [place], [address]. [phone] OFFICE/OUTPAT IENT VISIT EST Phone [facility], [address], [place], [place], [id number], [place] tel:[phone] [facility] No Information 1 Janice Drew. [facility], [address], [facility] [place], [address], [place]. tel: [phone] Referring Provider: Santana Mesa [employer] [facility] [address], [place], [address]. [phone] Office/Outpat ient Visit,New, Mod [facility], [address], [place], [place], [id number], [place] tel:[phone] [facility] Spinal stenosis, lumbar region with neurogenic claudication 1 Janice Drew. [facility], [address], [place], [address], [place]. tel: [phone] Referring Provider: Santana Mesa [employer] [facility] [address] [place], [address]. [phone] [facility], [address], [place], [place], [id number], [place] tel:[phone] [facility] Low back pain 1 Janice Drew. [facility], [address], [place], [address], [place]. tel:[phone] Family History Family Member Type Diagnosis Age At Onset No Information Payers Payer name Insurance type Covered libertarian ID Authorpepe layne(s) venus Brambila [id number] Social History Type Description Quantity Date Captured [...]
--- OUTSIDE RECORDS SUMMARY | 2024-04-17 15:17 | XMS_ITS ---
Author Organization [facility] Address [address] [place] [address] Care Team Providers Care Correspondence Transcriber Name Role Phone Unavailable Unavailable Unavailable Surgery Details Not on file Complications Check Surgery Details section. Procedure Estimated Blood Loss Check Surgery Details section. Procedure Findings Check Surgery Details section. Procedure Specimens Taken Check Surgery Details section.
--- OUTSIDE RECORDS SUMMARY | 2024-04-17 15:17 | XMS_ITS | Encounter Summary ---
Author Organization [facility] Address [address] [place] [address] Care Team Providers Care Internet Ecommerce Specialist Name Role Phone Unavailable Primary Care Provider Unavailabl e Reason for Visit * Appointment Request (Routine) - Closed Specialty Diagnoses / Procedures Referred By Aimee kohli Referred To Contact Nephrology and Hypertension Referral ID Status Reason Start Date Expiration Date Visits Re quested Visits Authorized [id number] Closed 12/02/2023 12/01/2024 1 1 Encounter Details Date Type Department Care Team (Latest Contact Info) Description 01/10/2024 2:00 PM CDT External Outreach Division of Nephrology and Hypertension in [place], [place] [address] [place] [address] Nitesh Landis Jr., D.O. [address] [place] [address] Hypertension Essential Primary (Primary Dx); Apnea Sleep Obstructive Social History Tobacco Use Types Packs/Day Years [...] 12/02/2022 How often do you attend chur or islam services? Never 12/02/2022 Do you belong to any clubs o r organizations such as rastafari groups, unions, fraternal or athletic groups, or [...] Answer Date Recorded PHQ-2 Score 1 07/05/2023 [facility] ional [facility] - Occupational [...] money to buy more. Never true 12/02/19 Within the past 12 months, t he [...] place to sleep or slept in a half-way (including now)? No 12/02/2022 Nutrition Answer Date [...] Sex Assigned at Female 11/07/2022 8:34 AM CHIEF MAINTENANCE SUPERVISOR Gender Identity Female 11/07/2022 8:34 AM CHIEF MAINTENANCE SUPERVISOR Sexual Orientation Not on file documented as of this encounter Last Filed Vital Signs Vital Sign Reading Time Taken Comments Blood Pressure 138/78 01/10/2024 2:36 PM CDT Pulse 81 01/10/2024 2:17 PM CDT Temperature - - Respiratory Rate - - Oxygen Saturation - - Inhaled Oxygen Concentration - - Weight 66.8 kg (147 lb 4.3 oz) 01/10/2024 2:17 P M CDT Height - - Body Mass Index 27.84 06/28/2023 2:25 PM CDT documented in this encounter Progress Notes * Nitesh Landis Jr., D.O. - 01/10/2024 2:00 PM CDT Referring Provider: No primary care provider on file. SUBJECTIVE REASON FOR VISIT [place] [facility] Follow-up regards resistant hypertension HISTORY OF PRESENT ILLNESS Ms. Ward is a 69 y.o. female who presents with resistant hypertension, modestly well controlled inthe past on irbesartan 300 mg orally daily, amlodipine 2.5 mg in the evening, and eplerenone 25 mg orally daily. Although she had normal ratios of renin aldosterone, she responded quite well to aldosterone blockade. She has not been checking her blood pressure recently, having ceased this activity back in Septemberwhen her pressures were always in the 120s and 130s systolic. She has had no significant lower extremity swelling but has had some intermittent episodes where she feels her shoes are tight, and that the ring on her pointer finger right hand is too tight to place the ring. She is quite careful with sodium, she has not used any NSAIDs. She has no orthostatic issues no other cardiovascular or constitutional complaints. She feels well in all respects, I reviewed her labs which are all normal. Past Medical History: Diagnosis Date Hyperlipidemia 2017 Hypertension NOS 2015 Irritable Bowel Syndrome Without Diarrhea 2002 Other Injury Of Unspecified Body Region Leg 1967 Post Operative Nausea/Vomiting Sickness Motion Personal History Sleep Apnea 2021 Current Outpatient Medications: acetaminophen (TYLENOL) 500 mg tablet, Take 2 tablets (1,000 mg total) by mouth every 6 (six) hours., Disp: 100 tablet, Rfl: 2 amLODIPine (NORVASC) 5 mg tablet, Take 2.5 mg by mouth daily., Disp: , Rfl: diphenhydrAMINE-acetaminophen (TYLENOL PM) 25-500 mg per tablet, Take 1 tablet by mouth at bedtime as needed., Disp: , Rfl: eplerenone (INSPRA) 25 mg tablet, Take 1 tablet (25 mg total) by mouth daily., Disp: 90 tablet, Rfl: 3 fluticasone propionate (FLONASE) 50 mcg/actuation nasal spray, Administer 2 sprays into each nostril daily., Disp: , Rfl: irbesartan (AVAPRO) 300 mg tablet, take 1 tablet by mouth every day, Disp: 90 tablet, Rfl: 3 LORazepam (ATIVAN) 1 mg tablet, Take 1 mg by mouth at bedtime as needed for anxiety., Disp: , Rfl: omeprazole (PriLOSEC) [address] capsule, Take 20 mg by mouth every morning before breakfast., Disp: , Rfl: pregabalin (LYRICA) 25 mg capsule, Take 1 capsule (25 mg total) by mouth at bedtime. Take as directed. May increase to 50mg at night., Disp: 30 capsule, Rfl: 1 rosuvastatin (CRESTOR) 5 mg tablet, TAKE 1 TABLET BY MOUTH EVERY DAY FOR HYPERLIPIDEMIA, Disp: , Rfl: sennosides-docusate sodium (SENOKOT-S) 8.6-50 mg per tablet, Take 1 tablet by mouth 2 (two) times aday., Disp: 100 tablet, Rfl: 0 REVIEW OF SYSTEMS All other systems reviewed and are negative. OBJECTIVE BP 138/78 Pulse 81 Wt 66.8 kg BMI 27.84 kg/m?? PHYSICAL EXAMINATION General: Awake alert oriented [...] suspicious lesions identified Psychiatric: Normal affect DIAGNOSTICS Note normal serum creatinine level, normal potassium normal CBC, AST slightly above normal at 42, checked in August of 2023 ASSESSMENT / PLAN #1 Hypertension Essential Primary Goal blood pressures should be in the 130s or below systolic. We are uncertain what her home blood pressures have been recently, and she will be checking these for us. She will contact me if she is seeing blood pressures above this range. For now, we will continue on the current regimen: 1. Irbesartan 300 mg orally daily 2. Amlodipine 2.5 mg orally daily 3. Continue on eplerenone 25 mg orally daily. Should her blood pressures be above our target ranges, our options would be to increase eplerenone to 37.5 mg orally daily. Reminded her to be careful with sodium and avoid NSAIDs and Ball 2 inhibitors. She has struggled with apparent edema with the amlodipine. I will see her back in 6 months. #2 Apnea Sleep Obstructive This seems well corrected she is sleeping much better. Total time: 25 minutes Counseling Time: 20 minutes Nitesh Landis Jr., D.O. documented in this encounter Plan of Treatment Not on file documented as of this encounter Visit Diagnoses Diagnosis Hypertension Essential Primary- Primary Apnea Sleep Obstructive documented in this encounter
--- OUTSIDE RECORDS SUMMARY | 2024-04-17 15:17 | XMS_ITS | Encounter Summary ---
Author Organization [facility] Address [address] [place] [address] Care Team Providers Care Cigarette Examiner Name Role Phone Unavailable Primary Care Provider Unavailabl e Reason for Visit * Reason Onset Date Comments Blood Pressure Check 02/03/2024 Encounter Details Date Type Department Care Team (Latest Contact Info) Description 02/03/2024 Clinical Communication Division of Nephrology and Hypertension in [place], [place] [address] [place] [address] Nitesh Landis Jr., D.O. [address] [place] [address] Blood Pressure Check Social History Tobacco Use Types Packs/Day Years [...] often do you attend chur ch or jainism services? Never 12/02/2022 Do you belong to [...] PHQ-2 Score 1 07/05/2023 [facility] [place] [facility]ational Stress Questionnaire Answer Date [...] place to sleep or slept in a fdc (including now)? No 12/02/2022 Nutrition Answer Date [...] Sex Assigned at Female 11/07/2022 8:34 AM WATCH DIAL PRINTER Gender Identity Female 11/07/2022 8:34 AM WATCH DIAL PRINTER Sexual Orientation Not on file documented as of this encounter Miscellaneous Notes * Telephone Encounter - Ial Cifuentes Alessandra, R.N. - 02/04/2024 11:40 AM CDT SUBJECTIVE CHIEF COMPLAINT / REASON FOR CALL Blood Pressure Check Information Discussed The patient states she has been having blood pressures above Dr. Landis's goal for her and that they have been running in the upper 130's-lower 140's systolic. I reviewed Dr. Landis's note dated 01/10/2024 with the patient and asked her to increase eplerenone to 37.5 mg daily. She has 25 mg tablets and will take eplerenone 25 mg one and one-half tablet daily. I will also have her report her blood pressures through the portal. I will check with Dr. Landis to see if he would like the patientto repeat labs after increasing the eplerenone. If so, the patient can complete the labs in [place]. PLAN Disposition/Recommendation: self-care is appropriate at this time, patient encouraged to call back with questions Information/Education: patient/caller able to teach back Caller agreeable to plan of care: yes The following references were used: nursing clinical judgement, Dr. Landis's note of 01/10/2024. * Telephone Encounter - Tasha Gil - 02/03/2024 3:57 PM CDT Caller is: patient Preferred Communication Method: [phone] (mobile) Reason for call: Patient called to give a BP check as request by Dr. Landis. She said she has taken her BP 5 timesin the past 3 weeks, and her systolic BP has been about 138- 141, with one day at 134. She is concerned about this and would like someone to reach out to her, possibly about a med or dose change. Thanks. documented in this encounter Plan of Treatment Scheduled Orders Name Type Priority Associated Diagnoses Orde r Schedule MyChart BP Flowsheet Procedures Routine Hypertension Essential Primary Expected: 02/04/2024 (Approximate), Expires: 02/03/2025 documented as of this encounter Visit Diagnoses Diagnosis Hypertension Essential Primary- Primary documented in this encounter
--- OUTSIDE RECORDS SUMMARY | 2024-04-17 15:17 | XMS_ITS | Clinical Summary ---
Author Organization [facility] Address [address] [place] [address] Care Team Providers Care Fire Equipment Inspector Helper Name Role Phone Unavailable Primary Care Provider Unavailabl e Source Comments Patient records contain information from all sites at [facility]. For routine questions regarding patient records, call [phone] during business hours, M-F 8:00 AM - 5:00 PM Central Time. Record requests for emergency care only can be directed to [phone] at any time.[facility] Allergies Active Allergy Reactions Criticality Noted Date Comments Sulfa (Sulfonamide Antibiotics) Rash 03/2023 Medications Medication Sig Dispensed Refills Start Date End Date Status amLODIPine (NORVASC) 5 mg tablet Take 2.5 mg by mouth daily. 3 Active omeprazole (PriLOSEC) [address] capsule Take 20 mg by mouth every morning before breakfast. 6 Active LORazepam (ATIVAN) 1 mg tablet Take 1 mg by mouth at bedtime as needed for anxiety. 3 Active diphenhydrAMIN E-acetaminophe n (TYLENOL PM) 25-500 mg per tablet Take 1 tablet by mouth at bedtime as needed. Active sennosides-doc usate sodium (SENOKOT-S) 8.6-50 mg per tablet Take 1 tablet by mouth 2 (two) times a day. 100 tablet 3 Active rosuvastatin (CRESTOR) 5 mg tablet TAKE 1 TABLET BY MOUTH EVERY DAY FOR HYPERLIPIDEMIA 3 Active irbesartan (AVAPRO) 300 mg tablet take 1 tablet by mouth every day 90 tablet 3 4 Active eplerenone (INSPRA) 25 mg tablet Take 1.5 tablets (37.5 mg total) by mouth daily. 135 tablet 3 4 Active nabumetone (Relafen) 500 mg tablet Take 1 tablet (500 mg total) by mouth daily. 60 tablet 1 4 Active fluticasone propionate (FLONASE) 50 mcg/actuation nasal spray Administer 2 sprays into each nostril daily. 03/22/20 24 Discontinued(Th erapy completed) acetaminophen (TYLENOL) 500 mg tablet Take 2 tablets (1,000 mg total) by mouth every 6 (six) hours. 100 tablet 2 3 03/22/20 24 Discontinued(Th erapy completed) pregabalin (LYRICA) 25 mg capsule Take 1 capsule (25 mg total) by mouth at bedtime. Take as directed. May increase to 50mg at night. 30 capsule 1 3 03/22/20 24 Discontinued(Th erapy completed) eplerenone (INSPRA) 25 mg tablet Take 1.5 tablets (37.5 mg total) by mouth daily. 135 tablet 3 4 03/30/20 24 Discontinued eplerenone (INSPRA) 25 mg tablet TAKE 1 TABLET (25 MG TOTAL) BY MOUTH DAILY. 90 tablet 3 4 03/31/20 24 Discontinued(Re order) Active Problems Problem Noted Date Diagnosed Date Anemia 06/28/2023 Radiculopathy Lumbar 03/25/2023 Preoperative Exam 01/28/2023 Overview: Added automatically from request for surgery [id number] Spinal Stenosis Lumbosacral Region 01/28/2023 Overview: Added automatically from request for surgery [id number] Spondylosis 01/28/2023 Overview: Added automatically from request for surgery [id number] Apnea Sleep Obstructive 07/28/2022 Hyperlipidemia 05/13/2016 Hypertension Essential Primary 05/13/2016 Gastroesophageal Reflux Disease 05/19/2006 03/23/2023 Encounters Date Type Department Care Team Description 04/11/2024 Refill Department of Orthopedic Surgery in [place] [address] [place] [address] Panfilo Reyes M.D. Med Refill 04/08/2024 Refill Department of Orthopedic Surgery in [place], [place] [address] [place] [address] Riky Finney M.D. Med Refill 03/29/2024 Refill Division of Nephrology and Hypertension in [place], [place] [address] [place] [address] Nitesh Landis Jr., D.O. Med Refill 03/20/2024 3:30 PM CDT Office Visit Department of Orthopedic Surgery in [address] [address] Panfilo Reyes M.D. Stenosis Spinal (Primary Dx); Primary Osteoarthritis Lumbar Spine; Laminectomy Lumbar Status Post Discharge Disposition: Home or Self Care 03/20/2024 2:12 PM CDT - 03/20/2024 11:59 PM CDT Hospital Encounter Department of Radiology in [address] [address] Mt Florian APRN CKofiN.P., M.S.N. Laminectomy Lumbar Status Post Discharge Disposition: Home or Self Care 02/03/2024 Clinical Communication Division of Nephrology and Hypertension in [place], [place] [address] [place] [address] Nitesh Landis Jr., D.O. Blood Pressure Check 01/28/2024 Refill Division of Nephrology and Hypertension in [place], [place] [address] [place] [address] Nitesh Landis Jr., D.O. Med Refill from Last 3 Months Immunizations Name Administration Dates Next Due Influenza Split 07/23/2014 Family History Medical History Relation Name Comments ADD Daughter MALCOLM MARADIAGA Thyroid disease Daughter MALCOLM MARADIAGA Coronary artery disease Father Dc Espinalbellelatasha Deep vein thrombosis Father Dc Ashley after open heart surgery Heart Father Dc Ashley first heart pr ocedure 55-60, about 10 years later had bypass Hyperlipidemia Father Dc Gabi Hypertension Father Dc Gabi Leukemia Father Dc Gabi Lung cancer Father Dc Gabi Hypertension Mother ANA Ashley No Known Problems Other ADD Son CHHAYA MARADIAGA Anxiety disorder Janusz MARADIAGA Coronary artery disease Son CHHAYA MARADIAGA Wid ow maker, not significant blockage but was found, no intervention Drug abuse Janusz MARADIAGA Relation Name Status Comments Daughter MALCOLM MARADIAGA Father Dc Ashley Mother ANA Ashley Other Son CHHAYA MARADIAGA Social History Tobacco Use Types Packs/Day Years Used Date Smoking Tobacco: Never Smokeless Tobacco: Never Alcohol Use Standard Drinks/Week Comments Yes 8 (1 standard drink = 0.6 oz pur e alcohol) [facility] Utilities Answer Date Recorded In the past 12 months has e [employer], gas, oil, or water [employer] threatened to shut off services in your [...] often do you attend chur ch or druze services? Never 12/02/2022 Do you belong to any clubs o r organizations such as hindu groups, unions, fraternal or athletic groups, or [...] Answer Date Recorded PHQ-2 Score 1 03/20/2024 [facility] Occupat ional Health - Occupational Stress [...] your living situation today? I have a [facility] to live 03/13/2024 Education Answer Date Recorded What is the highest level of school you have completed or the highest degree you have received? Bachelor's degree (e.g., BA, AB, BS) 12/02/2022 Sex and Gender Information Value Date Recorded Sex Assigned at Female 11/07/2022 8:34 AM LAYBOY OPERATOR Gender Identity Female 11/07/2022 8:34 AM LAYBOY OPERATOR Sexual Orientation Not on file Last Filed Vital Signs Vital Sign Reading Time Taken Comments Blood Pressure 138/78 01/10/2024 2:36 PM CDT Pulse 81 01/10/2024 2:17 PM CDT Temperature 36.4 ??C (97.5 ??F) 03/25/2023 11:30 AM C DT Respiratory Rate 14 03/25/2023 11:36 AM CDT Oxygen Saturation 95% 03/25/2023 10:05 AM CDT Inhaled Oxygen Concentration - - Weight 66.8 kg (147 lb 4.3 oz) 01/10/2024 2:17 P M CDT Height 154.9 cm (5' 0.98) 06/28/2023 2:25 PM CD T Body Mass Index 27.84 06/28/2023 2:25 PM CDT Plan of Treatment Health Maintenance Due Date Last Done Comments CT Colonography 1957 Cologuard 1957 FIT 1957 Hepatitis C Screening 1955 Mammogram 06/20/2016 06/20/2015 (Perf ormed elsewhere), 05/15/2014 (Performed elsewhere) Colonoscopy 07/25/2017 07/25/2007 (Perf ormed elsewhere) Colorectal Cancer Screening 07/25/2017 Lipid (Cholesterol) Screening 05/12/2021, 07/21/2010 (Performed elsewhere) Pneumococcal vaccine (65+ ye ars) (2 of 2 - PCV) 2022 06/22/2018 Fall Risk Screen (Annual) 10/18/2023 COVID-19 Vaccine ( - 2022-2 4 season) 2023 08/11/2023, 07/28/2022, 01/06/2022, Additional history exists Creatinine Level (Kidney Fun ction Test) 03/25/2024 03/25/2023, 03/23/2023, 10/28/2021, Additional history exists Potassium Level 03/25/2024 03/25/2023, 03/2023, 05/12/2016 Sodium Level 03/25/2024 03/25/2023, 0 03/2023, 05/12/2016 Office Visit for Blood Press ure Check / Re-check 03/21/2025 03/21/2024, 03/21/2024, 01/10/2024 Fasting Glucose for Diabetes Screening 03/25/2026 03/25/2023, 03/23/2023, 05/12/2016, Additional history exists DTaP,Tdap,and Td Vaccines (3 - Td or Tdap) 10/06/2033 10/06/2023, 07/25/2009, 11/01/2007 Zoster Vaccines Completed 02/25/2019, 02/2019, 06/22/2018 Cervical Cancer Screening Discontinued 2018, 08/16/2018, 05/15/2014 (Performed elsewhere) Bone Density Scan (Osteoporo sis Screen) Discontinued 12/02/2022 Influenza Vaccine Completed 07/27/2023, , 08/13/2021, Additional history exists Depression Screening (Annual PHQ-2) Completed 03/20/2024 Medical Devices Implanted Type Area Geothermal Plant Manager Device Identifier Shelf Expiration Date Model / Serial / Lot Misc Other Misc Other Uterus Description:Esure cont rol Procedures Procedure Name Priority Date/Time Associated Diagnosis Comments DX LUMBAR SPINE 4+ VIEWS RAD - Routine (most inpatients and all outpatients) 03/20/2024 2:27 PM CDT Laminectomy Lumbar Status Post BASIC METABOLIC PANEL, S/P Routine 03/25/2023 5:43 AM CDT LIPID PANEL, S Routine 05/12/2016 6:59 AM CDT from Last 3 Months or Most Recently Relevant to Health Maintenance Results * DX Lumbar Spine 4+ Views (03/20/2024 2:27 PM CDT) Anatomical Region Laterality Modality Lumbar Spine, Musculoskeleta l RST LOS, Neuroradiology ARZ LOS, Muskuloskeletal FLA LOS N/A Digital Radiography Impressions 03/20/2024 3:14 PM CDT Correlation with radiographs 07/19/2023. Rotatory lumbar curvature redemonstrated. In neutral position, grade 1 anterolisthesis of L3 on L4 and L4-L5. This appears stable from prior. Across flexion/extension, limited mobility without evidence of abnormal intersegmental translation. Vertebral body heights are preserved. Lower lumbar predominant facet arthropathy and degenerative disc disease. Atherosclerotic vascular calcifications. Fallopian tube occlusion devices project over the pelvis. Narrative 03/20/2024 3:14 PM CDT EXAM: DX LUMBAR SPINE 4+ VIEWS Procedure Note Mart Cuenca M.D. - 03/20/2024 EXAM: DX LUMBAR SPINE 4+ VIEWS IMPRESSION: Correlation with radiographs 07/19/2023. Rotatory lumbar curvatureredemonstrated. In neutral position, grade 1 anterolisthesis of L3 on L4and L4-L5. This appears stable from prior. Across flexion/extension,limited mobility without evidence of abnormal intersegmental translation. Vertebral body heights arepreserved. Lower lumbar predominant facet arthropathy and degenerativedisc disease. Atherosclerotic vascular calcifications. Fallopian tubeocclusion devices project over the pelvis. Mt Florian APRN C.N.P., M.S.N. IM G DIAGNOSTIC IMAGING PROCEDURES * (ABNORMAL) Basic Metabolic Panel (03/25/2023 5:43 AM CDT) Potassium, S 4.1 3.6 - 5.2 mmol/L 03/25/2023 7:25 AM CDT DTL Sodium, S 137 135 - 145 mmol/L 03/25/2023 7:25 AM CDT DTL Chloride, S 101 98 - 107 mmol/L 03/25/2023 7:25 AM CDT DTL Bicarbonate, S 23 22 - 29 mmol/L 03/25/2023 7:25 AM CDT DTL Anion Gap 13 7 - 15 03/25/2023 7:25 AM CDT DTL BUN (Blood Urea Nitrogen), S 11 6 - 21 mg/dL 03/25/2023 7:25 AM CDT DTL Creatinine 0.82 0.59 - 1.04 mg/dL 03/25/2023 7:25 AM CDT DTL Estimated GFR (eGFR) 79 >=60 mL/min/BSA 03/25/2023 7:25 AM CDT DTL Comment: Estimated GFR calculated using the 2020 CKD_EPI creatinine equation. Calcium, Total, S 9.3 8.8 - 10.2 mg/dL 03/25/2023 7:25 AM CDT DTL Glucose, S 186(H) 70 - 140 mg/dL 03/25/2023 7:25 AM CDT DTL Blood (Blood, Venous) 03/25/2023 5:43 AM CDT 03/25/2023 7:04 AM CDT Ellis Calle M.D. LAB BLOOD ADD-O N [facility] [address] [place] [address], [facility] [address] [place] [address] * (ABNORMAL) Lipid Panel (05/12/2016 6:59 AM CDT) Cholesterol, HDL, S 54 >=50 MG/DL [facility] Calculated LDL 142(H) SeeComment MG/DL [facility] Comment: ? REFERENCE VALUE ? Desirable: <100 ? Above Desirable: 100-129 ? Borderline high: 130-159 ? High: 160-189 ? Very high: > or =190 ? Cholesterol, Total 243(H) SeeComment MG/DL [facility] Comment: ? REFERENCE VALUE ? Desirable: < 200 ? Borderline high: 200 - 239 ? High: > or = 240 ? Triglycerides 235(H) SeeComment MG/DL [facility] Comment: ? REFERENCE VALUE ? Normal: <150 ? Borderline high: 150-199 ? High: 200-499 ? Very high: > or =500 ? Cholesterol, Non-HDL, Calculated 189(H) SeeComment MG/DL [facility] Comment: ? REFERENCE VALUE ? Desirable: <130 ? Above Desirable: 130-159 ? Borderline high: 160-189 ? High: 190-219 ? Very high: > or =220 ? 05/12/2016 6:59 AM CDT 05/12/2016 6:59 AM CDT Arnoldo English M.D. LAB BLOOD ADD-ON [facility] [address] [place] [id number], [facility] from Last 3 Months or Most Recently Relevant to Health Maintenance Advance Directives For more information, please contact: [phone] * Full Code (Latest Code Status on File) Date Activated Date Inactivated Comments 03/24/2023 12:51 PM 03/25/2023 4:33 PM Question Answer Comments Full Code: Discussed
--- OUTSIDE RECORDS SUMMARY | 2024-04-17 15:17 | XMS_ITS | Referral Summary ---
Author Organization [facility] Address [address] [place] [address] Care Team Providers Care Manager Garden Name Role Phone Unavailable Primary Care Provider Unavailabl e Source Comments Patient records contain information from all sites at [facility]. For routine questions regarding patient records, call [phone] during business hours, M-F 8:00 AM - 5:00 PM Central Time. Record requests for emergency care only can be directed to [phone] at any time.[facility] Encounters Date Type Department Care Team Description 04/11/2024 Refill Department of Orthopedic Surgery in [place], [place] [address] [place] [address] Panfilo Reyes M.D. Med Refill 04/08/2024 Refill Department of Orthopedic Surgery in [place], [place] [address] [place] [address] Riky Finney M.D. Med Refill 03/29/2024 Refill Division of Nephrology and Hypertension in [place], [place] [address] [place] [address] Nitesh Landis Jr., D.O. Med Refill 03/20/2024 2:12 PM CDT - 03/20/2024 11:59 PM CDT Hospital Encounter Department of Radiology in [address] [address] Mt Florian APRN, C.N.P., M.S.N. Laminectomy Lumbar Status Post Discharge Disposition: Home or Self Care 03/20/2024 3:30 PM CDT Office Visit Department of Orthopedic Surgery in [place] [address] [place] [phone] Panfilo Reyes M.D. Stenosis Spinal (Primary Dx); Primary Osteoarthritis Lumbar Spine; Laminectomy Lumbar Status Post Discharge Disposition: Home or Self Care 02/03/2024 Clinical Communication Division of Nephrology and Hypertension in [place], [place] [address] [place] [address] Nitesh Landis Jr., D.O. Blood Pressure Check 01/28/2024 Refill Division of Nephrology and Hypertension in [place], [place] [address] [place] [address] Nitesh Landis Jr., D.O. Med Refill from Last 3 Months Allergies Active Allergy Reactions Criticality Noted Date [...] sprays into each nostril daily. 03/22/20 24 Discontinued( erapy completed) acetaminophen (TYLENOL) 500 mg tablet Take 2 tablets (1,000 mg total) by mouth every 6 (six) hours. 100 tablet 2 3 03/22/20 24 Discontinued( erapy completed) pregabalin (LYRICA) 25 mg capsule Take 1 capsule (25 mg total) by mouth at bedtime. Take as directed. May increase to 50mg at night. 30 capsule 1 3 03/22/20 24 Discontinued( erapy completed) eplerenone (INSPRA) 25 mg tablet [...] Overview: Added automatically from request for surgery [id number] Spinal Stenosis Lumbosacral Region 01/28/2023 Overview: Added automatically from request for surgery [id number] Spondylosis 01/28/2023 Overview: Added automatically from request for surgery [id number] Apnea Sleep Obstructive 07/28/2022 Hyperlipidemia 05/13/2016 Hypertension Essential Primary 05/13/2016 Gastroesophageal Reflux Disease 05/19/2006 03/23/2023 Immunizations Name Administration Dates Next Due Influenza Split 07/23/2014 Social History Tobacco Use Types Packs/Day Years Used Date Smoking Tobacco: Never Smokeless Tobacco: Never Alcohol Use Standard Drinks/Week Comments Yes 8 (1 standard drink = 0.6 oz pur e alcohol) [facility] Utilities Answer Date Recorded In the past 12 months has e [employer], gas, oil, or water company threatened to shut off services in your [...] week 12/02/2022 How often do you attend [facility] or moravian services? Never 12/02/2022 Do you belong to any clubs o r organizations such as advent groups, unions, fraternal or athletic groups, or [...] Answer Date Recorded PHQ-2 Score 1 03/20/2024 [facility] of Occupat ional Health - Occupational [...] your living situation today? I have a [facility] place to live 03/13/2024 Education Answer Date Recorded What is the highest level of school you have completed or the highest degree you have received? Bachelor's degree (e.g., BA, AB, BS) 12/02/2022 Sex and Gender Information Value Date Recorded Sex Assigned at Female 11/07/2022 8:34 AM MANAGER TARGET Gender Identity Female 11/07/2022 8:34 AM MANAGER TARGET Sexual Orientation Not on file Last Filed [...] 06/28/2023 2:25 PM CDT Plan of Treatment Not on file Medical Devices Implanted Type Area Primer And Powder Canning Leader Device Identifier Shelf Expiration Date Model / [...] Basic Metabolic Panel (03/25/2023 5:43 AM CDT) Pathologist [facility] Potassium, S 4.1 3.6 - 5.2 mmol/L [...] Ellis Calle M.D. LAB BLOOD ADD-O N [facility] [address] [place] [address], [place] [facility] [address] [place] [address] * (ABNORMAL) Lipid Panel (05/12/2016 6:59 AM CDT) Cholesterol, HDL, S 54 >=50 MG/DL [facility] Calculated LDL 142(H) SeeComment MG/DL [facility] Comment: ? REFERENCE VALUE ? Desirable: <100 ? Above Desirable: 100-129 ? Borderline high: 130-159 ? High: 160-189 ? Very high: > or =190 ? Cholesterol, Total 243(H) SeeComment MG/DL [facility] Comment: ? REFERENCE VALUE ? Desirable: < 200 ? Borderline high: 200 - 239 ? High: > or = 240 ? Triglycerides 235(H) SeeComment MG/DL [facility] Comment: ? REFERENCE VALUE ? Normal: <150 ? Borderline high: 150-199 ? High: 200-499 ? Very high: > or =500 ? Cholesterol, Non-HDL, Calculated 189(H) SeeComment MG/DL [facility] Comment: ? REFERENCE VALUE ? Desirable: <130 ? Above Desirable: 130-159 ? Borderline high: 160-189 ? High: 190-219 ? Very high: > or =220 ? 05/12/2016 6:59 AM CDT 05/12/2016 6:59 AM CDT Arnoldo English M.D. LAB BLOOD ADD-ON Performing Organization Address City/State/[facility] Co de Phone Number [facility] [address] from Last 3 Months or Most Recently Relevant to Health Maintenance Advance Directives For more information, please contact: [phone] * Full Code (Latest Code Status on File) Date Activated Date Inactivated Comments 03/24/2023 12:51 PM 03/25/2023 4:33 PM Question Answer Comments Full Code: Discussed
--- OUTSIDE RECORDS SUMMARY | 2024-04-17 15:17 | XMS_ITS | Encounter Summary ---
Author Organization [facility] Address [address] [place] [address] Care Team Providers Care Manager Warehouse Name Role Phone Unavailable Primary Care Provider Unavailabl e Reason for Referral * Outpatient (Routine) - Closed Specialty Diagnoses / Procedures Referred By Contac t Referred To Contact Diagnoses Laminectomy Lumbar Status Post Procedures DX Lumbar Spine 4+ Views Mt Florian APRN, C.N.Ela., M.S.N. [address] [place] [phone] [facility] Referral ID Status Reason Start Date Expiration Date Visits Re quested Visits Authorized [id number] Closed 07/19/2023 07/18/2024 1 1 Reason for Visit * Outpatient (Routine) - Closed Specialty Diagnoses / Procedures Referred By Contac t Referred To Contact Diagnoses Laminectomy Lumbar Status Post Procedures DX Lumbar Spine 4+ Views Mt Florian APRN C.N.P., M.S.N. [address] [place] [address] [facility] Referral ID Status Reason Start Date Expiration Date Visits Re quested Visits Authorized [id number] Closed 07/19/2023 07/18/2024 1 1 Encounter Details Date Type Department Care Team (Latest Contact Info) Description 03/20/2024 2:12 PM CDT - 03/20/2024 11:59 PM CDT Hospital Encounter Department of Radiology in [address] [phone] Mt Florian APRN, C.N.P., M.S.N. [address] [place] [phone] Laminectomy Lumbar Status Post Discharge Disposition: Home or Self Care Social History Tobacco Use Types Packs/Day Years Used Date Smoking Tobacco: Never Smokeless Tobacco: Never Alcohol Use Standard Drinks/Week Comments Yes 8 (1 standard drink = 0.6 oz pur e alcohol) [facility] Utilities Answer Date Recorded In the past 12 months has e electric, gas, oil, or water company threatened to [...] any clubs o r organizations such as pentecostal groups, unions, fraternal or athletic groups, or [...] Answer Date Recorded PHQ-2 Score 1 03/20/2024 [facility] of Occupat ional [facility] - Occupational Stress Questionnaire Answer Date Recorded [...] living situation today? I have a [facility] place to live 03/13/2024 Education Answer Date Recorded What is the highest level of school you have completed or the highest degree you have received? Bachelor's degree (e.g., BA, AB, BS) 12/02/2022 Sex and Gender Information Value Date Recorded Sex Assigned at Female 11/07/2022 8:34 AM SHORT STORY WRITER Gender Identity Female 11/07/2022 8:34 AM SHORT STORY WRITER Sexual Orientation Not on file documented as of this encounter Medications at Time of Discharge Medication Sig Dispensed Refills Start Date End Date amLODIPine (NORVASC) 5 mg tablet Take 2.5 mg by mouth daily. 01/08/2023 diphenhydrAMINE-pablo taminophen (TYLENOL PM) 25-500 mg per tablet Take 1 tablet by mouth at bedtime as needed. irbesartan (AVAPRO) 300 mg tablet take 1 tablet by mouth every day 90 tablet 3 11/15/2023 LORazepam (ATIVAN) 1 mg tablet Take 1 mg by mouth at bedtime as needed for anxiety. 03/01/2023 omeprazole (PriLOSEC) [address] capsule Take 20 mg by mouth every morning before breakfast. 09/17/2016 rosuvastatin (CRESTOR) 5 mg tablet TAKE 1 TABLET BY MOUTH EVERY DAY FOR HYPERLIPIDEMIA 06/24/2023 sennosides-docusate sodium (SENOKOT-S) 8.6-50 mg per tablet Take 1 tablet by mouth 2 (two) times a day. 100 tablet 03/25/2023 acetaminophen (TYLENOL) 500 mg tablet Take 2 tablets (1,000 mg total) by mouth every 6 (six) hours. 100 tablet 2 03/25/2023 03/22/2024 eplerenone (INSPRA) 25 mg tablet Take 1.5 tablets (37.5 mg total) by mouth daily. 135 tablet 3 02/08/2024 03/30/2024 fluticasone propionate (FLONASE) 50 mcg/actuation nasal spray Administer 2 sprays into each nostril daily. 03/22/2024 pregabalin (LYRICA) 25 mg capsule Take 1 capsule (25 mg total) by mouth at bedtime. Take as directed. May increase to 50mg at night. 30 capsule 1 07/19/2023 03/22/2024 documented as of this encounter Plan of Treatment Not on file documented as of this encounter Procedures Procedure Name Priority Date/Time Associated Diagnosis Comments DX LUMBAR SPINE 4+ VIEWS RAD - Routine (most inpatients and all outpatients) 03/20/2024 2:27 PM CDT Laminectomy Lumbar Status Post documented in this encounter Results * DX Lumbar Spine 4+ Views [...] devices project over the pelvis. Mt Florian APRN, C.N.P., M.S.N. IM G DIAGNOSTIC IMAGING PROCEDURES documented in this encounter Visit Diagnoses Diagnosis Laminectomy Lumbar Status Post documented in this encounter
--- OUTSIDE RECORDS SUMMARY | 2024-04-17 15:18 | XMS_ITS | Clinical Summary ---
Author Organization [facility] Address [address] [place] [address] Care Team Providers Care Telecommunications Line Mechanic Name Role Phone Manish Freedman MD Primary Care Provider Allergies No known active allergies Medications Medication Sig Dispensed Refills Start Date End Date Status PRILOSEC OR None Entered Active hydrochlorothiazide (HYDRODIURIL) 25 MG tablet 3 04/22/2015 Active LORazepam (ATIVAN) 1 MG tablet 0 06/07/2015 Active ondansetron (ZOFRAN-ODT) 4 MG disintegrating tablet 0 02/25/2015 Act mariana fluticasone (FLONASE) 50 MCG/ACT nasal spray [place] 2 sprays into both nostrils daily Active atorvastatin (LIPITOR) 20 MG tablet Take 20 mg by mouth daily 3 05/27/2018 Active losartan (COZAAR) 50 MG tablet Take 50 mg by mouth daily 0 07/20/2018 Active amitriptyline (ELAVIL) 10 MG tablet 02/03/2019 Active SHINGRIX injection ADM 0.5ML IM UTD 0 02/25/2019 Active norethindrone-ethinyl estradiol (JINTELI) 1-5 MG-MCG tabletIndications:Charlotte pause Take 1 tablet by mouth daily -due for annual exam in July 2018. 90 tablet 4 09/12/2019 Active Active Problems Problem Noted Date Diagnosed Date Screening for cervical cancer Overview: 0640-0642 NIL paps 5065-8390 NIL paps 07/2017, 07/2018, 08/2019 NIL pap, Neg HPV Resolved Problems Problem Noted Date Diagnosed Date Resolved Date Lumbago 11/27/2008 12/25/2008 Immunizations Name Administration Dates Next Due Influenza (H1N1) 11/20/2009 Influenza (IIV3) PF 07/21/2009 Influenza Vaccine 18-64 (Flublok) 09/12/2019 Influenza Vaccine >6 months,quad, PF ,07/01/2017,08/06/2016,2014 Influenza, seasonal, injectable, PF 07/23/2014 Pneumococcal 23 valent 06/22/2018 TDAP Vaccine (Adacel) 07/25/2009 Zoster recombinant adjuvante d (SHINGRIX) 06/22/2018 Family History Medical History Relation Comments Arthritis Father Cerebrovascular Disease Father Chronic Obstructive Pulmonary Disease Father Coronary Artery Disease Father Hyperlipidemia Father Hypertension Father Hypertension Mother Thyroid Disease Sister Relation Status Comments Father Mother Sister Social History Tobacco Use Types Packs/Day Years Used Date Smoking Tobacco: Never Smokeless Tobacco: Never Alcohol Use Standard Drinks/Week Comments Yes 10 (1 standard drink = 0.6 oz pu re alcohol) AUDIT-C Answer Date Recorded Q1: How often do you have a drink containing alc ohol? 2-3 times a week 09/12/2019 Q2: How many drinks containi ng alcohol do you have on a typical day when you are drinking? 1 or 2 09/12/2019 Q3: How often do you have si x or more drinks on one occasion? Never 09/12/2019 PHQ-2 Answer Date Recorded PHQ-2 Score 0 09/12/2019 Sex and Gender Information Value Date Recorded Sex Assigned at Not on file Gender Identity Not on file Sexual Orientation Not on file Last Filed Vital Signs Vital Sign Reading Time Taken Comments Blood Pressure 138/82 09/12/2019 10:47 AM PROCUREMENT FORESTER Pulse 78 09/12/2019 10:47 AM PROCUREMENT FORESTER Temperature - - Respiratory Rate - - Oxygen Saturation - - Inhaled Oxygen Concentration - - Weight 69.9 kg (154 lb) 09/12/2019 10:47 AM PROCUREMENT FORESTER Height 155.3 cm (5' 1.15) 09/12/2019 10:47 AM Thelma SY Body Mass Index 28.96 09/12/2019 10:47 AM PROCUREMENT FORESTER Plan of Treatment Not on file Care Teams Telecommunications Line Mechanic Relationship Specialty Start Date End Date Manish Freedman MD [facility] [address] [place] [address] PCP - General Emergency Medicine 08/11/17
--- OUTSIDE RECORDS SUMMARY | 2024-04-17 15:18 | XMS_ITS | Referral Summary ---
Author Organization [facility] Address [address] [place] [address] Care Team Providers Care Roof Shingler Name Role Phone Manish Freedman MD Primary Care Provider Allergies No known active allergies Medications Medication Sig Dispensed Refills Start Date End Date Status PRILOSEC OR None Entered Active hydrochlorothiazide (HYDRODIURIL) 25 MG tablet 3 04/22/2015 Active LORazepam (ATIVAN) 1 MG tablet 0 06/07/2015 Active ondansetron (ZOFRAN-ODT) 4 MG disintegrating tablet 0 02/25/2015 Act mariana fluticasone (FLONASE) 50 MCG/ACT nasal spray [place] 2 sprays into both nostrils daily Active [...] Diagnosed Date Screening for cervical cancer Overview: 2149-5545 NIL paps [phone] NIL paps 07/2017, 07/2018, 08/2019 NIL pap, [...] 07/25/2009 Zoster recombinant adjuvante d (SHINGRIX) 06/22/2018 Social History Tobacco Use Types Packs/Day Years [...] Comments Blood Pressure 138/82 09/12/2019 10:47 AM SECURITIES CLERK Pulse 78 09/12/2019 10:47 AM SECURITIES CLERK Temperature - - Respiratory Rate - - Oxygen Saturation - - Inhaled Oxygen Concentration - - Weight 69.9 kg (154 lb) 09/12/2019 10:47 AM SECURITIES CLERK Height 155.3 cm (5' 1.15) 09/12/2019 10:[address] Body Mass Index 28.96 09/12/2019 10:47 AM SECURITIES CLERK Plan of Treatment Not on file Care Teams Roof Shingler Relationship Specialty Start Date End Date Manish Freedman MD [facility] [address] [place] [address] PCP - General Emergency Medicine 08/11/17
--- NOTE | 2024-04-17 15:30 | CRLHL7_ITS ---
For Patients: As a result of the Century Cures Act, medical imaging exams and procedure reports are released immediately into your electronic medical record. You may view this report before your referring provider. If you have questions, please contact your health care provider. INDICATION: Lumbar facet arthropathy. TECHNIQUE : Lumbar spine MRI without contrast. COMPARISON: Lumbar spine MRI from 07/08/2022. FINDINGS : Five lumbar type vertebral bodies, with the last fully formed disc space designated as L5-S1. Normal lumbar lordosis. Mild levoconvex lumbar curvature. No recent compression fracture or marrow replacing process. Lower cord/conus signal is normal. The conus terminates at a normal location. No intradural lesion. No extraspinal soft tissue abnormalities. Discs/Endplates: Advanced disc height loss, disc desiccation and endplate remodeling at L4-5 and L5-S1. Moderate disc height loss and disc desiccation at L3-4. Mild disc degeneration elsewhere. Type 1 reactive marrow changes at L3-4 posteriorly and on the right, L4-5 centrally/on the right, and L5-S1 on the right. Findings at individual levels as follows: T11-12: No spinal canal or neural foraminal stenosis. T12-L1: No spinal canal or neural foraminal stenosis. L1-2: Mild disc bulge. No spinal canal or neural foraminal stenosis. L2-3: No spinal canal or neural foraminal stenosis. L3-4: Laminectomy changes with decompression of the spinal canal dorsally. Moderate disc bulge with overlying osteophytic ridging, asymmetric to the right. Bilateral facet arthrosis. Narrowing of the right subarticular recess with contact of the traversing right L4 nerve root. Mild right neural foraminal stenosis. No left neural foraminal stenosis. L4-5: Laminectomy changes with decompression of the spinal canal dorsally. Mild grade 1 anterolisthesis. Mild disc bulge. Bilateral facet arthrosis. Mild left neural foraminal stenosis. No right neural foraminal stenosis. L5-S1: Laminectomy changes with decompression of the spinal canal dorsally. Moderate disc bulge with underlying osteophytic ridging. Bilateral low-grade facet arthrosis. Mild bilateral neural foraminal stenosis. Imaged SI joints: Bilateral arthrosis. Imaged sacrum: Within normal limits. IMPRESSION: . 1. Laminectomy changes at L3 through S1, with decompression of the spinal canal dorsally. Stable. 2. At L3-4, right subarticular recess narrowing with contact of the traversing right L4 nerve root. Stable. 3. At L4-5, grade 1 anterolisthesis, slightly progressed. Mild left neural foraminal stenosis is unchanged. 4. At L5-S1, mild bilateral neural foraminal stenosis. Stable. 5. Advanced disc degeneration L3-4, L4-5 and L5-S1, with accompanying type 1 reactive marrow changes. Progressed, most prominently at the L3-4 level, where there are new type 1 reactive marrow changes. Dictated by Nicko Honeycutt MD @ 04/18/2024 4:24:13 PM (Electronically Signed)
== END 2024-04-17 15:14 | disposition home or self-care (01) ==
PROVIDERS: PCP Internal Medicine; Visit Provider Family Medicine
DX: M47.816 Spondylosis without myelopathy or radiculopathy, lumbar region (principal); M48.07 Spinal stenosis, lumbosacral region; M48.061 Spinal stenosis, lumbar region without neurogenic claudication; M51.36 Other intervertebral disc degeneration, lumbar region; M54.16 Radiculopathy, lumbar region; M54.41 Lumbago with sciatica, right side
CPT/HCPCS: 72158; A9575

== ENCOUNTER 2024-05-05 08:05 | Outpatient (CLI) | payer OTHER, SELFPAY ==
--- OUTSIDE RECORDS SUMMARY | 2024-05-05 08:07 | XMS_ITS | Continuity of Care Document ---
Author Organization [facility] Address [address] [place] [address] Phone Care Team Providers Care Application Dba Name Role Phone Janice MANDUJANO, PhD, Rajendra [...] Copied on Encounter [facility], [address], [place], [id number], [place] tel:[phone] [facility] No Information 3 Janice Drew. [facility], [address], [place], [address], [place]. tel:[phone] Office/Outpat ient Visit,Est, Mod [facility], [address], [place], [id number], [place] tel:[phone] [facility] Encounter for other specified surgical aftercare 2 Janice Drew. [facility], [address], [place], [address], [place]. tel:[phone] Referring Provider: Santana Mesa [facility] [address] [facility], [place], [address]. tel:[phone] OFFICE/OUTPAT IENT VISIT EST Phone [facility], [address], [place], [id number], [place] tel:[phone] [facility] No Information 2 Janice Drew. [facility], [address], [place], [address], [place]. tel: [phone] Referring Provider: Santana Mesa, [facility] [address] [facility], [place], [address]. tel:[phone] Office/Outpat ient Visit,Est, Low [facility], [address], [place], [place], [id number], [place] tel:[phone] [facility] Spinal stenosis, lumbar region with neurogenic claudication 2 Janice Drew. [facility], [address], [place], [address], [place]. tel:[phone] Referring Provider: Santana Mesa, [facility] [address] [facility] [place], [address]. tel:[phone] Office/Outpat ient Visit,Est, Low [facility], [address], [place], [place], [id number], [place] tel:[phone] [facility] Low back pain, unspecified 2 Janice Drew. [facility], [address], [place], [address], [place]. tel: [phone] Referring Provider: Santana Mesa, [employer] [address] [place], [address]. [phone] OFFICE/OUTPAT IENT VISIT EST Phone [facility], [address], [place], [id number], [place] tel:[phone] [facility] No Information 1 Janice Drew. [facility], [address], [place], [address], [place]. tel: [phone] Referring Provider: Santana Mesa [employer] [address], [place], [address]. [phone] Office/Outpat ient Visit,New, Mod [facility], [address], [place], [id number], [place] tel:[phone] [facility] Spinal stenosis, lumbar region with neurogenic claudication 1 Janice Drew. [facility], [address], [place], [address], [place]. tel: [phone] Referring Provider: Santana Mesa [employer] [address] [place], [address]. [phone] [facility], [address], [place], [place], [id number], [place] tel:[phone] [facility] Low back pain 1 Janice Drew. [facility], [address], [place], [address], [place]. tel:[phone] Family History Family Member Type Diagnosis Age At Onset No Information Payers Payer name Insurance type Covered republican ID Authorpepe layne(s) venus Brambila [id number] Social History Type Description Quantity Date Captured [...]
--- OUTSIDE RECORDS SUMMARY | 2024-05-05 08:08 | XMS_ITS | Clinical Summary ---
Author Organization [facility] Address [address] [place] [address] Care Team Providers Care Box Office Agent Name Role Phone Unavailable Primary Care Provider Unavailabl e Source Comments Patient records contain information from all sites at [facility]. For routine questions regarding patient records, call [phone] during business hours, M-F 8:00 AM - 5:00 PM Central Time. Record requests for emergency care only can be directed to [phone] at any time.[facility] Allergies Active Allergy Reactions Criticality Noted Date Comments Sulfa (Sulfonamide Antibiotics) Rash 03/2023 Medications Medication Sig Dispensed Refills Start Date End Date Status amLODIPine (NORVASC) 5 mg tablet Take 2.5 mg by mouth daily. 01/08/2023 Active omeprazole (PriLOSEC) [address] capsule Take 20 mg by mouth every morning before breakfast. 09/17/2016 Active LORazepam (ATIVAN) 1 mg tablet Take 1 mg by mouth at bedtime as needed for anxiety. 03/01/2023 Active diphenhydrAMINE-a cetaminophen (TYLENOL PM) 25-500 mg per tablet Take 1 tablet by mouth at bedtime as needed. Active sennosides-docusa te sodium (SENOKOT-S) 8.6-50 mg per tablet Take 1 tablet by mouth 2 (two) times a day. 100 tablet 03/25/2023 Active rosuvastatin (CRESTOR) 5 mg tablet TAKE 1 TABLET BY MOUTH EVERY DAY FOR HYPERLIPIDEMIA 06/24/2023 Active irbesartan (AVAPRO) 300 mg tablet take 1 tablet by mouth every day 90 tablet 3 11/15/2023 Active eplerenone (INSPRA) 25 mg tablet Take 1.5 tablets (37.5 mg total) by mouth daily. 135 tablet 3 03/31/2024 Active nabumetone (Relafen) 500 mg tablet Take 1 tablet (500 mg total) by mouth daily. 60 tablet 1 04/11/2024 Active Active Problems Problem Noted Date Diagnosed Date Anemia 06/28/2023 Radiculopathy Lumbar 03/25/2023 Preoperative Exam 01/28/2023 Overview: Added automatically from request for surgery [id number] Spinal Stenosis Lumbosacral Region 01/28/2023 Overview: Added automatically from request for surgery [id number] Spondylosis 01/28/2023 Overview: Added automatically from request for surgery [id number] Apnea Sleep Obstructive 07/28/2022 Hyperlipidemia 05/13/2016 Hypertension Essential Primary 05/13/2016 Gastroesophageal Reflux Disease 05/19/2006 03/23/2023 Encounters Date Type Department Care Team Description 04/11/2024 Refill Department of Orthopedic Surgery in [place], [place] [address] [place] [address] Panfilo Reyes M.D. Med Refill 04/08/2024 Refill Department of Orthopedic Surgery in [place], [place] [address] [place] [address] Riky Finney M.D. Med Refill 03/29/2024 Refill Division of Nephrology and Hypertension in [place], [place] [address] [place] [address] Nitesh Landis Jr., D.O. Med Refill 03/20/2024 3:30 PM CDT Office Visit Department of Orthopedic Surgery in [address] [phone] Panfilo Reyes M.D. Stenosis Spinal (Primary Dx); Primary Osteoarthritis Lumbar Spine; Laminectomy Lumbar Status Post Discharge Disposition: Home or Self Care 03/20/2024 2:12 PM CDT - 03/20/2024 11:59 PM CDT Hospital Encounter Department of Radiology in [address] [id number] [facility] APRN C.N.P., M.S.N. Laminectomy Lumbar Status Post Discharge Disposition: Home or Self Care from Last 3 Months Immunizations Name Administration Dates Next Due Influenza Split 07/23/2014 Family History Medical History Relation Name Comments ADD Daughter MALCOLM MARADIAGA Thyroid disease Daughter MALCOLM MARADIAGA Coronary artery disease Father Dc Ashley Deep vein thrombosis Father Dc Ashley after open heart surgery Heart Father Dc Ashley first heart pr ocedure 55-60, about 10 years later had bypass Hyperlipidemia Father Dc Ashley Hypertension Father Dc sAhley Leukemia Father Dc Ashley Lung cancer Father Dc Ashley Hypertension Mother ANA Ashley No Known Problems Other ADD Son CHHAYA MARADIAGA Anxiety disorder Son CHHAYA MARADIAGA Coronary artery disease Son CHHAYA MARADIAGA Wid ow maker, not significant blockage but was found, no intervention Drug abuse Son CHHAYA MARADIAGA Relation Name Status Comments Daughter MALCOLM MARADIAGA Father Dc Ashley Mother ANA Ashley Other Son CHHAYA MARADIAGA Social History Tobacco Use Types Packs/Day Years Used Date Smoking Tobacco: Never Smokeless Tobacco: Never Alcohol Use Standard Drinks/Week Comments Yes 8 (1 standard drink = 0.6 oz pur e alcohol) [facility] Utilities Answer Date Recorded In the past 12 months has e [employer], gas, oil, or water [employer] threatened to shut off services in your [...] often do you attend chur ch or orthodoxy services? Never 12/02/2022 Do you belong to any clubs o r organizations such as mormon groups, unions, fraternal or athletic groups, or [...] Answer Date Recorded PHQ-2 Score 1 03/20/2024 [facility] - [...] your living situation today? I have a [facility] place to live 03/13/2024 Education Answer Date Recorded What is the highest level of school you have completed or the highest degree you have received? 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 Gender Identity Female 11/07/2022 8:34 AM RAIL CREW MEMBER Sexual Orientation Not on file Last Filed [...] Fall Risk Screen (Annual) 10/18/2023 COVID-19 Vaccine (6 - 2022-2 4 season) 2023 08/11/2023, 07/28/2022, 01/06/2022, Additional history exists Creatinine Level (Kidney Fun ction Test) 03/25/2024 03/25/2023, 03/23/2023, 10/28/2021, Additional history exists Potassium Level 03/25/2024 03/25/2023, 06/0 03/2023, 05/12/2016 Sodium Level 03/25/2024 03/25/2023, 06/0 03/2023, 05/12/2016 Influenza Vaccine (#1) 2024 , 07/21/2022, 08/13/2021, Additional history exists Office Visit for Blood Press ure Check / Re-check 03/21/2025 03/21/2024, 03/21/2024, 01/10/2024 Fasting Glucose for Diabetes Screening 03/25/2026 03/25/2023, 03/23/2023, 05/12/2016, Additional history exists DTaP,Tdap,and Td Vaccines (3 - Td or Tdap) 10/06/2033 10/06/2023, 07/25/2009, 11/01/2007 Zoster Vaccines Completed 02/25/2019, 04/0 02/2019, 06/22/2018 Cervical Cancer Screening Discontinued 2018, 09/12/2019, 08/16/2018, Additional history exists Bone Density Scan (Osteoporo sis Screen) Discontinued 12/02/2022 Depression Screening (Annual PHQ-2) Completed 03/20/2024 Medical Devices Implanted Type Area Levelman Device Identifier Shelf Expiration Date Model / Serial / Lot Misc Other Misc Other Uterus Description:Esure cont rol Procedures Procedure Name Priority Date/Time Associated Diagnosis Comments DX LUMBAR SPINE 4+ VIEWS RAD - Routine (most inpatients and all outpatients) 03/20/2024 2:27 PM CDT Laminectomy Lumbar Status Post BASIC METABOLIC PANEL, S/P Routine 03/25/2023 5:43 AM CDT EXTI HUMAN PAPILLOMAVIRUS (HPV), HIGH-RISK, DNA IN SITU HYBRIDIZATION Routine 09/12/2019 11:05 AM RAIL CREW MEMBER LIPID PANEL, S Routine 05/12/2016 6:59 AM [...] Ellis Calle M.D. LAB BLOOD ADD-O N [facility] [address] [place] [address], [facility] [address] [place] [address] * (ABNORMAL) Lipid Panel (05/12/2016 6:59 AM CDT) Cholesterol, HDL, S 54 >=50 MG/DL [facility] Calculated LDL 142(H) SeeComment MG/DL [facility] Comment: ? REFERENCE VALUE ? Desirable: <100 ? Above Desirable: 100-129 ? Borderline high: 130-159 ? High: 160-189 ? Very high: > or =190 ? Cholesterol, Total 243(H) SeeComment MG/DL [facility] Comment: ? REFERENCE VALUE ? Desirable: < 200 ? Borderline high: 200 - 239 ? High: > or = 240 ? Triglycerides 235(H) SeeComment MG/DL [facility] Comment: ? REFERENCE VALUE ? Normal: <150 ? Borderline high: 150-199 ? High: 200-499 ? Very high: > or =500 ? Cholesterol, Non-HDL, Calculated 189(H) SeeComment MG/DL [facility] Comment: ? REFERENCE VALUE ? Desirable: <130 ? Above Desirable: 130-159 ? Borderline high: 160-189 ? High: 190-219 ? Very high: > or =220 ? 05/12/2016 6:59 AM CDT 05/12/2016 6:59 AM CDT Arnoldo English M.D. LAB BLOOD ADD-ON [facility] [address] [place] [id number] from Last 3 Months or Most Recently Relevant to Health Maintenance Advance Directives For more information, please contact: [phone] * Full Code (Latest Code Status on File) Date Activated Date Inactivated Comments 03/24/2023 12:51 PM 03/25/2023 4:33 PM Question Answer Comments Full Code: Discussed
--- OUTSIDE RECORDS SUMMARY | 2024-05-05 08:08 | XMS_ITS | Continuity of Care Document ---
Author Organization [facility] Address [address] [address] [place] [address] Phone Care Team Providers Care Lion Hunter Name Role Phone Mary Roberto CRNA Unavailabl [...] 20 MG - Active Nasonex 50 mcg/actuation [place] spray 1 spray by Intranasal route every [...] daily - Active fluticasone 50 mcg/Actuation Nasal [place], Susp spray 2 spray by Intranasal route [...] Iv-surg Path Gross/micro 15 Offic/outpt E&m New Mod-hi Offic/outpt E&m Estab Mod-hi 2 11 Routine Serum Collection [id number] Colonoscopy Flex; Dx (sep Pro) 07 Offic/outpt E&m Estab Low-mod 7 Offic/outpt E m Estab Low Advance Directives Directive Yes / No Effective Date File Name No Information Encounters Encounter Description Practice Location Reason(s) For Visit Diagnoses Date Provider Providers Copied on Encounter [facility], [address] [address], [place], [id number], [place] tel:[phone] [facility] No Information 1 Felisa Hernandez. [address] [facility], [address], [place], [id number], [place]. tel:[phone] Referring Provider: Nicko Haney MD H, [address] [facility] [address], [place], [address] . tel:[phone] [facility], [address] [address], [place], [id number], [place] tel:[phone] [facility] Personal history of colonic polypsDiverticul osis of colon without diverticulitisCo lorectal polyp detected on colonoscopyEncou nter for screening for malignant neoplasm of colonBenign neoplasm of transverse colonPersonal history of colonic polyps 1 Lyndon Maharaj. [address] [facility] [address], [address], [place], [place], [id number], [place]. tel:[phone] Referring Provider: Referral Self, USE FOR SELF REFERRALS. [facility], [address] [address], [place], [place], [id number], [place] tel:[phone] [facility] No Information 1 Rob Drew. [address] [facility], [address], [place], [place], [id number], [place]. tel:[phone] Offic/outpt E&m Estab Mod-hi 2 [facility], [address] [address], [place], [place], [id number], [place] tel:[phone] [facility] GI Symptoms or Concerns (chief complaint) Right upper quadrant abdominal painFatty liverEssential (primary) hypertension Josef- 5 8 Ching Heard. [address] [facility], [address], [place], [place], [id number], [place]. tel:[phone] Referring Provider: Referral Self, USE FOR SELF REFERRALS. [facility], [address] [address], [place], [place], [id number], [place] tel:[phone] [facility] Right upper quadrant abdominal pain Jan-3 0-201 8 Ching Heard. [address] [facility] [address], [address], [place], [place], [id number], [place]. tel:[phone] Offic/outpt E&m Estab Mod-hi 2 [facility], [address] [address], [place], [place], [id number], [place] tel:[phone] [facility] GI Symptoms or Concerns (chief complaint) Right upper quadrant abdominal painDietary counseling and surveillanceEsse ntial (primary) hypertension Jan-2 4-201 8 Ching Heard. [address] [facility] [address], [address], [place], [place], [id number], [place]. tel:[phone] Referring Provider: Referral Self, USE FOR SELF REFERRALS. Offic/outpt E&m Estab Mod-hi 2 [facility], [address] [address], [place], [id number], [place] tel:[phone] [facility] GI Symptoms or Concerns (chief complaint) Irritable bowel syndrome with diarrheaDietary counseling and surveillance 5 Alysha Mercado. [address] [facility], [address], [place], [id number], [place]. tel:[phone] Referring Provider: Marquita Johnson MD, [address] [place], [address]. tel:[phone] [facility], [address] [address], [place], [id number], [place] tel:[phone] [facility] No Information 5 Alysha Mercado. [address] [facility], [address], [place], [id number], [place]. tel:[phone] Referring Provider: Marquita Johnson MD, [address] [place], [address]. tel:[phone] [facility], [address] [address], [place], [id number], [place] tel:[phone] [facility] Diarrhea 5 Alysha Mercado. [address] [facility], [address], [place], [id number], [place]. tel:[phone] [facility], [address] [address], [place], [id number], [place] tel:[phone] [facility] Hiatal herniaColon polypsDiverticul osis of large intestine without hemorrhageLympho cytosis (symptomatic)Sarmad ign neoplasm of transverse colonLymphocytos is (symptomatic)Lorenza phragmatic hernia without obstruction or gangrene 5 Alysha Mercado. [address] [facility], [address], [place], [id number], [place]. tel:[phone] Referring Provider: Marquita Johnson MD, [address] , [place], [address]. tel:[phone] Offic/outpt E&m New Mod-hi [facility], [address] [address], [place], [id number], [place] tel:[phone] [facility] GI Symptoms or Concerns (chief complaint) DiarrheaAbdomina l painNauseaNausea Diarrhea, unspecifiedUnspe cified abdominal pain Sep-2 5 Alysha Mercado. [facility][note 3][address] [facility], [facility] [address], [place], [id number], [place]. tel:[phone] Referring Provider: Marquita Johnson MD, [address] , [place], [address]. tel:[phone] Offic/outpt E&m Estab Mod-hi 2 [facility], [address] [address], [place], [place], [address], [place] tel:[phone] [facility] Abdominal burning (chief complaint) Epigastric Pain Sep-2 1 Lyndon Maharaj. [facility][note 3][address] [facility], [address], [place], [place], [address], [place]. tel:[phone] Referring Provider: Referral Self, USE FOR SELF REFERRALS. [facility], [address] [address], [place], [place], [address], [place] tel:[phone] [facility] Colon Cancer ScreeningDiverti culosis Of Colon Apr-1 7 Lyndon Maharaj. [address] [facility], [address], [place], [id number], [place]. tel:[phone] Offic/outpt E&m Estab Low-mod [facility], [address] [address], [place], [address], [place] tel:[phone] [facility] Gastroesophageal Reflux Feb-0 7 Lyndon Maharaj. [address] [facility], [address], [place], [address], [place]. tel:[phone] Offic/outpt Fan daniele Leeann Arango [facility], [address] [address], [place], [place], [id number], [place] tel:[phone] [facility] Gastroesophageal Reflux 6 Lyndon Maharaj. [address] [facility], [address], [place], [id number], [place]. tel:[phone] Family History Family Member Type Diagnosis Age [...] yrs or older administered Source: Other Provi tsefano Afluria Qd administered Note: M IIC bi-directional interface ; Source: Other Registry Afluria Qd administered Note: M IIC bi-directional interface ; Source: Other Registry Influenza, seasonal, injectable, preservative free administered Note: MIIC bi-directional interface ; Source: Other Registry Influenza virus vaccine, injectable, quadrivalent, split virus, preservative free, 3 years or older Fluarix Quad administered Note: Invalid docume nted admin date was NULL/NULL/2013. ; Source: Other Provider Novel ohacfyerv-[id number], all formulations administered Note: MIIC bi-direct ional interface ; Source: Other Registry tetanus toxoid, reduced diphtheria toxoid, and acellular pertussis vaccine, adsorbed administered Note: MIIC bi-direct ional interface ; Source: Other Registry Payers Payer name Insurance type Covered alliance party ID Authoriza tikaryn(s) R CI [id number] Social History Type Description Quantity Date Captured [...] been previously seen by my colleague, Dr. Encarnacion for irritable bowel syndrome with intermittent loose [...] in N GI Symptoms or Concerns Marquita pre sents for followup regarding her diarrhea. Briefly, [...] assessment at a Pain Clinic such as [facility] or potentially repeating her MRI. There may [...] 2014. Her next one is due in 2020 due to a history of tubular adenoma. [...]
--- OUTSIDE RECORDS SUMMARY | 2024-05-05 08:08 | XMS_ITS | Encounter Summary ---
Author Organization [facility] Address [address] [place] [address] Care Team Providers Care Sql Database Administrator Name Role Phone Unavailable Primary Care Provider Unavailabl e Reason for Visit * Reason Comments Med Refill Encounter Details Date Type Department Care Team (Late st Contact Info) Description 04/11/2024 Refill Department of Orthopedic Surgery in [place], [place] [address] [place] [address] Panfilo Reyes M.D. [address] [place] [address] Med Refill Social History Tobacco Use Types Packs/Day Years Used Date Smoking Tobacco: Never Smokeless Tobacco: Never Alcohol Use Standard Drinks/Week Comments Yes 8 (1 standard drink = 0.6 oz pur e alcohol) [facility] Utilities Answer Date Recorded In the past 12 months has [facility] [employer], gas, oil, or water [employer] threatened to shut off services in your [...] often do you attend chur ch or adventism services? Never 12/02/2022 Do you belong to any clubs o r organizations such as lutheran groups, unions, fraternal or athletic groups, or [...] Answer Date Recorded PHQ-2 Score 1 03/20/2024 [facility] Questionnaire Answer Date Recorded [...] your living situation today? I have a [employer] place to live 03/13/2024 Education Answer Date Recorded What is the highest level of school you have completed or the highest degree you have received? 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
--- OUTSIDE RECORDS SUMMARY | 2024-05-05 08:08 | XMS_ITS | Referral Summary ---
Author Organization [facility] Address [address] [place] [address] Care Team Providers Care Circuit Rider Name Role Phone Unavailable Primary Care Provider Unavailabl e Source Comments Patient records contain information from all sites at [facility]. For routine questions regarding patient records, call [phone] during business hours, M-F 8:00 AM - 5:00 PM Central Time. Record requests for emergency care only can be directed to [phone] time.[facility] Encounters Date Type Department Care Team Description 04/11/2024 Refill Department of Orthopedic Surgery in [place], [place] [address] [place] [address] Panfilo Reyes M.D. Med Refill 04/08/2024 Refill Department of Orthopedic Surgery in [place], [place] [address] [place] [address] Riky Finney M.D. Med Refill 03/29/2024 Refill Division of Nephrology and Hypertension in [place], [place] [address] [place] [address] Nitesh Landis Jr., D.O. Med Refill 03/20/2024 2:12 PM CDT - 03/20/2024 11:59 PM CDT Hospital Encounter Department of Radiology in [address] [phone] Mt Florian APRN, C.N.P., M.S.N. Laminectomy Lumbar Status Post Discharge Disposition: Home or Self Care 03/20/2024 3:30 PM CDT Office Visit Department of Orthopedic Surgery in [address] [phone] Panfilo Reyes M.D. Stenosis Spinal (Primary Dx); Primary Osteoarthritis Lumbar Spine; Laminectomy Lumbar Status Post Discharge Disposition: Home or Self Care from Last 3 Months Allergies Active Allergy [...] Overview: Added automatically from request for surgery [id number] Spinal Stenosis Lumbosacral Region 01/28/2023 Overview: Added automatically from request for surgery [id number] Spondylosis 01/28/2023 Overview: Added automatically from request for surgery [id number] Apnea Sleep Obstructive 07/28/2022 Hyperlipidemia 05/13/2016 Hypertension Essential Primary 05/13/2016 Gastroesophageal Reflux Disease 05/19/2006 03/23/2023 Immunizations Name Administration Dates Next Due Influenza Split 07/23/2014 Social History Tobacco Use Types Packs/Day Years Used Date Smoking Tobacco: Never Smokeless Tobacco: Never Alcohol Use Standard Drinks/Week Comments Yes 8 (1 standard drink = 0.6 oz pur e alcohol) [facility] Utilities Answer Date Recorded In the past 12 months has e [employer], oil, or water [employer] threatened to shut off services in your [...] often do you attend chur ch or pentecostalism services? 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 LAB BLOOD ADD-O N [facility] [address] [place] [address], [facility] [address] [place] [address] * (ABNORMAL) Lipid Panel (05/12/2016 6:59 AM CDT) Cholesterol, HDL, S 54 >=50 MG/DL [facility] Calculated LDL 142(H) SeeComment MG/DL [facility] Comment: ? REFERENCE VALUE ? Desirable: <100 ? Above Desirable: 100-129 ? Borderline high: 130-159 ? High: 160-189 ? Very high: > or =190 ? Cholesterol, Total 243(H) SeeComment MG/DL [facility] Comment: ? REFERENCE VALUE ? Desirable: < 200 ? Borderline high: 200 - 239 ? High: > or = 240 ? Triglycerides 235(H) SeeComment MG/DL [facility] Comment: ? REFERENCE VALUE ? Normal: <150 ? Borderline high: 150-199 ? High: 200-499 ? Very high: > or =500 ? Cholesterol, Non-HDL, Calculated 189(H) SeeComment MG/DL [facility] Comment: ? REFERENCE VALUE ? Desirable: <130 ? Above Desirable: 130-159 ? Borderline high: 160-189 ? High: 190-219 ? Very high: > or =220 ? 05/12/2016 6:59 AM CDT 05/12/2016 6:59 AM CDT Arnoldo English M.D. LAB BLOOD ADD-ON [facility] [address] [place] [address], [facility] from Last 3 Months or Most Recently Relevant to Health Maintenance Advance Directives For more information, please contact: [phone] * Full Code (Latest Code Status on File) Date Activated Date Inactivated Comments 03/24/2023 12:51 PM 03/25/2023 4:33 PM Question Answer Comments Full Code: Discussed
--- OUTSIDE RECORDS SUMMARY | 2024-05-05 08:08 | XMS_ITS | Clinical Summary ---
Author Organization [facility] Address [place], [place] [address] Care Team Providers Care Food Checkers And Cashiers Supervisor Name Role Phone Manish Freedman MD Primary Care Provider [phone] Allergies No known active allergies Medications Medication [...] previous hip bursa injections by Dr. Rees [phone] approximately MRI of bilateral hips done May [...] Encounters Date Type Department Care Team Description 05/02/2024 Travel 04/23/2024 Chart Update [facility] [address] [place] [address] Santana Pedroza MD 04/20/2024 Orders Only [facility] [address] [place] [address] Santana Pedroza MD 1 scan: (1-Ord) [facility], MR LUMBAR SPINE WO/W CON , 04/17/2024 04/04/2024 7:00 AM CDT Office Visit [facility] [address] [place] [address] Santana Pedroza MD Musculoskeletal Problem (Follow-up low back and RIGHT leg - discuss getting injection ) 04/03/2024 Travel 03/28/2024 Telephone [facility] [address] [place] [address] Rogelio Chance MD epidurals (right calf) from [...] Name Comments Heart Disease Father CAD 1st [place] 50' s Hyperlipidemia Father Other Father myelofibrosis [...] 154.9 cm (5' 1) 10/31/2020 3:37 PM MUSIC INDUSTRY INTERN Body Mass Index 26.76 10/31/2020 3:37 PM MUSIC INDUSTRY INTERN Plan of Treatment Upcoming Encounters Date Type Department Care Team (Late st Contact Info) Description 05/05/2024 8:40 AM CDT Office Visit [facility] [address] [place] [address] Rogelio Chance MD [address] [place] [address] Health Maintenance Due Date Last Done Comments Hepatitis C screening for ag e 18-01/03/1973 Mammogram for age 45-75 04/17/2010 04/17/2009 Lipids [...] 03/06/20 21, 12/29/2018 COVID-19 vaccine series ( - 2022-24 season) 2023 08/11/2023, 07/28/2022, 01/06/2022, Additional history exists Influenza for age 65+ 06/18/2024 08/13/2021 , 07/25/2020, 09/12/2019, Additional history exists Tdap Completed 07/25/2009 Zoster (shingles) series for age 50+ Completed 02/25/2019, 01/20/2019, 06/22/2018 Procedures Procedure Name Priority Date/Time Associated Diagnosis Comments MR SPINE LUMBAR WWO Routine 04/17/2024 1 2:00 AM CDT Lumbar facet arthropathy Lumbar radiculopathy DDD (degenerative disc disease), lumbar Chronic right-sided low back pain with right-sided sciatica from Last 3 Months Results * MR SPINE LUMBAR WWO (04/17/2024 12:00 AM CDT) Anatomical Region Laterality Modality Spine, LUMBAR SPINE Magnetic Res onance Santana Pedroza MD MR from Last 3 Months Care Teams Food Checkers And Cashiers Supervisor Relationship Specialty Start Date End Date Manish Freedman MD [address] [place] [address] PCP - General Internal Medicine 12/29/18
--- OUTSIDE RECORDS SUMMARY | 2024-05-05 08:08 | XMS_ITS ---
Author Organization [facility] Address [address] [place] [address] Care Team Providers Care Data Warehouse Architect Name Role Phone Unavailable Unavailable Unavailable Surgery Details Not on file Complications Check Surgery Details section. Procedure Estimated Blood Loss Check Surgery Details section. Procedure Findings Check Surgery Details section. Procedure Specimens Taken Check Surgery Details section.
--- OUTSIDE RECORDS SUMMARY | 2024-05-05 08:09 | XMS_ITS | Encounter Summary ---
Author Organization [facility] Address [address] [place] [address] Care Team Providers Care Trust Vault Clerk Name Role Phone Unavailable Primary Care Provider Unavailabl e Reason for Visit * Reason Comments Med Refill Encounter Details Date Type Department Care Team (Late st Contact Info) Description 03/29/2024 Refill Division of Nephrology and Hypertension in [place], [place] [address] [place] [address] Nitesh Landis Jr., D.O. [address] [place] [address] Med Refill Social History Tobacco Use Types Packs/Day Years Used Date Smoking Tobacco: Never Smokeless Tobacco: Never Alcohol Use Standard Drinks/Week Comments Yes 8 (1 standard drink = 0.6 oz pur e alcohol) [facility] Utilities Answer Date Recorded In the past 12 months has [facility] [employer], gas, oil, or water [employer] threatened to shut off services in your [...] often do you attend chur ch or synagogue services? Never 12/02/2022 Do you belong to any clubs o r organizations such as anglican groups, unions, fraternal or athletic groups, or [...] [facility] of Occupat ional Health - Occupational Stress [...] your living situation today? I have a [facility] place to live 03/13/2024 Education Answer Date Recorded What is the highest level of school you have completed or the highest degree you have received? Bachelor's degree (e.g., BA, AB, BS) 12/02/2022 Sex and Gender Information Value Date Recorded Sex Assigned at Female 11/07/2022 8:34 AM TOWER TECHNICIAN Gender Identity Female 11/07/2022 8:34 AM TOWER TECHNICIAN Sexual Orientation Not on file documented as [...]
--- OUTSIDE RECORDS SUMMARY | 2024-05-05 08:09 | XMS_ITS | Encounter Summary ---
Author Organization [facility] Address [address] [place] [address] Care Team Providers Care Hair Specialist Name Role Phone Unavailable Primary Care Provider Unavailabl e Reason for Referral * Outpatient (Routine) - Closed Specialty Diagnoses / Procedures Referred By Contac t Referred To Contact Diagnoses Laminectomy Lumbar Status Post Procedures DX Lumbar Spine 4+ Views Mt Florian APRN, C.N.Ela., M.S.N. [address] [place] [phone] [facility] Referral ID Status Reason Start Date Expiration Date Visits Re quested Visits Authorized [id number] Closed 07/19/2023 07/18/2024 1 1 Reason for Visit * Outpatient (Routine) - Closed Specialty Diagnoses / Procedures Referred By Contac t Referred To Contact Diagnoses Laminectomy Lumbar Status Post Procedures DX Lumbar Spine 4+ Views Mt Florian APRN C.N.P., M.S.N. [address] [place] [address] [facility] Referral ID Status Reason Start Date Expiration Date Visits Re quested Visits Authorized [id number] Closed 07/19/2023 07/18/2024 1 1 Encounter Details Date Type Department Care Team (Latest Contact Info) Description 03/20/2024 2:12 PM CDT - 03/20/2024 11:59 PM CDT Hospital Encounter Department of Radiology in [address] [phone] Mt Florian APRN, C.N.P., M.S.N. [address] [place] [phone] Laminectomy Lumbar Status Post Discharge Disposition: Home or Self Care Social History Tobacco Use Types Packs/Day Years Used Date Smoking Tobacco: Never Smokeless Tobacco: Never Alcohol Use Standard Drinks/Week Comments Yes 8 (1 standard drink = 0.6 oz pur e alcohol) [facility] Utilities Answer Date Recorded In the [...] often do you attend chur ch or rastafari services? Never 12/02/2022 Do you belong to any clubs o r organizations such as evangelical groups, unions, fraternal or athletic groups, or [...] Answer Date Recorded PHQ-2 Score 1 03/20/2024 [facility] - Occupational Stress Questionnaire Answer Date [...] Sex Assigned at Female 11/07/2022 8:34 AM ANNEALING OVEN OPERATOR Gender Identity Female 11/07/2022 8:34 AM ANNEALING OVEN OPERATOR Sexual Orientation Not on file documented as [...]
--- OUTSIDE RECORDS SUMMARY | 2024-05-05 08:09 | XMS_ITS | Encounter Summary ---
Author Organization [facility] Address [address] [place] [address] Care Team Providers Care Sales Stock Associate Name Role Phone Unavailable Primary Care Provider Unavailabl e Reason for Visit * Reason Comments Pain Follow-up * Outpatient (Routine) - Closed Specialty Diagnoses / Procedures Referred By Aimee t Referred To Contact Orthopedic Surgery Mt Florian APRN, C.N.P., M.S.N. [address] [place] [phone] Panfilo Reyes M.D. [address] [place] [phone] Referral ID Status Reason Start Date Expiration Date Visits Re quested Visits Authorized [id number] Closed 07/19/2023 07/18/2026 1 1 Encounter Details Date Type Department Care Team (Latest Contact Info) Description 03/20/2024 3:30 PM CDT Office Visit Department of Orthopedic Surgery in [place], [place] [address] [place] [phone] Panfilo Reyes M.D. [address] [place] [phone] Stenosis Spinal (Primary Dx); Primary Osteoarthritis Lumbar Spine; Laminectomy Lumbar Status Post Discharge Disposition: Home or Self Care Social History Tobacco Use Types Packs/Day Years Used Date Smoking Tobacco: Never Smokeless Tobacco: Never Alcohol Use Standard Drinks/Week Comments Yes 8 (1 standard drink = 0.6 oz pur e alcohol) [facility] Utilities Answer Date Recorded In the past 12 months has th e electric, [employer], oil, or water [employer] threatened to shut off services in your [...] often do you attend chur ch or judaism services? Never 12/02/2022 Do you belong to any clubs o r organizations such as mandaeism groups, unions, fraternal or athletic groups, or [...] Answer Date Recorded PHQ-2 Score 1 03/20/2024 [facility] of Occupat ional [facility] - Occupational Stress Questionnaire Answer Date Recorded [...] your living situation today? I have a [facility] place to live 03/13/2024 Education Answer Date Recorded What is the highest level of school you have completed or the highest degree you have received? Bachelor's degree (e.g., BA, AB, BS) 12/02/2022 Sex and Gender Information Value Date Recorded Sex Assigned at Female 11/07/2022 8:34 AM AIRFRAME DESIGN ENGINEER Gender Identity Female 11/07/2022 8:34 AM AIRFRAME DESIGN ENGINEER Sexual Orientation Not on file documented as [...]
--- OUTSIDE RECORDS SUMMARY | 2024-05-05 08:09 | XMS_ITS | Referral Summary ---
Author Organization [facility] Address [address] [place] [address] Care Team Providers Care District Plant Supervisor Name Role Phone Manish Freedman MD Primary Care Provider Allergies No known active allergies Medications Medication Sig Dispensed Refills Start Date End Date Status PRILOSEC OR None Entered Active hydrochlorothiazide (HYDRODIURIL) 25 MG tablet 3 04/22/2015 Active LORazepam (ATIVAN) 1 MG tablet 0 06/07/2015 Active ondansetron (ZOFRAN-ODT) 4 MG disintegrating tablet 0 02/25/2015 Act mariana fluticasone (FLONASE) 50 MCG/ACT nasal spray [place] 2 sprays into both nostrils daily Active [...] Diagnosed Date Screening for cervical cancer Overview: [id number] NIL paps [phone] NIL paps 07/2017, 07/2018, 08/2019 NIL pap, [...] Comments Blood Pressure 138/82 09/12/2019 10:47 AM HEALTH POLICY ANALYST Pulse 78 09/12/2019 10:47 AM HEALTH POLICY ANALYST Temperature - - Respiratory Rate - - Oxygen Saturation - - Inhaled Oxygen Concentration - - Weight 69.9 kg (154 lb) 09/12/2019 10:47 AM HEALTH POLICY ANALYST Height 155.3 cm (5' 1.15) 09/12/2019 10:[address] Body Mass Index 28.96 09/12/2019 10:47 AM HEALTH POLICY ANALYST Plan of Treatment Not on file Care Teams District Plant Supervisor Relationship Specialty Start Date End Date Manish Freedman MD [facility] [address] [place] [address] PCP - General Emergency Medicine 08/11/17
--- OUTSIDE RECORDS SUMMARY | 2024-05-05 08:09 | XMS_ITS | Encounter Summary ---
Author Organization [facility] Address [address] [place] [address] Care Team Providers Care Designer Writer Name Role Phone Unavailable Primary Care Provider Unavailabl e Reason for Visit * Reason Comments Med Refill Encounter Details Date Type Department Care Team (Late st Contact Info) Description 01/28/2024 Refill Division of Nephrology and Hypertension in [place], [place] [address] [place] [address] Nitesh Landis Jr., D.O. [address] [place] [address] Med Refill Social History Tobacco Use Types [...] any clubs o r organizations such as holiness groups, unions, fraternal or athletic groups, or [...] Answer Date Recorded PHQ-2 Score 1 07/05/2023 [facility] - Occupational [...] place to sleep or slept in a nursing home (including now)? No 12/02/2022 Nutrition Answer Date [...] Sex Assigned at Female 11/07/2022 8:34 AM CAR CLERK PULLMAN Gender Identity Female 11/07/2022 8:34 AM CAR CLERK PULLMAN Sexual Orientation Not on file documented as of this encounter Plan of Treatment Not on file documented as of this encounter Visit Diagnoses Not on filedocumented in this encounter
--- OUTSIDE RECORDS SUMMARY | 2024-05-05 08:09 | XMS_ITS | Encounter Summary ---
Author Organization [facility] Address [address] [place] [address] Care Team Providers Care Auto Service Station Attendant Name Role Phone Unavailable Primary Care Provider Unavailabl e Reason for Visit * Reason Comments Med Refill Encounter Details Date Type Department Care Team (Late st Contact Info) Description 04/08/2024 Refill Department of Orthopedic Surgery in [place], [place] [address] [place] [address] Riky Finney M.D. [address] [place] [address] Med Refill Social History Tobacco Use Types Packs/Day Years Used Date Smoking Tobacco: Never Smokeless Tobacco: Never Alcohol Use Standard Drinks/Week Comments Yes 8 (1 standard drink = 0.6 oz pur e alcohol) [facility] Utilities Answer Date Recorded In the past 12 months has [facility] [place] [employer], gas, oil, or water [employer] threatened to shut off services in your [...] often do you attend chur ch or evangelical services? Never 12/02/2022 Do you belong to any clubs o r organizations such as religious groups, unions, fraternal or athletic groups, or [...] Answer Date Recorded PHQ-2 Score 1 03/20/2024 [facility] Questionnaire Answer Date [...] your living situation today? I have a [facility] place to live 03/13/2024 Education Answer Date Recorded What is the highest level of school you have completed or the highest degree you have received? Bachelor's degree (e.g., BA, AB, BS) 12/02/2022 Sex and Gender Information Value Date Recorded Sex Assigned at Female 11/07/2022 8:34 AM LOGISTICS SUPERVISOR Gender Identity Female 11/07/2022 8:34 AM LOGISTICS SUPERVISOR Sexual Orientation Not on file documented as of this encounter Plan of Treatment Not on file documented as of this encounter Visit Diagnoses Not on filedocumented in this encounter
--- OUTSIDE RECORDS SUMMARY | 2024-05-05 08:09 | XMS_ITS | Clinical Summary ---
Author Organization [facility] Address [address] [place] [address] Care Team Providers Care Manufacturing Planner Name Role Phone Dc Gonzalez MD Primary Care Provider Unava ilable Source Comments You are receiving this document as you are listed as the primary care provider,follow-up provider, or the patient has been referred to you for consultation.This is in compliance with the Medicare and[facility] EHR Incentive Program,which states Providers who transition their patient to another setting of careor provider of care or refers their patient to another provider of care shouldprovide summary care record for each transition of care or referral. [facility] Allergies Active Allergy Reactions Criticality Noted Date [...] (1 - 2022-2 4 season) 2023 Influenza (#1) 2024 HepA Aged Out No longer eligi [...] age to complete this topic Care Teams Manufacturing Planner Relationship Specialty Start Date End Date Dc Gonzalez MD PCP - General 01/17/11
--- OUTSIDE RECORDS SUMMARY | 2024-05-05 08:09 | XMS_ITS | Encounter Summary ---
Author Organization [facility] Address [address] [place] [address] Care Team Providers Care Patient Resource Specialist Name Role Phone Unavailable Primary Care Provider Unavailabl e Reason for Visit * Reason Onset Date Comments Blood Pressure Check 02/03/2024 Encounter Details Date Type Department Care Team (Latest Contact Info) Description 02/03/2024 Clinical Communication Division of Nephrology and Hypertension in [place], [place] [address] [place] [address] Nitesh Landis Jr., D.O. [address] [place] [address] Blood Pressure Check Social History Tobacco Use [...] often do you attend chur ch or mu-ism services? Never 12/02/2022 Do you belong to [...] Answer Date Recorded PHQ-2 Score 1 07/05/2023 [facility] - Occupational Stress Questionnaire Answer Date [...] place to sleep or slept in a long term (including now)? No 12/02/2022 Nutrition Answer Date [...] Sex Assigned at Female 11/07/2022 8:34 AM METAL MOVER Gender Identity Female 11/07/2022 8:34 AM METAL MOVER Sexual Orientation Not on file documented as of this encounter Miscellaneous Notes * Telephone Encounter - Ila Cifuentes Alessandra, R.N. - 02/04/2024 11:40 AM [...] the patient can complete the labs in [place]. PLAN Disposition/Recommendation: self-care is appropriate at this time, patient encouraged to call back with questions Information/Education: patient/caller able to teach back Caller agreeable to plan of care: yes The following references were used: nursing clinical judgement, Dr. Landis's note of 01/10/2024. * Telephone Encounter - Tasha Gil - 02/03/2024 3:57 PM CDT Caller is: patient Preferred Communication Method: [phone] (mobile) Reason for call: Patient called to [...]
--- OUTSIDE RECORDS SUMMARY | 2024-05-05 08:09 | XMS_ITS | Clinical Summary ---
Author Organization [facility] Address [address] [place] [address] Care Team Providers Care Histotechnician Name Role Phone Manish Freedman MD Primary Care Provider Allergies No known active allergies Medications Medication Sig Dispensed Refills Start Date End Date Status PRILOSEC OR None Entered Active hydrochlorothiazide (HYDRODIURIL) 25 MG tablet 3 04/22/2015 Active LORazepam (ATIVAN) 1 MG tablet 0 06/07/2015 Active ondansetron (ZOFRAN-ODT) 4 MG disintegrating tablet 0 02/25/2015 Act mariana fluticasone (FLONASE) 50 MCG/ACT nasal spray [place] 2 sprays into both nostrils daily Active [...] Diagnosed Date Screening for cervical cancer Overview: 9942-2022 NIL paps [phone] NIL paps 07/2017, 07/2018, 08/2019 NIL pap, [...] Comments Blood Pressure 138/82 09/12/2019 10:[address] COMMISSIONER Pulse 78 09/12/2019 10:[address] COMMISSIONER Temperature - - Respiratory Rate - - Oxygen Saturation - - Inhaled Oxygen Concentration - - Weight 69.9 kg (154 lb) 09/12/2019 10:[address] COMMISSIONER Height 155.3 cm (5' 1.15) 09/12/2019 10:47 AM Thelma SY Body Mass Index 28.96 09/12/2019 10:[address] COMMISSIONER Plan of Treatment Not on file Care Teams Histotechnician Relationship Specialty Start Date End Date Manish Freedman MD [facility] [address] [place] [address] PCP - General Emergency Medicine 08/11/17
== END 2024-05-05 08:06 | disposition home or self-care (01) ==
LOC: INJ CL 08:05
PROVIDERS: PCP Internal Medicine; Visit Provider Family Medicine
DX: M54.16 Radiculopathy, lumbar region (principal); M51.36 Other intervertebral disc degeneration, lumbar region
CPT/HCPCS: 64483; 64484; J1100; Q9966

== ENCOUNTER 2024-06-20 07:52 | Outpatient (CLI) | payer OTHER, SELFPAY ==
--- OUTSIDE RECORDS SUMMARY | 2024-06-20 07:55 | XMS_ITS | Continuity of Care Document ---
Author Organization [facility] Address [address] [place] [address] Phone Care Team Providers Care Insurance Counsel Name Role Phone Janice MANDUJANO, PhD, Rajendra [...] Copied on Encounter [facility], [address], [place], [id number], [place] tel:[phone] [facility] No Information 3 Janice Drew. [facility], [address], [place], [address], [place]. tel:[phone] Office/Outpat ient Visit,Est, Mod [facility], [address], [place], [place], [id number], [place] tel:[phone] [facility] Encounter for other specified surgical aftercare 2 Janice Drew. [facility], [address], [place], [address], [place]. tel:[phone] Referring Provider: Santana Mesa [employer] [address] [facility], [facility], [place], [address]. tel:[phone] OFFICE/OUTPAT IENT VISIT EST Phone [facility], [address], [place], [place], [id number], [place] tel:[phone] [facility] No Information 2 Janice Drew. [facility], [address], [place], [address], [place]. [phone] Referring Provider: Santana Mesa, [employer] [address] [facility], [place], [address]. tel:[phone] Office/Outpat ient Visit,Est, Low [facility], [address], [place], [place], [id number], [place] tel:[phone] [facility] Spinal stenosis, lumbar region with neurogenic claudication 2 Janice Drew. [facility], [address], [place], [address], [place]. tel:[phone] Referring Provider: Santana Mesa, [employer] [address] [facility] [place], [address]. tel:[phone] Office/Outpat ient Visit,Est, Low [facility], [address], [place], [id number], [place] tel:[phone] [facility] Low back pain, unspecified 2 Janice Drew. [facility], [address], [place], [address], [place]. tel: [phone] Referring Provider: Santana Mesa, [employer] [address] [place], [address]. [phone] OFFICE/OUTPAT IENT VISIT EST Phone [facility], [address], [place], [place], [id number], [place] tel:[phone] [facility] No Information 1 Janice Drew. [facility], [address], [place] [place], [address], [place]. tel: [phone] Referring Provider: Santana Mesa [employer] [address], [place], [address]. [phone] Office/Outpat ient Visit,New, Mod [facility], [address], [place], [id number], [place] tel:[phone] [facility] Spinal stenosis, lumbar region with neurogenic claudication 1 Janice Drew. [facility], [address], [place], [address], [place]. tel: [phone] Referring Provider: Santana Mesa [employer] [address] [place], [address]. [phone] [facility], [address], [place], [place], [id number], [place] tel:[phone] [facility] Low back pain 1 Janice Drew. [facility], [address], [place], [address], [place]. tel:[phone] Family History Family Member Type Diagnosis Age At Onset No Information Payers Payer name Insurance type Covered libertarian ID Authorpepe layne(s) venus Brambila [id number] Social History Type Description Quantity Date Captured [...]
--- OUTSIDE RECORDS SUMMARY | 2024-06-20 07:55 | XMS_ITS | Clinical Summary ---
Author Organization [facility] Address [address] [place] [address] Care Team Providers Care Machine Castings Plasterer Name Role Phone Unavailable Primary Care Provider Unavailabl e Source Comments Patient records contain information from all sites at [facility]. For routine questions regarding patient records, call [phone] during business hours, M-F 8:00 AM - 5:00 PM Central Time. Record requests for emergency care only can be directed to [phone] at any time.[facility] Allergies Active Allergy Reactions Criticality Noted Date [...] 06/28/2023 Radiculopathy Lumbar 03/25/2023 Preoperative Exam 01/28/2023 Overview (01/28/2023): Added automatically from request for surgery [id number] Spinal Stenosis Lumbosacral Region 01/28/2023 Overview (01/28/2023): Added automatically from request for surgery [id number] Spondylosis 01/28/2023 Overview (01/28/2023): Added automatically from request for surgery [id number] Apnea Sleep Obstructive 07/28/2022 Hyperlipidemia 05/13/2016 Hypertension Essential Primary 05/13/2016 Gastroesophageal Reflux Disease 05/19/2006 03/23/2023 Encounters Date Type Department Care Team Description 05/29/2024 Clinical Communication Department of Orthopedic Surgery in [place], [place] [address] [place] [address] Panfilo Reyes M.D., M.S. 04/11/2024 Refill Department of Orthopedic Surgery in [place], [place] [address] [place] [address] Panfilo Reyes M.D., M.S. Med Refill 04/08/2024 Refill Department of Orthopedic Surgery in [place], [place] [address] [place] [address] Riky Finney M.D. Med Refill 03/29/2024 Refill Division of Nephrology and Hypertension in [place], [place] [address] [place] [address] Nitesh Landis Jr., D.O. Med Refill 03/20/2024 3:30 PM CDT Office Visit Department of Orthopedic Surgery in [address] [address] Panfilo Reyes M.D., M.S. Stenosis Spinal (Primary Dx); Primary Osteoarthritis Lumbar Spine; Laminectomy Lumbar Status Post Discharge Disposition: Home or Self Care 03/20/2024 2:12 PM CDT - 03/20/2024 11:59 PM CDT Hospital Encounter Department of Radiology in [address] [phone] Mt Florian APRN, C.N.P., M.S.N. Laminectomy Lumbar [...] Hyperlipidemia Father Dc Ashley Hypertension Father Dc Ashley Leukemia Father Dc Ashley Lung cancer Father [...] drink = 0.6 oz pur e alcohol) [facility] Utilities Answer Date Recorded In the past 12 months has e [employer], oil, or water [employer] threatened to shut off services in your [...] How often do you attend chur or hinduism services? Never 12/02/2022 Do you belong to any clubs o r organizations such as yarsanism groups, unions, fraternal or athletic groups, or [...] Answer Date Recorded PHQ-2 Score 1 03/20/2024 [facility] of Occupat ional Health - Occupational [...] your living situation today? I have a [facility] place to live 03/13/2024 Education Answer Date Recorded What is the highest level of school you have completed or the highest degree you have received? Bachelor's degree (e.g., BA, AB, BS) 12/02/2022 Sex and Gender Information Value Date Recorded Sex Assigned at Female 11/07/2022 8:34 AM TREASURY REPRESENTATIVE Gender Identity Female 11/07/2022 8:34 AM TREASURY REPRESENTATIVE Sexual Orientation Not on file Last Filed [...] 2022 06/22/2018 Fall Risk Screen (Annual) 10/18/2023 Creatinine Level (Kidney Fun ction Test) 03/25/2024 03/25/2023, 03/23/2023, 10/28/2021, Additional history exists Potassium Level 03/25/2024 03/25/2023, 06/0 03/2023, 05/12/2016 Sodium Level 03/25/2024 03/25/2023, 06/0 03/2023, 05/12/2016 COVID-19 Vaccine (2022-2 4 season) 2024 08/11/2023, 07/28/2022, 01/06/2022, Additional history exists Influenza Vaccine (#1) 2024 , 07/21/2022, 08/13/2021, [...] Completed 03/20/2024 Medical Devices Implanted Type Area Medical Laboratory Technical Officer Device Identifier Shelf Expiration Date Model / Serial / Lot Misc Other Misc Other Uterus Description:Esure cont rol Procedures Procedure Name Priority Date/Time Associated Diagnosis Comments OUTSIDE XA Routine 05/05/2024 7:50 AM CDT OUTSIDE MR NEURO Routine 04/17/2024 3:40 PM CDT DX LUMBAR SPINE 4+ VIEWS RAD - Routine (most inpatients and all outpatients) 03/20/2024 2:27 PM CDT Laminectomy Lumbar Status Post BASIC METABOLIC PANEL, S/P Routine 03/25/2023 5:43 AM CDT LIPID PANEL, S Routine 05/12/2016 6:59 AM CDT from Last 3 Months or Most Recently Relevant to Health Maintenance Results * FL nrv inj transfor L-S single-Outside XA (05/05/2024 7:50 AM CDT) Narrative [facility] - 05/26/2024 4:21 PM CDT This order has been created and auto-finalized to support the import of outside images. If available, original interpretation can be found on the Media Tab in Chart Review, in Document Viewer, as an image in QREADS or as an Addendum. If a re-interpretation or overread is required please follow defined workflow.?? Provider Not In System IMG NON RAD IMAGI NG PROCEDURES IIMS NA * MR lumbar spine wo/w con-Outside MR Neuro (04/17/2024 3:40 PM CDT) Narrative [facility] - 05/26/2024 4:24 PM CDT This order has been created and auto-finalized to support the import of outside images. If available, original interpretation can be found on the Media Tab in Chart Review, in Document Viewer, as an image in QREADS or as an Addendum. If a re-interpretation or overread is required please follow defined workflow.?? Provider Not In System IMG MRI PROCEDURE S IIMS NA * DX Lumbar Spine 4+ Views (03/20/2024 [...] Ellis Calle M.D. LAB BLOOD ADD-O N [facility] [address] [place] [address], [facility] DTL [facility] [address] [place] [address] * (ABNORMAL) Lipid Panel (05/12/2016 6:59 AM CDT) Cholesterol, HDL, S 54 >=50 MG/DL [facility] Calculated LDL 142(H) SeeComment MG/DL [facility] Comment: ? REFERENCE VALUE ? Desirable: <100 ? Above Desirable: 100-129 ? Borderline high: 130-159 ? High: 160-189 ? Very high: > or =190 ? Cholesterol, Total 243(H) SeeComment MG/DL [facility] Comment: ? REFERENCE VALUE ? Desirable: < 200 ? Borderline high: 200 - 239 ? High: > or = 240 ? Triglycerides 235(H) SeeComment MG/DL [facility] Comment: ? REFERENCE VALUE ? Normal: <150 ? Borderline high: 150-199 ? High: 200-499 ? Very high: > or =500 ? Cholesterol, Non-HDL, Calculated 189(H) SeeComment MG/DL [facility] Comment: ? REFERENCE VALUE ? Desirable: <130 ? Above Desirable: 130-159 ? Borderline high: 160-189 ? High: 190-219 ? Very high: > or =220 ? 05/12/2016 6:59 AM CDT 05/12/2016 6:59 AM CDT Arnoldo English M.D. LAB BLOOD ADD-ON [facility] [address] [place] [address], [facility] from Last 3 Months or Most Recently Relevant to Health Maintenance Advance Directives For more information, please contact: [phone] * Full Code (Latest Code Status on File) Date Activated Date Inactivated Comments 03/24/2023 12:51 PM 03/25/2023 4:33 PM Question Answer Comments Full Code: Discussed
--- OUTSIDE RECORDS SUMMARY | 2024-06-20 07:55 | XMS_ITS | Clinical Summary ---
Author Organization [facility] Address [place], [place] [address] Care Team Providers Care Supervisor Grading Name Role Phone Manish Freedman MD Primary Care Provider Allergies No known active allergies Medications Medication Sig Dispensed Refills Start Date End Date Status NASONEX 50 MCG/ACTUATION SPRAY inhale 2 sprays in each nostril by nasal route once daily 0 Active diphenhydrAMINE-acetamin ophen 25-500 mg (TYLENOL PM) 25-500 mg tablet [...] previous hip bursa injections by Dr. Rees [phone] approximately MRI of bilateral hips done May [...] Lyrica prescription was too expensive to start. lA [place] approved September 2017. ~ December 2017: [...] Amy Bone did L3-S1 lumbar Decompression Surgery. April 2024: Right L4-L5 transforaminal epidural steroid injection (L4 nerve root). Also right S1 transforaminal epidural steroid injection under fluoroscopic guidance. Essential hypertension 07/01/2017 Unspecified sinusitis (chronic) 05/19/2006 Allergic rhinitis, cause unspecified 05/19/2006 Esophageal reflux 05/19/2006 Dysthymic disorder 05/19/2006 Mixed hyperlipidemia 08/24/2005 Encounters Date Type Department Care Team Description 06/19/2024 Travel 05/23/2024 8:40 AM CDT Office Visit [facility] [address] [place], [place] [phone] Santana Pedroza MD Musculoskeletal Problem (Follow-up RIGHT Leg pain/DOO 04/2017/Follow-up from injection on 05/05/2024) 05/23/2024 Travel 05/05/2024 8:40 AM CDT Office Visit [facility] [address] [facility] [place] [address] Rogelio Chance MD Procedure (Right L4-5 and right S1 TFESI) 05/02/2024 Travel 04/23/2024 Chart Update [facility] [address] [place] [address] Santana Pedroza MD 04/20/2024 Orders Only [facility] [address] [place] [address] Santana Pedroza MD 1 scan: (1-Ord) [facility], MR LUMBAR SPINE WO/W CON , 04/17/2024 04/04/2024 7:00 AM CDT Office Visit [facility] [address] [place] [address] Santana Pedroza MD Musculoskeletal Problem (Follow-up low back and RIGHT leg - discuss getting injection ) 04/03/2024 Travel 03/28/2024 Telephone [facility] [address] [place] [address] Rogelio Chance MD epidurals (right calf) from [...] Name Comments Heart Disease Father CAD 1st [place] 50' s Hyperlipidemia Father Other Father myelofibrosis [...] Sign Reading Time Taken Comments Blood Pressure 133/75 05/23/2024 8:47 AM CDT Pulse 83 05/23/2024 8:47 AM CDT Temperature 36.9 ??C (98.5 ??F) 09/07/2022 1 0:45 AM CATASTROPHE CLAIMS SUPERVISOR Respiratory Rate 14 05/11/2019 2:41 PM CDT Oxygen Saturation 100% 05/23/2024 8:47 AM CDT Inhaled Oxygen Concentration - - Weight 62.1 kg (136 lb 12.8 oz) 05/23/2024 8:47 AM CDT Height 154.9 cm (5' 1) 10/31/2020 3:37 PM CATASTROPHE CLAIMS SUPERVISOR Body Mass Index 25.85 10/31/2020 3:37 PM CATASTROPHE CLAIMS SUPERVISOR Plan of Treatment Upcoming Encounters Date Type Department Care Team (Late st Contact Info) Description 06/20/2024 8:20 AM CDT Procedure Only [facility] [address] [place] [phone] Rogelio Chance MD [address] [place] [address] Health Maintenance Due Date Last Done Comments [...] 06/22/2018 Depression screening for age 12+ 03/06/2022 03/06/20, 12/29/2018 COVID-19 vaccine series (2022- season) 2023 08/11/2023, 07/28/2022, 01/06/2022, Additional history exists Influenza for age 65+ 06/18/2024 08/13/2021 , 07/25/2020, 09/12/2019, Additional history exists Tdap Completed 07/25/2009 Zoster (shingles) series for age 50+ Completed 02/25/2019, 01/20/2019, 06/22/2018 Procedures Procedure Name Priority Date/Time Associated Diagnosis Comments AMB EPIDURAL STEROID INJECTION Routine 05/05/2024 8:21 AM CDT DDD (degenerative disc disease), lumbar Right leg pain ID NJX AA&/STRD TFRML EPI LUMBAR/SACRAL EA ADDL Routine 05/05/2024 12:00 AM CDT DDD (degenerative disc disease), lumbar Right leg pain Lumbar radiculopathy Synovial cyst of lumbar facet joint ID NJX AA&/STRD TFRML EPI LUMBAR/SACRAL 1 LEVEL Routine 05/05/2024 12:00 AM CDT DDD (degenerative disc disease), lumbar Right leg pain Lumbar radiculopathy Synovial cyst of lumbar facet joint MR SPINE LUMBAR WWO Routine 04/17/2024 1 2:00 AM CDT Lumbar facet arthropathy Lumbar radiculopathy DDD (degenerative disc disease), lumbar Chronic right-sided low back pain with right-sided sciatica from Last 3 Months Results * ID NJX AA&/STRD TFRML EPI LUMBAR/SACRAL EA ADDL (05/05/2024 12:00 AM CDT) Rogelio Chance MD [facility] - NERVOUS SYSTE M SERVICES * ID NJX AA&/STRD TFRML EPI LUMBAR/SACRAL 1 LEVEL (05/05/2024 12:00 AM CDT) Rogelio Chance MD [facility] - NERVOUS SYSTE M SERVICES * MR SPINE LUMBAR WWO (04/17/2024 12:00 AM CDT) Anatomical Region Laterality Modality Spine, LUMBAR SPINE Magnetic Res onance Santana Pedroza MD MR from Last 3 Months Care Teams Supervisor Grading Relationship Specialty Start Date End Date Manish Freedman MD [address] [place] [address] PCP - General Internal Medicine 12/29/18
--- OUTSIDE RECORDS SUMMARY | 2024-06-20 07:55 | XMS_ITS ---
Author Organization [facility] Address [address] [place] [address] Care Team Providers Care Grape Pruner Name Role Phone Unavailable Unavailable Unavailable Surgery Details Not on file Complications Check Surgery Details section. Procedure Estimated Blood Loss Check Surgery Details section. Procedure Findings Check Surgery Details section. Procedure Specimens Taken Check Surgery Details section.
--- OUTSIDE RECORDS SUMMARY | 2024-06-20 07:55 | XMS_ITS | Referral Summary ---
Author Organization [facility] Address [address] [place] [address] Care Team Providers Care Elastic Cutter Name Role Phone Unavailable Primary Care Provider Unavailabl e Source Comments Patient records contain information from all sites at [facility]. For routine questions regarding patient records, call [phone] during business hours, M-F 8:00 AM - 5:00 PM Central Time. Record requests for emergency care only can be directed to [phone] at any time.[facility] Encounters Date Type Department Care Team Description 05/29/2024 Clinical Communication Department of Orthopedic Surgery in [place], [place] [address] [place] [address] Panfilo Reyes M.D., M.S. 04/11/2024 Refill Department of Orthopedic Surgery in [place], [place] [address] [place] [address] Panfilo Reyes M.D., M.S. Med Refill 04/08/2024 Refill Department of Orthopedic Surgery in [place], [place] [address] [place] [address] Riky Fniney M.D. Med Refill 03/29/2024 Refill Division of Nephrology and Hypertension in [place], [place] [address] [place] [phone] Nitesh Landis Jr., D.O. Med Refill 03/20/2024 2:12 PM CDT - 03/20/2024 11:59 PM CDT Hospital Encounter Department of Radiology in [address] [phone] Mt Florian APRN, C.NSabi., M.S.N. Laminectomy Lumbar Status Post Discharge Disposition: Home or Self Care 03/20/2024 3:30 PM CDT Office Visit Department of Orthopedic Surgery in [address] [phone] Panfilo Reyes M.D., M.S. Stenosis Spinal (Primary [...] (01/28/2023): Added automatically from request for surgery [id number] Spinal Stenosis Lumbosacral Region 01/28/2023 Overview (01/28/2023): Added automatically from request for surgery [id number] Spondylosis 01/28/2023 Overview (01/28/2023): Added automatically from request for surgery [id number] Apnea Sleep Obstructive 07/28/2022 Hyperlipidemia 05/13/2016 Hypertension Essential Primary 05/13/2016 Gastroesophageal Reflux Disease 05/19/2006 03/23/2023 Immunizations Name Administration Dates Next Due Influenza Split 07/23/2014 Social History Tobacco Use Types Packs/Day Years Used Date Smoking Tobacco: Never Smokeless Tobacco: Never Alcohol Use Standard Drinks/Week Comments Yes 8 (1 standard drink = 0.6 oz pur e alcohol) [facility] [employer] Answer Date Recorded In the past 12 months has e [employer], gas, oil, or water [employer] threatened to shut off services in your [...] How often do you attend chur or methodist services? Never 12/02/2022 Do you belong to any clubs o r organizations such as judaism groups, unions, fraternal or athletic groups, or [...] Answer Date Recorded PHQ-2 Score 1 03/20/2024 [facility] of Occupat ional [facility] - Occupational Stress Questionnaire Answer Date [...] Sex Assigned at Female 11/07/2022 8:34 AM MDM SR Gender Identity Female 11/07/2022 8:34 AM MDM SR Sexual Orientation Not on file Last Filed [...] on file Medical Devices Implanted Type Area Recycling Operator Device Identifier Shelf Expiration Date Model / [...] single-Outside XA (05/05/2024 7:50 AM CDT) Narrative [facility] - 05/26/2024 4:21 PM CDT This order [...] System IMG NON RAD IMAGI NG PROCEDURES Performing Organization Address [facility] Co de Phone Number IIMS NA * MR lumbar spine wo/w con-Outside MR Neuro (04/17/2024 3:40 PM CDT) Narrative [facility] - 05/26/2024 4:24 PM CDT This order [...] Not In System IMG MRI PROCEDURE S Performing Organization Address [facility] Co de Phone Number IIMS NA * DX Lumbar Spine 4+ [...] the pelvis. Mt Florian APRN C.N.P., M.S.N. G DIAGNOSTIC IMAGING PROCEDURES * (ABNORMAL) Basic Metabolic Panel (03/25/2023 5:43 AM CDT) Pathologist [facility] Potassium, S 4.1 3.6 - 5.2 mmol/L [...] Ellis Calle M.D. LAB BLOOD ADD-O N [facility] [address] [place] [address], [facility] [address] [place] [address] * (ABNORMAL) Lipid Panel (05/12/2016 6:59 AM CDT) Cholesterol, HDL, S 54 >=50 MG/DL [facility] Calculated LDL 142(H) SeeComment MG/DL [facility] Comment: ? REFERENCE VALUE ? Desirable: <100 ? Above Desirable: 100-129 ? Borderline high: 130-159 ? High: 160-189 ? Very high: > or =190 ? Cholesterol, Total 243(H) SeeComment MG/DL [facility] Comment: ? REFERENCE VALUE ? Desirable: < 200 ? Borderline high: 200 - 239 ? High: > or = 240 ? Triglycerides 235(H) SeeComment MG/DL [facility] Comment: ? REFERENCE VALUE ? Normal: <150 ? Borderline high: 150-199 ? High: 200-499 ? Very high: > or =500 ? Cholesterol, Non-HDL, Calculated 189(H) SeeComment MG/DL [facility] Comment: ? REFERENCE VALUE ? Desirable: <130 ? Above Desirable: 130-159 ? Borderline high: 160-189 ? High: 190-219 ? Very high: > or =220 ? 05/12/2016 6:59 AM CDT 05/12/2016 6:59 AM CDT Arnoldo English M.D. LAB BLOOD ADD-ON Performing Organization Address City/State/[facility] Co de Phone Number [facility] [address] from Last 3 Months or Most Recently Relevant to Health Maintenance Advance Directives For more information, please contact: [phone] * Full Code (Latest Code Status on File) Date Activated Date Inactivated Comments 03/24/2023 12:51 PM 03/25/2023 4:33 PM Question Answer Comments Full Code: Discussed
--- OUTSIDE RECORDS SUMMARY | 2024-06-20 07:55 | XMS_ITS | Encounter Summary ---
Author Organization [facility] Address [address] [place] [address] Care Team Providers Care Molder Inflated Ball Name Role Phone Unavailable Primary Care Provider Unavailabl e Reason for Visit * Reason Comments Med Refill Encounter Details Date Type Department Care Team (Late st Contact Info) Description 04/11/2024 Refill Department of Orthopedic Surgery in [place], [place] [address] [place] [address] Panfilo Reyes M.D., M.S. [address] [place] [address] Med Refill Social History Tobacco Use Types Packs/Day Years Used Date Smoking Tobacco: Never Smokeless Tobacco: Never Alcohol Use Standard Drinks/Week Comments Yes 8 (1 standard drink = 0.6 oz pur e alcohol) [facility] Utilities Answer Date Recorded In the past 12 months has [facility] [employer], gas, oil, or water [employer] threatened to shut off services in your [...] often do you attend chur ch or tenriism services? Never 12/02/2022 Do you belong to any clubs o r organizations such as sabianism groups, unions, fraternal or athletic groups, or [...] Answer Date Recorded PHQ-2 Score 1 03/20/2024 [facility] of Occupat ional Health - Occupational Stress [...] your living situation today? I have a [facility] place to live 03/13/2024 Education Answer Date Recorded What is the highest level of school you have completed or the highest degree you have received? Bachelor's degree (e.g., BA, AB, BS) 12/02/2022 Sex and Gender Information Value Date Recorded Sex Assigned at Female 11/07/2022 8:34 AM CERTIFIED PEDIATRIC NURSE PRACTITIONER Gender Identity Female 11/07/2022 8:34 AM CERTIFIED PEDIATRIC NURSE PRACTITIONER Sexual Orientation Not on file documented as of this encounter Plan of Treatment Not on file documented as of this encounter Visit Diagnoses Not on filedocumented in this encounter
--- OUTSIDE RECORDS SUMMARY | 2024-06-20 07:55 | XMS_ITS | Encounter Summary ---
Author Organization [facility] Address [address] [place] [address] Care Team Providers Care Sales Support Technician Name Role Phone Unavailable Primary Care Provider Unavailabl e Encounter Details Date Type Department Care Team (Late st Contact Info) Description 05/29/2024 Clinical Communication Department of Orthopedic Surgery in [place], [place] [address] [place] [address] Panfilo Reyes M.D., M.S. [address] [place] [phone] Social History Tobacco Use Types Packs/Day Years Used Date Smoking Tobacco: Never Smokeless Tobacco: Never Alcohol Use Standard Drinks/Week Comments Yes 8 (1 standard drink = 0.6 oz pur e alcohol) [facility] Utilities Answer Date Recorded In the past 12 months has e electric, gas, oil, or water [employer] threatened to shut off services in your [...] often do you attend chur ch or episcopalian services? Never 12/02/2022 Do you belong to [...] Recorded PHQ-2 Score 1 03/20/2024 [facility] Questionnaire Answer Date [...] your living situation today? I have a [facility] place to live 03/13/2024 Education Answer Date Recorded What is the highest level of school you have completed or the highest degree you have received? Bachelor's degree (e.g., BA, AB, BS) 12/02/2022 Sex and Gender Information Value Date Recorded Sex Assigned at Female 11/07/2022 8:34 AM AUTOMATED ACCESS SYSTEMS TECHNICIAN Gender Identity Female 11/07/2022 8:34 AM AUTOMATED ACCESS SYSTEMS TECHNICIAN Sexual Orientation Not on file documented as of this encounter Plan of Treatment Not on file documented as of this encounter Visit Diagnoses Not on filedocumented in this encounter
--- OUTSIDE RECORDS SUMMARY | 2024-06-20 07:56 | XMS_ITS | Referral Summary ---
Author Organization [facility] Address [address] [place] [address] Care Team Providers Care Performance Tester Name Role Phone Manish Freedman MD Primary Care Provider Allergies No known active allergies Medications Medication Sig Dispensed Refills Start Date End Date Status PRILOSEC OR None Entered Active hydrochlorothiazide (HYDRODIURIL) 25 MG tablet 3 04/22/2015 Active LORazepam (ATIVAN) 1 MG tablet 0 06/07/2015 Active ondansetron (ZOFRAN-ODT) 4 MG disintegrating tablet 0 02/25/2015 Act mariana fluticasone (FLONASE) 50 MCG/ACT nasal spray [place] 2 sprays into both nostrils daily Active atorvastatin (LIPITOR) 20 MG tablet Take 20 mg by mouth daily 3 05/27/2018 Active losartan (COZAAR) 50 MG tablet Take 50 mg by mouth daily 0 07/20/2018 Active amitriptyline (ELAVIL) 10 MG tablet 02/03/2019 Active SHINGRIX injection ADM 0.5ML IM UTD 0 02/25/2019 Active norethindrone-ethinyl estradiol (JINTELI) 1-5 MG-MCG tabletIndications:[place] pause Take 1 tablet by mouth daily -due for annual exam in July 2018. 90 tablet 4 09/12/2019 Active Active Problems Problem Noted Date Diagnosed Date Screening for cervical cancer Overview: [id number] NIL paps [phone] NIL paps 07/2017, 07/2018, 08/2019 NIL pap, [...] Comments Blood Pressure 138/82 09/12/2019 10:47 AM STOCK CAR DRIVER Pulse 78 09/12/2019 10:47 AM STOCK CAR DRIVER Temperature - - Respiratory Rate - - Oxygen Saturation - - Inhaled Oxygen Concentration - - Weight 69.9 kg (154 lb) 09/12/2019 10:47 AM STOCK CAR DRIVER Height 155.3 cm (5' 1.15) 09/12/2019 10:[address] Body Mass Index 28.96 09/12/2019 10:47 AM STOCK CAR DRIVER Plan of Treatment Not on file Care Teams Performance Tester Relationship Specialty Start Date End Date Manish Freedman MD [facility] [address] [place] [address] PCP - General Emergency Medicine 08/11/17
--- OUTSIDE RECORDS SUMMARY | 2024-06-20 07:56 | XMS_ITS | Encounter Summary ---
Author Organization [facility] Address [address] [place] [address] Care Team Providers Care Staff Physical Therapist Name Role Phone Unavailable Primary Care Provider Unavailabl e Reason for Visit * Reason Comments Med Refill Encounter Details Date Type Department Care Team (Late st Contact Info) Description 04/08/2024 Refill Department of Orthopedic Surgery in [place], [place] [address] [place] [address] Riky Finney M.D. [address] [place] [address] Med Refill Social History Tobacco Use Types Packs/Day Years Used Date Smoking Tobacco: Never Smokeless Tobacco: Never Alcohol Use Standard Drinks/Week Comments Yes 8 (1 standard drink = 0.6 oz pur e alcohol) [facility] Utilities Answer Date Recorded In the past 12 months has [facility] [employer], gas, oil, or water [employer] threatened to shut off services in your [...] often do you attend chur ch or sabianist services? Never 12/02/2022 Do you belong to any clubs o r organizations such as congregational groups, unions, fraternal or athletic groups, or [...] Score 1 03/20/2024 [facility] Questionnaire Answer Date [...] your living situation today? I have a [facility] place to live 03/13/2024 Education Answer Date Recorded What is the highest level of school you have completed or the highest degree you have received? Bachelor's degree (e.g., BA, AB, BS) 12/02/2022 Sex and Gender Information Value Date Recorded Sex Assigned at Female 11/07/2022 8:34 AM ASSISTANT COOK Gender Identity Female 11/07/2022 8:34 AM ASSISTANT COOK Sexual Orientation Not on file documented as of this encounter Plan of Treatment Not on file documented as of this encounter Visit Diagnoses Not on filedocumented in this encounter
--- OUTSIDE RECORDS SUMMARY | 2024-06-20 07:56 | XMS_ITS | Clinical Summary ---
Author Organization [facility] Address [address] [place] [address] Care Team Providers Care Soft Boarder Name Role Phone Manish Freedman MD Primary Care Provider Allergies No known active allergies Medications Medication Sig Dispensed Refills Start Date End Date Status PRILOSEC OR None Entered Active hydrochlorothiazide (HYDRODIURIL) 25 MG tablet 3 04/22/2015 Active LORazepam (ATIVAN) 1 MG tablet 0 06/07/2015 Active ondansetron (ZOFRAN-ODT) 4 MG disintegrating tablet 0 02/25/2015 Act mariana fluticasone (FLONASE) 50 MCG/ACT nasal spray [place] 2 sprays into both nostrils daily Active atorvastatin (LIPITOR) 20 MG tablet Take 20 mg by mouth daily 3 05/27/2018 Active losartan (COZAAR) 50 MG tablet Take 50 mg by mouth daily 0 07/20/2018 Active amitriptyline (ELAVIL) 10 MG tablet 02/03/2019 Active SHINGRIX injection ADM 0.5ML IM UTD 0 02/25/2019 Active norethindrone-ethinyl estradiol (JINTELI) 1-5 MG-MCG tabletIndications:[place] pause Take 1 tablet by mouth daily -due for annual exam in July 2018. 90 tablet 4 09/12/2019 Active Active Problems Problem Noted Date Diagnosed Date Screening for cervical cancer Overview: 7050-2148 NIL paps [phone] NIL paps 07/2017, 07/2018, 08/2019 NIL pap, [...] Comments Blood Pressure 138/82 09/12/2019 10:47 AM STONE PLANER Pulse 78 09/12/2019 10:47 AM STONE PLANER Temperature - - Respiratory Rate - - Oxygen Saturation - - Inhaled Oxygen Concentration - - Weight 69.9 kg (154 lb) 09/12/2019 10:47 AM STONE PLANER Height 155.3 cm (5' 1.15) 09/12/2019 10:47 AM Thelma SY Body Mass Index 28.96 09/12/2019 10:47 AM STONE PLANER Plan of Treatment Not on file Care Teams Soft Boarder Relationship Specialty Start Date End Date Manish Freedman MD [facility] [address] [place] [address] PCP - General Emergency Medicine 08/11/17
--- OUTSIDE RECORDS SUMMARY | 2024-06-20 07:56 | XMS_ITS | Encounter Summary ---
Author Organization [facility] Address [address] [place] [address] Care Team Providers Care School Bus Mechanic Name Role Phone Unavailable Primary Care Provider Unavailabl e Reason for Visit * Reason Comments Pain Follow-up * Outpatient (Routine) - Closed Specialty Diagnoses / Procedures Referred By Aimee t Referred To Contact Orthopedic Surgery Mt Florian APRN, C.N.P., M.S.N. [address] [place] [phone] Panfilo Reyes M.D., M.S. [address] [place] [phone] Referral ID Status Reason Start Date Expiration Date Visits Re quested Visits Authorized [id number] Closed 07/19/2023 07/18/2026 1 1 Encounter Details Date Type Department Care Team (Latest Contact Info) Description 03/20/2024 3:30 PM CDT Office Visit Department of Orthopedic Surgery in [place], [place] [address] [place] [phone] Panfilo Reyes M.D., M.S. [address] [place] [phone] Stenosis Spinal (Primary Dx); Primary Osteoarthritis Lumbar Spine; Laminectomy Lumbar Status Post Discharge Disposition: Home or Self Care Social History Tobacco Use Types Packs/Day Years Used Date Smoking Tobacco: Never Smokeless Tobacco: Never Alcohol Use Standard Drinks/Week Comments Yes 8 (1 standard drink = 0.6 oz pur e alcohol) [facility] Utilities Answer Date Recorded In the past 12 months has th e electric, gas, oil, or water company [...] often do you attend chur ch or samaritan services? Never 12/02/2022 Do you belong to any clubs o r organizations such as gnosticism groups, unions, fraternal or athletic groups, or [...] Answer Date Recorded PHQ-2 Score 1 03/20/2024 [facility] [place] - Occupational Stress Questionnaire Answer Date Recorded [...] living situation today? I have a [facility] place to live 03/13/2024 Education Answer Date Recorded What is the highest level of school you have completed or the highest degree you have received? Bachelor's degree (e.g., BA, AB, BS) 12/02/2022 Sex and Gender Information Value Date Recorded Sex Assigned at Female 11/07/2022 8:34 AM ASPHALT WORKER Gender Identity Female 11/07/2022 8:34 AM ASPHALT WORKER Sexual Orientation Not on file documented as [...] assistance. Motor: Lower Extremity: Left Right Iliopsoas: Quadriceps: Tibialis Ant: 02/19 02/19 EHL: 02/19 02/19 [...] - Orthopedic Surgery office visit (clinic) Marquita Wrad is a 69 y.o. female who is [...]
--- OUTSIDE RECORDS SUMMARY | 2024-06-20 07:56 | XMS_ITS | Encounter Summary ---
Author Organization [facility] Address [address] [place] [address] Care Team Providers Care Laryngologist Name Role Phone Unavailable Primary Care Provider Unavailabl e Reason for Referral * Outpatient (Routine) - Closed Specialty Diagnoses / Procedures Referred By Contac t Referred To Contact Diagnoses Laminectomy Lumbar Status Post Procedures DX Lumbar Spine 4+ Views Mt Florian APRN, C.N.P., M.S.N. [address] [place] [address] [facility] Referral ID Status Reason Start Date Expiration Date Visits Re quested Visits Authorized [id number] Closed 07/19/2023 07/18/2024 1 1 Reason for Visit * Outpatient (Routine) - Closed Specialty Diagnoses / Procedures Referred By Contac t Referred To Contact Diagnoses Laminectomy Lumbar Status Post Procedures DX Lumbar Spine 4+ Views Mt Florian APRN C.N.P., M.S.N. [address] [place] [address] [facility] Referral ID Status Reason Start Date Expiration Date Visits Re quested Visits Authorized [id number] Closed 07/19/2023 07/18/2024 1 1 Encounter Details Date Type Department Care Team (Latest Contact Info) Description 03/20/2024 2:12 PM CDT - 03/20/2024 11:59 PM CDT Hospital Encounter Department of Radiology in [address] [phone] Mt Florian APRN, C.N.P., M.S.N. [address] [place] [phone] Laminectomy Lumbar Status Post Discharge Disposition: Home or Self Care Social History Tobacco Use Types Packs/Day Years Used Date Smoking Tobacco: Never Smokeless Tobacco: Never Alcohol Use Standard Drinks/Week Comments Yes 8 (1 standard drink = 0.6 oz pur e alcohol) [facility] Utilities Answer Date Recorded In the [...] any clubs o r organizations such as confucianism groups, unions, fraternal or athletic groups, or [...] Answer Date Recorded PHQ-2 Score 1 03/20/2024 [facility] Occupat ional [facility] - Occupational Stress Questionnaire Answer [...] Sex Assigned at Female 11/07/2022 8:34 AM BUSINESS SERVICES SALES REPRESENTATIVE Gender Identity Female 11/07/2022 8:34 AM BUSINESS SERVICES SALES REPRESENTATIVE Sexual Orientation Not on file documented as [...]
--- OUTSIDE RECORDS SUMMARY | 2024-06-20 07:56 | XMS_ITS | Clinical Summary ---
Author Organization [facility] Address [address] [place] [address] Care Team Providers Care Automotive Hardware Engineer Name Role Phone Dc Gonzalez MD Primary [...] for each transition of care or referral. [facility] Allergies Active Allergy Reactions Criticality Noted Date [...] age to complete this topic Care Teams Automotive Hardware Engineer Relationship Specialty Start Date End Date Dc Gonzalez MD PCP - General 01/17/11
--- OUTSIDE RECORDS SUMMARY | 2024-06-20 07:56 | XMS_ITS | Encounter Summary ---
Author Organization [facility] Address [address] [place] [address] Care Team Providers Care Director Cardiac Name Role Phone Unavailable Primary Care Provider Unavailabl e Reason for Visit * Reason Comments Med Refill Encounter Details Date Type Department Care Team (Late st Contact Info) Description 03/29/2024 Refill Division of Nephrology and Hypertension in [place], [place] [address] [place] [address] Nitesh Landis Jr., D.O. [address] [place] [address] Med Refill Social History Tobacco Use Types Packs/Day Years Used Date Smoking Tobacco: Never Smokeless Tobacco: Never Alcohol Use Standard Drinks/Week Comments Yes 8 (1 standard drink = 0.6 oz pur e alcohol) [facility] Utilities Answer Date Recorded In the past 12 months has [facility] [employer], gas, oil, or water [employer] threatened to shut off services in your [...] any clubs o r organizations such as jainism groups, unions, fraternal or athletic groups, or [...] Answer Date Recorded PHQ-2 Score 1 03/20/2024 [facility] of Occupat ional Health - Occupational Stress [...] your living situation today? I have a [facility] place to live 03/13/2024 Education Answer Date Recorded What is the highest level of school you have completed or the highest degree you have received? Bachelor's degree (e.g., BA, AB, BS) 12/02/2022 Sex and Gender Information Value Date Recorded Sex Assigned at Female 11/07/2022 8:34 AM DEEP SUBMERGENCE VEHICLE OPERATOR Gender Identity Female 11/07/2022 8:34 AM DEEP SUBMERGENCE VEHICLE OPERATOR Sexual Orientation Not on file documented [...]
== END 2024-06-20 07:53 | disposition home or self-care (01) ==
LOC: INJ CL 07:52
PROVIDERS: PCP Internal Medicine; Visit Provider Family Medicine
DX: M47.816 Spondylosis without myelopathy or radiculopathy, lumbar region (principal)
CPT/HCPCS: 64493; J0702; J2250; J3010; Q9966

== ENCOUNTER 2024-06-22 09:56 | Outpatient (CLI) | payer OTHER, SELFPAY ==
--- OUTSIDE RECORDS SUMMARY | 2024-06-27 07:50 | XMS_ITS | Encounter Summary ---
Author Organization [facility] Address [address] [place] [address] Care Team Providers Care Contemporary Or Modern Dancer Name Role Phone Unavailable Primary Care Provider Unavailabl e Encounter Details Date Type Department Care Team (Late st Contact Info) Description 05/29/2024 Clinical Communication Department of Orthopedic Surgery in [place], [place] [address] [place] [address] Panfilo Reyes M.D., M.S. [address] [place] [phone] Social History Tobacco Use Types Packs/Day Years Used Date Smoking Tobacco: Never Smokeless Tobacco: Never Alcohol Use Standard Drinks/Week Comments Yes 8 (1 standard drink = 0.6 oz pur e alcohol) [facility] Utilities Answer Date Recorded In the past 12 months has e electric, gas, oil, or water [employer] threatened to shut off services in your [...] Answer Date Recorded PHQ-2 Score 1 03/20/2024 [facility] Questionnaire Answer Date Recorded [...] your living situation today? I have a [facility] place to live 03/13/2024 Education Answer Date Recorded What is the highest level of school you have completed or the highest degree you have received? Bachelor's degree (e.g., BA, AB, BS) 12/02/2022 Sex and Gender Information Value Date Recorded Sex Assigned at Female 11/07/2022 8:34 AM DRY CHAIN WORKER Gender Identity Female 11/07/2022 8:34 AM DRY CHAIN WORKER Sexual Orientation Not on file documented as of this encounter Plan of Treatment Upcoming Encounters Date Type Department Care Team (Late st Contact Info) Description 06/27/2024 9:00 AM CDT External Outreach Division of Nephrology and Hypertension in [place], [place] [address] [place] [address] Nitesh Landis Jr., D.O. [address] [place] [address] Arrived documented as of this encounter Visit Diagnoses Not on filedocumented in this encounter
--- OUTSIDE RECORDS SUMMARY | 2024-06-27 07:50 | XMS_ITS | Clinical Summary ---
Author Organization [facility] Address [address] [place] [address] Care Team Providers Care Health Professional Name Role Phone Unavailable Primary Care Provider Unavailabl e Source Comments Patient records contain information from all sites at [facility]. For routine questions regarding patient records, call [phone] during business hours, M-F 8:00 AM - 5:00 PM Central Time. Record requests for emergency care only can be directed to [phone] at any time.[facility] Allergies Active Allergy Reactions Criticality Noted [...] (01/28/2023): Added automatically from request for surgery [id number] Spinal Stenosis Lumbosacral Region 01/28/2023 Overview (01/28/2023): Added automatically from request for surgery [id number] Spondylosis 01/28/2023 Overview (01/28/2023): Added automatically from request for surgery [id number] Apnea Sleep Obstructive 07/28/2022 Hyperlipidemia 05/13/2016 Hypertension Essential Primary 05/13/2016 Gastroesophageal Reflux Disease 05/19/2006 03/23/2023 Encounters Date Type Department Care Team Description 06/27/2024 9:00 AM CDT External Outreach Division of Nephrology and Hypertension in [place], [place] [address] [place] [address] Nitesh Landis Jr., D.O. Arrived 05/29/2024 Clinical Communication Department of Orthopedic Surgery in [place], [place] [address] [place] [address] Panfilo Reyes M.D., M.S. 04/11/2024 Refill Department of Orthopedic Surgery in [place], [place] [address] [place] [address] Panfilo Reyes M.D., M.S. Med Refill 04/08/2024 Refill Department of Orthopedic Surgery in [place], [place] [address] [place] [address] Riky Finney M.D. Med Refill 03/29/2024 Refill Division of Nephrology and Hypertension in [place], [place] [address] [place] [address] Sabiha, Nitesh C Jr., D.O. Med Refill from Last 3 [...] disorder Son CHHAYA MARADIAGA Coronary artery disease Janusz MARADIAGA Wid ow maker, not significant blockage [...] In the past 12 months has e [employer], gas, oil, or water [employer] threatened to shut off services in your [...] often do you attend chur ch or christian services? Never 12/02/2022 Do you belong to [...] when you are drinking? 1 or 2 Q3: How often do you have si [...] your living situation today? I have a [facility] place to live 03/13/2024 Education Answer Date Recorded What is the highest level of school you have completed or the highest degree you have received? Bachelor's degree (e.g., BA, AB, BS) 12/02/2022 Sex and Gender Information Value Date Recorded Sex Assigned at Female 11/07/2022 8:34 AM AUTOMATION SOFTWARE ENGINEER Gender Identity Female 11/07/2022 8:34 AM AUTOMATION SOFTWARE ENGINEER Sexual Orientation Not on file Last Filed [...] 06/28/2023 2:25 PM CDT Plan of Treatment Upcoming Encounters Date Type Department Care Team (Late st Contact Info) Description 06/27/2024 9:00 AM CDT External Outreach Division of Nephrology and Hypertension in [place], [place] [address] [place] [address] Nitesh Landis Jr., D.O. [address] [place] [address] Arrived Health Maintenance Due Date Last Done Comments [...] Completed 03/20/2024 Medical Devices Implanted Type Area Looping Inspector Device Identifier Shelf Expiration Date Model / Serial / Lot Misc Other Misc Other Uterus Description:Esure cont rol Procedures Procedure Name Priority Date/Time Associated Diagnosis Comments OUTSIDE XA Routine 05/05/2024 7:50 AM CDT OUTSIDE MR NEURO Routine 04/17/2024 3:40 PM CDT BASIC METABOLIC PANEL, S/P Routine 03/25/2023 5:43 AM CDT LIPID PANEL, S Routine 05/12/2016 6:59 AM CDT from Last 3 Months or Most Recently Relevant to Health Maintenance Results * FL nrv inj transfor L-S single-Outside XA (05/05/2024 7:50 AM CDT) Narrative [facility] - 05/26/2024 4:21 PM CDT This [...] MR Neuro (04/17/2024 3:40 PM CDT) Narrative [facility] - 05/26/2024 4:24 PM CDT This [...] IMG MRI PROCEDURE S IIMS NA * (ABNORMAL) Basic Metabolic Panel (03/25/2023 5:43 [...] Ellis Calle M.D. LAB BLOOD ADD-O N [facility] [address] [place] [address], [facility] [address] [place] [address] * (ABNORMAL) Lipid Panel (05/12/2016 6:59 AM CDT) Cholesterol, HDL, S 54 >=50 MG/DL [facility] Calculated LDL 142(H) SeeComment MG/DL [facility] Comment: ? REFERENCE VALUE ? Desirable: <100 ? Above Desirable: 100-129 ? Borderline high: 130-159 ? High: 160-189 ? Very high: > or =190 ? Cholesterol, Total 243(H) SeeComment MG/DL [facility] Comment: ? REFERENCE VALUE ? Desirable: < 200 ? Borderline high: 200 - 239 ? High: > or = 240 ? Triglycerides 235(H) SeeComment MG/DL [facility] Comment: ? REFERENCE VALUE ? Normal: <150 ? Borderline high: 150-199 ? High: 200-499 ? Very high: > or =500 ? Cholesterol, Non-HDL, Calculated 189(H) SeeComment MG/DL [facility] Comment: ? REFERENCE VALUE ? Desirable: <130 ? Above Desirable: 130-159 ? Borderline high: 160-189 ? High: 190-219 ? Very high: > or =220 ? 05/12/2016 6:59 AM CDT 05/12/2016 6:59 AM CDT Arnoldo English M.D. LAB BLOOD ADD-ON [facility] [address] [place] [id number], [facility] from Last 3 Months or Most Recently Relevant to Health Maintenance Advance Directives For more information, please contact: [phone] * Full Code (Latest Code Status on File) Date Activated Date Inactivated Comments 03/24/2023 12:51 PM 03/25/2023 4:33 PM Question Answer Comments Full Code: Discussed
--- OUTSIDE RECORDS SUMMARY | 2024-06-27 07:50 | XMS_ITS | Encounter Summary ---
Author Organization [facility] Address [address] [place] [address] Care Team Providers Care Bindery Manager Name Role Phone Unavailable Primary Care Provider Unavailabl e Reason for Visit * Appointment Request (Routine) - Closed Specialty Diagnoses / Procedures Referred By Aimee kohli Referred To Contact Nephrology and Hypertension Referral ID Status Reason Start Date Expiration Date Visits Re quested Visits Authorized [id number] Closed 05/26/2024 05/26/2025 1 1 Encounter Details Date Type Department Care Team (Late st Contact Info) Description 06/27/2024 9:00 AM CDT External Outreach Division of Nephrology and Hypertension in [place], [place] [address] [place] [address] Nitesh Landis Jr., D.O. [address] [place] [address] Arrived Social History Tobacco Use Types Packs/Day Years Used Date Smoking Tobacco: Never Smokeless Tobacco: Never Alcohol Use Standard Drinks/Week Comments Yes 8 (1 standard drink = 0.6 oz pur e alcohol) [facility] Utilities Answer Date Recorded In the past 12 months has [facility] [employer], gas, oil, or water [employer] threatened to shut off services in your [...] any clubs o r organizations such as buddhist groups, unions, fraternal or athletic groups, or [...] Answer Date Recorded PHQ-2 Score 1 03/20/2024 [facility] of Occupat ional Health - Occupational [...] your living situation today? I have a [facility] place to live 03/13/2024 Education Answer Date Recorded What is the highest level of school you have completed or the highest degree you have received? Bachelor's degree (e.g., BA, AB, BS) 12/02/2022 Sex and Gender Information Value Date Recorded Sex Assigned at Female 11/07/2022 8:34 AM BRIGHT CUTTER Gender Identity Female 11/07/2022 8:34 AM BRIGHT CUTTER Sexual Orientation Not on file documented as of this encounter Plan of Treatment Not on file documented as of this encounter Visit Diagnoses Not on filedocumented in this encounter
--- OUTSIDE RECORDS SUMMARY | 2024-06-27 07:50 | XMS_ITS | Clinical Summary ---
Author Organization [employer] Address [place], [place] [address] Care Team Providers Care Human Resources Recruiter Name Role Phone Manish Freedman MD Primary [...] Date Diagnosed Date Bilateral hip pain 05/11/2019 Overview (05/01/2022): 4 or 5 previous hip bursa injections by Dr. Rees [phone] approximately MRI of bilateral hips done May [...] back pain with right-kennedy ed sciatica 08/25/2017 Overview (06/24/2024): ~ August 2017: Right L4-L5 [place] epidural steroid injection by Dr. Chance. September 2017: Lyrica prescription was too expensive to start. Al [place] approved September 2017. ~ December 2017: [...] transforaminal epidural steroid injection under fluoroscopic guidance. Jun 2024: Right L5-S1 Facet injection with attempt to rupture facet cyst by Dr. Chance. Essential hypertension 07/01/2017 Unspecified sinusitis (chronic) 05/19/2006 Allergic rhinitis, cause unspecified 05/19/2006 Esophageal reflux 05/19/2006 Dysthymic disorder 05/19/2006 Mixed hyperlipidemia 08/24/2005 Encounters Date Type Department Care Team Description 06/20/2024 3:00 PM CDT Procedure Only [facility] [address] [place] [address] Rogelio Chance MD Procedure (Right L5-S1 Facet injection wit... 06/19/2024 Travel 05/23/2024 8:40 AM CDT Office Visit [facility] [address] [place] [address] Santana Pedroza MD Musculoskeletal Problem (Follow-up RIGHT Leg pain/DOO 04/2017/Follow-up from injection on 05/05/2024) 05/23/2024 Travel 05/05/2024 8:40 AM CDT Office Visit [facility] [address] [place] [address] Rogelio Chance MD Procedure (Right L4-5 and right S1 TFESI) 05/02/2024 Travel 04/23/2024 Chart Update [address] [address] Santana Pedroza MD 04/20/2024 Orders Only [address] [address] Santana Pedroza MD 1 scan: (1-Ord) [facility], MR LUMBAR SPINE WO/W CON , 04/17/2024 04/04/2024 7:00 AM CDT Office Visit [address] [address] Santana Pedroza MD Musculoskeletal Problem (Follow-up low back and RIGHT leg - discuss getting injection ) 04/03/2024 Travel 03/28/2024 Telephone [facility] [address] [place] [address] Rogelio Chance MD epidurals (right calf) from [...] Name Comments Heart Disease Father CAD 1st [place] 50' s Hyperlipidemia Father Other Father myelofibrosis [...] ??C (98.5 ??F) 09/07/2022 1 0:45 AM EMERGENCY VEHICLE DISPATCHER Respiratory Rate 14 05/11/2019 2:41 PM CDT Oxygen Saturation 100% 05/23/2024 8:47 AM CDT Inhaled Oxygen Concentration - - Weight 62.1 kg (136 lb 12.8 oz) 05/23/2024 8:47 AM CDT Height 154.9 cm (5' 1) 10/31/2020 3:37 PM EMERGENCY VEHICLE DISPATCHER Body Mass Index 25.85 10/31/2020 3:37 PM EMERGENCY VEHICLE DISPATCHER Plan of Treatment Health Maintenance Due Date [...] 03/06/2022 03/06/20 21, 12/29/2018 COVID-19 vaccine series (2022- season) 2024 08/11/2023, 07/28/2022, 01/06/2022, Additional history exists Influenza for age 65+ 06/18/2024 08/13/2021 , 07/25/2020, 09/12/2019, Additional history exists Tdap Completed 07/25/2009 Zoster (shingles) series for age 50+ Completed 02/25/2019, 01/20/2019, 06/22/2018 Procedures Procedure Name Priority Date/Time Associated Diagnosis Comments AMB EPIDURAL STEROID INJECTION Routine 06/20/2024 12:00 AM CDT DDD (degenerative disc disease), lumbar Right leg pain SD NJX AA&/STRD TFRML EPI LUMBAR/SACRAL EA ADDL Routine 05/05/2024 12:00 AM CDT DDD (degenerative disc disease), lumbar Right leg pain Lumbar radiculopathy Synovial cyst of lumbar facet joint SD NJX AA&/STRD TFRML EPI LUMBAR/SACRAL 1 LEVEL Routine 05/05/2024 12:00 AM CDT DDD (degenerative disc disease), lumbar Right leg pain Lumbar radiculopathy Synovial cyst of lumbar facet joint MR SPINE LUMBAR WWO Routine 04/17/2024 1 2:00 AM CDT Lumbar facet arthropathy Lumbar radiculopathy DDD (degenerative disc disease), lumbar Chronic right-sided low back pain with right-sided sciatica from Last 3 Months Results * AMB EPIDURAL STEROID INJECTION (06/20/2024 12:00 AM CDT) Santana Pedroza MD NEUROLOGY ORD * SD NJX AA&/STRD TFRML EPI LUMBAR/SACRAL EA ADDL (05/05/2024 12:00 AM CDT) Rogelio Chance MD PB - NERVOUS SYSTE M SERVICES * SD NJX AA&/STRD TFRML EPI LUMBAR/SACRAL 1 LEVEL (05/05/2024 12:00 AM CDT) Rogelio Chance MD PB - NERVOUS SYSTE M SERVICES * MR SPINE LUMBAR WWO (04/17/2024 12:00 AM CDT) Anatomical Region Laterality Modality Spine, LUMBAR SPINE Magnetic Res onance Santana Pedroza MD MR from Last 3 Months Care Teams Human Resources Recruiter Relationship Specialty Start Date End Date Manish Freedman MD [address] [place] [address] (work) PCP - General Internal Medicine 12/29/18
--- OUTSIDE RECORDS SUMMARY | 2024-06-27 07:50 | XMS_ITS ---
Author Organization [facility] Address [address] [place] [address] Care Team Providers Care Vegetable Tester Name Role Phone Unavailable Unavailable Unavailable Surgery Details Not on file Complications Check Surgery Details section. Procedure Estimated Blood Loss Check Surgery Details section. Procedure Findings Check Surgery Details section. Procedure Specimens Taken Check Surgery Details section.
--- OUTSIDE RECORDS SUMMARY | 2024-06-27 07:50 | XMS_ITS | Referral Summary ---
Author Organization [facility] Address [address] [place] [address] Care Team Providers Care Math Interventionist Name Role Phone Unavailable Primary Care Provider Unavailabl e Source Comments Patient records contain information from all sites at [facility]. For routine questions regarding patient records, call [phone] during business hours, M-F 8:00 AM - 5:00 PM Central Time. Record requests for emergency care only can be directed to [phone] at any time.[facility] Encounters Date Type Department Care Team Description 06/27/2024 9:00 AM CDT External Outreach Division of Nephrology and Hypertension in [place], [place] [address] [place] [address] Nitesh Landis Jr., D.O. Arrived 05/29/2024 Clinical Communication Department of Orthopedic Surgery in [place], [place] [address] [place] [address] Panfilo Reyes M.D., M.S. 04/11/2024 Refill Department of Orthopedic Surgery in [place], [place] [address] [place] [address] Panfilo Reyes M.D., M.S. Med Refill 04/08/2024 Refill Department of Orthopedic Surgery in [place], [place] [address] [place] [address] Riky Finney M.D. Med Refill 03/29/2024 Refill Division of Nephrology and Hypertension in [place], [place] [address] [place] [address] Nitesh Landis Jr., D.O. Med Refill from [...] (01/28/2023): Added automatically from request for surgery [id number] Spinal Stenosis Lumbosacral Region 01/28/2023 Overview (01/28/2023): Added automatically from request for surgery [id number] Spondylosis 01/28/2023 Overview (01/28/2023): Added automatically from request for surgery [id number] Apnea Sleep Obstructive 07/28/2022 Hyperlipidemia 05/13/2016 Hypertension Essential Primary 05/13/2016 Gastroesophageal Reflux Disease 05/19/2006 03/23/2023 Immunizations Name Administration Dates Next Due Influenza Split 07/23/2014 Social History Tobacco Use Types Packs/Day Years Used Date Smoking Tobacco: Never Smokeless Tobacco: Never Alcohol Use Standard Drinks/Week Comments Yes 8 (1 standard drink = 0.6 oz pur e alcohol) [facility] Utilities Answer Date Recorded In the [...] week 12/02/2022 How often do you attend [facility] or zoroastrianism services? Never 12/02/2022 Do you belong to any clubs o r organizations such as denominational groups, unions, fraternal or athletic groups, or [...] Answer Date Recorded PHQ-2 Score 1 03/20/2024 [facility] of Occupat ional [facility] - Occupational Stress Questionnaire Answer Date [...] Sex Assigned at Female 11/07/2022 8:34 AM PROFESSIONAL SHOPPER Gender Identity Female 11/07/2022 8:34 AM PROFESSIONAL SHOPPER Sexual Orientation Not on file Last Filed [...] Outreach Division of Nephrology and Hypertension in [place], [place] [address] [place] [address] Nitesh Landis Jr., D.O. [address] [place] [address] Arrived Medical Devices Implanted Type Area Seismic Engineer Device Identifier Shelf Expiration Date Model / [...] RAD IMAGI NG PROCEDURES Performing Organization Address [facility] Co de Phone Number IIMS NA * [...] IMG MRI PROCEDURE S Performing Organization Address [facility] Co de Phone Number IIMS NA * (ABNORMAL) Basic Metabolic Panel [...] Ellis Calle M.D. LAB BLOOD ADD-O N [facility] [address] [place] [address], [facility] [address] [place] [address] * (ABNORMAL) Lipid Panel (05/12/2016 6:59 AM CDT) Pathologist [facility] Cholesterol, HDL, S 54 >=50 MG/DL [facility] Calculated LDL 142(H) SeeComment MG/DL [facility] Comment: ? REFERENCE VALUE ? Desirable: <100 ? Above Desirable: 100-129 ? Borderline high: 130-159 ? High: 160-189 ? Very high: > or =190 ? Cholesterol, Total 243(H) SeeComment MG/DL [facility] Comment: ? REFERENCE VALUE ? Desirable: < 200 ? Borderline high: 200 - 239 ? High: > or = 240 ? Triglycerides 235(H) SeeComment MG/DL [facility] Comment: ? REFERENCE VALUE ? Normal: <150 ? Borderline high: 150-199 ? High: 200-499 ? Very high: > or =500 ? Cholesterol, Non-HDL, Calculated 189(H) SeeComment MG/DL [facility] Comment: ? REFERENCE VALUE ? Desirable: <130 ? Above Desirable: 130-159 ? Borderline high: 160-189 ? High: 190-219 ? Very high: > or =220 ? 05/12/2016 6:59 AM CDT 05/12/2016 6:59 AM CDT Arnoldo English M.D. LAB BLOOD ADD-ON [facility] [address] [place] [address], [facility] from Last 3 Months or Most Recently Relevant to Health Maintenance Advance Directives For more information, please contact: [phone] * Full Code (Latest Code Status on File) Date Activated Date Inactivated Comments 03/24/2023 12:51 PM 03/25/2023 4:33 PM Question Answer Comments Full Code: Discussed
--- OUTSIDE RECORDS SUMMARY | 2024-06-27 07:51 | XMS_ITS | Encounter Summary ---
Author Organization [facility] Address [address] [place] [address] Care Team Providers Care Instructional Facilitator Name Role Phone Unavailable Primary Care Provider Unavailabl e Reason for Visit * Reason Comments Pain Follow-up * Outpatient (Routine) - Closed Specialty Diagnoses / Procedures Referred By Aimee t Referred To Contact Orthopedic Surgery Mt Florian APRN, C.N.P., M.S.N. [address] [place] [phone] Panfilo Reyes M.D., M.S. [address] [place] [phone] Referral ID Status Reason Start Date Expiration Date Visits Re quested Visits Authorized [id number] Closed 07/19/2023 07/18/2026 1 1 Encounter Details Date Type Department Care Team (Latest Contact Info) Description 03/20/2024 3:30 PM CDT Office Visit Department of Orthopedic Surgery in [place], [place] [address] [place] [phone] Panfilo Reyes M.D., M.S. [address] [place] [phone] Stenosis Spinal (Primary Dx); Primary Osteoarthritis Lumbar Spine; Laminectomy Lumbar Status Post Discharge Disposition: Home or Self Care Social History Tobacco Use Types Packs/Day Years Used Date Smoking Tobacco: Never Smokeless Tobacco: Never Alcohol Use Standard Drinks/Week Comments Yes 8 (1 standard drink = 0.6 oz pur e alcohol) [facility] Utilities Answer Date Recorded In the [...] often do you attend chur ch or alevism services? Never 12/02/2022 Do you belong to [...] Answer Date Recorded PHQ-2 Score 1 03/20/2024 [facility] [place] [facility] - Occupational Stress Questionnaire Answer Date [...] living situation today? I have a [facility] place to live 03/13/2024 Education Answer Date Recorded What is the highest level of school you have completed or the highest degree you have received? Bachelor's degree (e.g., BA, AB, BS) 12/02/2022 Sex and Gender Information Value Date Recorded Sex Assigned at Female 11/07/2022 8:34 AM SENIOR AUDIT MANAGER Gender Identity Female 11/07/2022 8:34 AM SENIOR AUDIT MANAGER Sexual Orientation Not on file documented as [...] documented in this encounter Plan of Treatment Upcoming Encounters Date Type Department Care Team (Late st Contact Info) Description 06/27/2024 9:00 AM CDT External Outreach Division of Nephrology and Hypertension in [place], [place] [address] [place] [address] Nitesh Landis Jr., NickOKofi [address] [place] [address] Arrived documented as of this encounter Visit Diagnoses Diagnosis Stenosis Spinal- Primary Primary Osteoarthritis Lumbar Spine Laminectomy Lumbar Status Post documented in this encounter
--- OUTSIDE RECORDS SUMMARY | 2024-06-27 07:51 | XMS_ITS | Encounter Summary ---
Author Organization [facility] Address [address] [place] [address] Care Team Providers Care Hoop Driving Machine Operator Helper Name Role Phone Unavailable Primary Care Provider Unavailabl e Reason for Visit * Reason Comments Med Refill Encounter Details Date Type Department Care Team (Late st Contact Info) Description 03/29/2024 Refill Division of Nephrology and Hypertension in [place], [place] [address] [place] [address] Nitesh Landis Jr., D.O. [address] [place] [address] Med Refill Social History Tobacco Use Types Packs/Day Years Used Date Smoking Tobacco: Never Smokeless Tobacco: Never Alcohol Use Standard Drinks/Week Comments Yes 8 (1 standard drink = 0.6 oz pur e alcohol) [facility] Utilities Answer Date Recorded In the past 12 months has [facility] [place], gas, oil, or water [employer] threatened to shut off services in your [...] often do you attend chur ch or taoist services? Never 12/02/2022 Do you belong to [...] Answer Date Recorded PHQ-2 Score 1 03/20/2024 [facility] of Occupat ional Health - [...] your living situation today? I have a [facility] place to live 03/13/2024 Education Answer Date Recorded What is the highest level of school you have completed or the highest degree you have received? Bachelor's degree (e.g., BA, AB, BS) 12/02/2022 Sex and Gender Information Value Date Recorded Sex Assigned at Female 11/07/2022 8:34 AM SUPPLY REQUIREMENTS OFFICER Gender Identity Female 11/07/2022 8:34 AM SUPPLY REQUIREMENTS OFFICER Sexual Orientation Not on file documented as of this encounter Miscellaneous Notes * Addendum Note - Abi Beckham RKofiN. - 03/31/2024 9:26 AM CDTAddended by: ABI BECKHAM on: 03/31/2024 09:26 AM Modules accepted: Orders documented in this encounter Plan of Treatment Upcoming Encounters Date Type Department Care Team (Late st Contact Info) Description 06/27/2024 9:00 AM CDT External Outreach Division of Nephrology and Hypertension in [place], [place] [address] [place] [address] Nitesh Landis Jr., D.O. [address] [place] [address] Arrived documented as of this encounter Visit Diagnoses Not on filedocumented in this encounter
--- OUTSIDE RECORDS SUMMARY | 2024-06-27 07:51 | XMS_ITS | Referral Summary ---
Author Organization [facility] Address [address] [place] [address] Care Team Providers Care Caterer Helper Name Role Phone Manish Freedman MD Primary Care Provider Allergies No known active allergies Medications Medication Sig Dispensed Refills Start Date End Date Status PRILOSEC OR None Entered Active hydrochlorothiazide (HYDRODIURIL) 25 MG tablet 3 04/22/2015 Active LORazepam (ATIVAN) 1 MG tablet 0 06/07/2015 Active ondansetron (ZOFRAN-ODT) 4 MG disintegrating tablet 0 02/25/2015 Act mariana fluticasone (FLONASE) 50 MCG/ACT nasal spray Badger 2 sprays into both nostrils daily Active [...] Diagnosed Date Screening for cervical cancer Overview: [phone] NIL paps [phone] NIL paps 07/2017, 07/2018, 08/2019 NIL pap, [...] Comments Blood Pressure 138/82 09/12/2019 10:47 AM ELECTRICAL TROUBLESHOOTER Pulse 78 09/12/2019 10:47 AM ELECTRICAL TROUBLESHOOTER Temperature - - Respiratory Rate - - Oxygen Saturation - - Inhaled Oxygen Concentration - - Weight 69.9 kg (154 lb) 09/12/2019 10:47 AM ELECTRICAL TROUBLESHOOTER Height 155.3 cm (5' 1.15) 09/12/2019 10:[address] Body Mass Index 28.96 09/12/2019 10:47 AM ELECTRICAL TROUBLESHOOTER Plan of Treatment Not on file Care Teams Caterer Helper Relationship Specialty Start Date End Date Manish Freedman MD [facility] [address] [place] [address] PCP - General Emergency Medicine 08/11/17
--- OUTSIDE RECORDS SUMMARY | 2024-06-27 07:51 | XMS_ITS | Clinical Summary ---
Author Organization [facility] Address [address] [place] [address] Care Team Providers Care Early Childhood Specialist Name Role Phone Dc Gonzalez MD Primary Care Provider Unava ilable Source Comments You are receiving this document as you are listed as the primary care provider,follow-up provider, or the patient has been referred to you for consultation.This is in compliance with the Medicare and[facility] EHR Incentive Program,which states Providers who transition their patient to another setting of careor provider of care or refers their patient to another provider of care shouldprovide summary care record for each transition of care or referral. [facility] Allergies Active Allergy Reactions Criticality Noted Date [...] COVID-19 Vaccine (1 - 2022-2 4 season) 2024 Influenza (#1) 2024 HepA Aged Out No [...] age to complete this topic Care Teams Early Childhood Specialist Relationship Specialty Start Date End Date Dc Gonzalez MD PCP - General 01/17/11
--- OUTSIDE RECORDS SUMMARY | 2024-06-27 07:51 | XMS_ITS | Encounter Summary ---
Author Organization [facility] Address [address] [place] [address] Care Team Providers Care Technical Support Professional Name Role Phone Unavailable Primary Care Provider Unavailabl e Reason for Visit * Reason Comments Med Refill Encounter Details Date Type Department Care Team (Late st Contact Info) Description 04/08/2024 Refill Department of Orthopedic Surgery in [place], [place] [address] [place] [address] Riky Finney M.D. [address] [place] [address] Med Refill Social History Tobacco Use Types Packs/Day Years Used Date Smoking Tobacco: Never Smokeless Tobacco: Never Alcohol Use Standard Drinks/Week Comments Yes 8 (1 standard drink = 0.6 oz pur e alcohol) [facility] Utilities Answer Date Recorded In the past 12 months has [facility] [employer], gas, oil, or water [employer] threatened to shut off services in your [...] any clubs o r organizations such as orthodoxy groups, unions, fraternal or athletic groups, or [...] Answer Date Recorded PHQ-2 Score 1 03/20/2024 [facility] Questionnaire Answer Date [...] your living situation today? I have a [facility] place to live 03/13/2024 Education Answer Date Recorded What is the highest level of school you have completed or the highest degree you have received? Bachelor's degree (e.g., BA, AB, BS) 12/02/2022 Sex and Gender Information Value Date Recorded Sex Assigned at Female 11/07/2022 8:34 AM SIEBEL ARCHITECT Gender Identity Female 11/07/2022 8:34 AM SIEBEL ARCHITECT Sexual Orientation Not on file documented as of this encounter Plan of Treatment Upcoming Encounters Date Type Department Care Team (Late st Contact Info) Description 06/27/2024 9:00 AM CDT External Outreach Division of Nephrology and Hypertension in [place], [place] [address] [place] [address] Nitesh Landis Jr., D.O. [address] [place] [address] Arrived documented as of this encounter Visit Diagnoses Not on filedocumented in this encounter
--- OUTSIDE RECORDS SUMMARY | 2024-06-27 07:51 | XMS_ITS | Clinical Summary ---
Author Organization [facility] Address [address] [place] [address] Care Team Providers Care Product Picker Name Role Phone Manish Freedman MD Primary Care Provider Allergies No known active allergies Medications Medication Sig Dispensed Refills Start Date End Date Status PRILOSEC OR None Entered Active hydrochlorothiazide (HYDRODIURIL) 25 MG tablet 3 04/22/2015 Active LORazepam (ATIVAN) 1 MG tablet 0 06/07/2015 Active ondansetron (ZOFRAN-ODT) 4 MG disintegrating tablet 0 02/25/2015 Act mariana fluticasone (FLONASE) 50 MCG/ACT nasal spray Coats 2 sprays into both nostrils daily Active [...] Diagnosed Date Screening for cervical cancer Overview: [phone] NIL paps [phone] NIL paps 07/2017, 07/2018, 08/2019 NIL pap, [...] Comments Blood Pressure 138/82 09/12/2019 10:47 AM PROTECTION OFFICER Pulse 78 09/12/2019 10:47 AM PROTECTION OFFICER Temperature - - Respiratory Rate - - Oxygen Saturation - - Inhaled Oxygen Concentration - - Weight 69.9 kg (154 lb) 09/12/2019 10:47 AM PROTECTION OFFICER Height 155.3 cm (5' 1.15) 09/12/2019 10:47 AM Thelma SY Body Mass Index 28.96 09/12/2019 10:47 AM PROTECTION OFFICER Plan of Treatment Not on file Care Teams Product Picker Relationship Specialty Start Date End Date Manish Freedman MD [facility] [address] [place] [address] PCP - General Emergency Medicine 08/11/17
--- OUTSIDE RECORDS SUMMARY | 2024-06-27 07:51 | XMS_ITS | Encounter Summary ---
Author Organization [facility] Address [address] [place] [address] Care Team Providers Care Second Helper Name Role Phone Unavailable Primary Care Provider Unavailabl e Reason for Referral * Outpatient (Routine) - Closed Specialty Diagnoses / Procedures Referred By Contac t Referred To Contact Diagnoses Laminectomy Lumbar Status Post Procedures DX Lumbar Spine 4+ Views Mt Florian APRN, C.N.P., M.S.N. [address] [place] [address] [facility] Referral ID Status Reason Start Date Expiration Date Visits Re quested Visits Authorized [id number] Closed 07/19/2023 07/18/2024 1 1 Reason for Visit * Outpatient (Routine) - Closed Specialty Diagnoses / Procedures Referred By Contac t Referred To Contact Diagnoses Laminectomy Lumbar Status Post Procedures DX Lumbar Spine 4+ Views Mt Florian APRN C.N.P., M.S.N. [address] [place] [address] [facility] Referral ID Status Reason Start Date Expiration Date Visits Re quested Visits Authorized [id number] Closed 07/19/2023 07/18/2024 1 1 Encounter Details Date Type Department Care Team (Latest Contact Info) Description 03/20/2024 2:12 PM CDT - 03/20/2024 11:59 PM CDT Hospital Encounter Department of Radiology in [address] [phone] Mt Florian APRN, C.N.P., M.S.N. [address] [place] [phone] Laminectomy Lumbar Status Post Discharge Disposition: Home or Self Care Social History Tobacco Use Types Packs/Day Years Used Date Smoking Tobacco: Never Smokeless Tobacco: Never Alcohol Use Standard Drinks/Week Comments Yes 8 (1 standard drink = 0.6 oz pur e alcohol) [facility] Utilities Answer Date Recorded In the past [...] often do you attend chur ch or anglican services? Never 12/02/2022 Do you belong to [...] Date Recorded PHQ-2 Score 1 03/20/2024 [facility] of Occupat ional [facility] - Occupational Stress Questionnaire Answer [...] Sex Assigned at Female 11/07/2022 8:34 AM COMMUNICATIONS DEPARTMENT CHAIR Gender Identity Female 11/07/2022 8:34 AM COMMUNICATIONS DEPARTMENT CHAIR Sexual Orientation Not on file documented as [...] Outreach Division of Nephrology and Hypertension in [place], [place] [address] [place] [address] Nitesh Landis Jr., D.OKofi [address] [place] [address] Arrived documented as of this encounter Procedures Procedure [...]
--- OUTSIDE RECORDS SUMMARY | 2024-06-27 07:51 | XMS_ITS | Encounter Summary ---
Author Organization [facility] Address [address] [place] [address] Care Team Providers Care Bench Repair Technician Name Role Phone Unavailable Primary Care Provider Unavailabl e Reason for Visit * Reason Comments Med Refill Encounter Details Date Type Department Care Team (Late st Contact Info) Description 04/11/2024 Refill Department of Orthopedic Surgery in [place], [place] [address] [place] [address] Panfilo Reyes M.D., M.S. [address] [place] [address] Med Refill Social History Tobacco Use Types Packs/Day Years Used Date Smoking Tobacco: Never Smokeless Tobacco: Never Alcohol Use Standard Drinks/Week Comments Yes 8 (1 standard drink = 0.6 oz pur e alcohol) [facility] Utilities Answer Date Recorded In the past 12 months has [facility] [employer], gas, oil, or water [employer] threatened to shut off services in your [...] often do you attend chur ch or spiritism services? Never 12/02/2022 Do you belong to any clubs o r organizations such as anabaptism groups, unions, fraternal or athletic groups, or [...] Answer Date Recorded PHQ-2 Score 1 03/20/2024 [facility] of Occupat ional Health - Occupational [...] your living situation today? [facility] a [facility] to [facility] 03/13/2024 Education Answer Date Recorded What is the highest level of school you have completed or the highest degree you have received? Bachelor's degree (e.g., BA, AB, BS) 12/02/2022 Sex and Gender Information Value Date Recorded Sex Assigned at Female 11/07/2022 8:34 AM SUPERINTENDENT CEMETERY Gender Identity Female 11/07/2022 8:34 AM SUPERINTENDENT CEMETERY Sexual Orientation Not on file documented as of this encounter Plan of Treatment Upcoming Encounters Date Type Department Care Team (Late st Contact Info) Description 06/27/2024 9:00 AM CDT External Outreach Division of Nephrology and Hypertension in [place], [place] [address] [place] [address] Nitesh Landis Jr., D.O. [address] [place] [address] Arrived documented as of this encounter Visit Diagnoses Not on filedocumented in this encounter
== END 2024-06-22 09:57 | disposition home or self-care (01) ==
LOC: NFLDREF 06-27 07:48
PROVIDERS: PCP Internal Medicine; Referring Provider Internal Medicine; Visit Provider Internal Medicine Nephrology
DX: E78.5 Hyperlipidemia, unspecified (principal); I10 Essential (primary) hypertension
CPT/HCPCS: 80061; 80069; 82043; 82570; 84450; 84460; 84550

== ENCOUNTER 2024-06-27 09:26 | Outpatient (CLI) | payer OTHER, SELFPAY ==
--- OUTSIDE RECORDS SUMMARY | 2024-07-01 11:57 | XMS_ITS | Clinical Summary ---
Author Organization [facility] Address [address] [place] [address] Care Team Providers Care Curriculum And Assessment Coordinator Name Role Phone Unavailable Primary Care Provider Unavailabl e Source Comments Patient records contain information from all sites at [facility]. For routine questions regarding patient records, call [phone] during business hours, M-F 8:00 AM - 5:00 PM Central Time. Record requests for emergency care only can be directed to [phone] at any time.[facility] Allergies Active Allergy Reactions Criticality Noted Date [...] (01/28/2023): Added automatically from request for surgery [id number] Spinal Stenosis Lumbosacral Region 01/28/2023 Overview (01/28/2023): Added automatically from request for surgery [id number] Spondylosis 01/28/2023 Overview (01/28/2023): Added automatically from request for surgery [id number] Apnea Sleep Obstructive 07/28/2022 Hyperlipidemia 05/13/2016 Hypertension Essential Primary 05/13/2016 Gastroesophageal Reflux Disease 05/19/2006 03/23/2023 Encounters Date Type Department Care Team Description 06/29/2024 Clinical Communication Division of Nephrology and Hypertension in [place], [place] [address] [place] [phone] Nitesh Landis Jr., D.O. Add'l testing to be done for thyroid testing? 06/27/2024 9:00 AM CDT External Outreach Division of Nephrology and Hypertension in [place], [place] [address] [place] [phone] Nitesh Landis Jr., D.O. Hypertension Essential Primary (Primary Dx); Apnea Sleep Obstructive 05/29/2024 Clinical Communication Department of Orthopedic Surgery in [place], [place] [address] [place] [phone] Panfilo Reyes M.D., M.S. 04/11/2024 Refill Department of Orthopedic Surgery in [place], [place] [address] [place] [phone] Panfilo Reyes M.D., M.S. Med Refill 04/08/2024 Refill Department of Orthopedic Surgery in [place], [place] [address] [place] [phone] Riky Finney M.D. Med Refill from Last 3 Months Immunizations [...] Son CHHAYA MARADIAGA Relation Name Status Comments Ashok MARADIAGA Father Dc Ashley Mother ANA Ashley Other Son CHHAYA MARADIAGA Social History Tobacco Use Types Packs/Day Years Used Date Smoking Tobacco: Never Smokeless Tobacco: Never Alcohol Use Standard Drinks/Week Comments Yes 8 (1 standard drink = 0.6 oz pur e alcohol) [facility] Utilities Answer Date Recorded In the past 12 months has [facility] electric, gas, oil, or water company threatened [...] any clubs o r organizations such as zoroastrian groups, unions, fraternal or athletic groups, or [...] Answer Date Recorded PHQ-2 Score 1 03/20/2024 [facility] of Occupat ional Health - Occupational [...] Sex Assigned at Female 11/07/2022 8:34 AM 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 Gender Identity Female 11/07/2022 8:34 AM 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 Sexual Orientation Not on file Last Filed Vital Signs Vital Sign Reading Time Taken Comments Blood Pressure 132/68 06/27/2024 9:04 AM CDT Pulse 68 06/27/2024 9:04 AM CDT Temperature 36.4 ??C (97.5 ??F) 03/25/2023 11:30 AM C DT Respiratory Rate 14 03/25/2023 11:36 AM CDT Oxygen Saturation 95% 03/25/2023 10:05 AM CDT Inhaled Oxygen Concentration - - Weight 60.8 kg (134 lb 0.6 oz) 06/27/2024 9:04 A M CDT Height 154.9 cm (5' 0.98) 06/28/2023 2:25 PM CD T Body Mass Index 25.34 06/28/2023 2:25 PM CDT Plan of Treatment [...] Additional history exists Potassium Level 03/25/2024 03/25/2023, 0 03/2023, 05/12/2016 Sodium Level 03/25/2024 03/25/2023, 0 03/2023, 05/12/2016 COVID-19 Vaccine (2022-2 4 season) 2024 08/11/2023, 07/28/2022, 01/06/2022, Additional history exists Influenza Vaccine (#1) 2024 , 07/21/2022, 08/13/2021, Additional history exists Office Visit for Blood Press ure Check / Re-check 06/27/2025 06/27/2024, 03/21/2024, 03/21/2024 Fasting Glucose for Diabetes Screening 03/25/2026 03/25/2023, 03/23/2023, 05/12/2016, Additional history exists DTaP,Tdap,and Td Vaccines (3 - Td or Tdap) 10/06/2033 10/06/2023, 07/25/2009, 11/01/2007 Zoster Vaccines Completed 02/25/2019, 0 02/2019, 06/22/2018 Cervical Cancer Screening Discontinued 2018, 09/12/2019, 08/16/2018, Additional history exists Bone Density Scan (Osteoporo sis Screen) Discontinued 12/02/2022 Depression Screening (Annual PHQ-2) Completed 03/20/2024 Medical Devices Implanted Type Area Director Economic Device Identifier Shelf Expiration Date Model / [...] RAD IMAGI NG PROCEDURES Performing Organization Address [facility]/ZIP Co de Phone Number IIMS NA * [...] Ellis Calle M.D. LAB BLOOD ADD-O N [facility] [address] [place] [address], [facility] DTL [facility] [address] [place] [address] * (ABNORMAL) Lipid Panel (05/12/2016 6:59 AM CDT) Cholesterol, HDL, S 54 >=50 MG/DL [facility] Calculated LDL 142(H) SeeComment MG/DL [facility] Comment: ? REFERENCE VALUE ? Desirable: <100 ? Above Desirable: 100-129 ? Borderline high: 130-159 ? High: 160-189 ? Very high: > or =190 ? Cholesterol, Total 243(H) SeeComment MG/DL [facility] Comment: ? REFERENCE VALUE ? Desirable: < 200 ? Borderline high: 200 - 239 ? High: > or = 240 ? Triglycerides 235(H) SeeComment MG/DL [facility] Comment: ? REFERENCE VALUE ? Normal: <150 ? Borderline high: 150-199 ? High: 200-499 ? Very high: > or =500 ? Cholesterol, Non-HDL, Calculated 189(H) SeeComment MG/DL [facility] Comment: ? REFERENCE VALUE ? Desirable: <130 ? Above Desirable: 130-159 ? Borderline high: 160-189 ? High: 190-219 ? Very high: > or =220 ? 05/12/2016 6:59 AM CDT 05/12/2016 6:59 AM CDT Arnoldo English M.D. LAB BLOOD ADD-ON [facility] - [address] [address], [facility] from Last 3 Months or Most Recently Relevant to Health Maintenance Advance Directives For more information, please contact: [phone] * Full Code (Latest Code Status on File) Date Activated Date Inactivated Comments 03/24/2023 12:51 PM 03/25/2023 4:33 PM Question Answer Comments Full Code: Discussed
--- OUTSIDE RECORDS SUMMARY | 2024-07-01 11:57 | XMS_ITS | Referral Summary ---
Author Organization [facility] Address [address] [place] [address] Care Team Providers Care International Banker Name Role Phone Unavailable Primary Care Provider Unavailabl e Source Comments Patient records contain information from all sites at [facility]. For routine questions regarding patient records, call [phone] during business hours, M-F 8:00 AM - 5:00 PM Central Time. Record requests for emergency care only can be directed to [phone] at any time.[facility] Encounters Date Type Department Care Team Description 06/29/2024 Clinical Communication Division of Nephrology and Hypertension in [place], [place] [address] [place] [phone] Nitesh Landis Jr., D.O. Add'l testing to be done for thyroid testing? 06/27/2024 9:00 AM CDT External Outreach Division of Nephrology and Hypertension in [place], [place] [address] [place] [address] Nitesh Landis Jr., D.O. Hypertension Essential Primary (Primary Dx); Apnea Sleep Obstructive 05/29/2024 Clinical Communication Department of Orthopedic Surgery in [place], [place] [address] [place] [phone] Panfilo Reyes M.D., M.S. 04/11/2024 Refill Department of Orthopedic Surgery in [place], [place] [address] [place] [phone] Panfilo Reyes M.D., M.S. Med Refill 04/08/2024 Refill Department of Orthopedic Surgery in [place], [place] [address] [place] [address] Riky Finney M.D. Med Refill from Last 3 Months Allergies [...] (01/28/2023): Added automatically from request for surgery [id number] Spinal Stenosis Lumbosacral Region 01/28/2023 Overview (01/28/2023): Added automatically from request for surgery [id number] Spondylosis 01/28/2023 Overview (01/28/2023): Added automatically from request for surgery [id number] Apnea Sleep Obstructive 07/28/2022 Hyperlipidemia 05/13/2016 Hypertension Essential Primary 05/13/2016 Gastroesophageal Reflux Disease 05/19/2006 03/23/2023 Immunizations Name Administration Dates Next Due Influenza Split 07/23/2014 Social History Tobacco Use Types Packs/Day Years Used Date Smoking Tobacco: Never Smokeless Tobacco: Never Alcohol Use Standard Drinks/Week Comments Yes 8 (1 standard drink = 0.6 oz pur e alcohol) [facility] Utilities Answer Date Recorded In the past 12 months has e [employer], [employer], oil, or water [employer] threatened to shut off services in your [...] How often do you attend chur or uatsdin services? Never 12/02/2022 Do you belong to any clubs o r organizations such as jehovah's witness groups, unions, fraternal or athletic groups, or [...] Answer Date Recorded PHQ-2 Score 1 03/20/2024 [facility] of Occupat ional [facility] - Occupational Stress Questionnaire Answer [...] living situation today? [facility] 03/13/2024 Education Answer Date Recorded What is the highest level of school you have completed or the highest degree you have received? 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 Gender Identity Female 11/07/2022 8:34 AM SEX OFFENDER TREATMENT PROFESSIONAL Sexual Orientation Not on file Last Filed [...] on file Medical Devices Implanted Type Area Rn Plastic Surgery Device Identifier Shelf Expiration Date Model / [...] single-Outside XA (05/05/2024 7:50 AM CDT) Narrative [facility] - 05/26/2024 4:21 PM CDT This order [...] RAD IMAGI NG PROCEDURES Performing Organization Address [facility]/ZIP Co de Phone Number IIMS NA * MR lumbar spine wo/w con-Outside MR Neuro (04/17/2024 3:40 PM CDT) Narrative [facility] - 05/26/2024 4:24 PM CDT This order [...] IMG MRI PROCEDURE S Performing Organization Address [facility] Co de Phone Number IIAZ NA * (ABNORMAL) Basic Metabolic Panel (03/25/2023 [...] Ellis Calle M.D. LAB BLOOD ADD-O N Performing Organization Address [facility]/State/ZIP Co de Phone Number [facility] [address] [place] [address], [facility] [address] [place] [address] * (ABNORMAL) Lipid Panel (05/12/2016 6:59 AM CDT) Cholesterol, HDL, S 54 >=50 MG/DL [facility] Calculated LDL 142(H) SeeComment MG/DL [facility] Comment: ? REFERENCE VALUE ? Desirable: <100 ? Above Desirable: 100-129 ? Borderline high: 130-159 ? High: 160-189 ? Very high: > or =190 ? Cholesterol, Total 243(H) SeeComment MG/DL [facility] Comment: ? REFERENCE VALUE ? Desirable: < 200 ? Borderline high: 200 - 239 ? High: > or = 240 ? Triglycerides 235(H) SeeComment MG/DL [facility] Comment: ? REFERENCE VALUE ? Normal: <150 ? Borderline high: 150-199 ? High: 200-499 ? Very high: > or =500 ? Cholesterol, Non-HDL, Calculated 189(H) SeeComment MG/DL [facility] Comment: ? REFERENCE VALUE ? Desirable: <130 ? Above Desirable: 130-159 ? Borderline high: 160-189 ? High: 190-219 ? Very high: > or =220 ? 05/12/2016 6:59 AM CDT 05/12/2016 6:59 AM CDT Arnoldo English M.D. LAB BLOOD ADD-ON [facility] [address] [place] [id number], [facility] from Last 3 Months or Most Recently Relevant to Health Maintenance Advance Directives For more information, please contact: [phone] * Full Code (Latest Code Status on File) Date Activated Date Inactivated Comments 03/24/2023 12:51 PM 03/25/2023 4:33 PM Question Answer Comments Full Code: Discussed
--- OUTSIDE RECORDS SUMMARY | 2024-07-01 11:57 | XMS_ITS | Encounter Summary ---
Author Organization [facility] Address [address] [place] [address] Care Team Providers Care Litigation Legal Assistant Name Role Phone Unavailable Primary Care Provider Unavailabl e Reason for Visit * Reason Comments Med Refill Encounter Details Date Type Department Care Team (Late st Contact Info) Description 04/08/2024 Refill Department of Orthopedic Surgery in [place], [place] [address] [place] [address] Riky Finney M.D. [address] [place] [address] Med Refill Social History Tobacco Use Types Packs/Day Years Used Date Smoking Tobacco: Never Smokeless Tobacco: Never Alcohol Use Standard Drinks/Week Comments Yes 8 (1 standard drink = 0.6 oz pur e alcohol) [facility] Utilities Answer Date Recorded In the past 12 months has [facility] [employer], gas, oil, or water [employer] threatened to shut off services in your [...] often do you attend chur ch or caodaism services? Never 12/02/2022 Do you belong to any clubs o r organizations such as confucianist groups, unions, fraternal or athletic groups, or [...] 1 03/20/2024 [facility] Questionnaire Answer Date [...] your living situation today? I have a [facility] place to live 03/13/2024 Education Answer Date Recorded What is the highest level of school you have completed or the highest degree you have received? Bachelor's degree (e.g., BA, AB, BS) 12/02/2022 Sex and Gender Information Value Date Recorded Sex Assigned at Female 11/07/2022 8:34 AM MEDICAL REVIEW COORDINATOR Gender Identity Female 11/07/2022 8:34 AM MEDICAL REVIEW COORDINATOR Sexual Orientation Not on file documented as of this encounter Plan of Treatment Not on file documented as of this encounter Visit Diagnoses Not on filedocumented in this encounter
--- OUTSIDE RECORDS SUMMARY | 2024-07-01 11:57 | XMS_ITS ---
Author Organization [facility] Address [address] [place] [address] Care Team Providers Care Electrical Engineering Director Name Role Phone Unavailable Unavailable Unavailable Surgery Details Not on file Complications Check Surgery Details section. Procedure Estimated Blood Loss Check Surgery Details section. Procedure Findings Check Surgery Details section. Procedure Specimens Taken Check Surgery Details section.
--- OUTSIDE RECORDS SUMMARY | 2024-07-01 11:57 | XMS_ITS | Encounter Summary ---
Author Organization [facility] Address [address] [place] [address] Care Team Providers Care Emergency Registrar Name Role Phone Unavailable Primary Care Provider Unavailabl e Encounter Details Date Type Department Care Team (Late st Contact Info) Description 05/29/2024 Clinical Communication Department of Orthopedic Surgery in [place], [place] [address] [place] [address] Panfilo Reyes M.D., M.S. [address] [place] [phone] Social History Tobacco Use Types Packs/Day Years Used Date Smoking Tobacco: Never Smokeless Tobacco: Never Alcohol Use Standard Drinks/Week Comments Yes 8 (1 standard drink = 0.6 oz pur e alcohol) [facility] Utilities Answer Date Recorded In the past 12 months has e electric, gas, oil, or water [employer] threatened to shut off services in your [...] often do you attend chur ch or latter-day services? Never 12/02/2022 Do you belong to any clubs o r organizations such as muslim groups, unions, fraternal or athletic groups, or [...] Answer Date Recorded PHQ-2 Score 1 03/20/2024 [facility] [...] Sex Assigned at Female 11/07/2022 8:34 AM POLICE INVESTIGATOR Gender Identity Female 11/07/2022 8:34 AM POLICE INVESTIGATOR Sexual Orientation Not on file documented as of this encounter Plan of Treatment Not on file documented as of this encounter Visit Diagnoses Not on filedocumented in this encounter
--- OUTSIDE RECORDS SUMMARY | 2024-07-01 11:57 | XMS_ITS | Encounter Summary ---
Author Organization [facility] Address [address] [place] [address] Care Team Providers Care Flue Dust Laborer Name Role Phone Unavailable Primary Care Provider Unavailabl e Reason for Visit * Reason Onset Date Comments Add'l testing to be done for thyroid testing? Encounter Details Date Type Department Care Team (Latest Contact Info) Description 06/29/2024 Clinical Communication Division of Nephrology and Hypertension in [place], [place] [address] [place] [address] Nitesh Landis Jr., D.O. [address] [place] [phone] Add'l testing to be done for thyroid testing? Social History Tobacco Use Types Packs/Day Years Used Date Smoking Tobacco: Never Smokeless Tobacco: Never Alcohol Use Standard Drinks/Week Comments Yes 8 (1 standard drink = 0.6 oz pur e alcohol) [facility] Utilities Answer Date Recorded In the past [address] [facility] Referral.[employer], gas, oil, or water [employer] threatened to shut off services in your [...] How often do you attend chur or sikh services? Never 12/02/2022 Do you belong to [...] 03/20/2024 [facility] of Occupat ional Health - [...] your living situation today? I have a [facility] place to live 03/13/2024 Education Answer Date Recorded What is the highest level of school you have completed or the highest degree you have received? Bachelor's degree (e.g., BA, AB, BS) 12/02/2022 Sex and Gender Information Value Date Recorded Sex Assigned at Female 11/07/2022 8:34 AM VEGETABLE PICKER Gender Identity Female 11/07/2022 8:34 AM VEGETABLE PICKER Sexual Orientation Not on file documented as of this encounter Miscellaneous Notes * Telephone Encounter - Clau Dixon - 06/29/2024 8:50 AM CDT Mrs. Ward called as she sent a message to you through the [employer] portal but doesn't think it went through. She asked that I relay a message to you. When you last talked, you were going to take the wait and see approach after reviewing her thyroid testing. However, she got wondering if there were any other tests or diagnostic things she could do in the meantime. She's more than willing to have additional testing, etc done. You can let her know via phone ([phone]) or by Portal. Thanks. documented in this encounter Plan of Treatment Not on file documented as of this encounter Visit Diagnoses Not on filedocumented in this encounter
--- OUTSIDE RECORDS SUMMARY | 2024-07-01 11:57 | XMS_ITS | Encounter Summary ---
Author Organization [facility] Address [address] [place] [address] Care Team Providers Care Chemical Plant Worker Name Role Phone Unavailable Primary Care Provider Unavailabl e Reason for Visit * Appointment Request (Routine) - Closed Specialty Diagnoses / Procedures Referred By Aimee kohli Referred To Contact Nephrology and Hypertension Referral ID Status Reason Start Date Expiration Date Visits Re quested Visits Authorized [id number] Closed 05/26/2024 05/26/2025 1 1 Encounter Details Date Type Department Care Team (Latest Contact Info) Description 06/27/2024 9:00 AM CDT External Outreach Division of Nephrology and Hypertension in [place], [place] [address] [place] [address] Nitesh Landis Jr., D.O. [address] [place] [address] Hypertension Essential Primary (Primary Dx); Apnea Sleep Obstructive Social History Tobacco Use Types Packs/Day Years Used Date Smoking Tobacco: Never Smokeless Tobacco: Never Alcohol Use Standard Drinks/Week Comments Yes 8 (1 standard drink = 0.6 oz pur e alcohol) [facility] Utilities Answer Date Recorded In the [...] ways by your partner or ex-partner? No 02 / Within the last year, have y ou [...] How often do you attend chur or buddhism services? Never 12/02/2022 Do you belong to [...] Answer Date Recorded PHQ-2 Score 1 03/20/2024 [facility] [place] of Occupat ional Health - Occupational Stress [...] living situation today? [facility] 03/13/2024 Education Answer Date Recorded What is the highest level of school you have completed or the highest degree you have received? Bachelor's degree (e.g., BA, AB, BS) 12/02/2022 Sex and Gender Information Value Date Recorded Sex Assigned at Female 11/07/2022 8:34 AM CAN PUSHER Gender Identity Female 11/07/2022 8:34 AM CAN PUSHER Sexual Orientation Not on file documented as of this encounter Last Filed Vital Signs Vital Sign Reading Time Taken Comments Blood Pressure 132/68 06/27/2024 9:04 AM CDT Pulse 68 06/27/2024 9:04 AM CDT Temperature - - Respiratory Rate - - Oxygen Saturation - - Inhaled Oxygen Concentration - - Weight 60.8 kg (134 lb 0.6 oz) 06/27/2024 9:04 A M CDT Height - - Body Mass Index 25.34 06/28/2023 2:25 PM CDT documented in this encounter Progress Notes * Nitesh Landis Jr., D.O. - 06/27/2024 9:00 AM CDT Referring Provider: No primary care provider on file. SUBJECTIVE REASON FOR VISIT [facility] Follow-up regards resistant hypertension HISTORY OF PRESENT ILLNESS Ms. Ward is a 69 y.o. female who presents with history of resistant hypertension on a complex regimen including amlodipine 2.5 mg orally daily, eplerenone 25 mg orally daily, irbesartan 300 mg orally daily. Since our last visit she notes that she has unintentionally lost approximately 5-10 lb. Food has not changed for her, her appetite does not seem that much different. She relates some intermittent night sweats, palpitations, and easy flushing. She has not had her thyroid checked recently. No other constitutional complaints no cardiovascular issues no orthostatic changes. She has been seeing Orthopedics, specifically orthopedic spine specialists. There was a cyst which was managed with injections, and she believes that some of the discomfort on the lateral aspect of her right lower leg has improved. Previously she could only tolerate rosuvastatin 5 mg every other day, and whether this was related to her radiculopathy versus true statin intolerance was unclear. We discussed her lipids which were slightly elevated. Her sleep has been excellent. Past Medical History: Diagnosis Date Hyperlipidemia 2017 Hypertension NOS 2015 Irritable Bowel Syndrome Without Diarrhea 2002 Other Injury Of Unspecified Body Region Leg 1967 Post Operative Nausea/Vomiting Sickness Motion Personal History Sleep Apnea 2021 Current Outpatient Medications: amLODIPine (NORVASC) 5 mg tablet, Take 2.5 mg by mouth daily., Disp: , Rfl: diphenhydrAMINE-acetaminophen (TYLENOL PM) 25-500 mg per tablet, Take 1 tablet by mouth at bedtime as needed., Disp: , Rfl: eplerenone (INSPRA) 25 mg tablet, Take 1.5 tablets (37.5 mg total) by mouth daily., Disp: 135 tablet, Rfl: 3 irbesartan (AVAPRO) 300 mg tablet, take 1 tablet by mouth every day, Disp: 90 tablet, Rfl: 3 LORazepam (ATIVAN) 1 mg tablet, Take 1 mg by mouth at bedtime as needed for anxiety., Disp: , Rfl: nabumetone (Relafen) 500 mg tablet, Take 1 tablet (500 mg total) by mouth daily., Disp: 60 tablet, Rfl: 1 omeprazole (PriLOSEC) [address] capsule, Take 20 mg by mouth every morning before breakfast., Disp: , Rfl: rosuvastatin (CRESTOR) 5 mg tablet, TAKE 1 TABLET BY MOUTH EVERY DAY FOR HYPERLIPIDEMIA, Disp: , Rfl: sennosides-docusate sodium (SENOKOT-S) 8.6-50 mg per tablet, Take 1 tablet by mouth 2 (two) times aday., Disp: 100 tablet, Rfl: 0 REVIEW OF SYSTEMS All other systems reviewed and are negative. OBJECTIVE BP 132/68 Pulse 68 Wt 60.8 kg BMI 25.34 kg/m?? PHYSICAL EXAMINATION General: Awake, alert, oriented. HEENT: DIMAS, EOMI, mucous membranes moist, no oral lesions. Neck: No masses, no bruits. Lungs: Clear to auscultation. Heart: Regular rate and rhythm. No ectopy, murmurs, or rubs. Abdomen: Soft, non-tender. Extremities: No cyanosis, no clubbing, no edema. Neuro: Cranial nerves intact. Gait is normal, strength grossly normal. Skin: No suspicious lesions identified. Psychiatric: Normal affect. DIAGNOSTICS Note no microalbuminuria normal chemistries normal CBC, total cholesterol 230, LDL 119 HDL 87 low triglycerides ASSESSMENT / PLAN #1 Hypertension Essential Primary We will continue with the current regimen, which includes the eplerenone, irbesartan, and amlodipine. No changes with this, we will continue to monitor her pressure at home with a goal blood pressure less than 130s over 80s She will continue to avoid NSAIDs She will stay with stay well hydrated She will avoid sodium. Her sleep apnea seems have been corrected. #2 Apnea Sleep Obstructive Seems well corrected #3 Weight loss I will check TSH Total time: 30 minutes Counseling Time: 25 minutes Nitesh Landis Jr., D.O. documented in this encounter Plan of Treatment Not on file documented as of this encounter Visit Diagnoses Diagnosis Hypertension Essential Primary- Primary Apnea Sleep Obstructive documented in this encounter
--- OUTSIDE RECORDS SUMMARY | 2024-07-01 11:57 | XMS_ITS | Clinical Summary ---
Author Organization [facility] Address [place], [place] [address] Care Team Providers Care Music Researcher Name Role Phone Manish Freedman MD Primary [...] previous hip bursa injections by Dr. Rees [id number] approximately MRI of bilateral hips done May [...] Description 06/20/2024 3:00 PM CDT Procedure Only [facility] [address] [place] [address] Rogelio Chance MD Procedure (Right L5-S1 Facet injection wit... 06/19/2024 Travel 05/23/2024 8:40 AM CDT Office Visit [facility] [address] [place] [address] Santana Pedroza MD Musculoskeletal Problem (Follow-up RIGHT Leg pain/DOO 04/2017/Follow-up from injection on 05/05/2024) 05/23/2024 Travel 05/05/2024 8:40 AM CDT Office Visit [facility] [address] [place] [address] Rogelio Chance MD Procedure (Right L4-5 and right S1 TFESI) 05/02/2024 Travel 04/23/2024 Chart Update [facility] [address] [place] [address] Santana Pedroza MD 04/20/2024 Orders Only [facility] [address] [place] [address] Santana Pedroza MD 1 scan: (1-Ord) [facility], MR LUMBAR SPINE WO/W CON , 04/17/2024 04/04/2024 7:00 AM CDT Office Visit [facility] [address] [place] [address] Santana Pedroza MD Musculoskeletal Problem (Follow-up low back and RIGHT leg - discuss getting injection ) 04/03/2024 Travel from Last 3 Months Immunizations Name [...] Name Comments Heart Disease Father CAD 1st [place] 50' s Hyperlipidemia Father Other Father myelofibrosis [...] ??C (98.5 ??F) 09/07/2022 1 0:45 AM STOCK OR DELIVERY CLERK Respiratory Rate 14 05/11/2019 2:41 PM CDT Oxygen Saturation 100% 05/23/2024 8:47 AM CDT Inhaled Oxygen Concentration - - Weight 62.1 kg (136 lb 12.8 oz) 05/23/2024 8:47 AM CDT Height 154.9 cm (5' 1) 10/31/2020 3:37 PM STOCK OR DELIVERY CLERK Body Mass Index 25.85 10/31/2020 3:37 PM STOCK OR DELIVERY CLERK Plan of Treatment Health Maintenance Due Date [...] MR from Last 3 Months Care Teams Music Researcher Relationship Specialty Start Date End Date Manish Freedman MD [address] [place], [place] [id number] PCP - General Internal Medicine 12/29/18
--- OUTSIDE RECORDS SUMMARY | 2024-07-01 11:57 | XMS_ITS | Encounter Summary ---
Author Organization [facility] Address [address] [place] [address] Care Team Providers Care Phone Technician Name Role Phone Unavailable Primary Care Provider Unavailabl e Reason for Visit * Reason Comments Med Refill Encounter Details Date Type Department Care Team (Late st Contact Info) Description 04/11/2024 Refill Department of Orthopedic Surgery in [place], [place] [address] [place] [address] Panfilo Reyes M.D., M.S. [address] [place] [address] Med Refill Social History Tobacco Use Types Packs/Day Years Used Date Smoking Tobacco: Never Smokeless Tobacco: Never Alcohol Use Standard Drinks/Week Comments Yes 8 (1 standard drink = 0.6 oz pur e alcohol) [facility] Utilities Answer Date Recorded In the past 12 months has [facility] [employer], gas, oil, or water [employer] threatened to shut off services in your [...] often do you attend chur ch or yarsani services? Never 12/02/2022 Do you belong to [...] Answer Date Recorded PHQ-2 Score 1 03/20/2024 [facility] of Occupat ional Health - Occupational Stress [...] your living situation today? I have a [facility] place to live 03/13/2024 Education Answer Date Recorded What is the highest level of school you have completed or the highest degree you have received? Bachelor's degree (e.g., BA, AB, BS) 12/02/2022 Sex and Gender Information Value Date Recorded Sex Assigned at Female 11/07/2022 8:34 AM GARAGE DOOR OPENER INSTALLER Gender Identity Female 11/07/2022 8:34 AM GARAGE DOOR OPENER INSTALLER Sexual Orientation Not on file documented as of this encounter Plan of Treatment Not on file documented as of this encounter Visit Diagnoses Not on filedocumented in this encounter
--- OUTSIDE RECORDS SUMMARY | 2024-07-01 11:58 | XMS_ITS | Clinical Summary ---
Author Organization [facility] Address [address] [place] [address] Care Team Providers Care Cane Piler Name Role Phone Manish Freedman MD Primary Care Provider Allergies No known active allergies Medications Medication Sig Dispensed Refills Start Date End Date Status PRILOSEC OR None Entered Active hydrochlorothiazide (HYDRODIURIL) 25 MG tablet 3 04/22/2015 Active LORazepam (ATIVAN) 1 MG tablet 0 06/07/2015 Active ondansetron (ZOFRAN-ODT) 4 MG disintegrating tablet 0 02/25/2015 Act mariana fluticasone (FLONASE) 50 MCG/ACT nasal spray [place] 2 sprays into both nostrils daily Active [...] Diagnosed Date Screening for cervical cancer Overview: [id number] NIL paps [phone] NIL paps 07/2017, 07/2018, 08/2019 NIL pap, [...] Comments Blood Pressure 138/82 09/12/2019 10:47 AM MAT PUNCHER Pulse 78 09/12/2019 10:47 AM MAT PUNCHER Temperature - - Respiratory Rate - - Oxygen Saturation - - Inhaled Oxygen Concentration - - Weight 69.9 kg (154 lb) 09/12/2019 10:47 AM MAT PUNCHER Height 155.3 cm (5' 1.15) 09/12/2019 10:47 AM Thelma SY Body Mass Index 28.96 09/12/2019 10:47 AM MAT PUNCHER Plan of Treatment Not on file Care Teams Cane Piler Relationship Specialty Start Date End Date Manish Freedman MD [facility] [address] [place] [address] PCP - General Emergency Medicine 08/11/17
--- OUTSIDE RECORDS SUMMARY | 2024-07-01 11:58 | XMS_ITS | Referral Summary ---
Author Organization [facility] Address [address] [place] [address] Care Team Providers Care Supervisor Cutting And Boning Name Role Phone Manish Freedman MD Primary Care Provider Allergies No known active allergies Medications Medication Sig Dispensed Refills Start Date End Date Status PRILOSEC OR None Entered Active hydrochlorothiazide (HYDRODIURIL) 25 MG tablet 3 04/22/2015 Active LORazepam (ATIVAN) 1 MG tablet 0 06/07/2015 Active ondansetron (ZOFRAN-ODT) 4 MG disintegrating tablet 0 02/25/2015 Act mariana fluticasone (FLONASE) 50 MCG/ACT nasal spray [place] 2 sprays into both nostrils daily Active [...] Diagnosed Date Screening for cervical cancer Overview: 1033-1765 NIL paps 3468-3370 NIL paps 07/2017, 07/2018, 08/2019 NIL pap, [...] Comments Blood Pressure 138/82 09/12/2019 10:47 AM TAXI SERVICER Pulse 78 09/12/2019 10:47 AM TAXI SERVICER Temperature - - Respiratory Rate - - Oxygen Saturation - - Inhaled Oxygen Concentration - - Weight 69.9 kg (154 lb) 09/12/2019 10:47 AM TAXI SERVICER Height 155.3 cm (5' 1.15) 09/12/2019 10:[address] Body Mass Index 28.96 09/12/2019 10:47 AM TAXI SERVICER Plan of Treatment Not on file Care Teams Supervisor Cutting And Boning Relationship Specialty Start Date End Date Manish Freedman MD [facility] [address] [place] [address] PCP - General Emergency Medicine 08/11/17
--- OUTSIDE RECORDS SUMMARY | 2024-07-01 11:58 | XMS_ITS | Clinical Summary ---
Author Organization [facility] Address [address] [place] [address] Care Team Providers Care Band Log Mill And Carriage Operator Name Role Phone Dc Gonzalez MD Primary Care Provider Unava ilable Source Comments You are receiving this document as you are listed as the primary care provider,follow-up provider, or the patient has been referred to you for consultation.This is in compliance with the Medicare and[facility] Hospitalca[facility] EHR Incentive Program,which states Providers who transition their patient to another setting of careor provider of care or refers their patient to another provider of care shouldprovide summary care record for each transition of care or referral. [facility] Allergies Active Allergy Reactions Criticality Noted Date [...] age to complete this topic Care Teams Band Log Mill And Carriage Operator Relationship Specialty Start Date End Date Dc Gonzalez MD PCP - General 01/17/11
--- OUTSIDE RECORDS SUMMARY | 2024-07-01 11:58 | XMS_ITS | Encounter Summary ---
Author Organization [facility] Address [address] [place] [address] Care Team Providers Care Stucco Applicator Name Role Phone Unavailable Primary Care Provider Unavailabl e Reason for Visit * Reason Comments Med Refill Encounter Details Date Type Department Care Team (Late st Contact Info) Description 03/29/2024 Refill Division of Nephrology and Hypertension in [place], [place] [address] [place] [address] Nitesh Landis Jr., D.O. [address] [place] [address] Med Refill Social History Tobacco Use Types Packs/Day Years Used Date Smoking Tobacco: Never Smokeless Tobacco: Never Alcohol Use Standard Drinks/Week Comments Yes 8 (1 standard drink = 0.6 oz pur e alcohol) [facility] Utilities Answer Date Recorded In the past 12 months has [facility] [employer], gas, oil, or water [employer] threatened to shut off services in your [...] often do you attend chur ch or zoroastrianism services? Never 12/02/2022 Do you belong to any clubs o r organizations such as protestant groups, unions, fraternal or athletic groups, or [...] Answer Date Recorded PHQ-2 Score 1 03/20/2024 [facility] of Occupat ional Health - Occupational [...] today? I have a [facility] place to live 03/13/2024 Education Answer Date Recorded What is the highest level of school you have completed or the highest degree you have received? Bachelor's degree (e.g., BA, AB, BS) 12/02/2022 Sex and Gender Information Value Date Recorded Sex Assigned at Female 11/07/2022 8:34 AM ACCOUNTS PAYABLE ANALYST Gender Identity Female 11/07/2022 8:34 AM ACCOUNTS PAYABLE ANALYST Sexual Orientation Not on file documented as [...]
== END 2024-06-27 09:27 | disposition home or self-care (01) ==
LOC: NFLDREF 07-01 11:55
PROVIDERS: PCP Internal Medicine; Referring Provider Internal Medicine; Visit Provider Internal Medicine Nephrology
DX: Z13.29 Encounter for screening for other suspected endocrine disorder (principal); R53.83 Other fatigue
CPT/HCPCS: 84443

== ENCOUNTER 2024-09-08 10:15 | Outpatient (CLI) | payer OTHER, SELFPAY ==
--- OUTSIDE RECORDS SUMMARY | 2024-09-10 14:19 | XMS_ITS | Continuity of Care Document ---
Author Organization [facility] Address [address] [place] [address] Phone Care Team Providers Care Batch Or Continuous Still Operator Name Role Phone Janice MANDUJANO, PhD, Rajendra [...] Copied on Encounter [facility], [address], [place], [id number], [place] tel:[phone] [facility] No Information 3 Janice Drew. [facility], [address], [place], [address], [place]. tel:[phone] Office/Outpat ient Visit,Est, Mod [facility], [address], [place], [id number], [place] tel:[phone] [facility] Encounter for other specified surgical aftercare 2 Janice Derw. [facility], [address], [place], [address], [place]. tel:[phone] Referring Provider: Santana Mesa [employer] [address] [facility], [facility], [place], [address]. tel:[phone] OFFICE/OUTPAT IENT VISIT EST Phone [facility], [address], [place], [place], [id number], [place] tel:[phone] [facility] No Information 2 Janice Drew. [facility], [address], [place], [address], [place]. [phone] Referring Provider: Santana Mesa, [employer] [facility] [address] [facility], [place], [address]. tel:[phone] Office/Outpat ient Visit,Est, Low [facility], [address], [place], [id number], [place] tel:[phone] [facility] Spinal stenosis, lumbar region with neurogenic claudication 2 Janice Drew. [facility], [address], [place], [address], [place]. tel:[phone] Referring Provider: Santana Mesa, [employer] [address] [facility] [place], [address]. tel:[phone] Office/Outpat ient Visit,Est, Low [facility], [address], [place], [place], [id number], [place] tel:[phone] [facility] Low back pain, unspecified 2 Janice Drew. [facility], [address], [place], [address], [place]. tel: [phone] Referring Provider: Santana Mesa, [employer] [address] [place], [address]. [phone] OFFICE/OUTPAT IENT VISIT EST Phone [facility], [address], [place], [place], [id number], [place] tel:[phone] [facility] No Information 1 Janice Drew. [facility], [address], [place], [address], [place]. tel: [phone] Referring Provider: Santana Mesa [employer] [address], [place], [address]. [phone] Office/Outpat ient Visit,New, Mod [facility], [address], [place], [id number], [place] tel:[phone] [facility] Spinal stenosis, lumbar region with neurogenic claudication 1 Janice Drew. [facility], [address], [place], [address], [place]. tel: [phone] Referring Provider: Santana Mesa [employer] [address] [place], [address]. [phone] [facility], [address], [place], [id number], [place] tel:[phone] [facility] Low back pain 1 Janice Drew. [facility], [address], [place], [address], [place]. tel:[phone] Family History Family Member Type Diagnosis Age At Onset No Information Payers Payer name Insurance type Covered alliance party ID Authorpepe layne(s) venus Brambila [id number] Social History Type Description Quantity Date Captured [...]
--- OUTSIDE RECORDS SUMMARY | 2024-09-10 14:19 | XMS_ITS ---
Author Organization [facility] Address [address] [place] [address] Care Team Providers Care Assistant Clinical Nurse Manager Name Role Phone Unavailable Unavailable Unavailable Surgery Details Not on file Complications Check Surgery Details section. Procedure Estimated Blood Loss Check Surgery Details section. Procedure Findings Check Surgery Details section. Procedure Specimens Taken Check Surgery Details section.
--- OUTSIDE RECORDS SUMMARY | 2024-09-10 14:19 | XMS_ITS | Encounter Summary ---
Author Organization [facility] Address [address] [place] [address] Care Team Providers Care Race Car Mechanic Name Role Phone Unavailable Primary Care Provider Unavailabl e Reason for Visit * Reason Onset Date Comments Add'l testing to be done for thyroid testing? Encounter Details Date Type Department Care Team (Latest Contact Info) Description 06/29/2024 Clinical Communication Division of Nephrology and Hypertension in [place], [place] [address] [place] [address] Nitesh Landis Jr., D.O. [address] [place] [address] Add'l testing to be done for thyroid testing? Social History Tobacco Use Types Packs/Day Years Used Date Smoking Tobacco: Never Smokeless Tobacco: Never Alcohol Use Standard Drinks/Week Comments Yes 8 (1 standard drink = 0.6 oz pur e alcohol) [facility] Utilities Answer Date Recorded In the past 12 months has [facility] [employer], gas, oil, or water [employer] threatened to shut off services in your [...] How often do you attend chur or pentecostalism services? Never 12/02/2022 Do you belong to any clubs o r organizations such as alevism groups, unions, fraternal or athletic groups, or [...] Answer Date Recorded PHQ-2 Score 1 03/20/2024 [facility] of Occupat ional Health - Occupational [...] Bachelor's degree (e.g., BA, AB, BS) 12/02/2022 Comments No Sex and Gender Information Value Date Recorded Sex Assigned at Female 11/07/2022 8:34 AM JUICE TESTER Legal Sex Female 7:53 PM JUICE TESTER Gender Identity Female 11/07/2022 8:34 AM JUICE TESTER Sexual Orientation Not on file documented as of this encounter Miscellaneous Notes * Telephone Encounter - Destiny Clau Villalta - 06/29/2024 8:50 AM CDT Mrs. Ward called as she sent a message to you through the [employer] portal but doesn't think it went through. [...] You can let her know via phone ([phone]) or by Portal. Thanks. documented in this encounter Plan of Treatment Not on file documented as of this encounter Visit Diagnoses Not on filedocumented in this encounter
--- OUTSIDE RECORDS SUMMARY | 2024-09-10 14:19 | XMS_ITS | Continuity of Care Document ---
Author Organization [facility] Address [address] [address] [place] [address] Phone Care Team Providers Care Photography Manager Name Role Phone Mary Roberto CRNA Unavailabl [...] 20 MG - Active Nasonex 50 mcg/actuation [place] spray 1 spray by Intranasal route every [...] daily - Active fluticasone 50 mcg/Actuation Nasal [place], Susp spray 2 spray by Intranasal route [...] Diagnoses Date Provider Providers Copied on Encounter [facility], [address] [address], [place], [id number], [place] tel:[phone] [facility] No Information 1 Felisa Hernandez. [address], [address], [place], [id number], [place]. tel:[phone] Referring Provider: Nicko Haney MD H, [address], [place], [address] . tel:[phone] [facility], [address] [address], [place], [id number], [place] tel:[phone] [facility] Personal history of colonic polypsDiverticul osis of colon without diverticulitisCo lorectal polyp detected on colonoscopyEncou nter for screening for malignant neoplasm of colonBenign neoplasm of transverse colonPersonal history of colonic polyps 1 Lyndon Maharaj. [address] [facility] [address], [address], [place], [place], [id number], [place]. tel:[phone] Referring Provider: Referral Self, USE FOR SELF REFERRALS. [facility], [address] [address], [place], [place], [id number], [place] tel:[phone] [facility] No Information 1 Rob Drew. [address], [address], [place], [place], [id number], [place]. tel:[phone] Offic/outpt E&m Estab Mod-hi 2 [facility], [address] [address], [place], [place], [id number], [place] tel:[phone] [facility] GI Symptoms or Concerns (chief complaint) Right upper quadrant abdominal painFatty liverEssential (primary) hypertension Josef- 5 8 Ching Heard. [address], [address], [place], [place], [address], [place]. tel:[phone] Referring Provider: Referral Self, USE FOR SELF REFERRALS. [facility], [address] [address], [place], [place], [id number], [place] tel:[phone] [facility] Right upper quadrant abdominal pain Jan-3 0-201 8 Ching Heard. [address] [facility] [address], [address], [place], [place], [id number], [place]. tel:[phone] Offic/outpt E&m Estab Mod-hi 2 [facility], [address] [address], [place], [place], [address], [place] tel:[phone] [facility] GI Symptoms or Concerns (chief complaint) Right upper quadrant abdominal painDietary counseling and surveillanceEsse ntial (primary) hypertension Jan-2 4-201 8 Ching Herad. [address] [facility] [address], [address], [place], [place], [id number], [place]. tel:[phone] Referring Provider: Referral Self, USE FOR SELF REFERRALS. Offic/outpt E&m Estab Mod-hi 2 [facility], [address] [address], [place], [id number], [place] tel:[phone] [facility] GI Symptoms or Concerns (chief complaint) Irritable bowel syndrome with diarrheaDietary counseling and surveillance 5 Alysha Mercado. [address], [address], [place], [id number], [place]. tel:[phone] Referring Provider: Marquita Johnson MD, [address] [place], [address]. tel:[phone] [facility], [address] [address], [place], [id number], [place] tel:[phone] [facility] No Information 5 Alysha Mercado. [address], [address], [place], [id number], [place]. tel:[phone] Referring Provider: Marquita Johnson MD, [address] [place], [address]. tel:[phone] [facility], [address] [address], [place], [id number], [place] tel:[phone] [facility] Diarrhea 5 Alysha Mercado. [address], [address], [place], [id number], [place]. tel:[phone] [facility], [address] [address], [place], [id number], [place] tel:[phone] [facility] Hiatal herniaColon polypsDiverticul osis of large intestine without hemorrhageLympho cytosis (symptomatic)Sarmad ign neoplasm of transverse colonLymphocytos is (symptomatic)Lorenza phragmatic hernia without obstruction or gangrene 5 Alysha Mercado. [address], [address], [place], [id number], [place]. tel:[phone] Referring Provider: Marquita Johnson MD, [address] , [place], [address]. tel:[phone] Offic/outpt E&m New Mod-hi [facility], [address] [address], [place], [id number], [place] tel:[phone] [facility] GI Symptoms or Concerns (chief complaint) DiarrheaAbdomina l painNauseaNausea Diarrhea, unspecifiedUnspe cified abdominal pain Sep-2 5 Alysha Mercado. [facility] [address] [facility] [address], [place], [id number], [place]. tel:[phone] Referring Provider: Marquita Johnson MD, [address] , [place], [address]. tel:[phone] Offic/outpt E&m Estab Mod-hi 2 [facility], [address] [address], [place], [address], [place] tel:[phone] [facility] Abdominal burning (chief complaint) Epigastric Pain Sep-2 1 Lyndon Maharaj. [facility] [address], [address], [place], [place], [address], [place]. tel:[phone] Referring Provider: Referral Self, USE FOR SELF REFERRALS. [facility], [address] [address], [place], [place], [address], [place] tel:[phone] [facility] Colon Cancer ScreeningDiverti culosis Of Colon Apr-1 7 Lyndon Maharaj. [address], [address], [place], [place], [address], [place]. tel:[phone] Offic/outpt E&m Estab Low-mod [facility], [address] [address], [place], [address], [place] tel:[phone] [facility] Gastroesophageal Reflux Feb-0 7 Lyndon Maharaj. [address], [address], [place], [address], [place]. tel:[phone] Offic/outpt Fan daniele Leeann Arango [facility], [address] [address], [place], [address], [place] tel:[phone] [facility] Gastroesophageal Reflux 6 Lyndon Maharaj. [address], [address], [place], [id number], [place]. tel:[phone] Family History Family Member Type Diagnosis Age [...] was NULL/NULL/2013. ; Source: Other Provider Novel [id number], all formulations administered Note: [facility] bi-direct ional interface ; Source: Other Registry tetanus toxoid, reduced diphtheria toxoid, and acellular pertussis vaccine, adsorbed administered Note: [facility] bi-direct ional interface ; Source: Other Registry Payers Payer name Insurance type Covered libertarian ID Authoriza tikaryn(s) R CI [id number] Social History Type Description Quantity Date Captured [...] assessment at a Pain Clinic such as [facility] or potentially repeating her MRI. There may [...]
--- OUTSIDE RECORDS SUMMARY | 2024-09-10 14:19 | XMS_ITS | Clinical Summary ---
Author Organization [facility] Address [address] [place] [address] Care Team Providers Care Pre Algebra Teacher Name Role Phone Unavailable Primary Care Provider Unavailabl e Source Comments Patient records contain information from all sites at [facility]. For routine questions regarding patient records, call [phone] during business hours, M-F 8:00 AM - 5:00 PM Central Time. Record requests for emergency care only can be directed to [phone] at any time.[facility] Allergies Active Allergy Reactions Criticality Noted Date Comments Sulfa (Sulfonamide Antibiotics) Rash 03/2023 Medications amLODIPine (NORVASC) 5 mg tablet Take 2.5 [...] mouth daily. 60 tablet 1 4 Active Active Problems Problem Noted Date Diagnosed Date Anemia 06/28/2023 Radiculopathy Lumbar 03/25/2023 Preoperative Exam 01/28/2023 Overview (01/28/2023): Added automatically from request for surgery [id number] Spinal Stenosis Lumbosacral Region 01/28/2023 Overview (01/28/2023): Added automatically from request for surgery [id number] Spondylosis 01/28/2023 Overview (01/28/2023): Added automatically from request for surgery [id number] Apnea Sleep Obstructive 07/28/2022 Hyperlipidemia 05/13/2016 Hypertension Essential Primary 05/13/2016 Gastroesophageal Reflux Disease 05/19/2006 03/23/2023 Encounters Date Type Department Care Team Description 06/29/2024 Clinical Communication Division of Nephrology and Hypertension in [place], [place] [address] [place] [address] Porfirio Landis Jr., D.O. Add'l testing to be done for thyroid testing? 06/27/2024 9:00 AM CDT External Outreach Division of Nephrology and Hypertension in [place], [place] [address] [place] [address] Porfirio Landis Jr., D.O. Hypertension Essential Primary (Primary Dx); Apnea Sleep Obstructive from Last 3 Months Immunizations Name Administration Dates Next Due Influenza Split 07/23/2014 Family History Medical History Relation Name Comments ADD Daughter MALCOLM MARADIAGA Thyroid disease Daughter MALCOLM MARADIAGA Coronary artery disease Father Dc Ashley Deep vein thrombosis Father Dc Ashley after open heart surgery Heart Father Dc Ashley first heart pr ocedure 55-60, about 10 years later had bypass Hyperlipidemia Father Dc Espinalbellelatasha Hypertension Father Dc Ashley Leukemia Father Dc Ashley Lung cancer Father Dc Ashley Hypertension Mother ANA Ashley No Known Problems Other ADD Son CHHAYA MARADIAGA Anxiety disorder Son CHHAYA ASHWINI Coronary artery disease Son CHHAYA MARADIAGA Wid [...] drink = 0.6 oz pur e alcohol) [facility] Utilities Answer Date Recorded In the past 12 months has e [employer], oil, or water [employer] threatened to shut off services in your [...] week 12/02/2022 How often do you attend [facility] or oriental orthodox services? Never 12/02/2022 Do you belong to any clubs o r organizations such as quaker groups, unions, fraternal or athletic groups, or [...] Score 1 03/20/2024 [facility] of Occupat ional [facility] - Occupational Stress Questionnaire Answer Date [...] your living situation today? I have a [facility] to live 03/13/2024 Education Answer Date Recorded What is the highest level of school you have completed or the highest degree you have received? Bachelor's degree (e.g., BA, AB, BS) 12/02/2022 Comments No Sex and Gender Information Value Date Recorded Sex Assigned at Female 11/07/2022 8:34 AM CARD SORTER Legal Sex Female 7:53 PM CARD SORTER Gender Identity Female 11/07/2022 8:34 AM CARD SORTER Sexual Orientation Not on file Last Filed Vital Signs Vital Sign Reading Time Taken Comments Blood Pressure 132/68 06/27/2024 9:04 AM CDT Pulse 68 06/27/2024 9:04 AM CDT Temperature 36.4 C (97.5 F) 03/25/2023 11:30 AM CDT Respiratory Rate 14 03/25/2023 11:36 AM CDT [...] Colorectal Cancer Screening 07/25/2017 Lipid (Cholesterol) Screening 05/12/2021 05/12/2016, 07/21/2010 (Performed elsewhere) Pneumococcal vaccine (65+ years) (2 of 2 - PCV) 2022 06/22/2018 Fall Risk Screen (Annual) 10/18/2023 Creatinine Level (Kidney Function Test) 03/25/2024 03/25/2023, 03/23/2023, 10/28/2021, Additional history exists Potassium Level 03/25/2024 03/25/2023, 03/2023, 05/12/2016 Sodium Level 03/25/2024 03/25/2023, 060 03/2023, 05/12/2016 COVID-19 Vaccine ( season) 2024 07/28/2022, 01/06/2022, 01/31/2021, Additional history exists Influenza Vaccine (#1) 2024 , 07/21/2022, 08/13/2021, Additional history exists Office Visit for Blood Pressure Check / Re-check 06/27/2025 06/27/2024, 03/21/2024, 03/21/2024 Fasting Glucose for Diabetes Screening 03/25/2026 03/25/2023, 03/23/2023, 05/12/2016, Additional history exists DTaP,Tdap,and Td Vaccines (3 - Td or Tdap) 10/06/2033 10/06/2023, 07/25/2009, 11/01/2007 Zoster Vaccines Completed 02/25/2019, 02/2019, 06/22/2018 Cervical/Vaginal Cancer Screening Discontinued 09/12/2019, 09/12/2019, 08/16/2018, Additional history exists Bone Density Scan (Osteoporosis Screen) Discontinued 12/02/2022 Depression Screening (Annual PHQ-2) Completed 03/20/2024 IPV Vaccines Aged Out No longer eligi ble based on patient's age to complete this topic Medical Devices Implanted Type Area Chlorine Cells Operator Device Identifier Shelf Expiration Date Model / Serial / Lot Misc Other Misc Other Uterus Description:Esure cont rol Procedures Procedure Name Priority Date/Time Associated Diagnosis Comments BASIC METABOLIC PANEL, S/P Routine 03/25/2023 5:43 AM CDT LIPID PANEL, S Routine 05/12/2016 6:59 AM CDT from Last 3 Months or Most Recently Relevant to Health Maintenance Results * (ABNORMAL) Basic Metabolic Panel (03/25/2023 5:43 [...] AM CDT Ellis Calle M.D. LAB BLOOD ADD-ON Final Result [facility] [address] [place] [address], [facility] DTL [facility] [address] [place] [address] * (ABNORMAL) Lipid Panel (05/12/2016 6:59 AM CDT) Cholesterol, HDL, S 54 >=50 MG/DL [facility] Calculated LDL 142(H) SeeComment MG/DL [facility] Comment: REFERENCE VALUE Desirable: <100 Above Desirable: 100-129 Borderline high: 130-159 High: 160-189 Very high: > or =190 Cholesterol, Total 243(H) SeeComment MG/DL [facility] Comment: REFERENCE VALUE Desirable: < 200 Borderline high: 200 - 239 High: > or = 240 Triglycerides 235(H) SeeComment MG/DL [facility] Comment: REFERENCE VALUE Normal: <150 Borderline high: 150-199 High: 200-499 Very high: > or =500 Cholesterol, Non-HDL, Calculated 189(H) SeeComment MG/DL [facility] Comment: REFERENCE VALUE Desirable: <130 Above Desirable: 130-159 Borderline high: 160-189 High: 190-219 Very high: > or =220 05/12/2016 6:59 AM CDT 05/12/2016 6:59 AM CDT Arnoldo English M.D. LAB BLOOD ADD-ON Final Res ult [facility] [address] [facility] [facility] [address] [place], [place] [id number] [place] [address] from Last 3 Months or Most Recently Relevant to Health Maintenance Insurance [employer] Advance Directives For more information, please contact: [phone] * Full Code (Latest Code Status on File) Date Activated Date Inactivated Comments 03/24/2023 12:51 PM 03/25/2023 4:33 PM Question Answer Comments Full Code: Discussed
--- OUTSIDE RECORDS SUMMARY | 2024-09-10 14:19 | XMS_ITS | Encounter Summary ---
Author Organization [facility] Address [address] [place] [address] Care Team Providers Care Malted Milk Masher Name Role Phone Unavailable Primary Care Provider Unavailabl e Reason for Visit * Appointment Request (Routine) - Closed Specialty Diagnoses / Procedures Referred By Aimee kohli Referred To Contact Nephrology and Hypertension Referral ID Status Reason Start Date Expiration Date Visits Re quested Visits Authorized [id number] Closed 05/26/2024 05/26/2025 1 1 Encounter Details Date Type Department Care Team (Latest Contact Info) Description 06/27/2024 9:00 AM CDT External Outreach Division of Nephrology and Hypertension in [place], [place] [address] [place] [address] Nitesh Landis Jr., D.O. [address] [place] [address] Hypertension Essential Primary (Primary Dx); Apnea Sleep [...] How often do you attend chur or restorationism services? Never 12/02/2022 Do you [...] Answer Date Recorded PHQ-2 Score 1 03/20/2024 [facility] of Occupat ional Health - Occupational Stress [...] your living situation today? I have a [facility] place to live 03/13/2024 Education Answer Date Recorded What is the highest level of school you have completed or the highest degree you have received? Bachelor's degree (e.g., BA, AB, BS) 12/02/2022 Comments No Sex and Gender Information Value Date Recorded Sex Assigned at Female 11/07/2022 8:34 AM LIBRARIAN SCHOOL Legal Sex Female 7:53 PM [employer] Gender Identity Female 11/07/2022 8:34 AM LIBRARIAN SCHOOL Sexual Orientation Not on file documented as [...] provider on file. SUBJECTIVE REASON FOR VISIT [facility] Follow-up regards resistant [...]
--- OUTSIDE RECORDS SUMMARY | 2024-09-10 14:19 | XMS_ITS | Referral Summary ---
Author Organization [facility] Address [address] [place] [address] Care Team Providers Care Watch Crystal Cutter Name Role Phone Unavailable Primary Care Provider Unavailabl e Source Comments Patient records contain information from all sites at [facility]. For routine questions regarding patient records, call [phone] during business hours, M-F 8:00 AM - 5:00 PM Central Time. Record requests for emergency care only can be directed to [phone] at any time.[facility] Encounters Date Type Department Care Team Description 06/29/2024 Clinical Communication Division of Nephrology and Hypertension in [place], [place] [address] [place] [address] Porfirio Landis Jr. D.O. Add'l testing to be done for thyroid testing? 06/27/2024 9:00 AM CDT External Outreach Division of Nephrology and Hypertension in [place], [place] [address] [place] [address] Porfirio Landis Jr. D.O. Hypertension Essential Primary (Primary Dx); Apnea Sleep Obstructive from Last 3 Months Allergies Active Allergy [...] (01/28/2023): Added automatically from request for surgery [id number] Spinal Stenosis Lumbosacral Region 01/28/2023 Overview (01/28/2023): Added automatically from request for surgery [id number] Spondylosis 01/28/2023 Overview (01/28/2023): Added automatically from request for surgery [id number] Apnea Sleep Obstructive 07/28/2022 Hyperlipidemia 05/13/2016 Hypertension Essential Primary 05/13/2016 Gastroesophageal Reflux Disease 05/19/2006 03/23/2023 Immunizations Name Administration Dates Next Due Influenza Split 07/23/2014 Social History Tobacco Use Types Packs/Day Years Used Date Smoking Tobacco: Never Smokeless Tobacco: Never Alcohol Use Standard Drinks/Week Comments Yes 8 (1 standard drink = 0.6 oz pur e alcohol) [facility] Utilities Answer Date Recorded In the past 12 months has e I and love and you, [employer], oil, or water [employer] threatened to shut off services in your [...] week 12/02/2022 How often do you attend [facility] or gnosticism services? Never 12/02/2022 Do you belong to any clubs o r organizations such as oriental orthodox groups, unions, fraternal or athletic groups, or [...] Recorded PHQ-2 Score 1 03/20/2024 [facility] Occupational [facility] Questionnaire Answer Date [...] your living situation today? [facility] 03/13/2024 Education Answer Date Recorded What is the highest level of school you have completed or the highest degree you have received? Bachelor's degree (e.g., BA, AB, BS) 12/02/2022 Comments No Sex and Gender Information Value Date Recorded Sex Assigned at Female 11/07/2022 8:34 AM MAILING MACHINE OPERATOR Legal Sex Female 7:53 PM MAILING MACHINE OPERATOR Gender Identity Female 11/07/2022 8:34 AM MAILING MACHINE OPERATOR Sexual Orientation Not on file Last [...] on file Medical Devices Implanted Type Area Spool Tender Device Identifier Shelf Expiration Date Model / [...] Calle M.D. LAB BLOOD ADD-ON Final Result [facility] [address] [place] [address], [facility] [address] [place] [address] * (ABNORMAL) Lipid Panel (05/12/2016 6:59 AM CDT) Cholesterol, HDL, S 54 >=50 MG/DL [facility] Calculated LDL 142(H) SeeComment MG/DL [facility] Comment: REFERENCE VALUE Desirable: <100 Above Desirable: 100-129 Borderline high: 130-159 High: 160-189 Very high: > or =190 Cholesterol, Total 243(H) SeeComment MG/DL [facility] Comment: REFERENCE VALUE Desirable: < 200 Borderline high: 200 - 239 High: > or = 240 Triglycerides 235(H) SeeComment MG/DL [facility] Comment: REFERENCE VALUE Normal: <150 Borderline high: 150-199 High: 200-499 Very high: > or =500 Cholesterol, Non-HDL, Calculated 189(H) SeeComment MG/DL [facility] Comment: REFERENCE VALUE Desirable: <130 Above Desirable: 130-159 Borderline high: 160-189 High: 190-219 Very high: > or =220 05/12/2016 6:59 AM CDT 05/12/2016 6:59 AM CDT Arnoldo English M.D. LAB BLOOD ADD-ON Final Res ult [facility] [address] from Last 3 Months or Most Recently Relevant to Health Maintenance Insurance [employer] in [place] [facility] Advance Directives For more information, please contact: [phone] * Full Code (Latest Code Status on File) Date Activated Date Inactivated Comments 03/24/2023 12:51 PM 03/25/2023 4:33 PM Question Answer Comments Full Code: Discussed
--- OUTSIDE RECORDS SUMMARY | 2024-09-10 14:19 | XMS_ITS | Clinical Summary ---
Author Organization [facility] Address [place], [place] [address] Care Team Providers Care Co Supervisor Grounds And Landscape Name Role Phone Manish Freedman MD Primary [...] previous hip bursa injections by Dr. Rees [phone] approximately MRI of bilateral hips done May [...] Encounters Date Type Department Care Team Description 08/21/2024 Orders Only [facility] [address] [place] [address] Korin Kay 1 scan: (1-Ord) Nirajo Report 06/20/2024 3:00 PM CDT Procedure Only [facility] [address] [place] [id number] Rogelio Chance MD Procedure (Right L5-S1 Facet injection wit... 06/19/2024 Travel from Last 3 Months Immunizations Name [...] Name Comments Heart Disease Father CAD 1st NE 50' s Hyperlipidemia Father Other Father myelofibrosis [...] 83 05/23/2024 8:47 AM CDT Temperature 36.9 C (98.5 F) 09/07/2022 10:45 AM ARMHOLE RAISER LOCKSTITCH Respiratory Rate 14 05/11/2019 2:41 PM CDT Oxygen Saturation 100% 05/23/2024 8:47 AM CDT Inhaled Oxygen Concentration - - Weight 62.1 kg (136 lb 12.8 oz) 05/23/2024 8:47 AM CDT Height 154.9 cm (5' 1) 10/31/2020 3:37 PM ARMHOLE RAISER LOCKSTITCH Body Mass Index 25.85 10/31/2020 3:37 PM ARMHOLE RAISER LOCKSTITCH Plan of Treatment Health Maintenance Due Date [...] 12+ 03/06/2022 03/06/20, 12/29/2018 COVID-19 vaccine series ( season) 2024 08/11/2023, 07/28/2022, 01/06/2022, Additional history exists Influenza for age 65+ 06/18/2024 08/13/2021 , 07/25/2020, 09/12/2019, Additional history exists Tdap Completed 07/25/2009 Zoster (shingles) series for age 50+ Completed 02/25/2019, 01/20/2019, 06/22/2018 Procedures Procedure Name Priority Date/Time Associated Diagnosis Comments EXTENDED HOLTER Routine 08/21/2024 Palpitations AMB EPIDURAL STEROID INJECTION Routine 06/20/2024 12:00 AM CDT DDD (degenerative disc disease), lumbar Right leg pain from Last 3 Months Results * EXTENDED HOLTER (08/21/2024) Manish Freedman MD CARDIAC SERVICES ORD * AMB EPIDURAL STEROID INJECTION (06/20/2024 12:00 AM CDT) Santana Pedroza MD NEUROLOGY ORD from Last 3 Months Care Teams Co Supervisor Grounds And Landscape Relationship Specialty Start Date End Date Manish Freedman MD [address] [place] [address] PCP - General Internal Medicine 12/29/18
--- OUTSIDE RECORDS SUMMARY | 2024-09-10 14:20 | XMS_ITS | Referral Summary ---
Author Organization [facility] Address [address] [place] [id number] Care Team Providers Care Data Integrity Consultant Name Role Phone Manish Freedman MD Primary Care Provider Allergies No known active allergies Medications PRILOSEC OR None Entered Activ e hydrochlorothiazide (HYDRODIURIL) 25 MG tablet 3 5 Active LORazepam (ATIVAN) 1 MG tablet 0 5 Active ondansetron (ZOFRAN-ODT) 4 MG disintegrating tablet 0 5 Active fluticasone (FLONASE) 50 MCG/ACT nasal spray [place] 2 sprays into both nostrils daily Active atorvastatin (LIPITOR) 20 MG tablet Take 20 mg by mouth daily 3 8 Active losartan (COZAAR) 50 MG tablet Take 50 mg by mouth daily 0 8 Active amitriptyline (ELAVIL) 10 MG tablet 9 Active SHINGRIX injection ADM 0.5ML IM UTD 0 9 Active norethindrone-ethin yl estradiol (JINTELI) 1-5 MG-MCG tabletIndications:M enopause Take 1 tablet by mouth daily -due for annual exam in July 2018. 90 tablet 4 9 Active Active Problems Problem Noted Date Diagnosed Date Screening for cervical cancer Overview (09/20/2019): 2017-2452 NIL paps [phone] NIL paps 07/2017, 07/2018, 08/2019 NIL pap, Neg HPV Resolved Problems Problem Noted Date Diagnosed Date Resolved Date Lumbago 11/27/2008 12/25/2008 Immunizations Name Administration Dates Next Due Influenza (H1N1) 11/20/2009 Influenza (IIV3) PF 07/21/2009 Influenza (prior to 2023) 07/23/2014 Influenza Vaccine 18-64 (Flublok) 09/12/2019 Influenza Vaccine >6 months,quad, PF ,07/01/2017,08/06/2016,2014 Pneumococcal 23 valent 06/22/2018 TDAP Vaccine (Adacel) [...] Answer Date Recorded PHQ-2 Score 0 09/12/2019 Comments No Sex and Gender Information Value Date Recorded Sex Assigned at Not on file Legal Sex Female 3:19 AM POWDER COATER Gender Identity Not on file Sexual Orientation Not on file Last Filed Vital Signs Vital Sign Reading Time Taken Comments Blood Pressure 138/82 09/12/2019 10:47 AM POWDER COATER Pulse 78 09/12/2019 10:47 AM POWDER COATER Temperature - - Respiratory Rate - - Oxygen Saturation - - Inhaled Oxygen Concentration - - Weight 69.9 kg (154 lb) 09/12/2019 10:47 AM POWDER COATER Height 155.3 cm (5' 1.15) 09/12/2019 10:47 AM Body Mass Index 28.96 09/12/2019 10:47 AM POWDER COATER Plan of Treatment Not on file Insurance [facility] CHOICE Care Teams Data Integrity Consultant Relationship Specialty Start Date End Date Manish Freedman MD [facility] [address] [place] [address] PCP - General Emergency Medicine 08/11/17
--- OUTSIDE RECORDS SUMMARY | 2024-09-10 14:20 | XMS_ITS | Clinical Summary ---
Author Organization [facility] Address [address] [place] [address] Care Team Providers Care Railroad Car Repair Supervisor Name Role Phone Manish Freedman MD Primary Care Provider Allergies No known active allergies Medications PRILOSEC OR None Entered Activ e hydrochlorothiazide (HYDRODIURIL) 25 MG tablet 3 5 Active LORazepam (ATIVAN) 1 MG tablet 0 5 Active ondansetron (ZOFRAN-ODT) 4 MG disintegrating tablet 0 5 Active fluticasone (FLONASE) 50 MCG/ACT nasal spray [place] 2 sprays into both nostrils daily Active [...] Date Screening for cervical cancer Overview (09/20/2019): [id number] NIL paps [phone] NIL paps 07/2017, 07/2018, 08/2019 NIL pap, [...] on file Legal Sex Female 3:19 AM FREIGHT HANDLER Gender Identity Not on file Sexual Orientation Not on file Last Filed Vital Signs Vital Sign Reading Time Taken Comments Blood Pressure 138/82 09/12/2019 10:47 AM FREIGHT HANDLER Pulse 78 09/12/2019 10:47 AM FREIGHT HANDLER Temperature - - Respiratory Rate - - Oxygen Saturation - - Inhaled Oxygen Concentration - - Weight 69.9 kg (154 lb) 09/12/2019 10:47 AM FREIGHT HANDLER Height 155.3 cm (5' 1.15) 09/12/2019 10:[address] Body Mass Index 28.96 09/12/2019 10:47 AM FREIGHT HANDLER Plan of Treatment Not on file Insurance [facility] CHOICE Care Teams Railroad Car Repair Supervisor Relationship Specialty Start Date End Date Manish Freedman MD [facility] [address] [place] [address] PCP - General Emergency Medicine 08/11/17
--- OUTSIDE RECORDS SUMMARY | 2024-09-10 14:20 | XMS_ITS | Clinical Summary ---
Author Organization [facility] Address [address] [place] [address] Care Team Providers Care Ramp Service Agent Name Role Phone Dc Gonzalez MD Primary Care Provider Unava ilable Source Comments You are receiving this document as you are listed as the primary care provider,follow-up provider, or the patient has been referred to you for consultation.This is in compliance with the Medicare and[facility] E[facility] Incentive Program,which states Providers who transition their patient to another setting of careor provider of care or refers their patient to another provider of care shouldprovide summary care record for each transition of care or referral. [facility] [employer] Allergies Active Allergy Reactions Criticality Noted Date [...] - PCV) 2022 COVID-19 Vaccine (1 - 2023-2 5 season) 2024 Influenza (#1) 2024 RSV (1 - 1-dose 75+ series) 01/04/2032 HepA Aged Out No longer eligi ble based on patient's age to complete this topic HepB Aged Out No longer eligi ble based on patient's age to complete this topic Hib Aged Out No longer eligi ble based on patient's age to complete this topic IPV (Polio) Aged Out No longer eligi ble based on patient's age to complete this topic RSV Aged Out No longer eligi ble based on patient's age to complete this topic MCV4 Aged Out No longer eligi ble based on patient's age to complete this topic Care Teams Ramp Service Agent Relationship Specialty Start Date End Date Dc Gonzalez MD PCP - General 01/17/11
--- OUTSIDE RECORDS SUMMARY | 2024-09-10 14:20 | XMS_ITS | Encounter Summary ---
Author Organization [facility] Address [address] [place] [address] Care Team Providers Care Site Supervisor Name Role Phone Unavailable Primary Care Provider Unavailabl e Encounter Details Date Type Department Care Team (Late st Contact Info) Description 05/29/2024 Clinical Communication Department of Orthopedic Surgery in [place], [place] [address] [place] [address] Panfilo Reyes M.D., M.S. [address] [place] [phone] Social History Tobacco Use Types Packs/Day Years Used Date Smoking Tobacco: Never Smokeless Tobacco: Never Alcohol Use Standard Drinks/Week Comments Yes 8 (1 standard drink = 0.6 oz pur e alcohol) [facility] Utilities Answer Date Recorded In the past 12 months has e electric, gas, oil, or water [employer] threatened to shut off services in [...] often do you attend chur ch or jain services? Never 12/02/2022 Do you belong to any clubs o r organizations such as worship groups, unions, fraternal or athletic groups, or [...] Date Recorded PHQ-2 Score 1 03/20/2024 [facility] Answer Date [...] your living situation today? [facility] 03/13/2024 Education Answer Date Recorded What is the highest level of school you have completed or the highest degree you have received? Bachelor's degree (e.g., BA, AB, BS) 12/02/2022 Comments No Sex and Gender Information Value Date Recorded Sex Assigned at Female 11/07/2022 8:34 AM NAPHTHOL SOAPING MACHINE OPERATOR Legal Sex Female 7:53 PM NAPHTHOL SOAPING MACHINE OPERATOR Gender Identity Female 11/07/2022 8:34 AM NAPHTHOL SOAPING MACHINE OPERATOR Sexual Orientation Not on file documented as of this encounter Plan of Treatment Not on file documented as of this encounter Visit Diagnoses Not on filedocumented in this encounter
== END 2024-09-08 10:16 | disposition home or self-care (01) ==
PROVIDERS: PCP Internal Medicine; Referring Provider Internal Medicine; Visit Provider Internal Medicine
DX: R76.8 Other specified abnormal immunological findings in serum (principal)
CPT/HCPCS: 86705; 87340

== ENCOUNTER 2024-12-28 10:00 | Outpatient (CLI) | payer BC, SELFPAY | END 2024-12-28 10:01 | disposition home or self-care (01) | LOC: NFLDREF 01-01 01:32 | PROVIDERS: PCP Internal Medicine; Referring Provider Internal Medicine; Visit Provider Internal Medicine Nephrology | DX: I10 Essential (primary) hypertension (principal); E78.5 Hyperlipidemia, unspecified; D64.9 Anemia, unspecified; R53.83 Other fatigue | CPT/HCPCS: 80061; 80069; 82043; 82570; 82728; 83540; 83550; 83970; 84450; 84460; 84550 ==

== ENCOUNTER 2024-12-28 10:06 | Outpatient (CLI) | payer BC, SELFPAY ==
--- NOTE | 2024-12-28 10:15 | CRLHL7_ITS ---
For Patients: As a result of the Century Cures Act, medical imaging exams and procedure reports are released immediately into your electronic medical record. You may view this report before your referring provider. If you have questions, please contact your health care provider. INDICATION: Lumbar facet joint synovial cyst. TECHNIQUE : Lumbar spine MRI without contrast. COMPARISON: Lumbar spine MRI from 04/17/2024. FINDINGS : Five lumbar type vertebral bodies, with the last fully formed disc space designated as L5-S1. Normal lumbar lordotic curve. Mild levoconvex lumbar curve. Slight leftward lateral listhesis of L3 on L4. No recent compression fracture or marrow replacing process. Lower cord/conus signal is normal. The conus terminates at a normal location. No intradural lesion. No extraspinal soft tissue abnormalities. Postop changes bilateral laminectomies at L3-4, L4-5, and L5-S1. The spinal canal is well decompressed dorsally at the operative levels. Discs/Endplates: Advanced disc height loss, disc desiccation and endplate remodeling at L3-4 on the right, L4-5 on the left, and L5-S1. Disc desiccation L1-2 and L2-3. Exuberant type 1 Modic changes involving the endplates at L3-4 on the right, L4-5, and L5-S1. Findings at individual levels as follows: Imaged lower thoracic levels and L1-2: No spinal canal or neural foraminal stenosis. L2-3: Mild disc bulge. No spinal canal or neural foraminal stenosis. L3-4: Postop changes. The spinal canal is well decompressed dorsally. Moderate disc bulge with overlying osteophytic ridging, asymmetric to the right. Contact of the traversing right L4 nerve root. Bilateral facet arthrosis. Mild left and [id number] right foraminal stenosis. L4-5: Postop changes. The spinal canal is decompressed dorsally. 4 millimeters grade 1 anterolisthesis. Moderate disc bulge with overlying osteophytic ridging, asymmetric to the left. Bilateral facet arthrosis. Mild left neural foraminal stenosis. No right neural foraminal stenosis or spinal canal stenosis. L5-S1: Moderate disc bulge with overlying osteophytic ridging, asymmetric to the right. Right-sided facet arthrosis. Mild bilateral neural foraminal stenosis. No spinal canal stenosis. Imaged SI joints: Minimal arthrosis. Imaged sacrum: Within normal limits. IMPRESSION: 1. No acute fracture or marrow replacing process. 2. Postop changes of laminectomies at L3 through S1. The spinal canal is well decompressed dorsally at the operative levels. 3. Multilevel lumbar spondylosis without high-grade spinal canal/neural foraminal stenosis or compression of neural structures. Not significantly progressed compared to prior exam. 4. Advanced disc degeneration L3-4, L4-5 and L5-S1 with associated type 1 Modic change. Stable since prior MRI. Dictated by Nicko Honeycutt MD @ 12/29/2024 10:36:53 AM (Electronically Signed)
== END 2024-12-28 10:07 | disposition home or self-care (01) ==
PROVIDERS: PCP Internal Medicine; Visit Provider Family Medicine
DX: M71.38 Other bursal cyst, other site (principal); M47.896 Other spondylosis, lumbar region; M51.369 Other intervertebral disc degeneration, lumbar region without mention of lumbar back pain or lower extremity pain; M51.379 Other intervertebral disc degeneration, lumbosacral region without mention of lumbar back pain or lower extremity pain; M54.41 Lumbago with sciatica, right side; M54.16 Radiculopathy, lumbar region; Z98.890 Other specified postprocedural states
CPT/HCPCS: 72148; 80061; 80069; 82043; 82570; 82728; 83540; 83550; 83970; 84450; 84460; 84550

== ENCOUNTER 2025-01-04 13:45 | Outpatient (CLI) | payer BC, SELFPAY ==
--- NOTE | 2025-01-04 14:00 | CRLHL7_ITS ---
For Patients: As a result of the Century Cures Act, medical imaging exams and procedure reports are released immediately into your electronic medical record. You may view this report before your referring provider. If you have questions, please contact your health care provider. BILATERAL SCREENING MAMMOGRAM WITH COMPUTER-AIDED DETECTION AND TOMOSYNTHESIS TECHNIQUE: CC and MLO views were obtained. These mammographic images have been obtained using full-field digital technique. These mammographic images were interpreted with the benefit of computer-aided detection. Breast Tomosynthesis was used in this interpretation. COMPARISON FILM: 12/29/23, 11/27/22, 10/31/21. FINDINGS: There are scattered areas of fibroglandular density. IMPRESSION: There is no radiographic evidence for malignancy. ASSESSMENT: BI-RADS Category 2: Benign RECOMMENDATION: Routine screening mammogram in 1 year. A lay language report of this examination will be provided to the patient. Mart Lira M.D. Diagnostic Radiologist [email or web address] SP/Dictated by: Mart Lira MD @ 01/05/2025 12:40:00 PM (Electronically Signed)
--- NOTE | 2025-01-04 14:30 | CRLHL7_ITS ---
For Patients: As a result of the Century Cures Act, medical imaging exams and procedure reports are released immediately into your electronic medical record. You may view this report before your referring provider. If you have questions, please contact your health care provider. XR DXA Bone Mineral Density (BMD) Reason for exam: Specified disorders of bone density. Current height (in): 61. Weight (lb): 136. Menopause age: 54. Ethnicity: White. 1. Have you had a previous hip or vertebral fracture? No. 2. Have you had any fractures during your adult life which did not result from significant trauma (e.g., auto accident)? No. 3. Did either of your parents have a hip fracture? No. 4. Do you smoke? No. 5. Have you ever taken Glucocorticoids? No. 6. Do you have rheumatoid arthritis? No. 7. Do you have secondary osteoporosis? No. 8. Do you drink 3 or more alcoholic drinks per day? No. 9. Are you being treated for osteoporosis? No. 10. Have you ever taken any of the following medications: Actonel, Evista, Fosamax, Miacalcin, Reclast, Boniva, Forteo, HRT (i.e., estrogen/hormone therapy), Protelos, Prolia, Vitamin D, Calcium, other ??? please specify. ANSWER: Yes, HRT (i.e., estrogen/hormone therapy). 11. Do you have any of the following medical conditions: Anorexia or bulimia, asthma or emphysema, end stage renal disease, hyperparathyroidism, any seizure disorders, cancer, inflammatory bowel diseases, hysterectomy, other ??? please specify. ANSWER: No. 12. What was your maximum height (inches)? 62. 13. Do you perform weight bearing exercise regularly? Yes. 14. Do you regularly consume dairy products? Yes. 15. Do you drink caffeinated beverages? Yes. 16. At what age did your period start? 15. 17. Are you premenopausal? No. 18. How many full-term pregnancies have you had? 2. 19. Have you ever missed your period for more than 6 months in a row (not including or menopause)? No. TECHNIQUE: Bone mineral density study was performed using the [employer]. FINDINGS: The results of the study expressed as bone mineral density (BMD) are as follows: Lumbar spine L1 to L4: BMD: 0.997 g/cm2. T-score: -0.5. Z-score: 1.5 Neck Left: BMD: 0.758 g/cm2. T-score: -0.8. Z-score: 0.9 Right: BMD: 0.731 g/cm2. T-score: -1.1. Z-score: 0.6 Total Left: BMD: 0.925 g/cm2. T-score: -0.1. Z-score: 1.2 Right: BMD: 0.935 g/cm2. T-score: -0.1. Z-score: 1.3 IMPRESSION: Osteopenia. *Comparison exams done prior to 03/2020 were performed on different unit, [facility]. FRAX 10-year Fracture Risk Major Osteoporotic Fracture: 8.8% Hip Fracture: 0.8% Reported Risk Factors: [place] () Neck BMD=0.731, BMI=25.7 Mart Lira M.D. Diagnostic Radiologist [email or web address]/Dictated by: Mart Lira MD @ 01/05/2025 9:17:00 AM (Electronically Signed)
== END 2025-01-04 13:46 | disposition home or self-care (01) ==
LOC: MAMMO 13:45
PROVIDERS: PCP Internal Medicine; Visit Provider Internal Medicine
DX: Z12.31 Encounter for screening mammogram for malignant neoplasm of breast (principal); M85.89 Other specified disorders of bone density and structure, multiple sites
CPT/HCPCS: 77063; 77067; 77080

== ENCOUNTER 2025-01-16 07:26 | Outpatient (CLI) | payer BC, SELFPAY | END 2025-01-16 07:27 | disposition home or self-care (01) | LOC: INJ CL 07:26 | PROVIDERS: PCP Internal Medicine; Visit Provider Family Medicine | DX: M47.816 Spondylosis without myelopathy or radiculopathy, lumbar region (principal) | CPT/HCPCS: 64493; J0702; J2250; J3010; Q9966 ==

== ENCOUNTER 2025-01-24 10:21 | Outpatient (CLI) | payer BC, SELFPAY | END 2025-01-24 10:22 | disposition home or self-care (01) | PROVIDERS: PCP Internal Medicine; Visit Provider Internal Medicine | DX: Z11.59 Encounter for screening for other viral diseases (principal) | CPT/HCPCS: 86765 ==

== ENCOUNTER 2025-03-08 13:29 | Outpatient (CLI) | payer BC, SELFPAY | END 2025-03-08 13:30 | disposition home or self-care (01) | LOC: NFLDREF 13:30 | PROVIDERS: PCP Internal Medicine; Visit Provider Internal Medicine | DX: R53.1 Weakness (principal) | CPT/HCPCS: 80053 ==

== ENCOUNTER 2025-03-30 09:49 | Outpatient (CLI) | payer BC, SELFPAY ==
--- NOTE | 2025-03-30 10:00 | CRLHL7_ITS ---
For Patients: As a result of the Century Cures Act, medical imaging exams and procedure reports are released immediately into your electronic medical record. You may view this report before your referring provider. If you have questions, please contact your health care provider. INDICATION: Dizziness. Weakness TECHNIQUE: Noncontrast axial CT of the head is submitted. COMPARISON: Compared to prior study from April 22, 2021 FINDINGS: The ventricles, sulci and gyri are of normal size, shape and contour for age. Midline structures are centrally located. No convincing evidence of suspicious intra- or extra-axial fluid collections. Mild patchy regions of decreased attenuation within the periventricular and subcortical white matter of both cerebral hemispheres. IMPRESSION: 1. No radiographic evidence of acute intracranial abnormalities. 2. Mild supratentorial white matter changes that are non-specific, but statistically most likely related to chronic small vessel ischemic disease. Please note that all CT scans at this facility use dose modulation, iterative reconstruction, and/or weight-based dosing when appropriate to reduce radiation dose to as low as reasonably achievable. Dictated by Uriel Soni MD @ 03/30/2025 1:34:56 PM (Electronically Signed)
== END 2025-03-30 09:50 | disposition home or self-care (01) ==
LOC: CT 09:50
PROVIDERS: PCP Internal Medicine; Visit Provider Internal Medicine
DX: R53.1 Weakness (principal); I67.82 Cerebral ischemia
CPT/HCPCS: 70450

== ENCOUNTER 2025-06-19 14:59 | Outpatient (CLI) | payer BC, SELFPAY | END 2025-06-19 15:00 | disposition home or self-care (01) | LOC: NFLDREF 06-21 06:57 | PROVIDERS: PCP Internal Medicine; Referring Provider Internal Medicine; Visit Provider Internal Medicine Nephrology | DX: I10 Essential (primary) hypertension (principal); E78.5 Hyperlipidemia, unspecified; R82.90 Unspecified abnormal findings in urine | CPT/HCPCS: 80061; 80069; 82043; 82570; 84443; 84550; 87086 ==